=== PATIENT | male | born 1950 | race African-American/Black ===

== ENCOUNTER 2018-05-18 15:12 | Inpatient (IN) | payer MEDICARE, OTHER ==
[~2018-05-18] VITALS: Ht 175.3 cm; Wt 67.3 kg
[2018-05-18] MEDS ORDERED: DEXTROSE 50% 25 GM / 50ML DISP.SYRIN. IV ONE ×2 (15:20→15:30)
[2018-05-18] MEDS ORDERED: GLUCAGON,HUMAN RECOMBINANT 1 MG/ML VIAL. ONE (15:20)
[2018-05-18 15:29] LABS: BASE EXCESS ABG 3 mmol/L (-3-3); HCO3 ABG 29 mmol/L (21-28); PCO2 ABG 49 mmHg (35-46); PO2 ABG 373 mmHg (65-108); SAT O2 ABG 99 % (92-99)
[2018-05-18 15:30] LABS: FIO2 ABG 100
[2018-05-18 15:55] LABS: BILIRUBIN,URINE NEGATIVE (NEG); CLARITY,URINE CLEAR; COLOR,URINE YELLOW; NITRITE,URINE NEGATIVE (NEG); PROTEIN,URINE >=300 mg/dL (NEG-TRACE); UROBILINOGEN,URINE 0.2 mg/dL (0.2 mg/dL)
--- NOTE | 2018-05-18 16:05 | RAD ---
PORTABLE CHEST 1V Clinical indications: Shortness of breath, altered mental status. COMPARISON: June 14, 2004. Findings: No acute lung infiltrate or pleural effusion or pulmonary edema or lung mass or pneumothorax is seen. Old granulomatous disease is evident. The heart size, pulmonary vasculature, mediastinum and both mary jo are stable. Impression: No acute radiographic abnormality is seen. Electronically signed by: Ross Lester MD (05/18/2018 4:03 PM) [facility] [place]
[2018-05-18 16:07] LABS: PROTHROMBIN TIME PATIENT 12.2 SEC (11.7-14.0)
[2018-05-18 16:08] LABS: RBC,URINE RARE /HPF (0-2)
[2018-05-18 16:09] LABS: BACTERIA,URINE 0 /HPF (0-FEW); HYALINE CASTS, URINE MODERATE /HPF; SQUAMOUS EPITHELIAL CELL,UR FEW /LPF; WBC,URINE RARE /HPF (0-4)
[2018-05-18 16:12] LABS: ALBUMIN/GLOBULIN RATIO 0.3 (1.0-1.7); CALCIUM 8.2 mg/dL (8.5-10.1); CREATININE 1.1 mg/dL (0.7-1.3); GFR 81.3; POTASSIUM 4.6 mmol/L (3.5-5.1); TOTAL BILIRUBIN 0.1 mg/dL (0.2-1.0); TOTAL PROTEIN 4.6 g/dL (6.4-8.2)
--- NOTE | 2018-05-18 16:12 | PHYS DOC ---
Adult General Chief Complaint Chief Complaint: ALTERED MENTAL STATUS HPI HPI Patient is a 67 year old male brought in by ambulance with altered mental status apparently was last seen normal around 1:00 and 138 lunch at baseline he is aphasic but he does push himself around in a wheelchair, he does have a history of a prior stroke he is wheelchair bound The found him unresponsive in his bed at 1415, a was found to have a room air sats in the 70s blood sugar was 68. [facility] told medics that this is what happens this is how it looks when he is fluid overloaded in the past. History limited by the patient's mental status. Review of Systems Review of Systems Constitutional: Denies fever or chills [] Eyes: Denies change in visual acuity, redness, or eye pain [] HENT: Denies nasal congestion or sore throat [] Respiratory: Denies cough or shortness of breath [] Cardiovascular: No additional information not addressed in HPI [] GI: Denies abdominal pain, nausea, vomiting, bloody stools or diarrhea [] : Denies dysuria or hematuria [] Musculoskeletal: Denies back pain or joint pain [] Integument: Denies rash or skin lesions [] Neurologic: Denies headache, focal weakness or sensory changes [] Endocrine: Denies polyuria or polydipsia [] All other systems were reviewed and found to be within normal limits, except as documented in this note. Current Medications Current Medications Current Medications Medications (Trade) Dose Ordered Sig/Inocencia Start Time Stop Time Status Last Admin Dose Admin Dextrose (Dextrose 50%-Water Syringe) 25 gm 1X ONCE 05/18/18 15:30 05/18/18 15:31 DC 05/18/18 15:26 25 GM Dextrose/Sodium Chloride 1,000 ml @ 75 mls/hr 1X ONCE 05/18/18 16:30 05/19/18 05:49 05/18/18 16:16 75 MLS/HR Fosphenytoin Sodium (Cerebyx) 100 mg 1X ONCE 05/18/18 17:00 05/18/18 17:01 DC Fosphenytoin Sodium 100 mg/ Sodium Chloride 52 ml @ 208 mls/hr 1X ONCE 05/18/18 16:45 05/18/18 16:59 UNV Glucagon (Glucagen) 1 mg STK-MED ONCE 05/18/18 15:20 05/18/18 15:21 DC Allergies Allergies Allergies Coded Allergies Type Severity Reaction Last Updated Verified No Known Drug Allergies 05/18/18 No Physical Exam Physical Exam Constitutional: Well developed, chronically ill appearing HENT: Normocephalic, atraumatic, bilateral external ears normal, oropharynx moist, no oral exudates, nose normal. [] Eyes: PERRLA, EOMI, conjunctiva normal, no discharge. [] Neck: Normal range of motion, no tenderness, supple, no stridor. [] Cardiovascular:Heart rate regular rhythm,2/6 murmur [] Lungs & Thorax: coarse b/l breath sounds Abdomen: Bowel sounds normal, soft, no tenderness, no masses, no pulsatile masses. [] Skin: Warm, dry, no erythema, no rash. [] Back: No tenderness, no CVA tenderness. [] Extremities: No tenderness, no cyanosis, no clubbing, ROM intact,sig edema b/l Neurologic:eyes open to voice, moans in response to questions, can mumble name at times, perrl 3 mm b/l pt has contractures upper extremities but pulls with very equal strenght b/l when we try to resist him or manipulate his arms. Psychologic: moaningl. [] Current Patient Data Vital Signs Vital Signs Date Time Temp Pulse Resp B/P (MAP) Pulse Ox O2 Delivery O2 Flow Rate FiO2 05/18/18 15:12 99.5 72 20 155/62 (93) 99 NonRebreather Mask 15.0 99.5 Lab Values Laboratory Tests Test 05/18/18 15:24 05/18/18 15:25 05/18/18 15:45 05/18/18 15:48 O2 Saturation 99 % (92-99) Arterial Blood pH 7.39 (7.35-7.45) Arterial Blood pCO2 at Patient Temp 49 mmHg (35-46) H Arterial Blood pO2 at Patient Temp 373 mmHg (65-108) H Arterial Blood HCO3 29 mmol/L (21-28) H Arterial Blood Base Excess 3 mmol/L (-3-3) FiO2 100 Sodium Level 138 mmol/L (136-145) Potassium Level 4.6 mmol/L (3.5-5.1) Chloride Level 102 mmol/L (98-107) Carbon Dioxide Level 31 mmol/L (21-32) Anion Gap 5 (6-14) L Blood Urea Nitrogen 18 mg/dL (8-26) Creatinine 1.1 mg/dL (0.7-1.3) Estimated GFR (Cockcroft-Gault) 81.3 BUN/Creatinine Ratio 16 (6-20) Glucose Level 44 mg/dL (70-99) L Lactic Acid Level 1.7 mmol/L (0.4-2.0) Calcium Level 8.2 mg/dL (8.5-10.1) L Total Bilirubin 0.1 mg/dL (0.2-1.0) L Aspartate Amino Transferase (AST) 76 U/L (15-37) H Alanine Aminotransferase (ALT) 55 U/L (16-63) Alkaline Phosphatase 376 U/L (46-116) H Troponin I Quantitative < 0.017 ng/mL (0.000-0.055) HZ-Ayu-S-Type Natriuretic Peptide 372 pg/mL (0-124) H Total Protein 4.6 g/dL (6.4-8.2) L Albumin 1.0 g/dL (3.4-5.0) L Albumin/Globulin Ratio 0.3 (1.0-1.7) L Procalcitonin < 0.10 ng/mL (0.00-0.10) Phenytoin (Dilantin) Level 8.4 mcg/mL (10.0-20.0) L Phenytoin Last Dose Date Unk Phenytoin Last Dose Time Unk Urine Collection Type U cath Urine Color Yellow Urine Clarity Clear Urine pH 6.0 Urine Specific [place] 1.010 Urine Protein >=300 mg/dL (NEG-TRACE) Urine Glucose (UA) 100 mg/dL (NEG) Urine Ketones (Stick) Negative mg/dL (NEG) Urine Blood Negative (NEG) Urine Nitrite Negative (NEG) Urine Bilirubin Negative (NEG) Urine Urobilinogen Dipstick 0.2 mg/dL (0.2 mg/dL) Urine Leukocyte Esterase Negative (NEG) Urine RBC Rare /HPF (0-2) Urine WBC Rare /HPF (0-4) Urine Squamous Epithelial Cells Few /LPF Urine Transitional Epithelial Cells Occ /LPF Urine Bacteria 0 /HPF (0-FEW) Urine Hyaline Casts Moderate /HPF Urine Mucus Mod /LPF Glucose (Fingerstick) 156 mg/dL (70-99) H Test 05/18/18 15:50 05/18/18 16:13 Prothrombin Time 12.2 SEC (11.7-14.0) Prothrombin Time INR 0.9 (0.8-1.1) Glucose (Fingerstick) 87 mg/dL (70-99) Laboratory Tests 05/18/18 15:25 EKG EKG Sinus rhythm could be afIB BUT looks regular rate of 73 no acute ischemic changes noted interpreted by me time of encounter[] Radiology/Procedures Radiology/Procedures Findings: No acute lung infiltrate or pleural effusion or pulmonary edema or lung mass or pneumothorax is seen. Old granulomatous disease is evident. The heart size, pulmonary vasculature, mediastinum and both mary jo are stable. Impression: No acute radiographic abnormality is seen. Electronically signed by: Amandeep Lester MD (05/18/2018 4:03 PM) [facility] [place] DICTATED and SIGNED BY: AMANDEEP LESTER MD DATE: 05/18/18 1603 [] IMPRESSION: 1. Prominent appearing ventricles, correlate for normal pressure hydrocephalus. Otherwise, No acute intracranial findings. Electronically signed by: Vimal Leach MD (05/18/2018 4:49 PM) [facility] Course & Med Decision Making Course & Med Decision Making Critical care time was 35 minutes exclusive of procedures.Pertinent Labs and Imaging studies reviewed. (See chart for details) This is a 67-year-old male [facility] with altered mental status on arrival to the emergency room we did note that the blood sugar was 68 for the paramedics they did not have a line they did not give glucagon and so we checked the blood sugar again it was 40 we get a stat EJ , we gave an amp of D50 the patient became more alert he was still mildly altered but he was opening his eyes to voice he was resisting the changing that the nurses were doing with all 3 of his extremities he is status post amputation of the left lower extremity. At baseline his aphasia and he had the same here in the ER pupils were 3 mm and reactive bilaterally narcotics are not on his medication list Interpretation of blood gas showed adequate oxygenation on a facemask so we are moving her back down to a nasal cannula pH was 7.39 with a PCO2 of 48 and not suggestive of acidosis. Patient is also on Dilantin WILL GET DILANTIN LEVEL, post ictal is possibiilty as well. stroke seems less likely, difficult to say with cdrtainty but pt is resisting us in all four extremities has aphasia at baseline, given glucose 40 to cause global encephalopathy this seems much more likely. ON RE-EVAL 1640, PT AWAKE TO VOICE, SNORING BUT AROUSABLE DOES HAVE GOOD RESISTING STRENGTH IN ALL EXTREMITIES THAT ARE TESTABLE, MOVING RIGHT LEG SPONTANEOUSLY. NIHSS IS DIFFICULT DUE TO BASELINE DEFICITS BUT GIVEN HIS BASELINE DEFICIT AND GLOBAL ENCEPHALOPATHY FROM HYPOGLYCEMIA UNLIKELY NEW ACUTE PROCESS. D/W UZIEL WILL ADMIT TO [facility] FOR FRUTHER OBSERVATION AND TREATMENT. Dragon Disclaimer Dragon Disclaimer This electronic medical record was generated, in whole or in part, using a voice recognition dictation system. Departure Departure Impression: Primary Impression: Hypoglycemia Additional Impression: Altered mental status Disposition: ADMITTED INPATIENT Admitting Physician: Taylor Wilks Condition: STABLE Referrals: JARRETT SALGUERO MD (PCP) NIHSS Stroke Scale NIH Stroke Scale: NIH Stroke Scale Response (Comments) Value Level of Consciousness: 1 Not alert/arousable 1 LOC Questions: 2 Answers neither correct 2 LOC Commands: 2 Perform neither task 2 Best Gaze: 0 Normal 0 Visual: 0 No visual loss 0 Facial Palsy: 0 Normal, symmetrical 0 Motor - Left Arm 0 No drift 0 Motor - Right Arm 0 No drift 0 Motor - Left Leg 5 Amputation 0 Motor: Right Leg 0 No drift 0 Limb Ataxia: 0 Absent 0 Sensory: 0 No loss 0 Best Language: 2 Severe aphasia 2 Dysathria: 2 Severe 2 Extinction and Inattention: 0 Normal (most of the above findings appear to be his baserline. complicated by hypoglycemia and ams, but improved on re-eval.) 0 Total 9 Problem Qualifiers SILVIA SANCHEZ MD May 18, 2018 16:12
[2018-05-18 16:24] LABS: PHENY 8.4 mcg/mL (10.0-20.0)
[2018-05-18] MEDS ORDERED: IV DEXTROSE 5% - 0.9 % NACL 1,000 ML IV ONE (16:30)
[2018-05-18] MEDS ORDERED: FOSPHENYTOIN IV ONE (16:45)
[2018-05-18] MEDS ORDERED: NORMAL SALINE IV ONE (16:45)
--- NOTE | 2018-05-18 16:52 | RAD ---
CT HEAD INDICATION: altered mental status COMPARISON: None Available. Exposure: One or more of the following individualized dose reduction techniques were utilized for this examination: 1. Automated exposure control 2. Adjustment of the mA and/or kV according to patient size 3. Use of iterative reconstruction technique TECHNIQUE: 5 mm contiguous axial images were obtained from the skull base to the vertex in both bone and soft tissue algorithm. FINDINGS: Mild bilateral periventricular white matter hypodensities likely chronic small vessel ischemic disease. No evidence of acute intracranial hemorrhage. No extra-axial fluid collections. No mass effect or midline shift. Prominent appearing ventricles. Basal cisterns are patent. No fractures identified.Veliz-white differentiation is preserved.Globes and orbits are within normal limits. Paranasal sinuses and mastoid air cells are clear. IMPRESSION: 1. Prominent appearing ventricles, correlate for normal pressure hydrocephalus. Otherwise, No acute intracranial findings. Electronically signed by: Vimal Leach MD (05/18/2018 4:49 PM) [facility]
[2018-05-18] MEDS ORDERED: FOSPHENYTOIN 100 MG/2 ML VIAL. IV ONE (17:00)
[2018-05-18 17:46] LABS: BASO # 0.1 x10^3/uL (0.0-0.2); BASO % 1 % (0-3); EOS % 0 % (0-3); HEMATOCRIT 29.6 % (39.0-53.0); LYMPH # 1.6 x10^3/uL (1.0-4.8); LYMPH % 20 % (24-48); MEAN CORPUSCULAR HEMOGLOBIN 32 pg (25-35); MEAN CORPUSCULAR HGB CONC 34 g/dL (31-37); MEAN CORPUSCULAR VOLUME 95 fL (79-100); MONO # 0.7 x10^3/uL (0.0-1.1); MONO % 8 % (0-9); NEUT # 5.7 x10^3uL (1.8-7.7); NEUT % 71 % (31-73); PLATELET COUNT 223 x10^3/uL (140-400); RED BLOOD COUNT 3.12 x10^6/uL (4.30-5.70); RED CELL DISTRIBUTION WIDTH 14.6 % (11.5-14.5); WHITE BLOOD COUNT 8.1 x10^3/uL (4.0-11.0)
[2018-05-18 18:00] VITALS: BP 149/71
[2018-05-18] MEDS ORDERED: ACETAMINOPHEN 650 MG SUPP.RECT. PR PRN (18:30)
[2018-05-18] MEDS ORDERED: PIP/TAZO PER PHARMACY MC PRN (19:00)
--- NOTE | 2018-05-18 19:05 | NUR ---
PATIENT BROUGHT TO ROOM 205 PER JOSE ANGEL BY ER PERSONNEL. PATIENT UNRESPONSIVE TO COMMANDS. PATIENT GRIMACES TO STERNAL RUB. PATIENT ASSESSED AT THIS TIME AND VITALS ARE STABLE PATIENTS BLOOD GLUCOSE IS 91 AT THIS TIME. WILL CONTINUE TO MONITOR PATIENT.
[2018-05-18] MEDS: VANCOMYCIN PER PHARMACY MC PRN (19:17)
--- NOTE | 2018-05-18 19:18 | NUR ---
Pharmacy Vancomycin Dosing Note S:Consulted to monitor and dose vancomycin started 05/18/18. O:SONIA NIEVES is a 67 year old M with Empiric FEVER . Height: 5 feet, 9 inches Weight: 72.410143 kg [place] Body Weight: 70.70 Adjusted Body Weight: 71.22 Dosing Weight: Actual Other Antibiotics: ZOSYN LABS: Last BUN: 18 Last Creatinine: 1.1 Creatinine Clearance: 67 mL/min Last WBC: 8.1 Last Procalcitonin: <0.10 Tmax (past 24 hours): 101.1 Microbiology: I/O: Drug Levels: Last level: on at Last dose given 05/18/18 at 1913 Vancomycin Dosing: Loading Dose: 1750 mg x1 Dosing Weight: Actual Target Trough: 10-20 A: Based on: Body weight and renal function P: 1. After loading dose, start Vancomycin 1000 mg IV q12h 2. Follow up Trough level on 05/20/18 at 0630 3. Pharmacy will continue to monitor, follow and adjust therapy as needed. EDI CONTRERAS RPH, 05/18/18 [id number]
[2018-05-18] MEDS ORDERED: VANCOMYCIN 1.75 GM in IV NORMAL SALINE 500ML BAG 500 ML IV ONE (19:30)
[2018-05-18 19:41] VITALS: BP 152/64
[2018-05-18] MEDS: DEXTROSE 50% 25 GM / 50ML DISP.SYRIN. IV PRN (20:05)
[2018-05-18] MEDS: PIPERACILLIN/TAZOBACTAM 3.375 GM in IV NORMAL SALINE 50ML 50 ML IV SCH (21:23)
[2018-05-18 23:04] VITALS: BP 163/65
[2018-05-19] MEDS: PIPERACILLIN/TAZOBACTAM 3.375 GM in IV NORMAL SALINE 50ML 50 ML IV SCH ×4 (00:43→17:04)
[2018-05-19] MEDS: DEXTROSE 50% 25 GM / 50ML DISP.SYRIN. IV PRN (03:03)
[2018-05-19 03:25] VITALS: BP 163/77
[2018-05-19 04:06] LABS: ALBUMIN 0.8 g/dL (3.4-5.0); ALBUMIN/GLOBULIN RATIO 0.2 (1.0-1.7); CALCIUM 7.6 mg/dL (8.5-10.1); CREATININE 1.2 mg/dL (0.7-1.3); GFR 73.5; POTASSIUM 4.5 mmol/L (3.5-5.1); TOTAL BILIRUBIN 0.1 mg/dL (0.2-1.0); TOTAL PROTEIN 4.5 g/dL (6.4-8.2)
[2018-05-19] MEDS: VANCOMYCIN 1 GM in IV NORMAL SALINE 250ML 250 ML IV SCH ×2 (07:07→18:28)
[2018-05-19 07:27] VITALS: BP 146/66
--- NOTE | 2018-05-19 08:38 | EKG ---
[facility] [address] [place] [address] Test Date: 2018-05-18 Test Time: 15:30:26 Pat Name: SONIA NIEVES Department: Room: 205 1 Gender: Male [employer] Professional: : 1950 Requested By: SILVIA SANCHEZ Order Number: [id number] Reading MD: Michael Umana MD Measurements Intervals [place] Rate: 73 P: ND: QRS: 42 QRSD: 92 T: 47 QT: 358 QTc: 398 Interpretive Statements PROBABLE SR BASELINE ARTIFACT NON-SPECIFIC ST/T CHANGES Electronically Signed On 05-21-2018 15:16:18 CDT by Michael Umana MD
--- NOTE | 2018-05-19 09:30 | NUR ---
UNABLE TO REACH FAMILY FOR CONSENT FOR PICC LINE PLACEMENT. DEEMED MEDICALLY NECESSARY FOR PICC LINE BY DR TRIPLETT.
[2018-05-19] MEDS ORDERED: IV DEXTROSE 5% - 0.9 % NACL 1,000 ML IV SCH (10:00)
[2018-05-19] MEDS: FOSPHENYTOIN 100 MG/2 ML VIAL. IV SCH ×3 (10:04→20:39)
[2018-05-19 10:32] VITALS: BP 154/78
--- NOTE | 2018-05-19 11:02 | NUR ---
Bedside Swallow Evaluation completed. Please refer to full report for additional details. Impressions: Moderate oropharyngeal dysphagia w/ pt demonstrating s/s aspiration w/ own secretions as well as single ice chip trials which resulted in delayed swallow initiation, wet phonation and delayed cough. No safe PO consistency identified w/ pt at high risk of aspiration for all PO. Although pt alert at evaluation, altered mental status may be a contributing factor. Recommendations: NPO. Oral care. ST f/u to assess swallow safety and readiness to return to PO. D/w RN who called Dr. Wilks re: results and recommendations.
--- NOTE | 2018-05-19 11:32 | HP ---
ADMIT DATE: 05/18/2018 HISTORY OF PRESENT ILLNESS: The patient is a 67-year-old male patient, a resident at [place], who apparently was noted by the nursing staff there to be unresponsive. The patient had a prior stroke, and he is normally aphasic; however, he normally manages to wheel himself around his wheelchair and also feed himself. When they found him unresponsive in his bed, his oxygen saturation was only 70%, and his blood sugar was 68. The patient was brought to the Emergency Room for further evaluation and treatment where he was found to be indeed hypoglycemic with a blood sugar of only 77. Further investigation showed that the patient has fever up to 101.1. The patient was treated with IV dextrose. He was pancultured and was started on IV D5 at 75 mL per hour, together with IV vancomycin as well as Zosyn. PAST MEDICAL HISTORY: Significant for type 2 diabetes mellitus with multiple complications, hypertension, cerebral infarction with aphasia, peripheral vascular disease, epilepsy, marked muscle wasting and weakness. He is also known to have hyperlipidemia, expressive aphasia, reduced mobility, severe protein-calorie malnutrition. PAST SURGICAL HISTORY: Significant for left below knee amputation. ALLERGIES: He has no known drug allergies. MEDICATIONS: He is currently on following medications: He is on aspirin 81 mg once a day, atorvastatin calcium 20 mg once a day, furosemide 40 mg once a day, gabapentin 300 mg 3 times a day, ibuprofen 400 mg every 6 hours as needed, Januvia 100 mg once a day, losartan potassium 100 mg once a day, metformin 1000 mg twice a day, metoprolol tartrate 50 mg twice a day, Mucinex 600 mg twice a day. NovoLog insulin, he takes 2 units subcutaneously twice a day, NovoLog 2 units at bedtime. He is on omeprazole 40 mg once a day, phenytoin sodium 100 mg 3 times a day for seizures. FAMILY HISTORY: Unobtainable. SOCIAL HISTORY: He has been a resident at [facility] in [place]. He does not smoke, drink alcohol or use any recreational drugs. REVIEW OF SYSTEMS: Unobtainable. PHYSICAL EXAMINATION: GENERAL: On arrival to the Emergency Room, the patient was apparently unresponsive. He was pale, but not jaundiced or cyanosis. No jugular venous distention, with generalized anasarca. VITAL SIGNS: His heart rate was 72, blood pressure 155/62, temperature was 99.5, respiratory rate was 20 and oxygen saturation was 99% on 15 liters of oxygen by nonrebreather mask. HEAD, EYES, EARS, NOSE AND THROAT: Showed normocephalic, atraumatic. NECK: Supple. HEART: Showed normal first and second heart sounds. No gallop, rub or murmur. CHEST: Clear to auscultation. No crepitation or rhonchi. ABDOMEN: Distended, soft, nontender. No guarding or rigidity. No organomegaly. All hernial orifices intact. Bowel sounds normal. NEUROLOGIC: He does open his eyes and moans in response to questions. He has muscle wasting, contraction of both upper extremities. He has left below-knee amputation. LABORATORY DATA: On arrival to the Emergency Room showed that his white cell count was 8100, hemoglobin 10, hematocrit 30, MCV 95 and platelet count 223,000 with normal manual differential. His serum sodium was 138, potassium 4.6, chloride 102, bicarbonate 31, anion gap of 5, BUN 18, creatinine 1.1, estimated GFR was 81 mL per minute. His glucose was 44, calcium was 8.2. Total bilirubin, AST, ALT, alkaline phosphatase slightly elevated. His beta natriuretic peptide was 372. Troponin I was less than 0.017. His total protein was 4.6, albumin was 1. His prothrombin time was 12.2, INR of 0.9. His blood gases showed a pH of 7.39, pCO2 of 49, pO2 of 373 and bicarbonate was 29, oxygen saturation was 99% on FiO2 of 100%. His urinalysis showed the urine was yellow, clear with a pH of 6, specific gravity of 1.010. There was large amount of protein, large amount of glucose. The urine was negative for ketones, blood, nitrite, bilirubin and leukocyte esterase, rbc's, rare wbc's, and no bacteria. His toxic screen showed that his phenytoin is 8.4. He has had also a chest x-ray, which basically showed that no acute lung infiltrate or pleural effusion or pulmonary edema or lung mass or pneumothorax is seen. All granulomatous disease is evident. The heart size, pulmonary vasculature, mediastinum and both mary jo are stable, with the impression that the patient has no acute radiographic abnormalities seen. He did have a CT scan of the head, showed that there is mild bilateral periventricular white matter hypodensities, likely chronic small vessel ischemic disease, no evidence of acute intracranial hemorrhage, no extraaxial fluid collection, no mass effect or midline shift, prominent appearing ventricles, basal cisterns are patent. No fracture identified. Veliz-white differentiation is preserved. Globes and orbits are within normal limits. Paranasal sinuses and mastoid air cells are clear, and the impression is the patient has prominent appearing ventricles, correlate for normal pressure hydrocephalus. Otherwise, no acute intracranial finding. IMPRESSION: In summary, this is a 67-year-old male patient, a resident at [facility], was brought to the Emergency Room with altered mental status, hypoxia and was found to have also hypoglycemia. He is known to have also seizures. While at the Emergency Room, he was found to be febrile, and he was pancultured and was started on IV Zosyn and vancomycin. We will continue with D5W. I did order a PICC line or midline; however, the nursing staff were unable to contact his family members for consent for the placement of the PICC or midline. KASIE TRIPLETT MD DR: FERMÍN/marysol JOB#: [id number] / [id number]
--- NOTE | 2018-05-19 12:34 | PN ---
DATE: 05/19/2018 SUBJECTIVE: The patient is resting, slightly propped up in bed, no apparent distress. He is awake, alert, does respond by nodding his head, although he mumbles as he has expressive aphasia. PHYSICAL EXAMINATION: GENERAL: When I saw him this morning, he was pale, but not jaundiced or cyanosis. No jugular venous distention, but generalized anasarca. VITAL SIGNS: His heart rate was 84, blood pressure 146/66, temperature was 98.9, respiratory rate was 20 and oxygen saturation was 98% on 2 liters of oxygen. HEAD, EYES, EARS, NOSE AND THROAT: Showed normocephalic, atraumatic. NECK: Supple. HEART: Showed normal first and second heart sounds. No gallop, rub or murmur. CHEST: Clear to auscultation. No crepitation or rhonchi. ABDOMEN: Distended, soft, nontender. No guarding or rigidity. No organomegaly. All hernial orifice intact. Bowel sounds normal. NEUROLOGIC: He is awake, alert, has expressive aphasia; however, he nods his head. All his cranial nerves seem to be grossly intact. He has left below-knee amputation. He is able to move his upper extremities to much good extent than his lower extremities. He is mostly bed bound, wheelchair bound, although [facility]. His intake and output were incompletely recorded. LABORATORY DATA: As of this morning showed that his serum sodium was 137, potassium 4.5, chloride 103, bicarbonate 31, anion gap of 3, BUN of 14, creatinine 1.2, estimated GFR was 74 mL per minute. His glucose was 133, calcium was 7.6. Total bilirubin and ALT normal. AST and alkaline phosphatase were elevated. His total protein was 4.5, albumin was 0.8. The patient has had urine and blood culture done, the result of which is still pending. ASSESSMENT: 1. Altered mental status due to hypoglycemia as well as hypoxia. 2. Fever, though the chest x-ray was unremarkable with no acute radiographic abnormalities seen. His urinalysis showed the urine was yellow, clear with a pH of 6, specific gravity of 1.010. There was large amount of protein, large amount of glucose. There is almost no bacteria, no rbc's or wbc's in urine. The source of infection is not very clear. He has multiple other medical problems including: A. Hypertension. B. Type 2 diabetes mellitus. C. Hyperlipidemia. D. Left middle cerebral artery territory infarct with right-sided hemiplegia, aphasia. E. He has peripheral vascular disease, epilepsy, difficulty walking with marked muscle wasting and weakness, generalized anasarca due to severe hypoalbuminemia and third spacing. PLAN: My plan is to continue with D5W, do a bedside swallowing evaluation. I started him on IV phenytoin. Continue with IV Zosyn and vancomycin as per pharmacy recommendation.. Await the result of blood and urine culture. I started him on phenytoin 100 mg IV 3 times a day. Once he is seen by the speech therapist and will be safe to eat and drink, we can resume all his home medications. KASIE TRIPLETT MD DR: FERMÍN/marysol JOB#: [id number] / [id number]
[2018-05-19] MEDS ORDERED: PHEN100C PO (14:07)
[2018-05-19] MEDS ORDERED: METF10007 PO (14:07)
[2018-05-19] MEDS ORDERED: METO50TA6 PO (14:07)
[2018-05-19] MEDS ORDERED: INSU100I17 SQ ×2 (14:07)
[2018-05-19] MEDS ORDERED: LOSA100T14 PO (14:07)
[2018-05-19] MEDS ORDERED: ASPI-630 PO (14:07)
[2018-05-19] MEDS ORDERED: SENN-80 PO (14:07)
[2018-05-19] MEDS ORDERED: OMEP40CA5 PO (14:07)
[2018-05-19] MEDS ORDERED: IBUP100O25 PO (14:07)
[2018-05-19] MEDS ORDERED: SITA100T PO (14:07)
[2018-05-19] MEDS ORDERED: FURO40TA4 PO (14:07)
[2018-05-19] MEDS ORDERED: GUAI600T47 PO (14:07)
[2018-05-19] MEDS ORDERED: INSU100V37 SQ (14:07)
[2018-05-19] MEDS ORDERED: GABA300C18 PO (14:07)
[2018-05-19] MEDS ORDERED: ATOR20TA58 PO (14:07)
[2018-05-19 14:13] VITALS: BP 161/74
[2018-05-19] MEDS: AMINO AC 3%/ELECTROLYTE/GLYCER 1,000 ML IV SCH (14:58)
[2018-05-19] MEDS ORDERED: IOHEXOL 350 MG/ML 100 ML VIAL. IV ONE (15:15)
[2018-05-19] MEDS ORDERED: CONTRAST GIVEN. MC PRN (15:15)
[2018-05-19] MEDS ORDERED: ENOXAPARIN 40 MG/0.4 ML SYRINGE. SQ SCH (16:00)
--- NOTE | 2018-05-19 17:57 | RAD ---
Examination: CT ANGIOGRAPHY CHEST History: ELEVATED D-DIMER
IV OMNI 350 90 MLS Comparison/Correlation: None Findings: Axial images of chest were obtained following IV contrast report arteriography protocol. Exam is limited due to streak artifact related to large calcified bilateral hilar lymph nodes. There is a right lower lobe pulmonary artery branch best seen on coronal image 31 of series 5 which does not fully opacify with contrast. Additional branches of the right lower lobe also do not appear to fully opacify. Thromboembolic disease is of concern. Small to moderate-sized bilateral pleural effusions are present greater on the right. Numerous bilateral calcified hilar lymph nodes are present. Calcified paratracheal lymph nodes are present. Centrilobular emphysematous involvement along romero noted. Right middle lobe partial atelectasis is present. Thoracic aorta is unremarkable. Extensive pancreatic calcifications compatible with chronic pancreatitis noted. Pancreatic ductal dilatation is evident presumably related to prior episodes of pancreatitis. Calcific involvement within the pancreatic duct is suggested. Cholecystectomy noted. Duodenal diverticulum proximally is noted. Subtle nodular contour of the liver suggested. Cholecystectomy. 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 Evaluation is limited on this exam due to significant streak artifact related to numerous calcified bilateral hilar lymph nodes. On 05/19/2018 at 5:52 PM, results were discussed with the patient's nurse Lily. Bilateral pleural effusions are present with adjacent atelectasis. Partial right middle lobe atelectasis evident. Chronic pancreatitis. Duodenal diverticulum. PQRS Compliance Statement: One or more of the following individualized dose reduction techniques were utilized for this examination: 1. Automated exposure control 2. Adjustment of the mA and/or kV according to patient size 3. Use of iterative reconstruction technique Electronically signed by: Morris Romano MD (05/19/2018 5:54 PM) [facility]
[2018-05-19] MEDS ORDERED: ENOXAPARIN 30 MG/0.3 ML SYRINGE. SQ ONE (18:30)
[2018-05-19 19:50] VITALS: BP 146/64
[2018-05-19] MEDS: LACTOBACILLUS RHAMNOSUS GG 1 CAPSULE. PO SCH (20:41)
[2018-05-19 22:50] VITALS: BP 150/69
[2018-05-20] MEDS ORDERED: IPRATRPIUM/ALBUTEROL 0.5/2.5MG 3 ML NEBU. ONE (02:35)
[2018-05-20] MEDS ORDERED: ALBUTEROL SULFATE 2.5 MG/3 ML NEBU. NEB ONE (02:45)
[2018-05-20 02:59] LABS: BASE EXCESS ABG 2 mmol/L (-3-3); HCO3 ABG 27 mmol/L (21-28); PCO2 ABG 46 mmHg (35-46); PO2 ABG 51 mmHg (65-108); SAT O2 ABG 85 % (92-99)
[2018-05-20 03:10] VITALS: BP 136/65
[2018-05-20] MEDS ORDERED: FUROSEMIDE 40 MG/4 ML VIAL. IVP ONE ×2 (03:15→14:00)
[2018-05-20] MEDS: AMINO AC 3%/ELECTROLYTE/GLYCER 1,000 ML IV SCH ×2 (03:16→12:09)
[2018-05-20 03:32] LABS: FIO2 ABG 100
[2018-05-20] MEDS: PIPERACILLIN/TAZOBACTAM 3.375 GM in IV NORMAL SALINE 50ML 50 ML IV SCH ×6 (05:00→23:16)
[2018-05-20] MEDS: FOSPHENYTOIN 100 MG/2 ML VIAL. IV SCH ×3 (05:00→20:22)
[2018-05-20 07:07] VITALS: BP 162/76
[2018-05-20 08:39] LABS: HEMATOCRIT 27.5 % (39.0-53.0); HEMOGLOBIN 9.2 g/dL (13.0-17.5); RED BLOOD COUNT 2.91 x10^6/uL (4.30-5.70); WHITE BLOOD COUNT 6.9 x10^3/uL (4.0-11.0)
[2018-05-20 08:45] LABS: CALCIUM 8.2 mg/dL (8.5-10.1); CREATININE 1.3 mg/dL (0.7-1.3); POTASSIUM 4.5 mmol/L (3.5-5.1)
[2018-05-20 08:50] LABS: VANC TR 19.2 mcg/mL (10.0-20.0)
[2018-05-20] MEDS: LACTOBACILLUS RHAMNOSUS GG 1 CAPSULE. PO SCH ×2 (08:50→20:22)
[2018-05-20] MEDS: VANCOMYCIN PER PHARMACY MC PRN ×2 (09:27→09:30)
[2018-05-20] MEDS: VANCOMYCIN 1.25 GM in IV NORMAL SALINE 250ML 250 ML IV SCH (11:14)
[2018-05-20 11:39] VITALS: BP 135/74
--- NOTE | 2018-05-20 12:37 | NUR ---
SS following for discharge planning. SS received notification that pt was from [facility], ; fax [phone]. contacted [facility] to verify pt's previous placement. [facility] confirmed that pt was a skilled resident from there facility and was able to return when medically stable pending insurance authorization from [facility]. Pt's RN notified.
--- NOTE | 2018-05-20 14:26 | CONS ---
DATE OF CONSULTATION: ATTENDING PHYSICIAN: Dr. Wilks. REASON FOR CONSULTATION: Hypoxic respiratory failure. HISTORY OF PRESENT ILLNESS: The patient is a 67-year-old male who is a resident at [facility]. He has a history of prior stroke and is normally aphasic. He manages himself around in his wheelchair. He was found to be unresponsive in bed and his oxygen saturations were only 70%. His blood sugar was 68. He had a fever of 101. He was started on IV vancomycin and Zosyn. He was brought into the hospital. Upon evaluation, the patient underwent CT angiogram which was reviewed by me. The patient had no obvious central or segmental pulmonary emboli. Radiologist reported a questionable right lower lobe pulmonary artery thromboembolic disease; however, upon my evaluation, I was not convinced that there is any acute thrombus in that area. The patient has bilateral pleural effusions with associated atelectasis and also right middle lobe atelectasis. He is currently on BiPAP at 60% FiO2. His ABG initially showed a pH of 7.39, pCO2 of 49, pO2 of 373 on 100% FiO2 and then follow up ABG showed a pH of 7.39, pCO2 of 46 and a pO2 of 51. The patient was also started on vancomycin and Zosyn. I have been asked to see him for further evaluation. PAST MEDICAL HISTORY: Significant for history of diabetes, history of multiple complications of diabetes, history of hypertension, CVA, history of AFib, history of peripheral vascular disease, epilepsy, muscle wasting, hyperlipidemia, expressive aphasia, and protein-calorie malnutrition. PAST SURGICAL HISTORY: Left below knee amputation. ALLERGIES: None. MEDICATIONS: All reviewed as listed in the MRAD. FAMILY HISTORY: Unobtainable. SOCIAL HISTORY: Lives at the [facility] in [place]. REVIEW OF SYSTEMS: Unable to obtain from the patient. PHYSICAL EXAMINATION: GENERAL: He is currently on BiPAP. VITAL SIGNS: Blood pressure is stable. His T-max is 100.6. Pulse ox is 94% on 60% BiPAP. HEENT: Sclerae nonicteric. NECK: Supple. LUNGS: Diminished breath sounds at the bases. CARDIOVASCULAR: Regular rate. ABDOMEN: Soft, obese. EXTREMITIES: Left BKA and right venous stasis and edema. LABORATORY DATA: Reviewed. White cell count is 6.9, hemoglobin 9.2 and platelets are 182. BUN and creatinine 18 and 1.3. Albumin is only 0.8. IMPRESSION: 1. Acute on chronic hypoxic respiratory failure secondary to multifactorial etiologies and includes combination of suspected sepsis, bilateral pleural effusion, which is likely transudative from a low oncotic pressure. Clinically, less likely thromboembolic disease. I am not convinced that there is any significant pulmonary embolism in the right lower lobe as reported. ( d/w another radiologist) 2. The patient with prior stroke and expressive aphasia and limited mobility. 3. Abnormal CT chest with bilateral pleural effusion and right middle lobe atelectasis. Radiographically, I am not convinced that he has any significant thrombus in the right lower lobe. We will obtain Doppler of the right lower extremity and if it is negative, then discontinue full dose Lovenox. 4. Suspected sepsis with fever of 100.6, on broad-spectrum antibiotic. Follow ID recommendations. RECOMMENDATIONS: 1. Continue with present BiPAP and follow ABGs. 2. IV diuresis. 3. Obtain echocardiogram to assess for any LV dysfunction. 4. Improve nutritional status. 5. Follow all cultures. 6. ID recommendation. 7. Obtain venous Doppler of the right lower extremity and if it is negative Lovenox dose can be changed to DVT prophylaxis dose. As discussed above, I am not convinced that he has any PE in the right lower lobe. 8. Discussed with RN and RT. We will follow along with you. Critical care time 35 minutes. TESFAYE DÍAZ MD DR: GABRIELLE/marysol JOB#: [id number] / [id number] DAVIS
[2018-05-20 15:20] VITALS: BP 155/92
--- NOTE | 2018-05-20 16:11 | RAD ---
Bilateral lower extremity venous duplex study 05/20/2018 2:31 PM Clinical History: b bilateral lower extremity edema Comparison: None Technique: Using a combination of real time ultrasound imaging and color-flow and pulse Doppler imaging techniques along with graded compression and augmentation, duplex evaluation of the deep venous system of the both lower extremities was performed. Multiple images were obtained. Findings: Left [id number]-ycqy amputation noted. There is no sonographic evidence of deep venous thrombosis involving the visualized deep venous structures of either lower extremity. Impression: No evidence of deep venous thrombosis involving either lower extremity. Electronically signed by: Chet Livingston MD (05/20/2018 4:08 PM) [id number]
--- NOTE | 2018-05-20 16:26 | NUR ---
Pharmacy Vancomycin Dosing Note S:Consulted to monitor and dose vancomycin started 05/18/18. O:SONIA NIEVES is a 67 year old M with Empiric FEVER . Height: 5 feet, 9 inches Weight: 72.107381 kg [place] Body Weight: 70.70 Adjusted Body Weight: 71.22 Dosing Weight: Actual Other Antibiotics: ZOSYN LABS: Last BUN: 18 Last Creatinine: 1.3 Creatinine Clearance: 67 mL/min Last WBC: 6 Last Procalcitonin: <0.10 Tmax (past 24 hours): 101.1 Microbiology: I/O: Drug Levels:19.2 (2 HRS LATE) Last level: on 05/21 at 0800 Last dose given 05/21/18 at 2300 Vancomycin Dosing: Loading Dose: 1750 mg x1 Dosing Weight: Actual Target Trough: 10-20 A: Based on: LEVEL P: 1. Change Vancomycin 1250 mg IV q18h 2. Follow up Trough level on 05/22/18 at 1630 3. Pharmacy will continue to monitor, follow and adjust therapy as needed. KELI SIMMONS Kay, 05/20/18 [id number]
[2018-05-20 19:40] VITALS: BP 154/73
[2018-05-20 21:12] LABS: TOTAL SERUM CREATININE 1.09 mg/dL (0.76-1.27); TOTAL URINE CREATININE 42.7 mg/dL (Not Estab.)
[2018-05-20 22:08] LABS: UR PROTEIN 208.2 mg/dL (Not Estab.)
--- NOTE | 2018-05-20 22:39 | PN ---
DATE: 05/20/2018 SUBJECTIVE: The patient is resting, slightly propped up on BiPAP machine, maintaining his oxygen saturation at 98% on FiO2 of 60%. He apparently was extremely hypoxic this morning. His blood gases showed a pH of 7.37, pCO2 of 46, pO2 of 51 and oxygen saturation was 85% on 100% nonrebreather mask and therefore he was put on BiPAP machine. He was also given 40 mg of Lasix. He continues to be afebrile with temperature of 100.6 this morning. His D-dimer was high yesterday at 2.[address] angio of the chest, which showed that the patient has right lower lobe branch pulmonary arterial thromboembolic disease suspected but this may be chronic. Evaluation is limited on this exam due to significant streak artifact related to numerous calcified bilateral hilar lymph nodes. He has also bilateral pleural effusion with adjacent atelectasis, partial right middle lobe atelectasis evident. He has chronic pancreatitis, duodenal diverticulum. PHYSICAL EXAMINATION: GENERAL: When I examined him this morning, he looked well and was clearly in no apparent respiratory distress. He was pale, but no jaundice or cyanosis. No lymphadenopathy, no thyromegaly. No jugular venous distention, but generalized anasarca. VITAL SIGNS: His heart rate was 88, blood pressure 162/76, temperature was 99.3, respiratory rate 24 and oxygen saturation was 98% on FiO2 of 60%. HEAD, EYES, EARS, NOSE AND THROAT: Normocephalic, atraumatic. NECK: Supple. HEART: Showed normal first and second sounds. No gallop, rub or murmur. CHEST: Clear to auscultation. No crepitation or rhonchi. ABDOMEN: Distended, soft, nontender. No guarding or rigidity. No organomegaly. All hernial orifices intact. Bowel sounds normal. NEUROLOGIC: He does open his eyes, tracks, but he has aphasia. He moves his upper extremities to much greater extent than lower extremities. He has left below knee amputation. His intake over the last 24 hours was incompletely recorded. LABORATORY DATA: His chemistry as of yesterday showed a serum sodium 137, potassium 4.5, chloride 103, bicarbonate 31, anion gap of 3, BUN 14, creatinine 1.2, estimated GFR was 73 mL per minute, glucose 133, calcium was 7.6. Total bilirubin, AST and ALT are normal. AST and alkaline phosphatase slightly elevated. His total protein was 4.5, albumin was 0.8. His prothrombin time was 12.2, INR of 0.9. D-dimer was 2.57. Urinalysis showed the urine was yellow, clear with a pH of 6, specific gravity of 1.010. There was large amount of protein, small amount of glucose. However, the urine was negative for ketones, blood, nitrite and leukocyte esterase. His toxic screen showed his phenytoin was 8.4 mcg/mL. ASSESSMENT: In summary, this is a 67-year-old male patient who was admitted with: 1. Altered mental status, felt to be due to hypoglycemia as well as hypoxia. Now he developed fever without any obvious source of infection. 2. The patient has generalized anasarca with severe hypoalbuminemia, for which we did a 24-hour urine collection as he probably has nephrotic syndrome. 3. Hypertension. 4. Type 2 diabetes mellitus. 5. Hyperlipidemia. 6. Left middle cerebral artery territory infarct with right-sided hemiplegia. 7. The patient has peripheral vascular disease, status post left below-knee amputation. 8. Epilepsy for which he is on phenytoin. 9. Difficulty walking with marked muscle wasting and weakness for which he is normally bedbound, wheelchair bound. 10. He has also possible acute or chronic pulmonary embolism for which I started him on Lovenox. He was pancultured and he is now on IV antibiotic in the form of Zosyn and vancomycin as per pharmacy recommendation. 11. The patient failed his swallowing evaluation and we have consulted Speech Therapy. He is now on procalamine. PLAN: To continue with BiPAP machine. Continue with the procalamine for nutritional support. Continue with Lovenox for treatment of his pulmonary embolism. Continue with IV Zosyn and vancomycin and await the result of the culture and sensitivity. So far, his blood cultures are all negative. KASIE TRIPLETT MD DR: FERMÍN/marysol JOB#: [id number] / [id number]
[2018-05-20 23:00] VITALS: BP 194/89
[2018-05-21] MEDS: AMINO AC 3%/ELECTROLYTE/GLYCER 1,000 ML IV SCH ×3 (00:05→23:41)
[2018-05-21 03:25] VITALS: BP 194/83
[2018-05-21] MEDS: FOSPHENYTOIN 100 MG/2 ML VIAL. IV SCH ×3 (05:15→20:16)
[2018-05-21] MEDS: VANCOMYCIN 1.25 GM in IV NORMAL SALINE 250ML 250 ML IV SCH (05:16)
[2018-05-21] MEDS: PIPERACILLIN/TAZOBACTAM 3.375 GM in IV NORMAL SALINE 50ML 50 ML IV SCH ×4 (05:16→23:40)
[2018-05-21 05:24] LABS: HEMATOCRIT 23.7 % (39.0-53.0); HEMOGLOBIN 8.1 g/dL (13.0-17.5); RED BLOOD COUNT 2.53 x10^6/uL (4.30-5.70); RED CELL DISTRIBUTION WIDTH 13.9 % (11.5-14.5); WHITE BLOOD COUNT 6.8 x10^3/uL (4.0-11.0)
[2018-05-21 06:10] LABS: ALBUMIN 0.6 g/dL (3.4-5.0); ALBUMIN/GLOBULIN RATIO 0.2 (1.0-1.7); CALCIUM 8.1 mg/dL (8.5-10.1); GFR 90.7; POTASSIUM 4.3 mmol/L (3.5-5.1); TOTAL BILIRUBIN 0.1 mg/dL (0.2-1.0); TOTAL PROTEIN 4.5 g/dL (6.4-8.2)
[2018-05-21 07:00] VITALS: BP 163/62
--- NOTE | 2018-05-21 08:31 | PDOC ---
PULMONARY PROGRESS NOTES Vitals Vital Signs Date Time Temp Pulse Resp B/P (MAP) Pulse Ox O2 Delivery O2 Flow Rate FiO2 05/21/18 07:00 98.6 78 23 163/62 (95) 87 Venturi Mask 98.6 05/21/18 01:15 15.0 Labs Laboratory Tests Test 05/19/18 10:05 05/19/18 10:30 05/19/18 11:22 05/19/18 14:28 Glucose (Fingerstick) 103 mg/dL (70-99) 113 mg/dL (70-99) 130 mg/dL (70-99) D-Dimer (Suha) 2.57 ug/mlFEU (0.00-0.50) Test 05/19/18 16:21 05/19/18 19:07 05/19/18 20:43 05/19/18 22:50 Glucose (Fingerstick) 137 mg/dL (70-99) 149 mg/dL (70-99) 139 mg/dL (70-99) 145 mg/dL (70-99) Test 05/20/18 02:57 05/20/18 03:12 05/20/18 07:14 05/20/18 08:22 O2 Saturation 85 % (92-99) Arterial Blood pH 7.39 (7.35-7.45) Arterial Blood pCO2 at Patient Temp 46 mmHg (35-46) Arterial Blood pO2 at Patient Temp 51 mmHg (65-108) Arterial Blood HCO3 27 mmol/L (21-28) Arterial Blood Base Excess 2 mmol/L (-3-3) FiO2 100 Glucose (Fingerstick) 170 mg/dL (70-99) 196 mg/dL (70-99) White Blood Count 6.9 x10^3/uL (4.0-11.0) Red Blood Count 2.91 x10^6/uL (4.30-5.70) Hemoglobin 9.2 g/dL (13.0-17.5) Hematocrit 27.5 % (39.0-53.0) Mean Corpuscular Volume 95 fL (79-100) Mean Corpuscular Hemoglobin 32 pg (25-35) Mean Corpuscular Hemoglobin Concent 34 g/dL (31-37) Red Cell Distribution Width 14.0 % (11.5-14.5) Platelet Count 182 x10^3/uL (140-400) Sodium Level 136 mmol/L (136-145) Potassium Level 4.5 mmol/L (3.5-5.1) Chloride Level 102 mmol/L (98-107) Carbon Dioxide Level 31 mmol/L (21-32) Anion Gap 3 (6-14) Blood Urea Nitrogen 18 mg/dL (8-26) Creatinine 1.3 mg/dL (0.7-1.3) Estimated GFR (Cockcroft-Gault) 67.0 Glucose Level 215 mg/dL (70-99) Calcium Level 8.2 mg/dL (8.5-10.1) Vancomycin Level Trough 19.2 mcg/mL (10.0-20.0) Vancomycin Last Dose Date 05/19/18 Vancomycin Last Dose Time 1900 Test 05/20/18 11:41 05/20/18 12:00 05/20/18 17:07 05/20/18 20:52 Glucose (Fingerstick) 195 mg/dL (70-99) 206 mg/dL (70-99) 204 mg/dL (70-99) Urine Protein 208.2 mg/dL (Not Estab.) Urine Creatinine 24 Hour 726 mg/24 hr (7046-7625) Creatinine Clearance 24 Hour 46 mL/min (97-137) Urine Protein 24 Hr Calculated 3539 mg/24 hr (30-150) Creatinine 1.09 mg/dL (0.76-1.27) Estimated GFR (Non- 71 (>59) EGFR 82 (>59) Test 05/21/18 03:55 05/21/18 07:29 White Blood Count 6.8 x10^3/uL (4.0-11.0) Red Blood Count 2.53 x10^6/uL (4.30-5.70) Hemoglobin 8.1 g/dL (13.0-17.5) Hematocrit 23.7 % (39.0-53.0) Mean Corpuscular Volume 94 fL (79-100) Mean Corpuscular Hemoglobin 32 pg (25-35) Mean Corpuscular Hemoglobin Concent 34 g/dL (31-37) Red Cell Distribution Width 13.9 % (11.5-14.5) Platelet Count 164 x10^3/uL (140-400) Sodium Level 138 mmol/L (136-145) Potassium Level 4.3 mmol/L (3.5-5.1) Chloride Level 102 mmol/L (98-107) Carbon Dioxide Level 29 mmol/L (21-32) Anion Gap 7 (6-14) Blood Urea Nitrogen 19 mg/dL (8-26) Creatinine 1.0 mg/dL (0.7-1.3) Estimated GFR (Cockcroft-Gault) 90.7 BUN/Creatinine Ratio 19 (6-20) Glucose Level 191 mg/dL (70-99) Calcium Level 8.1 mg/dL (8.5-10.1) Total Bilirubin 0.1 mg/dL (0.2-1.0) Aspartate Amino Transf (AST/SGOT) 36 U/L (15-37) Alanine Aminotransferase (ALT/SGPT) 25 U/L (16-63) Alkaline Phosphatase 189 U/L (46-116) Total Protein 4.5 g/dL (6.4-8.2) Albumin 0.6 g/dL (3.4-5.0) Albumin/Globulin Ratio 0.2 (1.0-1.7) Glucose (Fingerstick) 166 mg/dL (70-99) Laboratory Tests Test 05/20/18 11:41 05/20/18 12:00 05/20/18 17:07 05/20/18 20:52 Glucose (Fingerstick) 195 mg/dL (70-99) 206 mg/dL (70-99) 204 mg/dL (70-99) Urine Protein 208.2 mg/dL (Not Estab.) Urine Creatinine 24 Hour 726 mg/24 hr (1210-0867) Creatinine Clearance 24 Hour 46 mL/min (97-137) Urine Protein 24 Hr Calculated 3539 mg/24 hr (30-150) Creatinine 1.09 mg/dL (0.76-1.27) Estimated GFR (Non- 71 (>59) EGFR 82 (>59) Test 05/21/18 03:55 05/21/18 07:29 White Blood Count 6.8 x10^3/uL (4.0-11.0) Red Blood Count 2.53 x10^6/uL (4.30-5.70) Hemoglobin 8.1 g/dL (13.0-17.5) Hematocrit 23.7 % (39.0-53.0) Mean Corpuscular Volume 94 fL (79-100) Mean Corpuscular Hemoglobin 32 pg (25-35) Mean Corpuscular Hemoglobin Concent 34 g/dL (31-37) Red Cell Distribution Width 13.9 % (11.5-14.5) Platelet Count 164 x10^3/uL (140-400) Sodium Level 138 mmol/L (136-145) Potassium Level 4.3 mmol/L (3.5-5.1) Chloride Level 102 mmol/L (98-107) Carbon Dioxide Level 29 mmol/L (21-32) Anion Gap 7 (6-14) Blood Urea Nitrogen 19 mg/dL (8-26) Creatinine 1.0 mg/dL (0.7-1.3) Estimated GFR (Cockcroft-Gault) 90.7 BUN/Creatinine Ratio 19 (6-20) Glucose Level 191 mg/dL (70-99) Calcium Level 8.1 mg/dL (8.5-10.1) Total Bilirubin 0.1 mg/dL (0.2-1.0) Aspartate Amino Transf (AST/SGOT) 36 U/L (15-37) Alanine Aminotransferase (ALT/SGPT) 25 U/L (16-63) Alkaline Phosphatase 189 U/L (46-116) Total Protein 4.5 g/dL (6.4-8.2) Albumin 0.6 g/dL (3.4-5.0) Albumin/Globulin Ratio 0.2 (1.0-1.7) Glucose (Fingerstick) 166 mg/dL (70-99) Medications Active Scripts Medications Dose Route/Sig Max Daily Dose Days Date Category Tresiba (Insulin Degludec) 100 Unit/1 Ml Vial 5 Unit SQ DAILY08 05/19/18 Reported Senna (Sennosides) 8.6 Mg Tablet 8.6 Mg PO BID 05/19/18 Reported Dilantin (Phenytoin Sodium Extended) 100 Mg Capsule 1 Cap PO TID 05/19/18 Reported Omeprazole 40 Mg Capsule.dr 1 Cap PO BID 05/19/18 Reported Novolog Flexpen (Insulin Aspart) 100 Unit/1 Ml Insuln.pen 3 Unit SQ HS 05/19/18 Reported Novolog Flexpen (Insulin Aspart) 100 Unit/1 Ml Insuln.pen 2 Unit SQ BID 05/19/18 Reported Mucinex (Guaifenesin) 600 Mg Tablet.er 1 Tab PO BID PRN 05/19/18 Reported Metoprolol Tartrate 50 Mg Tablet 1 Tab PO BID 05/19/18 Reported Metformin Hcl 1,000 Mg Tablet 1,000 Mg PO BIDWMEALS 05/19/18 Reported Losartan Potassium 100 Mg Tablet 100 Mg PO DAILY 05/19/18 Reported Januvia (Sitagliptin Phosphate) 100 Mg Tablet 1 Tab PO DAILY 05/19/18 Reported Ibuprofen 100 Mg/5 Ml Oral.susp 200 Mg PO PRN Q6HRS PRN 05/19/18 Reported Gabapentin (Gabapentin) 300 Mg Capsule 300 Mg PO TID 05/19/18 Reported Furosemide 40 Mg Tablet 1 Tab PO DAILY 05/19/18 Reported Atorvastatin Calcium 20 Mg Tablet 1 Tab PO DAILY 05/19/18 Reported Aspirin 81 Mg Tab.chew 1 Tab PO DAILY 05/19/18 Reported PHUONG MCCARTY MD May 21, 2018 08:31
[2018-05-21] MEDS: LACTOBACILLUS RHAMNOSUS GG 1 CAPSULE. PO SCH ×2 (08:57→19:19)
[2018-05-21] MEDS ORDERED: DEXTROSE 50% 25 GM / 50ML DISP.SYRIN. IV PRN (09:00)
[2018-05-21] MEDS: ENOXAPARIN 40 MG/0.4 ML SYRINGE. SQ SCH (09:54)
[2018-05-21] MEDS: hydrALAZINE 20 MG/ML VIAL. IVP PRN ×2 (09:59→20:12)
--- NOTE | 2018-05-21 10:40 | PDOC ---
Infectious Disease Note Vital Sign Vital Signs Vital Signs Date Time Temp Pulse Resp B/P (MAP) Pulse Ox O2 Delivery O2 Flow Rate FiO2 05/21/18 09:59 78 163/62 05/21/18 07:00 98.6 23 87 Venturi Mask 98.6 05/21/18 01:15 15.0 Labs Lab Laboratory Tests Test 05/20/18 11:41 05/20/18 12:00 05/20/18 17:07 05/20/18 20:52 Glucose (Fingerstick) 195 mg/dL (70-99) 206 mg/dL (70-99) 204 mg/dL (70-99) Urine Protein 208.2 mg/dL (Not Estab.) Urine Creatinine 24 Hour 726 mg/24 hr (0522-7171) Creatinine Clearance 24 Hour 46 mL/min (97-137) Urine Protein 24 Hr Calculated 3539 mg/24 hr (30-150) Creatinine 1.09 mg/dL (0.76-1.27) Estimated GFR (Non- 71 (>59) EGFR 82 (>59) Test 05/21/18 03:55 05/21/18 07:29 White Blood Count 6.8 x10^3/uL (4.0-11.0) Red Blood Count 2.53 x10^6/uL (4.30-5.70) Hemoglobin 8.1 g/dL (13.0-17.5) Hematocrit 23.7 % (39.0-53.0) Mean Corpuscular Volume 94 fL (79-100) Mean Corpuscular Hemoglobin 32 pg (25-35) Mean Corpuscular Hemoglobin Concent 34 g/dL (31-37) Red Cell Distribution Width 13.9 % (11.5-14.5) Platelet Count 164 x10^3/uL (140-400) Sodium Level 138 mmol/L (136-145) Potassium Level 4.3 mmol/L (3.5-5.1) Chloride Level 102 mmol/L (98-107) Carbon Dioxide Level 29 mmol/L (21-32) Anion Gap 7 (6-14) Blood Urea Nitrogen 19 mg/dL (8-26) Creatinine 1.0 mg/dL (0.7-1.3) Estimated GFR (Cockcroft-Gault) 90.7 BUN/Creatinine Ratio 19 (6-20) Glucose Level 191 mg/dL (70-99) Calcium Level 8.1 mg/dL (8.5-10.1) Total Bilirubin 0.1 mg/dL (0.2-1.0) Aspartate Amino Transf (AST/SGOT) 36 U/L (15-37) Alanine Aminotransferase (ALT/SGPT) 25 U/L (16-63) Alkaline Phosphatase 189 U/L (46-116) Total Protein 4.5 g/dL (6.4-8.2) Albumin 0.6 g/dL (3.4-5.0) Albumin/Globulin Ratio 0.2 (1.0-1.7) Glucose (Fingerstick) 166 mg/dL (70-99) Micro Microbiology 05/19/18 Blood Culture - Preliminary, Resulted NO GROWTH AFTER 2 DAYS 05/18/18 Urine Culture - Final, Complete 05/18/18 Urine Culture Result 1 (RANDY) - Final, Complete Objective Assessment Encephlopathy Fever Aspiration, suspected DM HTN Malnutrition Respiratory failure Plan Plan of Care d/c vanc cont zosyn, til po , then augmentin supportive care palliative care consult for DNR/DNI LYLY CHERRY MD May 21, 2018 10:40
[2018-05-21 10:47] VITALS: BP 154/60
--- NOTE | 2018-05-21 11:37 | PDOC2 ---
PALLIATIVE CARE Palliative Care Note Palliative Care Consult requested by Dr. Cloud to address code status Medical Assessment per medical record; Encephlopathy Fever Aspiration, suspected DM HTN Malnutrition Respiratory failure Patient sitting up in chair. Unable to understand any of his attempts at verbalization. Attempted to reach Rogelio Lozano. nephew. wrong number listed. Will arrange meeting with family as soon as available. CATHY SINGH May 21, 2018 11:37
[2018-05-21] MEDS: INSULIN LISPRO 300 UNITS/3 ML INSULN.PEN. SQ SCH ×2 (12:00→17:29)
--- NOTE | 2018-05-21 13:43 | PDOC2 ---
CONSULT Date of Consult Date of Consult DATE: 05/21/18 TIME: 13:22 Reason for Consult Reason for Consult: Nephrotic range Proteinuria Source Source: Chart review History of Present Illness Reason for Visit: The patient is a 67-year-old male with Hx of DM ,multiple complications of diabetes, htn, CVA, history of AFib, who is a resident at [facility]. He has a history of prior stroke and is aphasic. He manages himself around in his wheelchair. He was found to be unresponsive in bed and his oxygen saturations were only 70%. His blood sugar was 68. He had a fever of 101. He was started on IV vancomycin and Zosyn. He was brought into the hospital. Upon evaluation, the patient underwent CT angiogram He has bilateral pleural effusions Current Problem List Problem List Problems Medical Problems: (1) Altered mental status Status: Acute (2) Hypoglycemia Status: Acute Current Medications Current Medications Current Medications Glucagon (Glucagen) 1 mg STK-MED ONCE .ROUTE ; Start 05/18/18 at 15:20; Stop 05/18 at 15:21; Status DC Dextrose (Dextrose 50%-Water Syringe) 25 gm STK-MED ONCE IV ; Start 05/18/18 at 15:20; Stop 05/18/18 at 15:21; Status DC Dextrose (Dextrose 50%-Water Syringe) 25 gm 1X ONCE IV Last administered on 05/18/18at 15:26; Start 05/18/18 at 15:30; Stop 05/18/18 at 15:31; Status DC Dextrose/Sodium Chloride 1,000 ml @ 75 mls/hr 1X ONCE IV Last administered on 05/18/18at 16:16; Start 05/18/18 at 16:30; Stop 05/19/18 at 05:49; Status DC Fosphenytoin Sodium 100 mg/ Sodium Chloride 52 ml @ 208 mls/hr 1X ONCE IV ; Start 05/18/18 at 16:45; Stop 05/18/18 at 16:59; Status UNV Fosphenytoin Sodium (Cerebyx) 100 mg 1X ONCE IV Last administered on 05/18/18at 17:50; Start 05/18/18 at 17:00; Stop 05/18/18 at 17:01; Status DC Acetaminophen (Tylenol Supp) 650 mg PRN Q6HRS PRN IA MILD PAIN / TEMP; Start at 18:30 Piperacillin Sod/ Tazobactam Sod (Zosyn Per Pharmacy) 1 each PRN DAILY PRN MC SEE COMMENTS; Start 05/18/18 at 19:00 Vancomycin HCl (Vanco Per Pharmacy) 1 each PRN DAILY PRN MC SEE COMMENTS Last administered on 05/20/18at 09:30; Start 05/18/18 at 19:00; Stop 05/21/18 at 10:33; Status DC Piperacillin Sod/ Tazobactam Sod 3.375 gm/Sodium Chloride 50 ml @ 100 mls/hr Q6HRS IV Last administered on 05/21/18at 12:50; Start 05/18/18 at 19:30 Vancomycin HCl 1.75 gm/Sodium Chloride 500 ml @ 250 mls/hr 1X ONCE IV Last administered on 05/18/18at 19:13; Start 05/18/18 at 19:30; Stop 05/18/18 at 21:29; Status DC Vancomycin HCl 1 gm/Sodium Chloride 250 ml @ 250 mls/hr Q12H IV Last administered on 05/19/18at 18:28; Start 05/19/18 at 07:00; Stop 05/20/18 at 09:21; Status DC Vancomycin HCl (Vancomycin Trough Level) 1 each 1X ONCE MC Last administered on 05/20/18at 06:30; Start 05/20/18 at 06:30; Stop 05/20/18 at 06:31; Status DC Dextrose (Dextrose 50%-Water Syringe) 25 gm PRN Q2HRS PRN IV LOW BLOOD SUGAR Last administered on 05/19/18at 03:03; Start 05/18/18 at 20:00 Fosphenytoin Sodium (Cerebyx) 100 mg Q8HRS IV Last administered on 05/21/18at 05: 15; Start 05/19/18 at 09:30 Dextrose/Sodium Chloride 1,000 ml @ 75 mls/hr [id number] IV ; Start 05/19/18 at 10: 00; Stop 05/19/18 at 14:56; Status DC Enoxaparin Sodium (Lovenox 40mg Syringe) 40 mg Q24H SQ Last administered on 05/19at 17:04; Start 05/19/18 at 16:00; Stop 05/19/18 at 18:02; Status DC Amino Acids/ Glycerin/ Electrolytes 1,000 ml @ 80 mls/hr [id number] IV Last administered on 05/21/18at 00:05; Start 05/19/18 at 15:00 Iohexol (Omnipaque 350 Mg/ml) 90 ml 1X ONCE IV Last administered on 05/19/18at 15:15; Start 05/19/18 at 15:15; Stop 05/19/18 at 15:16; Status DC Info (CONTRAST GIVEN -- Rx MONITORING) 1 each PRN DAILY PRN MC SEE COMMENTS; Start 05/19/18 at 15:15; Stop 05/21/18 at 15:14 Lactobacillus Rhamnosus (Culturelle) 1 cap BID PO ; Start 05/19/18 at 21:00 Enoxaparin Sodium (Lovenox 80mg Syringe) 70 mg Q12HR SQ Last administered on 05/20/18at 09:10; Start 05/20/18 at 09:00; Stop 05/20/18 at 16:19; Status DC Enoxaparin Sodium (Lovenox 30mg Syringe) 30 mg 1X ONCE SQ Last administered on 05/19/18at 18:25; Start 05/19/18 at 18:30; Stop 05/19/18 at 18:31; Status DC Albuterol/ Ipratropium (Duoneb) 3 ml STK-MED ONCE .ROUTE ; Start 05/20/18 at 02: 35; Stop 05/20/18 at 02:36; Status DC Albuterol Sulfate (Ventolin Neb Soln) 2.5 mg 1X ONCE NEB Last administered on 05/20/18at 02:50; Start 05/20/18 at 02:45; Stop 05/20/18 at 02:46; Status DC Furosemide (Lasix) 40 mg 1X ONCE IVP Last administered on 05/20/18at 03:16; Start 05/20/18 at 03:15; Stop 05/20/18 at 03:16; Status DC Vancomycin HCl 1.25 gm/Sodium Chloride 250 ml @ 250 mls/hr Q18H IV Last administered on 05/21/18at 05:16; Start 05/20/18 at 11:00; Stop 05/21/18 at 10:32; Status DC Vancomycin HCl (Vancomycin Trough Level) 1 each 1X ONCE MC ; Start 05/22/18 at 16:30; Stop 05/22/18 at 16:30; Status DC Furosemide (Lasix) 40 mg 1X ONCE IVP Last administered on 05/20/18at 15:00; Start 05/20/18 at 14:00; Stop 05/20/18 at 14:01; Status DC Enoxaparin Sodium (Lovenox 40mg Syringe) 40 mg DAILY08 SQ Last administered on 05/21/18at 09:54; Start 05/21/18 at 08:00 Insulin Human Lispro (HumaLOG) 0-7 UNITS TIDWMEALS SQ ; Start 05/21/18 at 12:00 Dextrose (Dextrose 50%-Water Syringe) 12.5 gm PRN Q15MIN PRN IV SEE COMMENTS; Start 05/21/18 at 09:00 Hydralazine HCl (Apresoline Inj) 10 mg PRN Q4HRS PRN IVP ELEVATED BP, SEE COMMENTS Last administered on 05/21/18at 09:59; Start 05/21/18 at 09:00 Active Scripts Active Reported Tresiba (Insulin Degludec) 100 Unit/1 Ml Vial 5 Unit SQ DAILY08 Senna (Sennosides) 8.6 Mg Tablet 8.6 Mg PO BID Dilantin (Phenytoin Sodium Extended) 100 Mg Capsule 1 Cap PO TID Omeprazole 40 Mg Capsule.dr 1 Cap PO BID Novolog Flexpen (Insulin Aspart) 100 Unit/1 Ml Insuln.pen 3 Unit SQ HS Novolog Flexpen (Insulin Aspart) 100 Unit/1 Ml Insuln.pen 2 Unit SQ BID Mucinex (Guaifenesin) 600 Mg Tablet.er 1 Tab PO BID PRN Metoprolol Tartrate 50 Mg Tablet 1 Tab PO BID Metformin Hcl 1,000 Mg Tablet 1,000 Mg PO BIDWMEALS Losartan Potassium 100 Mg Tablet 100 Mg PO DAILY Januvia (Sitagliptin Phosphate) 100 Mg Tablet 1 Tab PO DAILY Ibuprofen 100 Mg/5 Ml Oral.susp 200 Mg PO PRN Q6HRS PRN Gabapentin (Gabapentin) 300 Mg Capsule 300 Mg PO TID Furosemide 40 Mg Tablet 1 Tab PO DAILY Atorvastatin Calcium 20 Mg Tablet 1 Tab PO DAILY Aspirin 81 Mg Tab.chew 1 Tab PO DAILY Allergies Allergies: Coded Allergies: No Known Drug Allergies (Unverified , 05/18/18) ROS Review of System pet HPI Physical Exam Physical Exam GENERAL: NAD , sitting up in chair, aphasic HEENT-OM Moist, face mask NECK: Supple. HEART: RRR LUNGS: Clear to auscultation. Non labored ABDOMEN: Distended, soft, nontender. NEUROLOGIC: aphasia. EXT Lt BKA, No edema, muscle wasting Upper ext- Edema+ SKIN: No Rash NO Garrett, No CVA or SP tenderness Vital Signs Vital Signs Date Time Temp Pulse Resp B/P (MAP) Pulse Ox O2 Delivery O2 Flow Rate FiO2 05/21/18 10:47 97.6 91 22 154/60 (91) 97 Venturi Mask 15.0 97.6 Assessment & Plan Proteinuria-borderline Nephrotic , Severe Hypoalbuminemia No significant Microscopic hematuria Suspect due to DM with multiple Diabetic Complications On ARB at home Hypoalbuminemia- severe-? malnourished, ? Liver Proteinuria does not correlate with severity of low albumin STAN- Improved , Cr back to baseline of 1.0 Fever- ID following , On Abx Altered mental status- suspect due to hypoglycemia as well as hypoxia. Hypertension On BB, Losartan and Lasix at Home Type 2 diabetes mellitus. Left middle cerebral artery territory infarct with right-sided hemiplegia. Peripheral vascular disease, status post left below-knee amputation. Epilepsy for which he is on phenytoin. Labs Labs Laboratory Tests Test 05/19/18 14:28 05/19/18 16:21 05/19/18 19:07 05/19/18 20:43 Glucose (Fingerstick) 130 mg/dL (70-99) 137 mg/dL (70-99) 149 mg/dL (70-99) 139 mg/dL (70-99) Test 05/19/18 22:50 05/20/18 02:57 05/20/18 03:12 05/20/18 07:14 Glucose (Fingerstick) 145 mg/dL (70-99) 170 mg/dL (70-99) 196 mg/dL (70-99) O2 Saturation 85 % (92-99) Arterial Blood pH 7.39 (7.35-7.45) Arterial Blood pCO2 at Patient Temp 46 mmHg (35-46) Arterial Blood pO2 at Patient Temp 51 mmHg (65-108) Arterial Blood HCO3 27 mmol/L (21-28) Arterial Blood Base Excess 2 mmol/L (-3-3) FiO2 100 Test 05/20/18 08:22 05/20/18 11:41 05/20/18 12:00 05/20/18 17:07 White Blood Count 6.9 x10^3/uL (4.0-11.0) Red Blood Count 2.91 x10^6/uL (4.30-5.70) Hemoglobin 9.2 g/dL (13.0-17.5) Hematocrit 27.5 % (39.0-53.0) Mean Corpuscular Volume 95 fL (79-100) Mean Corpuscular Hemoglobin 32 pg (25-35) Mean Corpuscular Hemoglobin Concent 34 g/dL (31-37) Red Cell Distribution Width 14.0 % (11.5-14.5) Platelet Count 182 x10^3/uL (140-400) Sodium Level 136 mmol/L (136-145) Potassium Level 4.5 mmol/L (3.5-5.1) Chloride Level 102 mmol/L (98-107) Carbon Dioxide Level 31 mmol/L (21-32) Anion Gap 3 (6-14) Blood Urea Nitrogen 18 mg/dL (8-26) Creatinine 1.3 mg/dL (0.7-1.3) 1.09 mg/dL (0.76-1.27) Estimated GFR (Cockcroft-Gault) 67.0 Glucose Level 215 mg/dL (70-99) Calcium Level 8.2 mg/dL (8.5-10.1) Vancomycin Level Trough 19.2 mcg/mL (10.0-20.0) Vancomycin Last Dose Date 05/19/18 Vancomycin Last Dose Time 1900 Glucose (Fingerstick) 195 mg/dL (70-99) 206 mg/dL (70-99) Urine Protein 208.2 mg/dL (Not Estab.) Urine Creatinine 24 Hour 726 mg/24 hr (5489-2678) Creatinine Clearance 24 Hour 46 mL/min (97-137) Urine Protein 24 Hr Calculated 3539 mg/24 hr (30-150) Estimated GFR (Non- 71 (>59) EGFR 82 (>59) Test 05/20/18 20:52 05/21/18 03:55 05/21/18 07:29 05/21/18 11:26 Glucose (Fingerstick) 204 mg/dL (70-99) 166 mg/dL (70-99) 177 mg/dL (70-99) White Blood Count 6.8 x10^3/uL (4.0-11.0) Red Blood Count 2.53 x10^6/uL (4.30-5.70) Hemoglobin 8.1 g/dL (13.0-17.5) Hematocrit 23.7 % (39.0-53.0) Mean Corpuscular Volume 94 fL (79-100) Mean Corpuscular Hemoglobin 32 pg (25-35) Mean Corpuscular Hemoglobin Concent 34 g/dL (31-37) Red Cell Distribution Width 13.9 % (11.5-14.5) Platelet Count 164 x10^3/uL (140-400) Sodium Level 138 mmol/L (136-145) Potassium Level 4.3 mmol/L (3.5-5.1) Chloride Level 102 mmol/L (98-107) Carbon Dioxide Level 29 mmol/L (21-32) Anion Gap 7 (6-14) Blood Urea Nitrogen 19 mg/dL (8-26) Creatinine 1.0 mg/dL (0.7-1.3) Estimated GFR (Cockcroft-Gault) 90.7 BUN/Creatinine Ratio 19 (6-20) Glucose Level 191 mg/dL (70-99) Calcium Level 8.1 mg/dL (8.5-10.1) Total Bilirubin 0.1 mg/dL (0.2-1.0) Aspartate Amino Transf (AST/SGOT) 36 U/L (15-37) Alanine Aminotransferase (ALT/SGPT) 25 U/L (16-63) Alkaline Phosphatase 189 U/L (46-116) Total Protein 4.5 g/dL (6.4-8.2) Albumin 0.6 g/dL (3.4-5.0) Albumin/Globulin Ratio 0.2 (1.0-1.7) Laboratory Tests Test 05/20/18 17:07 05/20/18 20:52 05/21/18 03:55 05/21/18 07:29 Glucose (Fingerstick) 206 mg/dL (70-99) 204 mg/dL (70-99) 166 mg/dL (70-99) White Blood Count 6.8 x10^3/uL (4.0-11.0) Red Blood Count 2.53 x10^6/uL (4.30-5.70) Hemoglobin 8.1 g/dL (13.0-17.5) Hematocrit 23.7 % (39.0-53.0) Mean Corpuscular Volume 94 fL (79-100) Mean Corpuscular Hemoglobin 32 pg (25-35) Mean Corpuscular Hemoglobin Concent 34 g/dL (31-37) Red Cell Distribution Width 13.9 % (11.5-14.5) Platelet Count 164 x10^3/uL (140-400) Sodium Level 138 mmol/L (136-145) Potassium Level 4.3 mmol/L (3.5-5.1) Chloride Level 102 mmol/L (98-107) Carbon Dioxide Level 29 mmol/L (21-32) Anion Gap 7 (6-14) Blood Urea Nitrogen 19 mg/dL (8-26) Creatinine 1.0 mg/dL (0.7-1.3) Estimated GFR (Cockcroft-Gault) 90.7 BUN/Creatinine Ratio 19 (6-20) Glucose Level 191 mg/dL (70-99) Calcium Level 8.1 mg/dL (8.5-10.1) Total Bilirubin 0.1 mg/dL (0.2-1.0) Aspartate Amino Transf (AST/SGOT) 36 U/L (15-37) Alanine Aminotransferase (ALT/SGPT) 25 U/L (16-63) Alkaline Phosphatase 189 U/L (46-116) Total Protein 4.5 g/dL (6.4-8.2) Albumin 0.6 g/dL (3.4-5.0) Albumin/Globulin Ratio 0.2 (1.0-1.7) Test 05/21/18 11:26 Glucose (Fingerstick) 177 mg/dL (70-99) Review All relevant outside records, renal labs, imaging studies, telemetry/EKG's were reviewed. Images Images CTA -- There is a right lower lobe pulmonary artery branch best seen on coronal image 31 of series 5 which does not fully opacify with contrast. Additional branches of the right lower lobe also do not appear to fully opacify. Thromboembolic disease is of concern. Small to moderate-sized bilateral pleural effusions are present greater on the right. Numerous bilateral calcified hilar lymph nodes are present. Calcified paratracheal lymph nodes are present. Centrilobular emphysematous involvement along romero noted. Right middle lobe partial atelectasis is present. Thoracic aorta is unremarkable. Extensive pancreatic calcifications compatible with chronic pancreatitis noted. Pancreatic ductal dilatation is evident presumably related to prior episodes of pancreatitis. Calcific involvement within the pancreatic duct is suggested. Cholecystectomy noted. Duodenal diverticulum proximally is noted. Subtle nodular contour of the liver suggested. Cholecystectomy. 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 Evaluation is limited on this exam due to significant streak artifact related to numerous calcified bilateral hilar lymph nodes. On 05/19/2018 at 5:52 PM, results were discussed with the patient's nurse Lily. Bilateral pleural effusions are present with adjacent atelectasis. Partial right middle lobe atelectasis evident. Chronic pancreatitis. Duodenal diverticulum. WIL GUAJARDO MD May 21, 2018 13:43
[2018-05-21 14:51] VITALS: BP 155/63
--- NOTE | 2018-05-21 17:53 | PDOC ---
PULMONARY PROGRESS NOTES Subjective LESS SOA OFF BIPAP Vitals Vital Signs Date Time Temp Pulse Resp B/P (MAP) Pulse Ox O2 Delivery O2 Flow Rate FiO2 05/21/18 14:51 97.0 81 21 155/63 (93) 100 Venturi Mask 13.0 97.0 General: Alert, No acute distress Lungs: Other (few rhonchi) Cardiovascular: S1 Abdomen: Soft Neuro Exam: Alert Extremities: Other (left BKA) Labs Laboratory Tests Test 05/19/18 19:07 05/19/18 20:43 05/19/18 22:50 05/20/18 02:57 Glucose (Fingerstick) 149 mg/dL (70-99) 139 mg/dL (70-99) 145 mg/dL (70-99) O2 Saturation 85 % (92-99) Arterial Blood pH 7.39 (7.35-7.45) Arterial Blood pCO2 at Patient Temp 46 mmHg (35-46) Arterial Blood pO2 at Patient Temp 51 mmHg (65-108) Arterial Blood HCO3 27 mmol/L (21-28) Arterial Blood Base Excess 2 mmol/L (-3-3) FiO2 100 Test 05/20/18 03:12 05/20/18 07:14 05/20/18 08:22 05/20/18 11:41 Glucose (Fingerstick) 170 mg/dL (70-99) 196 mg/dL (70-99) 195 mg/dL (70-99) White Blood Count 6.9 x10^3/uL (4.0-11.0) Red Blood Count 2.91 x10^6/uL (4.30-5.70) Hemoglobin 9.2 g/dL (13.0-17.5) Hematocrit 27.5 % (39.0-53.0) Mean Corpuscular Volume 95 fL (79-100) Mean Corpuscular Hemoglobin 32 pg (25-35) Mean Corpuscular Hemoglobin Concent 34 g/dL (31-37) Red Cell Distribution Width 14.0 % (11.5-14.5) Platelet Count 182 x10^3/uL (140-400) Sodium Level 136 mmol/L (136-145) Potassium Level 4.5 mmol/L (3.5-5.1) Chloride Level 102 mmol/L (98-107) Carbon Dioxide Level 31 mmol/L (21-32) Anion Gap 3 (6-14) Blood Urea Nitrogen 18 mg/dL (8-26) Creatinine 1.3 mg/dL (0.7-1.3) Estimated GFR (Cockcroft-Gault) 67.0 Glucose Level 215 mg/dL (70-99) Calcium Level 8.2 mg/dL (8.5-10.1) Vancomycin Level Trough 19.2 mcg/mL (10.0-20.0) Vancomycin Last Dose Date 05/19/18 Vancomycin Last Dose Time 1900 Test 05/20/18 12:00 05/20/18 17:07 05/20/18 20:52 05/21/18 03:55 Urine Protein 208.2 mg/dL (Not Estab.) Urine Creatinine 24 Hour 726 mg/24 hr (0447-7192) Creatinine Clearance 24 Hour 46 mL/min (97-137) Urine Protein 24 Hr Calculated 3539 mg/24 hr (30-150) Creatinine 1.09 mg/dL (0.76-1.27) 1.0 mg/dL (0.7-1.3) Estimated GFR (Non- 71 (>59) EGFR 82 (>59) Glucose (Fingerstick) 206 mg/dL (70-99) 204 mg/dL (70-99) White Blood Count 6.8 x10^3/uL (4.0-11.0) Red Blood Count 2.53 x10^6/uL (4.30-5.70) Hemoglobin 8.1 g/dL (13.0-17.5) Hematocrit 23.7 % (39.0-53.0) Mean Corpuscular Volume 94 fL (79-100) Mean Corpuscular Hemoglobin 32 pg (25-35) Mean Corpuscular Hemoglobin Concent 34 g/dL (31-37) Red Cell Distribution Width 13.9 % (11.5-14.5) Platelet Count 164 x10^3/uL (140-400) Sodium Level 138 mmol/L (136-145) Potassium Level 4.3 mmol/L (3.5-5.1) Chloride Level 102 mmol/L (98-107) Carbon Dioxide Level 29 mmol/L (21-32) Anion Gap 7 (6-14) Blood Urea Nitrogen 19 mg/dL (8-26) Estimated GFR (Cockcroft-Gault) 90.7 BUN/Creatinine Ratio 19 (6-20) Glucose Level 191 mg/dL (70-99) Calcium Level 8.1 mg/dL (8.5-10.1) Total Bilirubin 0.1 mg/dL (0.2-1.0) Aspartate Amino Transf (AST/SGOT) 36 U/L (15-37) Alanine Aminotransferase (ALT/SGPT) 25 U/L (16-63) Alkaline Phosphatase 189 U/L (46-116) Total Protein 4.5 g/dL (6.4-8.2) Albumin 0.6 g/dL (3.4-5.0) Albumin/Globulin Ratio 0.2 (1.0-1.7) Test 05/21/18 07:29 05/21/18 11:26 05/21/18 16:47 Glucose (Fingerstick) 166 mg/dL (70-99) 177 mg/dL (70-99) 204 mg/dL (70-99) Laboratory Tests Test 05/20/18 20:52 05/21/18 03:55 05/21/18 07:29 05/21/18 11:26 Glucose (Fingerstick) 204 mg/dL (70-99) 166 mg/dL (70-99) 177 mg/dL (70-99) White Blood Count 6.8 x10^3/uL (4.0-11.0) Red Blood Count 2.53 x10^6/uL (4.30-5.70) Hemoglobin 8.1 g/dL (13.0-17.5) Hematocrit 23.7 % (39.0-53.0) Mean Corpuscular Volume 94 fL (79-100) Mean Corpuscular Hemoglobin 32 pg (25-35) Mean Corpuscular Hemoglobin Concent 34 g/dL (31-37) Red Cell Distribution Width 13.9 % (11.5-14.5) Platelet Count 164 x10^3/uL (140-400) Sodium Level 138 mmol/L (136-145) Potassium Level 4.3 mmol/L (3.5-5.1) Chloride Level 102 mmol/L (98-107) Carbon Dioxide Level 29 mmol/L (21-32) Anion Gap 7 (6-14) Blood Urea Nitrogen 19 mg/dL (8-26) Creatinine 1.0 mg/dL (0.7-1.3) Estimated GFR (Cockcroft-Gault) 90.7 BUN/Creatinine Ratio 19 (6-20) Glucose Level 191 mg/dL (70-99) Calcium Level 8.1 mg/dL (8.5-10.1) Total Bilirubin 0.1 mg/dL (0.2-1.0) Aspartate Amino Transf (AST/SGOT) 36 U/L (15-37) Alanine Aminotransferase (ALT/SGPT) 25 U/L (16-63) Alkaline Phosphatase 189 U/L (46-116) Total Protein 4.5 g/dL (6.4-8.2) Albumin 0.6 g/dL (3.4-5.0) Albumin/Globulin Ratio 0.2 (1.0-1.7) Test 05/21/18 16:47 Glucose (Fingerstick) 204 mg/dL (70-99) Medications Active Scripts Medications Dose Route/Sig Max Daily Dose Days Date Category Tresiba (Insulin Degludec) 100 Unit/1 Ml Vial 5 Unit SQ DAILY08 05/19/18 Reported Senna (Sennosides) 8.6 Mg Tablet 8.6 Mg PO BID 05/19/18 Reported Dilantin (Phenytoin Sodium Extended) 100 Mg Capsule 1 Cap PO TID 05/19/18 Reported Omeprazole 40 Mg Capsule.dr 1 Cap PO BID 05/19/18 Reported Novolog Flexpen (Insulin Aspart) 100 Unit/1 Ml Insuln.pen 3 Unit SQ HS 05/19/18 Reported Novolog Flexpen (Insulin Aspart) 100 Unit/1 Ml Insuln.pen 2 Unit SQ BID 05/19/18 Reported Mucinex (Guaifenesin) 600 Mg Tablet.er 1 Tab PO BID PRN 05/19/18 Reported Metoprolol Tartrate 50 Mg Tablet 1 Tab PO BID 05/19/18 Reported Metformin Hcl 1,000 Mg Tablet 1,000 Mg PO BIDWMEALS 05/19/18 Reported Losartan Potassium 100 Mg Tablet 100 Mg PO DAILY 05/19/18 Reported Januvia (Sitagliptin Phosphate) 100 Mg Tablet 1 Tab PO DAILY 05/19/18 Reported Ibuprofen 100 Mg/5 Ml Oral.susp 200 Mg PO PRN Q6HRS PRN 05/19/18 Reported Gabapentin (Gabapentin) 300 Mg Capsule 300 Mg PO TID 05/19/18 Reported Furosemide 40 Mg Tablet 1 Tab PO DAILY 05/19/18 Reported Atorvastatin Calcium 20 Mg Tablet 1 Tab PO DAILY 05/19/18 Reported Aspirin 81 Mg Tab.chew 1 Tab PO DAILY 05/19/18 Reported Impression . 1. Acute on chronic hypoxic respiratory failure secondary to multifactorial etiologies and includes combination of suspected sepsis, bilateral pleural effusion, which is likely transudative from a low oncotic pressure. Clinically, less likely thromboembolic disease. I am not convinced that there is any significant pulmonary embolism in the right lower lobe as reported. ( d/w another radiologist) 2. The patient with prior stroke and expressive aphasia and limited mobility. 3. Abnormal CT chest with bilateral pleural effusion and right middle lobe atelectasis. Radiographically, I am not convinced that he has any significant thrombus in the right lower lobe. We will obtain Doppler of the right lower extremity and if it is negative, then discontinue full dose Lovenox. 4. Suspected sepsis with fever of 100.6, on broad-spectrum antibiotic. Follow ID recommendations. Plan . 1. Continue with prn BiPAP 2. IV diuresis. 3. echocardiogram to assess for any LV dysfunction. 4. Improve nutritional status. 5. Follow all cultures. 6. ID recommendation. 7. venous Doppler negative /Lovenox dose changed to DVT prophylaxis dose. As discussed above, I am not convinced that he has any PE in the right lower lobe. 8. Discussed with RN We will follow along with you. TESFAYE DÍAZ MD May 21, 2018 17:53
[2018-05-21] MEDS ORDERED: FUROSEMIDE 40 MG/4 ML VIAL. IVP ONE (18:00)
[2018-05-21 19:25] VITALS: BP 188/85
[2018-05-21 23:00] VITALS: BP 182/76
--- NOTE | 2018-05-21 23:28 | PN ---
DATE: 05/21/2018 SUBJECTIVE: The patient is resting, slightly propped up in bed, awake, alert, attempts to mouth some words. He continued to be on a Ventimask maintaining his oxygen saturation at 94%. PHYSICAL EXAMINATION: GENERAL: When I examined him, he looked pale, but no jaundice, cyanosis, or thyromegaly. No jugular venous distention, but generalized anasarca. VITAL SIGNS: His heart rate was 78, blood pressure was 163/62, temperature was 98.6, respiratory rate was 23, and oxygen saturation was 94%. HEAD, EYES, EARS, NOSE AND THROAT: Showed normocephalic, atraumatic. NECK: Supple. HEART: Showed normal first and second sounds. No gallop, rub or murmur. CHEST: Clear to auscultation. No crepitation or rhonchi. ABDOMEN: Distended, soft, nontender. No guarding or rigidity. No organomegaly. All hernial orifices intact. Bowel sounds normal. NEUROLOGIC: He was definitely more awake, alert, opens eyes and attempts to mouth some words. All his cranial nerves are intact. He has right-sided hemiplegia, aphasia. He has an indwelling Garrett catheter. His intake was incompletely recorded, output was 1750. LABORATORY DATA: His lab work this morning showed a white cell count of 6800, hemoglobin 8.1, hematocrit 23.7, MCV 94 and platelet count of 164,000. His blood gases showed a pH of 7.39, pCO2 of 46, pO2 51, bicarbonate 27, and oxygen saturation was 85%. His chemistry showed a serum sodium 138, potassium 4.3, chloride 102, bicarbonate 29, anion gap of 7, BUN 19, creatinine 1, estimated GFR was 90 mL per minute, his glucose was 191, calcium was 8.1. Total bilirubin, AST, ALT were normal. Alkaline phosphatase slightly elevated. Total protein was 4.5, albumin was 0.6 g/dL. His prothrombin time and INR are normal. D-dimer is elevated. 24-hour urine collection showed that his 24-hour proteinuria was 3539, putting it in the nephrotic range proteinuria. ASSESSMENT: 1. Altered mental status, felt to be due to hypoglycemia as well as hypoxia, resolving. The patient is more awake, alert, opens eyes and attempts to mouth some words, although he continued to be hypoxic. He also developed fever for which we pancultured him and he was empirically on vancomycin and Zosyn, although so far, all his blood and urine cultures are negative. 2. The patient has generalized anasarca with severe hypoalbuminemia. We did a 24-hour urine collection that was consistent with nephrotic range proteinuria. He has 24-hour urine proteinuria is 3539. 3. Hypertension, suboptimally controlled. 4. Type 2 diabetes mellitus. 5. Hyperlipidemia. 6. Left middle cerebral artery territory infarct with right-sided hemiplegia. 7. Peripheral vascular disease, status post left below-knee amputation. 8. Epilepsy, for which he is on phenytoin. 9. Difficulty walking with marked muscle wasting and weakness for which he is normally bedbound, wheelchair bound. Apparently, the CT angio of the chest was reviewed by Dr. Schneider, who is not convinced that he has pulmonary embolus and he has no clots in his right leg, so his Lovenox is now cut down to prophylactic dose. The patient has failed his swallowing evaluation and we did consult the speech therapist. He is now on procalamine. PLAN: To continue with the current plan of management. I have consulted Dr. Cloud, the [facility] specialist as well as Dr. Weinstein, general office associate to assist with his management. Meanwhile, we will start him on IV hydralazine to control his blood pressure and start him on insulin sliding scale to control his blood sugar. KASIE TRIPLETT MD DR: FERMÍN/marysol JOB#: [id number] / [id number]
[2018-05-21] MEDS ORDERED: cloNIDine TTS-3 1 PATCH PATCH.TDWK TD ONE (23:30)
[2018-05-22 03:25] VITALS: BP 156/74
[2018-05-22 04:16] LABS: HEMATOCRIT 27.3 % (39.0-53.0); HEMOGLOBIN 9.2 g/dL (13.0-17.5)
[2018-05-22 04:35] LABS: CALCIUM 8.3 mg/dL (8.5-10.1); CREATININE 1.1 mg/dL (0.7-1.3); GFR 81.3
[2018-05-22] MEDS: PIPERACILLIN/TAZOBACTAM 3.375 GM in IV NORMAL SALINE 50ML 50 ML IV SCH ×3 (05:24→17:59)
[2018-05-22] MEDS: FOSPHENYTOIN 100 MG/2 ML VIAL. IV SCH (05:24)
[2018-05-22 07:00] VITALS: BP 160/64
[2018-05-22] MEDS: ENOXAPARIN 40 MG/0.4 ML SYRINGE. SQ SCH (08:35)
--- NOTE | 2018-05-22 08:40 | CONS ---
DATE OF CONSULTATION: 05/21/2018 REQUESTING PHYSICIAN: Taylor Wilks M.D. REASON FOR CONSULTATION: Fever. HISTORY OF PRESENT ILLNESS: This is a 67-year-old gentleman who is from a sn[facility], who was found unresponsive by the staff. The patient is aphasic, mumbles few words normally. The patient was found to have a low oxygen saturation, low blood sugar and was transferred. The patient did have fever here. The patient has chronic changes or yitaq-bj-zjardlf changes on the lungs and the patient was put on vancomycin and Zosyn. The patient's fevers have improved. The patient is back to his baseline, awake, mumbles few words, unable to understand. There is no nausea, vomiting, diarrhea, chest pain, shortness of breath or abdominal pain noted by nursing. PAST MEDICAL HISTORY: Positive for stroke in the past, diabetes mellitus and hypertension, aphasia, peripheral vascular disease, epilepsy, left BKA, hyperlipidemia and malnutrition. SOCIAL HISTORY: The patient is a snf resident. No smoking or alcohol use. The patient is at almost total care. ALLERGIES: No known drug allergies. CURRENT MEDICATIONS: Reviewed. The patient is on vancomycin and Zosyn. REVIEW OF SYSTEMS: As per HPI, all other systems reviewed and are negative, mainly through the nursing. PHYSICAL EXAMINATION: GENERAL: Awake gentleman who nods and mumbles few words, but unable to understand, not in distress. VITAL SIGNS: Stable and afebrile. The patient did have a T-max of 100.6. HEENT: NAD. NECK: Supple. No JVP and no lymphadenopathy. LUNGS: Decreased breath sounds. HEART: S1 and S2 regular. No gallop or murmur. ABDOMEN: Soft and nontender. No organomegaly. EXTREMITIES: No edema or cyanosis. Minor skin breakdown with scabbing present. Left lower extremity has BKA. NEUROLOGICAL: The patient is awake, mumbles few words, unable to understand and it is not clear whether he truly follows command or not. Does move all the extremities in a very limited fashion. LABORATORY DATA: White count is normal. BUN and creatinine is normal. His albumin is 0.6. Urinalysis unremarkable. Blood culture is negative. Urine culture is negative. RADIOLOGICAL DATA: Chest x-ray and chest CT done, which is reported as pulmonary embolism, although Dr. [facility] does not believe he has had pulmonary embolism, does have bilateral effusion and atelectasis. IMPRESSION: 1. Fever may have been probably secondary to aspiration. 2. Aspiration. 3. Bilateral pulmonary chronic changes. 4. Diabetes. 5. Hypoglycemia. 6. Encephalopathy. 7. Cerebrovascular accident. 8. Hypertension. 9. Malnutrition. RECOMMENDATIONS: We will discontinue vancomycin when he is allowed to oral, then we will switch over Zosyn to p.o. Augmentin. Supportive care. Overall, prognosis is poor. The patient should have a palliative care consult to talk about DNR/DNI. Thank you very much, Dr. Wilks, for giving me the opportunity to participate in this patient's care. LYLY CHERRY MD DR: JUDAH/nts JOB#: [id number] / [id number]
[2018-05-22] MEDS: LACTOBACILLUS RHAMNOSUS GG 1 CAPSULE. PO SCH ×3 (08:45→19:51)
[2018-05-22] MEDS: INSULIN LISPRO 300 UNITS/3 ML INSULN.PEN. SQ SCH ×3 (08:45→18:10)
--- NOTE | 2018-05-22 08:54 | PDOC ---
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, mumbles few words skin nad Labs Lab Laboratory Tests Test 05/21/18 11:26 05/21/18 16:47 05/21/18 20:40 05/22/18 03:25 Glucose (Fingerstick) 177 mg/dL (70-99) 204 mg/dL (70-99) 169 mg/dL (70-99) Hemoglobin 9.2 g/dL (13.0-17.5) Hematocrit 27.3 % (39.0-53.0) Sodium Level 137 mmol/L (136-145) Potassium Level 4.0 mmol/L (3.5-5.1) Chloride Level 101 mmol/L (98-107) Carbon Dioxide Level 31 mmol/L (21-32) Anion Gap 5 (6-14) Blood Urea Nitrogen 17 mg/dL (8-26) Creatinine 1.1 mg/dL (0.7-1.3) Estimated GFR (Cockcroft-Gault) 81.3 Glucose Level 165 mg/dL (70-99) Calcium Level 8.3 mg/dL (8.5-10.1) Test 05/22/18 07:17 Glucose (Fingerstick) 164 mg/dL (70-99) Micro Microbiology 05/19/18 Blood Culture - Preliminary, Resulted NO GROWTH AFTER 2 DAYS 05/18/18 Urine Culture - Final, Complete 05/18/18 Urine Culture Result 1 (RANDY) - Final, Complete Objective Assessment Encephlopathy Fever Aspiration, suspected DM HTN Malnutrition Respiratory failure Plan Plan of Care cont zosyn, til po , then augmentin supportive care palliative care consult for DNR/DNI LYLY CHERRY MD May 22, 2018 08:54
--- NOTE | 2018-05-22 10:38 | PDOC ---
SUBJECTIVE ROS Stable OBJECTIVE Vital Signs Vital Signs Date Time Temp Pulse Resp B/P (MAP) Pulse Ox O2 Delivery O2 Flow Rate FiO2 05/22/18 07:17 100 Venturi Mask 15.0 05/22/18 07:00 98.0 79 18 160/64 (96) 98.0 I & 0 Intake and Output 05/22/18 06:59 Intake Total 700 ml Output Total 2400 ml Balance -1700 ml Intake Oral 0 ml Other 700 ml Output Urine Total 2400 ml # Bowel Movements 2 PHYSICAL EXAM Physical Exam GENERAL: NAD , sitting up in chair, aphasic HEENT-OM Moist, face mask NECK: Supple. HEART: RRR LUNGS: Clear to auscultation. Non labored ABDOMEN: Distended, soft, nontender. NEUROLOGIC: aphasia. EXT Lt BKA, No edema, muscle wasting Upper ext- Edema+ SKIN: No Rash NO Garrett, No CVA or SP tenderness DIAGNOSIS/ASSESSMENT Assessment & Plan Proteinuria-borderline Nephrotic , Severe Hypoalbuminemia No significant Microscopic hematuria Suspect due to DM with multiple Diabetic Complications On ARB at home, can restart Hypoalbuminemia- severe-? malnourished, ? Liver Proteinuria does not correlate with severity of low albumin STAN- Improved , Cr back to baseline of 1.0 Can restart ARB Fever- ID following , Encephalopathy Hypertension On BB, Losartan and Lasix at Home Type 2 diabetes mellitus. Left middle cerebral artery territory infarct with right-sided hemiplegia. Peripheral vascular disease, status post left below-knee amputation. Epilepsy on phenytoin. COMMENT/RELEVANT DATA Meds Current Medications Medications (Trade) Dose Ordered Sig/Inocencia Start Time Stop Time Status Last Admin Dose Admin Acetaminophen (Tylenol Supp) 650 mg PRN Q6HRS PRN 05/18/18 18:30 Albuterol Sulfate (Ventolin Neb Soln) 2.5 mg 1X ONCE 05/20/18 02:45 05/20/18 02:46 DC 05/20/18 02:50 2.5 MG Albuterol/ Ipratropium (Duoneb) 3 ml STK-MED ONCE 05/20/18 02:35 05/20/18 02:36 DC Amino Acids/ Glycerin/ Electrolytes 1,000 ml @ 80 mls/hr [id number] 05/19/18 15:00 05/21/18 23:41 80 MLS/HR Clonidine HCl (Catapres Tts-3) 1 patch ONCE ONCE 05/21/18 23:30 05/21/18 23:31 DC 05/21/18 23:37 1 PATCH Dextrose (Dextrose 50%-Water Syringe) 12.5 gm PRN Q15MIN PRN 05/21/18 09:00 Dextrose/Sodium Chloride 1,000 ml @ 75 mls/hr [id number] 05/19/18 10:00 05/19/18 14:56 DC Enoxaparin Sodium (Lovenox 30mg Syringe) 30 mg 1X ONCE 05/19/18 18:30 05/19/18 18:31 DC 05/19/18 18:25 30 MG Enoxaparin Sodium (Lovenox 40mg Syringe) 40 mg DAILY08 05/21/18 08:00 05/22/18 08:35 40 MG Enoxaparin Sodium (Lovenox 80mg Syringe) 70 mg Q12HR 05/20/18 09:00 05/20/18 16:19 DC 05/20/18 09:10 70 MG Fosphenytoin Sodium (Cerebyx) 100 mg Q8HRS 05/19/18 09:30 05/22/18 05:24 100 MG Fosphenytoin Sodium 100 mg/ Sodium Chloride 52 ml @ 208 mls/hr 1X ONCE 05/18/18 16:45 05/18/18 16:59 UNV Furosemide (Lasix) 40 mg 1X ONCE 05/21/18 18:00 05/21/18 18:01 DC 05/21/18 18:01 40 MG Glucagon (Glucagen) 1 mg STK-MED ONCE 05/18/18 15:20 05/18/18 15:21 DC Hydralazine HCl (Apresoline Inj) 20 mg PRN Q4HRS PRN 05/21/18 23:15 Info (CONTRAST GIVEN -- Rx MONITORING) 1 each PRN DAILY PRN 05/19/18 15:15 05/21/18 15:14 DC Insulin Human Lispro (HumaLOG) 0-7 UNITS TIDWMEALS 05/21/18 12:00 05/22/18 08:45 3 UNITS Iohexol (Omnipaque 350 Mg/ml) 90 ml 1X ONCE 05/19/18 15:15 05/19/18 15:16 DC 05/19/18 15:15 90 ML Lactobacillus Rhamnosus (Culturelle) 1 cap BID 05/19/18 21:00 Piperacillin Sod/ Tazobactam Sod (Zosyn Per Pharmacy) 1 each PRN DAILY PRN 05/18/18 19:00 Piperacillin Sod/ Tazobactam Sod 3.375 gm/Sodium Chloride 50 ml @ 100 mls/hr Q6HRS 05/18/18 19:30 05/22/18 05:24 100 MLS/HR Vancomycin HCl (Vanco Per Pharmacy) 1 each PRN DAILY PRN 05/18/18 19:00 05/21/18 10:33 DC 05/20/18 09:30 1 EACH Vancomycin HCl (Vancomycin Trough Level) 1 each 1X ONCE 05/22/18 16:30 05/22/18 16:30 DC Vancomycin HCl 1.25 gm/Sodium Chloride 250 ml @ 250 mls/hr Q18H 05/20/18 11:00 05/21/18 10:32 DC 05/21/18 05:16 250 MLS/HR Vancomycin HCl 1.75 gm/Sodium Chloride 500 ml @ 250 mls/hr 1X ONCE 05/18/18 19:30 05/18/18 21:29 DC 05/18/18 19:13 250 MLS/HR Vancomycin HCl 1 gm/Sodium Chloride 250 ml @ 250 mls/hr Q12H 05/19/18 07:00 05/20/18 09:21 DC 05/19/18 18:28 250 MLS/HR Lab Laboratory Tests Test 05/21/18 11:26 05/21/18 16:47 05/21/18 20:40 05/22/18 03:25 Glucose (Fingerstick) 177 mg/dL (70-99) 204 mg/dL (70-99) 169 mg/dL (70-99) Hemoglobin 9.2 g/dL (13.0-17.5) Hematocrit 27.3 % (39.0-53.0) Sodium Level 137 mmol/L (136-145) Potassium Level 4.0 mmol/L (3.5-5.1) Chloride Level 101 mmol/L (98-107) Carbon Dioxide Level 31 mmol/L (21-32) Anion Gap 5 (6-14) Blood Urea Nitrogen 17 mg/dL (8-26) Creatinine 1.1 mg/dL (0.7-1.3) Estimated GFR (Cockcroft-Gault) 81.3 Glucose Level 165 mg/dL (70-99) Calcium Level 8.3 mg/dL (8.5-10.1) Test 05/22/18 07:17 Glucose (Fingerstick) 164 mg/dL (70-99) Results All relevant outside records, renal labs, imaging studies, telemetry/EKG's were reviewed. WIL GUAJARDO MD May 22, 2018 10:38
[2018-05-22 11:00] VITALS: BP 157/77
--- NOTE | 2018-05-22 11:05 | PDOC ---
PULMONARY PROGRESS NOTES Subjective LESS SOA OFF BIPAP Vitals Vital Signs Date Time Temp Pulse Resp B/P (MAP) Pulse Ox O2 Delivery O2 Flow Rate FiO2 05/22/18 07:17 100 Venturi Mask 15.0 05/22/18 07:00 98.0 79 18 160/64 (96) 98.0 General: No acute distress Lungs: Other (few rhonchi) Cardiovascular: S1 Abdomen: Soft Extremities: Other (left BKA) Labs Laboratory Tests Test 05/20/18 11:41 05/20/18 12:00 05/20/18 17:07 05/20/18 20:52 Glucose (Fingerstick) 195 mg/dL (70-99) 206 mg/dL (70-99) 204 mg/dL (70-99) Urine Protein 208.2 mg/dL (Not Estab.) Urine Creatinine 24 Hour 726 mg/24 hr (6924-7085) Creatinine Clearance 24 Hour 46 mL/min (97-137) Urine Protein 24 Hr Calculated 3539 mg/24 hr (30-150) Creatinine 1.09 mg/dL (0.76-1.27) Estimated GFR (Non- 71 (>59) EGFR 82 (>59) Test 05/21/18 03:55 05/21/18 07:29 05/21/18 11:26 05/21/18 16:47 White Blood Count 6.8 x10^3/uL (4.0-11.0) Red Blood Count 2.53 x10^6/uL (4.30-5.70) Hemoglobin 8.1 g/dL (13.0-17.5) Hematocrit 23.7 % (39.0-53.0) Mean Corpuscular Volume 94 fL (79-100) Mean Corpuscular Hemoglobin 32 pg (25-35) Mean Corpuscular Hemoglobin Concent 34 g/dL (31-37) Red Cell Distribution Width 13.9 % (11.5-14.5) Platelet Count 164 x10^3/uL (140-400) Sodium Level 138 mmol/L (136-145) Potassium Level 4.3 mmol/L (3.5-5.1) Chloride Level 102 mmol/L (98-107) Carbon Dioxide Level 29 mmol/L (21-32) Anion Gap 7 (6-14) Blood Urea Nitrogen 19 mg/dL (8-26) Creatinine 1.0 mg/dL (0.7-1.3) Estimated GFR (Cockcroft-Gault) 90.7 BUN/Creatinine Ratio 19 (6-20) Glucose Level 191 mg/dL (70-99) Calcium Level 8.1 mg/dL (8.5-10.1) Total Bilirubin 0.1 mg/dL (0.2-1.0) Aspartate Amino Transf (AST/SGOT) 36 U/L (15-37) Alanine Aminotransferase (ALT/SGPT) 25 U/L (16-63) Alkaline Phosphatase 189 U/L (46-116) Total Protein 4.5 g/dL (6.4-8.2) Albumin 0.6 g/dL (3.4-5.0) Albumin/Globulin Ratio 0.2 (1.0-1.7) Glucose (Fingerstick) 166 mg/dL (70-99) 177 mg/dL (70-99) 204 mg/dL (70-99) Test 05/21/18 20:40 05/22/18 03:25 05/22/18 07:17 Glucose (Fingerstick) 169 mg/dL (70-99) 164 mg/dL (70-99) Hemoglobin 9.2 g/dL (13.0-17.5) Hematocrit 27.3 % (39.0-53.0) Sodium Level 137 mmol/L (136-145) Potassium Level 4.0 mmol/L (3.5-5.1) Chloride Level 101 mmol/L (98-107) Carbon Dioxide Level 31 mmol/L (21-32) Anion Gap 5 (6-14) Blood Urea Nitrogen 17 mg/dL (8-26) Creatinine 1.1 mg/dL (0.7-1.3) Estimated GFR (Cockcroft-Gault) 81.3 Glucose Level 165 mg/dL (70-99) Calcium Level 8.3 mg/dL (8.5-10.1) Laboratory Tests Test 05/21/18 11:26 05/21/18 16:47 05/21/18 20:40 05/22/18 03:25 Glucose (Fingerstick) 177 mg/dL (70-99) 204 mg/dL (70-99) 169 mg/dL (70-99) Hemoglobin 9.2 g/dL (13.0-17.5) Hematocrit 27.3 % (39.0-53.0) Sodium Level 137 mmol/L (136-145) Potassium Level 4.0 mmol/L (3.5-5.1) Chloride Level 101 mmol/L (98-107) Carbon Dioxide Level 31 mmol/L (21-32) Anion Gap 5 (6-14) Blood Urea Nitrogen 17 mg/dL (8-26) Creatinine 1.1 mg/dL (0.7-1.3) Estimated GFR (Cockcroft-Gault) 81.3 Glucose Level 165 mg/dL (70-99) Calcium Level 8.3 mg/dL (8.5-10.1) Test 05/22/18 07:17 Glucose (Fingerstick) 164 mg/dL (70-99) Medications Active Scripts Medications Dose Route/Sig Max Daily Dose Days Date Category Tresiba (Insulin Degludec) 100 Unit/1 Ml Vial 5 Unit SQ DAILY08 05/19/18 Reported Senna (Sennosides) 8.6 Mg Tablet 8.6 Mg PO BID 05/19/18 Reported Dilantin (Phenytoin Sodium Extended) 100 Mg Capsule 1 Cap PO TID 05/19/18 Reported Omeprazole 40 Mg Capsule.dr 1 Cap PO BID 05/19/18 Reported Novolog Flexpen (Insulin Aspart) 100 Unit/1 Ml Insuln.pen 3 Unit SQ HS 05/19/18 Reported Novolog Flexpen (Insulin Aspart) 100 Unit/1 Ml Insuln.pen 2 Unit SQ BID 05/19/18 Reported Mucinex (Guaifenesin) 600 Mg Tablet.er 1 Tab PO BID PRN 05/19/18 Reported Metoprolol Tartrate 50 Mg Tablet 1 Tab PO BID 05/19/18 Reported Metformin Hcl 1,000 Mg Tablet 1,000 Mg PO BIDWMEALS 05/19/18 Reported Losartan Potassium 100 Mg Tablet 100 Mg PO DAILY 05/19/18 Reported Januvia (Sitagliptin Phosphate) 100 Mg Tablet 1 Tab PO DAILY 05/19/18 Reported Ibuprofen 100 Mg/5 Ml Oral.susp 200 Mg PO PRN Q6HRS PRN 05/19/18 Reported Gabapentin (Gabapentin) 300 Mg Capsule 300 Mg PO TID 05/19/18 Reported Furosemide 40 Mg Tablet 1 Tab PO DAILY 05/19/18 Reported Atorvastatin Calcium 20 Mg Tablet 1 Tab PO DAILY 05/19/18 Reported Aspirin 81 Mg Tab.chew 1 Tab PO DAILY 05/19/18 Reported Impression . 1. Acute on chronic hypoxic respiratory failure secondary to multifactorial etiologies and includes combination of suspected sepsis, bilateral pleural effusion, which is likely transudative from a low oncotic pressure. Clinically, less likely thromboembolic disease. I am not convinced that there is any significant pulmonary embolism in the right lower lobe as reported. ( d/w another radiologist) 2. The patient with prior stroke and expressive aphasia and limited mobility. 3. Abnormal CT chest with bilateral pleural effusion and right middle lobe atelectasis. Radiographically, I am not convinced that he has any significant thrombus in the right lower lobe. We will obtain Doppler of the right lower extremity and if it is negative, then discontinue full dose Lovenox. 4. Suspected sepsis with fever of 100.6, on broad-spectrum antibiotic. Follow ID recommendations. Plan . 1. Continue with prn BiPAP 2. IV diuresis. 3. echocardiogram to assess for any LV dysfunction. 4. Improve nutritional status. 5. Follow all cultures. 6. ID recommendation./ Abx 7. venous Doppler negative /Lovenox dose changed to DVT prophylaxis dose. As discussed above, I am not convinced that he has any PE in the right lower lobe. 8. Discussed with RN We will follow along with you. TESFAYE DÍAZ MD May 22, 2018 11:05
--- NOTE | 2018-05-22 11:10 | PDOC2 ---
PALLIATIVE CARE Palliative Care Note Palliative Care Spoke with Orlin--friend, . Plan meeting at [address] [facility]. Please disregard this note. Wrong patient. CATHY SINGH May 22, 2018 11:10
--- NOTE | 2018-05-22 12:00 | NUR ---
SS following up with discharge planning. Palliative care following. Family meeting with palliative care at [address] [facility]. SS will continue to follow for discharge planning.
--- NOTE | 2018-05-22 12:48 | PDOC2 ---
PALLIATIVE CARE Palliative Care Note Palliative Care Attempted to reach [facility] multiple times. Awaiting call back from Brianda HIGUERA. Attempting to reach family member or decision maker Unable to understand verbal attempts by patient. Swallow evaluation completed. Diet recommended by Speech Therapy. CATHY SINGH May 22, 2018 12:48
[2018-05-22] MEDS: GABAPENTIN 300 MG CAPSULE. PO SCH ×2 (14:35→19:51)
[2018-05-22] MEDS: LOSARTAN POTASSIUM 50 MG TABLET. PO SCH (14:37)
[2018-05-22 14:38] VITALS: BP 143/78
[2018-05-22] MEDS: METOPROLOL TART IMMED RELEASE 50 MG TABLET. PO SCH ×2 (14:38→19:51)
[2018-05-22] MEDS: ASPIRIN CHEWABLE 81 MG TABLET. PO SCH (14:38)
[2018-05-22] MEDS: FUROSEMIDE 40 MG TABLET. PO SCH (14:39)
[2018-05-22] MEDS: LINAGLIPTIN 5 MG TABLET PO SCH (14:39)
[2018-05-22] MEDS: PHENYTOIN SODIUM EXTENDED 100 MG CAPSULE PO SCH ×2 (14:39→19:51)
[2018-05-22] MEDS: SENNOSIDES 8.6 MG TABLET PO SCH ×2 (14:39→19:52)
[2018-05-22] MEDS: metFORMIN 500 MG TABLET PO SCH (17:59)
[2018-05-22] MEDS: PANTOPRAZOLE 40 MG TABLET.DR. PO SCH (17:59)
[2018-05-22] MEDS: AMINO AC 3%/ELECTROLYTE/GLYCER 1,000 ML IV SCH (18:00)
[2018-05-22 19:34] VITALS: BP 143/61
[2018-05-22] MEDS: ATORVASTATIN CALCIUM 20 MG TABLET PO SCH (19:51)
[2018-05-22 23:29] VITALS: BP 144/57
[2018-05-23] MEDS: PIPERACILLIN/TAZOBACTAM 3.375 GM in IV NORMAL SALINE 50ML 50 ML IV SCH ×2 (00:45→05:59)
--- NOTE | 2018-05-23 03:32 | PN ---
DATE: 05/22/2018 SUBJECTIVE: The patient is resting, slightly propped up in bed, in no apparent respiratory distress. Awake, alert, mumbles few words. He is off the BiPAP. His blood pressure is much better controlled now. He is on a clonidine patch. OBJECTIVE: GENERAL: On examining him, he looked pale, but no jaundice or cyanosis. No lymphadenopathy, no thyromegaly. No jugular venous distention. No lower limb edema. VITAL SIGNS: His heart rate was 79, blood pressure was 160/64, temperature was 98, respiratory rate was 18 and oxygen saturation was 99% on Venturi mask. HEAD, EYES, EARS, NOSE AND THROAT: Showed normocephalic, atraumatic. NECK: Supple. HEART: Showed normal first and second heart sounds with no gallop, rub or murmur. CHEST: Clear to auscultation. No crepitation or rhonchi. ABDOMEN: Distended, soft, nontender. NEUROLOGIC: He is awake, alert, opens eyes, tracks and mumbles a few words. He has right-sided hemiparesis. His intake incompletely recorded, output was 3350. LABORATORY DATA: As of this morning, his hemoglobin was 9.2, hematocrit 27.3 and his chemistry this morning showed a serum sodium 137, potassium 4, chloride 101, bicarbonate 31, anion gap of 5, BUN 17, creatinine 1.1, estimated GFR was 81 mL per minute, his glucose 165, calcium was 8.3. All his blood cultures and urine cultures are negative so far. ASSESSMENT AND PLAN: 1. Altered mental status, likely due to hypoglycemia. Hypoxia resolved. The patient is more awake, alert, opens his eyes and attempts to mouth some words. 2. He developed fever for which we pancultured him and was empirically started on vancomycin and Zosyn. So far, all his blood and urine cultures are negative. 3. The patient has generalized anasarca with severe hypoalbuminemia. We did recommend 24-hour urine collection, as this consistent with nephrotic-range proteinuria. 4. Hypertension, much better controlled. 5. Type 2 diabetes mellitus with multiple complications. 7. Hyperlipidemia. 7. Left middle cerebral artery territory infarct with right-sided hemiplegia. 8. Peripheral vascular disease, status post left below knee amputation. 9. Epilepsy, for which he is on phenytoin. 10. Difficulty walking, marked muscle wasting and weakness for which he is normally bedbound, wheelchair bound. Plan is to continue with the procalamine, continue with IV Zosyn, continue with oxygen supplementation, continue with Lovenox for DVT prophylaxis and we will ask the speech therapist to evaluate his video swallowing evaluation and if he is cleared, can put him back on his oral medication. KASIE TRIPLETT MD DR: FERMÍN/marysol JOB#: [id number] / [id number]
[2018-05-23 03:34] VITALS: BP 152/56
[2018-05-23] MEDS: AMINO AC 3%/ELECTROLYTE/GLYCER 1,000 ML IV SCH ×2 (06:12→14:52)
[2018-05-23 07:00] VITALS: BP 137/56
[2018-05-23] MEDS: INSULIN LISPRO 300 UNITS/3 ML INSULN.PEN. SQ SCH ×3 (08:00→17:00)
[2018-05-23] MEDS: metFORMIN 500 MG TABLET PO SCH ×2 (08:19→15:48)
[2018-05-23] MEDS: PHENYTOIN SODIUM EXTENDED 100 MG CAPSULE PO SCH ×2 (08:20→14:00)
[2018-05-23] MEDS: FUROSEMIDE 40 MG TABLET. PO SCH (08:20)
[2018-05-23] MEDS: ASPIRIN CHEWABLE 81 MG TABLET. PO SCH (08:20)
[2018-05-23] MEDS: GABAPENTIN 300 MG CAPSULE. PO SCH ×3 (08:20→20:56)
[2018-05-23] MEDS: LINAGLIPTIN 5 MG TABLET PO SCH (08:21)
[2018-05-23] MEDS: SENNOSIDES 8.6 MG TABLET PO SCH ×2 (08:21→20:56)
[2018-05-23] MEDS: PANTOPRAZOLE 40 MG TABLET.DR. PO SCH ×2 (08:21→15:48)
[2018-05-23] MEDS: LOSARTAN POTASSIUM 50 MG TABLET. PO SCH (08:21)
[2018-05-23] MEDS: METOPROLOL TART IMMED RELEASE 50 MG TABLET. PO SCH ×2 (08:22→20:56)
[2018-05-23] MEDS: ENOXAPARIN 40 MG/0.4 ML SYRINGE. SQ SCH (08:23)
--- NOTE | 2018-05-23 09:01 | PDOC ---
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
--- NOTE | 2018-05-23 09:50 | PDOC ---
SUBJECTIVE ROS Stable , No change OBJECTIVE Vital Signs Vital Signs Date Time Temp Pulse Resp B/P (MAP) Pulse Ox O2 Delivery O2 Flow Rate FiO2 05/23/18 08:30 Nasal Cannula 4.0 05/23/18 08:22 74 137/56 05/23/18 07:00 98.2 17 97 98.2 I & 0 Intake and Output 05/23/18 07:00 Intake Total 1740 ml Output Total 1300 ml Balance 440 ml Intake Oral 480 ml Other 1260 ml Output Urine Total 1300 ml # Bowel Movements 2 PHYSICAL EXAM Physical Exam GENERAL: NAD , sitting up in chair, aphasic HEENT-OM Moist, face mask NECK: Supple. HEART: RRR LUNGS: Clear to auscultation. Non labored ABDOMEN: Distended, soft, nontender. NEUROLOGIC: aphasia. EXT Lt BKA, No edema, muscle wasting Upper ext- Edema+ SKIN: No Rash NO Garrett, No CVA or SP tenderness DIAGNOSIS/ASSESSMENT Assessment & Plan Proteinuria-borderline Nephrotic , Severe Hypoalbuminemia No significant Microscopic hematuria Suspect due to DM with multiple Diabetic Complications On ARB at home,Restarted Hypoalbuminemia- severe-? malnourished, ? Liver Proteinuria does not correlate with severity of low albumin STAN- Improved , Cr back to baseline of 1.0 Can restart ARB Fever- ID following , Encephalopathy Hypertension On BB, Losartan and Lasix at Home Type 2 diabetes mellitus. Left middle cerebral artery territory infarct with right-sided hemiplegia. Peripheral vascular disease, status post left below-knee amputation. Epilepsy on phenytoin. Hima RN, Will sign off COMMENT/RELEVANT DATA Meds Current Medications Medications (Trade) Dose Ordered Sig/Inocencia Start Time Stop Time Status Last Admin Dose Admin Acetaminophen (Tylenol Supp) 650 mg PRN Q6HRS PRN 05/18/18 18:30 Albuterol Sulfate (Ventolin Neb Soln) 2.5 mg 1X ONCE 05/20/18 02:45 05/20/18 02:46 DC 05/20/18 02:50 2.5 MG Albuterol/ Ipratropium (Duoneb) 3 ml STK-MED ONCE 05/20/18 02:35 05/20/18 02:36 DC Amino Acids/ Glycerin/ Electrolytes 1,000 ml @ 80 mls/hr [id number] 05/19/18 15:00 05/23/18 06:12 80 MLS/HR Amoxicillin/ Clavulanate Potassium (Augmentin 875/ 125mg) 1 tab BID 05/23/18 10:00 Aspirin (Children'S Aspirin) 81 mg DAILY 05/22/18 14:00 05/23/18 08:20 81 MG Atorvastatin Calcium (Lipitor) 20 mg QHS 05/22/18 21:00 05/22/18 19:51 20 MG Clonidine HCl (Catapres Tts-3) 1 patch ONCE ONCE 05/21/18 23:30 05/21/18 23:31 DC 05/21/18 23:37 1 PATCH Dextrose (Dextrose 50%-Water Syringe) 12.5 gm PRN Q15MIN PRN 05/21/18 09:00 Dextrose/Sodium Chloride 1,000 ml @ 75 mls/hr [id number] 05/19/18 10:00 05/19/18 14:56 DC Enoxaparin Sodium (Lovenox 30mg Syringe) 30 mg 1X ONCE 05/19/18 18:30 05/19/18 18:31 DC 05/19/18 18:25 30 MG Enoxaparin Sodium (Lovenox 40mg Syringe) 40 mg DAILY08 05/21/18 08:00 05/23/18 08:23 40 MG Enoxaparin Sodium (Lovenox 80mg Syringe) 70 mg Q12HR 05/20/18 09:00 05/20/18 16:19 DC 05/20/18 09:10 70 MG Fosphenytoin Sodium (Cerebyx) 100 mg Q8HRS 05/19/18 09:30 05/22/18 13:04 DC 05/22/18 05:24 100 MG Fosphenytoin Sodium 100 mg/ Sodium Chloride 52 ml @ 208 mls/hr 1X ONCE 05/18/18 16:45 05/18/18 16:59 UNV Furosemide (Lasix) 40 mg DAILY 05/22/18 14:00 05/23/18 08:20 40 MG Gabapentin (Neurontin) 300 mg TID 05/22/18 14:00 05/23/18 08:20 300 MG Glucagon (Glucagen) 1 mg STK-MED ONCE 05/18/18 15:20 05/18/18 15:21 DC Guaifenesin (Mucinex) 600 mg PRN BID PRN 05/22/18 12:45 05/22/18 19:51 600 MG Hydralazine HCl (Apresoline Inj) 20 mg PRN Q4HRS PRN 05/21/18 23:15 Info (CONTRAST GIVEN -- Rx MONITORING) 1 each PRN DAILY PRN 05/19/18 15:15 05/21/18 15:14 DC Insulin Human Lispro (HumaLOG) 0-7 UNITS TIDWMEALS 05/21/18 12:00 05/22/18 18:10 4 UNITS Iohexol (Omnipaque 350 Mg/ml) 90 ml 1X ONCE 05/19/18 15:15 05/19/18 15:16 DC 05/19/18 15:15 90 ML Lactobacillus Rhamnosus (Culturelle) 1 cap BID 05/19/18 21:00 05/22/18 19:51 1 CAP Linagliptin (Tradjenta) 5 mg DAILY 05/22/18 14:00 05/23/18 08:21 5 MG Losartan Potassium (Cozaar) 100 mg DAILY 05/22/18 14:00 05/23/18 08:21 100 MG Metformin HCl (Glucophage) 1,000 mg BIDWMEALS 05/22/18 17:00 05/23/18 08:19 1,000 MG Metoprolol Tartrate (Lopressor) 50 mg BID 05/22/18 14:00 05/23/18 08:22 50 MG Pantoprazole Sodium (Protonix) 40 mg BIDAC 05/22/18 16:30 05/23/18 08:21 40 MG Phenytoin Sodium (Dilantin) 100 mg TID 05/22/18 14:00 05/23/18 08:20 100 MG Piperacillin Sod/ Tazobactam Sod (Zosyn Per Pharmacy) 1 each PRN DAILY PRN 05/18/18 19:00 05/23/18 09:03 DC Piperacillin Sod/ Tazobactam Sod 3.375 gm/Sodium Chloride 50 ml @ 100 mls/hr Q6HRS 05/18/18 19:30 05/23/18 09:02 DC 05/23/18 05:59 100 MLS/HR Sennosides (Senna) 8.6 mg BID 05/22/18 14:00 05/22/18 14:39 8.6 MG Vancomycin HCl (Vanco Per Pharmacy) 1 each PRN DAILY PRN 05/18/18 19:00 05/21/18 10:33 DC 05/20/18 09:30 1 EACH Vancomycin HCl (Vancomycin Trough Level) 1 each 1X ONCE 05/22/18 16:30 05/22/18 16:30 DC Vancomycin HCl 1.25 gm/Sodium Chloride 250 ml @ 250 mls/hr Q18H 05/20/18 11:00 05/21/18 10:32 DC 05/21/18 05:16 250 MLS/HR Vancomycin HCl 1.75 gm/Sodium Chloride 500 ml @ 250 mls/hr 1X ONCE 05/18/18 19:30 05/18/18 21:29 DC 05/18/18 19:13 250 MLS/HR Vancomycin HCl 1 gm/Sodium Chloride 250 ml @ 250 mls/hr Q12H 05/19/18 07:00 05/20/18 09:21 DC 05/19/18 18:28 250 MLS/HR Lab Laboratory Tests Test 05/22/18 11:18 05/22/18 16:53 05/22/18 21:07 05/23/18 07:55 Glucose (Fingerstick) 153 mg/dL (70-99) 244 mg/dL (70-99) 276 mg/dL (70-99) 189 mg/dL (70-99) Results All relevant outside records, renal labs, imaging studies, telemetry/EKG's were reviewed. WIL GUAJARDO MD May 23, 2018 09:50
[2018-05-23] MEDS: AMOXICILLIN/K CLAV 875/125MG TABLET. PO SCH ×2 (10:16→20:55)
--- NOTE | 2018-05-23 10:24 | PDOC ---
PULMONARY PROGRESS NOTES Subjective sob better, has occ cough OFF BIPAP Vitals Vital Signs Date Time Temp Pulse Resp B/P (MAP) Pulse Ox O2 Delivery O2 Flow Rate FiO2 05/23/18 08:30 Nasal Cannula 4.0 05/23/18 08:22 74 137/56 05/23/18 07:00 98.2 17 97 98.2 General: No acute distress Lungs: Other (few rhonchi) Cardiovascular: S1, S2 Abdomen: Soft, Non-tender Neuro Exam: Alert Extremities: Other (left BKA) Skin: Warm Labs Laboratory Tests Test 05/21/18 11:26 05/21/18 16:47 05/21/18 20:40 05/22/18 03:25 Glucose (Fingerstick) 177 mg/dL (70-99) 204 mg/dL (70-99) 169 mg/dL (70-99) Hemoglobin 9.2 g/dL (13.0-17.5) Hematocrit 27.3 % (39.0-53.0) Sodium Level 137 mmol/L (136-145) Potassium Level 4.0 mmol/L (3.5-5.1) Chloride Level 101 mmol/L (98-107) Carbon Dioxide Level 31 mmol/L (21-32) Anion Gap 5 (6-14) Blood Urea Nitrogen 17 mg/dL (8-26) Creatinine 1.1 mg/dL (0.7-1.3) Estimated GFR (Cockcroft-Gault) 81.3 Glucose Level 165 mg/dL (70-99) Calcium Level 8.3 mg/dL (8.5-10.1) Test 05/22/18 07:17 05/22/18 11:18 05/22/18 16:53 05/22/18 21:07 Glucose (Fingerstick) 164 mg/dL (70-99) 153 mg/dL (70-99) 244 mg/dL (70-99) 276 mg/dL (70-99) Test 05/23/18 07:55 Glucose (Fingerstick) 189 mg/dL (70-99) Laboratory Tests Test 05/22/18 11:18 05/22/18 16:53 05/22/18 21:07 05/23/18 07:55 Glucose (Fingerstick) 153 mg/dL (70-99) 244 mg/dL (70-99) 276 mg/dL (70-99) 189 mg/dL (70-99) Medications Active Scripts Medications Dose Route/Sig Max Daily Dose Days Date Category Tresiba (Insulin Degludec) 100 Unit/1 Ml Vial 5 Unit SQ DAILY08 05/19/18 Reported Senna (Sennosides) 8.6 Mg Tablet 8.6 Mg PO BID 05/19/18 Reported Dilantin (Phenytoin Sodium Extended) 100 Mg Capsule 1 Cap PO TID 05/19/18 Reported Omeprazole 40 Mg Capsule.dr 1 Cap PO BID 05/19/18 Reported Novolog Flexpen (Insulin Aspart) 100 Unit/1 Ml Insuln.pen 3 Unit SQ HS 05/19/18 Reported Novolog Flexpen (Insulin Aspart) 100 Unit/1 Ml Insuln.pen 2 Unit SQ BID 05/19/18 Reported Mucinex (Guaifenesin) 600 Mg Tablet.er 1 Tab PO BID PRN 05/19/18 Reported Metoprolol Tartrate 50 Mg Tablet 1 Tab PO BID 05/19/18 Reported Metformin Hcl 1,000 Mg Tablet 1,000 Mg PO BIDWMEALS 05/19/18 Reported Losartan Potassium 100 Mg Tablet 100 Mg PO DAILY 05/19/18 Reported Januvia (Sitagliptin Phosphate) 100 Mg Tablet 1 Tab PO DAILY 05/19/18 Reported Ibuprofen 100 Mg/5 Ml Oral.susp 200 Mg PO PRN Q6HRS PRN 05/19/18 Reported Gabapentin (Gabapentin) 300 Mg Capsule 300 Mg PO TID 05/19/18 Reported Furosemide 40 Mg Tablet 1 Tab PO DAILY 05/19/18 Reported Atorvastatin Calcium 20 Mg Tablet 1 Tab PO DAILY 05/19/18 Reported Aspirin 81 Mg Tab.chew 1 Tab PO DAILY 05/19/18 Reported Impression . 1. Acute on chronic hypoxic respiratory failure secondary to multifactorial etiologies and includes combination of suspected sepsis, bilateral pleural effusion, which is likely transudative from a low oncotic pressure. Clinically, less likely thromboembolic disease. not convinced that there is any significant pulmonary embolism in the right lower lobe as reported. ( d/w another radiologist), le doppler neg 2. The patient with prior stroke and expressive aphasia and limited mobility. 3. Abnormal CT chest with bilateral pleural effusion and right middle lobe atelectasis. 4. Suspected sepsis with fever of 100.6, on broad-spectrum antibiotic. Follow ID recommendations. Plan . 1. Continue with prn BiPAP, setting reviewed 2. diuresis. keep I<O, monitor k, cr 3. echocardiogram to assess for any LV dysfunction. 4. Improve nutritional status. 5. Follow all cultures. 6. ID recommendation./ Abx 7. venous Doppler negative /Lovenox dose changed to DVT prophylaxis dose. 8. Discussed with RN We will follow along with you. MARIELY PACE MD May 23, 2018 10:24
[2018-05-23 11:00] VITALS: BP 115/71
[2018-05-23] MEDS: IPRATRPIUM/ALBUTEROL 0.5/2.5MG 3 ML NEBU. NEB SCH ×3 (11:34→20:16)
--- NOTE | 2018-05-23 13:02 | NUR ---
SS following up with discharge planning. SS phoned and faxed referral to [facility], ; fax [phone]. SS will await discharge orders from physician and will proceed accordingly. Pt's RN notified.
[2018-05-23] MEDS ORDERED: BARIUM SULFATE 40% (APPLE) 148 GM PWD. PO ONE (13:45)
[2018-05-23] MEDS ORDERED: AMOX1TAB61 PO (13:50)
[2018-05-23] MEDS ORDERED: LACT1CAP48 PO (13:52)
[2018-05-23] MEDS ORDERED: IPRA3AMP29 NEB (13:53)
--- NOTE | 2018-05-23 13:54 | SNU/HH DC ---
DISCHARGE ORDERS DISCHARGE INFORMATION: FINAL DIAGNOSIS Problems Medical Problems: (1) Altered mental status Status: Acute (2) Hypoglycemia Status: Acute CONDITION ON DISCHARGE: Stable CODE STATUS: Code Status: Full PENITENTIARY: SNF STAY <30 DAYS: No POST DISCHARGE ORDERS: ACTIVITY ORDERS: Resume previous activity DIET AFTER DISCHARGE: ADA CHECKS AFTER DISCHARGE: CHECKS AFTER DISCHARGE: Check blood sugar, ac/hs TREATMENT/EQUIPMENT ORDERS: Physical Therapy For: Evalulation/Treatment Occupational Therapy For: Evaluation/Treatment DISCHARGE MEDICATIONS: Home Meds Active Scripts Ipratropium/Albuterol Sulfate (DUONEB 0.5-3(2.5) MG/3 ML) 3 Ml Ampul.neb, 3 ML NEB QID for copd for 30 Days, #120 EACH Prov:KASIE TRIPLETT MD 05/23/18 Lactobacillus Acidophilus (Acidophilus Lactobacilli) 1 Each Capsule, 1 EACH PO BID for pneumonia for 10 Days, #20 CAP Prov:KASIE TRIPLETT MD 05/23/18 Amoxicillin/Potassium Clav (AUGMENTIN 875-125 TABLET) 1 Each Tablet, 1 TAB PO BID for pneumonia for 7 Days, #14 TAB Prov:KASIE TRIPLETT MD 05/23/18 Reported Medications Insulin Degludec (Tresiba) 100 Unit/1 Ml Vial, 5 UNIT SQ DAILY08 for DM II, EACH 05/19/18 Sennosides (SENNA) 8.6 Mg Tablet, 8.6 MG PO BID for CONSTIPATION , TAB 05/19/18 Phenytoin Sodium Extended (DILANTIN) 100 Mg Capsule, 1 CAP PO TID for SEIZURES, #90 CAP 3 Refills 05/19/18 Omeprazole (OMEPRAZOLE) 40 Mg Capsule.dr, 1 CAP PO BID for GERD, #30 CAP 3 Refills 05/19/18 Insulin Aspart (NOVOLOG FLEXPEN) 100 Unit/1 Ml Insuln.pen, 3 UNIT SQ HS for DM II, SYR 05/19/18 Insulin Aspart (NOVOLOG FLEXPEN) 100 Unit/1 Ml Insuln.pen, 2 UNIT SQ BID for DM II, SYR 05/19/18 Guaifenesin (MUCINEX) 600 Mg Tablet.er, 1 TAB PO BID PRN for CONGESTION, #14 TAB 05/19/18 Metoprolol Tartrate (METOPROLOL TARTRATE) 50 Mg Tablet, 1 TAB PO BID for HTN, # 60 TAB 5 Refills 05/19/18 Metformin Hcl (METFORMIN HCL) 1,000 Mg Tablet, 1000 MG PO BIDWMEALS for DM II, TAB 05/19/18 Losartan Potassium (LOSARTAN POTASSIUM) 100 Mg Tablet, 100 MG PO DAILY for HYPERTENSION, TAB 05/19/18 Sitagliptin Phosphate (JANUVIA) 100 Mg Tablet, 1 TAB PO DAILY for DM II, #30 TAB 5 Refills 05/19/18 Gabapentin (GABAPENTIN ) 300 Mg Capsule, 300 MG PO TID for NEUROGENIC PAIN, CAP 05/19/18 Furosemide (FUROSEMIDE) 40 Mg Tablet, 1 TAB PO DAILY for ANASARCA, #30 TAB 5 Refills 05/19/18 Atorvastatin Calcium (ATORVASTATIN CALCIUM) 20 Mg Tablet, 1 TAB PO DAILY for HLD , #30 TAB 5 Refills 05/19/18 Aspirin (ASPIRIN) 81 Mg Tab.chew, 1 TAB PO DAILY for heart, #30 TAB 3 Refills 05/19/18 Discontinued Reported Medications Ibuprofen (IBUPROFEN) 100 Mg/5 Ml Oral.susp, 200 MG PO PRN Q6HRS PRN for PAIN, MISC 05/19/18 KASIE TRIPLETT MD May 23, 2018 13:54
[2018-05-23] MEDS: FOSPHENYTOIN 100 MG/2 ML VIAL. IV SCH ×2 (14:51→21:26)
[2018-05-23 15:00] VITALS: BP 109/52
[2018-05-23 19:55] VITALS: BP 168/71
[2018-05-23] MEDS: LACTOBACILLUS RHAMNOSUS GG 1 CAPSULE. PO SCH (20:56)
[2018-05-23] MEDS: ATORVASTATIN CALCIUM 20 MG TABLET PO SCH (20:56)
[2018-05-23 22:57] VITALS: BP 174/62
[2018-05-24] MEDS: AMINO AC 3%/ELECTROLYTE/GLYCER 1,000 ML IV SCH ×2 (00:14→12:50)
--- NOTE | 2018-05-24 00:51 | PN ---
DATE: 05/23/2018 SUBJECTIVE: The patient is resting, slightly propped up in bed, in no apparent respiratory distress. He is awake and alert; however, he has aphasia and difficult to understand his responses. He is now on 4 liters oxygen by nasal cannula, maintaining his oxygen saturation 100%. He apparently did well on his video swallowing evaluation yesterday and he is now on a pureed diet with honey thick liquid. His blood pressure is much better controlled. PHYSICAL EXAMINATION: GENERAL: When I examined him, he looked pale, but no jaundice, cyanosis or thyromegaly. No jugular venous distention. No limb edema. VITAL SIGNS: Her heart rate was 60, blood pressure 152/56, temperature was 98.5, respiratory rate was 18 and oxygen saturation was 100% on 4 liters of oxygen by nasal cannula. HEAD, EYES, EARS, NOSE AND THROAT: Showed normocephalic and atraumatic. NECK: Supple. HEART: Showed normal first and second heart sounds. No gallop, rub or murmur. CHEST: Clear to auscultation. No crepitation or rhonchi. ABDOMEN: Distended, soft and nontender. NEUROLOGICAL: He is more awake, alert, opens eyes, tracks and has aphasia and difficult to understand and he has also right-sided hemiplegia and has left below knee amputation. His intake over the last 24 hours was 700 and output was 2400. LABORATORY DATA: His lab work showed a hemoglobin of 9.2 and hematocrit 27.3. His chemistry as of yesterday showed his serum sodium 137, potassium 4, chloride 101, bicarbonate 31, anion gap of 5, BUN 17, creatinine 1.1, estimated GFR was 81 mL per minute and her glucose 165 and calcium was 8.3. So far, all his blood and urine cultures are negative. ASSESSMENT: 1. Altered mental status, likely due to hypoglycemia and hypoxia resolved. He is more awake, alert, opens eyes and attempt to mouth some words, although he has aphasia and difficult to understand. 2. He developed fever for which he pancultured, was empirically started on vancomycin and Zosyn. So far, all his blood and urine cultures are negative. 3. The patient has generalized anasarca and severe hypokalemia. We did 24-hour urine collection and he is on being large amount of protein in the urine, more than 3500. 4. Hypertension seems to be much better controlled. 5. Type 2 diabetes mellitus, also reasonably controlled. 6. Hyperlipidemia. 7. Left middle cerebral artery territory infarct with right-sided hemiplegia. 8. Peripheral vascular disease, status post left below-knee amputation. 9. Epilepsy for which he is on phenytoin. 10. Difficulty walking with marked muscle wasting and weakness for which he is normally bedbound, wheelchair bound. PLAN: We will continue with the current plan of management and hoping to discharge him back and to [facility] in [place] tomorrow. KASIE TRIPLETT MD DR: FERMÍN/marysol JOB#: [id number] / [id number]
[2018-05-24 02:35] VITALS: BP 150/69
[2018-05-24] MEDS: PANTOPRAZOLE 40 MG TABLET.DR. PO SCH ×2 (07:30→16:30)
[2018-05-24] MEDS: IPRATRPIUM/ALBUTEROL 0.5/2.5MG 3 ML NEBU. NEB SCH ×4 (07:30→20:46)
[2018-05-24] MEDS: FOSPHENYTOIN 100 MG/2 ML VIAL. IV SCH ×3 (07:39→22:00)
[2018-05-24 07:45] VITALS: BP 198/71
[2018-05-24] MEDS: metFORMIN 500 MG TABLET PO SCH ×2 (08:00→16:31)
--- NOTE | 2018-05-24 08:32 | PDOC ---
PULMONARY PROGRESS NOTES Subjective has dysphagia, no family to consent for peg, on 02 appears comfortable. OFF BIPAP Vitals Vital Signs Date Time Temp Pulse Resp B/P (MAP) Pulse Ox O2 Delivery O2 Flow Rate FiO2 05/24/18 07:45 98.1 73 16 198/71 (113) 97 Nasal Cannula 3.0 98.1 General: No acute distress Lungs: Other (few rhonchi) Cardiovascular: S1, S2 Abdomen: Soft, Non-tender Neuro Exam: Alert Extremities: Other (left BKA) Skin: Warm Labs Laboratory Tests Test 05/22/18 11:18 05/22/18 16:53 05/22/18 21:07 05/23/18 07:55 Glucose (Fingerstick) 153 mg/dL (70-99) 244 mg/dL (70-99) 276 mg/dL (70-99) 189 mg/dL (70-99) Test 05/23/18 11:06 05/23/18 17:36 05/23/18 20:26 05/24/18 07:36 Glucose (Fingerstick) 301 mg/dL (70-99) 283 mg/dL (70-99) 256 mg/dL (70-99) 232 mg/dL (70-99) Laboratory Tests Test 05/23/18 11:06 05/23/18 17:36 05/23/18 20:26 05/24/18 07:36 Glucose (Fingerstick) 301 mg/dL (70-99) 283 mg/dL (70-99) 256 mg/dL (70-99) 232 mg/dL (70-99) Medications Active Scripts Medications Dose Route/Sig Max Daily Dose Days Date Category Tresiba (Insulin Degludec) 100 Unit/1 Ml Vial 5 Unit SQ DAILY08 05/19/18 Reported Senna (Sennosides) 8.6 Mg Tablet 8.6 Mg PO BID 05/19/18 Reported Dilantin (Phenytoin Sodium Extended) 100 Mg Capsule 1 Cap PO TID 05/19/18 Reported Omeprazole 40 Mg Capsule.dr 1 Cap PO BID 05/19/18 Reported Novolog Flexpen (Insulin Aspart) 100 Unit/1 Ml Insuln.pen 3 Unit SQ HS 05/19/18 Reported Novolog Flexpen (Insulin Aspart) 100 Unit/1 Ml Insuln.pen 2 Unit SQ BID 05/19/18 Reported Mucinex (Guaifenesin) 600 Mg Tablet.er 1 Tab PO BID PRN 05/19/18 Reported Metoprolol Tartrate 50 Mg Tablet 1 Tab PO BID 05/19/18 Reported Metformin Hcl 1,000 Mg Tablet 1,000 Mg PO BIDWMEALS 05/19/18 Reported Losartan Potassium 100 Mg Tablet 100 Mg PO DAILY 05/19/18 Reported Januvia (Sitagliptin Phosphate) 100 Mg Tablet 1 Tab PO DAILY 05/19/18 Reported Ibuprofen 100 Mg/5 Ml Oral.susp 200 Mg PO PRN Q6HRS PRN 05/19/18 Reported Gabapentin (Gabapentin) 300 Mg Capsule 300 Mg PO TID 05/19/18 Reported Furosemide 40 Mg Tablet 1 Tab PO DAILY 05/19/18 Reported Atorvastatin Calcium 20 Mg Tablet 1 Tab PO DAILY 05/19/18 Reported Aspirin 81 Mg Tab.chew 1 Tab PO DAILY 05/19/18 Reported Impression . 1. Acute on chronic hypoxic respiratory failure secondary to multifactorial etiologies and includes combination of suspected sepsis, bilateral pleural effusion, which is likely transudative from a low oncotic pressure. Clinically, less likely thromboembolic disease. not convinced that there is any significant pulmonary embolism in the right lower lobe as reported. ( d/w another radiologist), le doppler neg 2. The patient with prior stroke and expressive aphasia and limited mobility. 3. Abnormal CT chest with bilateral pleural effusion and right middle lobe atelectasis. 4. Suspected sepsis. Follow ID recommendations. 5. dysphagia Plan . 1. Continue with prn BiPAP, setting reviewed, need a peg, no family to consent for peg, ethic consult pending 2. diuresis. keep I<O, monitor k, cr 3. echocardiogram to assess for any LV dysfunction. 4. Improve nutritional status. 5. Follow all cultures. 6. ID recommendation./ Abx 7. venous Doppler negative /Lovenox dose changed to DVT prophylaxis dose. 8. Discussed with RN and dr hussein We will follow along with you. MARIELY PACE MD May 24, 2018 08:32
[2018-05-24] MEDS: AMOXICILLIN/K CLAV 875/125MG TABLET. PO SCH ×2 (09:00→21:00)
[2018-05-24] MEDS: cloNIDine TTS-3 1 PATCH PATCH.TDWK TD SCH (09:00)
[2018-05-24] MEDS: FUROSEMIDE 40 MG TABLET. PO SCH (09:00)
[2018-05-24] MEDS: SENNOSIDES 8.6 MG TABLET PO SCH ×2 (09:00→21:00)
[2018-05-24] MEDS: LACTOBACILLUS RHAMNOSUS GG 1 CAPSULE. PO SCH ×2 (09:00→21:00)
[2018-05-24] MEDS: LINAGLIPTIN 5 MG TABLET PO SCH (09:00)
[2018-05-24] MEDS: GABAPENTIN 300 MG CAPSULE. PO SCH ×3 (09:00→21:00)
[2018-05-24] MEDS: METOPROLOL TART IMMED RELEASE 50 MG TABLET. PO SCH ×2 (09:00→21:00)
[2018-05-24] MEDS: LOSARTAN POTASSIUM 50 MG TABLET. PO SCH (09:00)
[2018-05-24] MEDS: ASPIRIN CHEWABLE 81 MG TABLET. PO SCH (09:00)
--- NOTE | 2018-05-24 10:09 | NUR ---
SS following up with discharge planning. SS received notification that pt needed consent for a PEG tube placement. SS contacted Brianda at [facility] and was notified that pt's nephew, Rogelio Lozano, cell# [phone], is his responsible alliance party. SS contacted Rogelio and left a voicemail requesting return call in regards to pt. Pt's RN notified and provided with contact information. Palliative care RN notified.
[2018-05-24] MEDS: ENOXAPARIN 40 MG/0.4 ML SYRINGE. SQ SCH (10:16)
[2018-05-24] MEDS: hydrALAZINE 20 MG/ML VIAL. IVP PRN (10:19)
[2018-05-24] MEDS: INSULIN LISPRO 300 UNITS/3 ML INSULN.PEN. SQ SCH ×3 (10:19→18:13)
--- NOTE | 2018-05-24 10:24 | PDOC ---
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
[2018-05-24 10:57] VITALS: BP 152/60
--- NOTE | 2018-05-24 11:09 | NUR ---
Clonidine patch found on left arm, med [employer].
--- NOTE | 2018-05-24 11:34 | PDOC2 ---
PALLIATIVE CARE Palliative Care Note Palliative Care Spoke with Brianda HIGUERA at [facility]. States she has spoke with Nina BLAKELY and provided contact information for nephew. Nina has attempted to reach Ronaldandrew Muhammadm. Waiting for return call. Will speak with his regarding Code Status when he can be reached. CATHY SINGH May 24, 2018 11:34
[2018-05-24 14:48] VITALS: BP 139/64
[2018-05-24 19:43] VITALS: BP 158/72
[2018-05-24] MEDS: ATORVASTATIN CALCIUM 20 MG TABLET PO SCH (21:00)
--- NOTE | 2018-05-24 22:49 | PN ---
DATE: 05/24/2018 SUBJECTIVE: The patient was in the process of being discharged yesterday; however, has had a video swallowing evaluation, which showed that he is aspirating all consistencies. The speech therapist recommended n.p.o. status as the patient has silent aspiration of honey thick, thin and puree consistencies during current study. He has oropharyngeal delay as well as reduced hyolaryngeal excursion contributing to aspiration. The patient was put back on procalamine and he was kept n.p.o. and we consulted the palliative care to assemble and ethics committee to decide as we are unable to contact any family member to decide whether he needs to go on hospice and/or be aggressive and put a feeding tube. PHYSICAL EXAMINATION: GENERAL: When I examined him this morning, he looked well and was clearly in no apparent respiratory distress. He was pale, but no jaundice, cyanosis, or thyromegaly. No jugular venous distention. No lower limb edema. VITAL SIGNS: His heart rate was 73, blood pressure was 198/71, temperature was 98.1, respiratory rate was 16, and oxygen saturation was 97% on 3 liters of oxygen. HEAD, EYES, EARS, NOSE AND THROAT: Showed normocephalic, atraumatic. NECK: Supple. HEART: Showed normal first and second heart sounds. No gallop, rub or murmur. CHEST: Clear to auscultation. No crepitation or rhonchi. ABDOMEN: Distended, soft, nontender. NEUROLOGIC: He is awake, alert, opens eyes, tracks and responds by nodding his head and mumbling words that are difficult to understand. He moves his upper extremities to much good extent than lower extremities. He has left below knee amputation. His intake was 1740, output was 1300. His blood sugar is slightly better, although not suboptimally controlled. ASSESSMENT AND PLAN: Severe dysphagia with aspirating all consistencies. PLAN: To consult palliative care team to assemble and ethics committee to decide on further management as we are unable to contact any of his family members to decide on how aggressive treatment should be. KASIE TRIPLETT MD DR: FERMÍN/marysol JOB#: [id number] / [id number]
[2018-05-24 23:40] VITALS: BP_SYST 186; BP_SYST 192; BP_DIAS 66; BP_DIAS 71
[2018-05-25] VITALS (7 sets, daily range): BP systolic 150–187; BP diastolic 60–83
[2018-05-25] MEDS: cloNIDine TTS-3 1 PATCH PATCH.TDWK TD SCH (00:29)
[2018-05-25] MEDS: AMINO AC 3%/ELECTROLYTE/GLYCER 1,000 ML IV SCH ×2 (00:33→15:21)
[2018-05-25] MEDS: hydrALAZINE 20 MG/ML VIAL. IVP PRN ×2 (00:34→21:07)
[2018-05-25 05:01] LABS: HEMATOCRIT 25.4 % (39.0-53.0); HEMOGLOBIN 8.5 g/dL (13.0-17.5); RED BLOOD COUNT 2.71 x10^6/uL (4.30-5.70); RED CELL DISTRIBUTION WIDTH 13.9 % (11.5-14.5); WHITE BLOOD COUNT 3.8 x10^3/uL (4.0-11.0)
[2018-05-25] MEDS: FOSPHENYTOIN 100 MG/2 ML VIAL. IV SCH ×3 (05:35→21:07)
[2018-05-25 05:39] LABS: CALCIUM 8.3 mg/dL (8.5-10.1); CREATININE 0.8 mg/dL (0.7-1.3); GFR 117.4; POTASSIUM 4.5 mmol/L (3.5-5.1)
[2018-05-25] MEDS: IPRATRPIUM/ALBUTEROL 0.5/2.5MG 3 ML NEBU. NEB SCH ×4 (06:33→20:00)
[2018-05-25] MEDS: PANTOPRAZOLE 40 MG TABLET.DR. PO SCH ×2 (07:30→16:30)
[2018-05-25] MEDS: metFORMIN 500 MG TABLET PO SCH ×2 (08:00→17:00)
[2018-05-25] MEDS: INSULIN LISPRO 300 UNITS/3 ML INSULN.PEN. SQ SCH ×3 (08:43→17:00)
--- NOTE | 2018-05-25 08:49 | PDOC ---
PULMONARY PROGRESS NOTES Subjective has dysphagia, on 02, appears comfortable. trying to answer Qs, mumbling words Vitals Vital Signs Date Time Temp Pulse Resp B/P (MAP) Pulse Ox O2 Delivery O2 Flow Rate FiO2 05/25/18 07:48 99.0 93 150/66 (94) 93 Nasal Cannula 2.0 99.0 05/25/18 03:20 20 General: No acute distress Lungs: Crackles Cardiovascular: S1, S2 Abdomen: Soft, Non-tender Neuro Exam: Alert Extremities: Other (left BKA) Skin: Warm Labs Laboratory Tests Test 05/23/18 11:06 05/23/18 17:36 05/23/18 20:26 05/24/18 07:36 Glucose (Fingerstick) 301 mg/dL (70-99) 283 mg/dL (70-99) 256 mg/dL (70-99) 232 mg/dL (70-99) Test 05/24/18 11:37 05/24/18 16:36 05/24/18 20:46 05/25/18 04:00 Glucose (Fingerstick) 270 mg/dL (70-99) 285 mg/dL (70-99) 239 mg/dL (70-99) White Blood Count 3.8 x10^3/uL (4.0-11.0) Red Blood Count 2.71 x10^6/uL (4.30-5.70) Hemoglobin 8.5 g/dL (13.0-17.5) Hematocrit 25.4 % (39.0-53.0) Mean Corpuscular Volume 94 fL (79-100) Mean Corpuscular Hemoglobin 32 pg (25-35) Mean Corpuscular Hemoglobin Concent 34 g/dL (31-37) Red Cell Distribution Width 13.9 % (11.5-14.5) Platelet Count 184 x10^3/uL (140-400) Sodium Level 133 mmol/L (136-145) Potassium Level 4.5 mmol/L (3.5-5.1) Chloride Level 99 mmol/L (98-107) Carbon Dioxide Level 28 mmol/L (21-32) Anion Gap 6 (6-14) Blood Urea Nitrogen 20 mg/dL (8-26) Creatinine 0.8 mg/dL (0.7-1.3) Estimated GFR (Cockcroft-Gault) 117.4 Glucose Level 252 mg/dL (70-99) Calcium Level 8.3 mg/dL (8.5-10.1) Test 05/25/18 07:52 Glucose (Fingerstick) 245 mg/dL (70-99) Laboratory Tests Test 05/24/18 11:37 05/24/18 16:36 05/24/18 20:46 05/25/18 04:00 Glucose (Fingerstick) 270 mg/dL (70-99) 285 mg/dL (70-99) 239 mg/dL (70-99) White Blood Count 3.8 x10^3/uL (4.0-11.0) Red Blood Count 2.71 x10^6/uL (4.30-5.70) Hemoglobin 8.5 g/dL (13.0-17.5) Hematocrit 25.4 % (39.0-53.0) Mean Corpuscular Volume 94 fL (79-100) Mean Corpuscular Hemoglobin 32 pg (25-35) Mean Corpuscular Hemoglobin Concent 34 g/dL (31-37) Red Cell Distribution Width 13.9 % (11.5-14.5) Platelet Count 184 x10^3/uL (140-400) Sodium Level 133 mmol/L (136-145) Potassium Level 4.5 mmol/L (3.5-5.1) Chloride Level 99 mmol/L (98-107) Carbon Dioxide Level 28 mmol/L (21-32) Anion Gap 6 (6-14) Blood Urea Nitrogen 20 mg/dL (8-26) Creatinine 0.8 mg/dL (0.7-1.3) Estimated GFR (Cockcroft-Gault) 117.4 Glucose Level 252 mg/dL (70-99) Calcium Level 8.3 mg/dL (8.5-10.1) Test 05/25/18 07:52 Glucose (Fingerstick) 245 mg/dL (70-99) Medications Active Scripts Medications Dose Route/Sig Max Daily Dose Days Date Category Tresiba (Insulin Degludec) 100 Unit/1 Ml Vial 5 Unit SQ DAILY08 05/19/18 Reported Senna (Sennosides) 8.6 Mg Tablet 8.6 Mg PO BID 05/19/18 Reported Dilantin (Phenytoin Sodium Extended) 100 Mg Capsule 1 Cap PO TID 05/19/18 Reported Omeprazole 40 Mg Capsule.dr 1 Cap PO BID 05/19/18 Reported Novolog Flexpen (Insulin Aspart) 100 Unit/1 Ml Insuln.pen 3 Unit SQ HS 05/19/18 Reported Novolog Flexpen (Insulin Aspart) 100 Unit/1 Ml Insuln.pen 2 Unit SQ BID 05/19/18 Reported Mucinex (Guaifenesin) 600 Mg Tablet.er 1 Tab PO BID PRN 05/19/18 Reported Metoprolol Tartrate 50 Mg Tablet 1 Tab PO BID 05/19/18 Reported Metformin Hcl 1,000 Mg Tablet 1,000 Mg PO BIDWMEALS 05/19/18 Reported Losartan Potassium 100 Mg Tablet 100 Mg PO DAILY 05/19/18 Reported Januvia (Sitagliptin Phosphate) 100 Mg Tablet 1 Tab PO DAILY 05/19/18 Reported Ibuprofen 100 Mg/5 Ml Oral.susp 200 Mg PO PRN Q6HRS PRN 05/19/18 Reported Gabapentin (Gabapentin) 300 Mg Capsule 300 Mg PO TID 05/19/18 Reported Furosemide 40 Mg Tablet 1 Tab PO DAILY 05/19/18 Reported Atorvastatin Calcium 20 Mg Tablet 1 Tab PO DAILY 05/19/18 Reported Aspirin 81 Mg Tab.chew 1 Tab PO DAILY 05/19/18 Reported Impression . 1. Acute on chronic hypoxic respiratory failure secondary to multifactorial etiologies and includes combination of suspected sepsis, bilateral pleural effusion, which is likely transudative from a low oncotic pressure. Clinically, less likely thromboembolic disease. not convinced that there is any significant pulmonary embolism in the right lower lobe as reported. ( d/w another radiologist), le doppler neg 2. The patient with prior stroke and expressive aphasia and limited mobility. 3. Abnormal CT chest with bilateral pleural effusion and right middle lobe atelectasis. 4. Suspected sepsis. Follow ID recommendations. 5. dysphagia Plan . 1. need a peg, no family to consent for peg, ethic committee consulted 2. diuresis. keep I<O, monitor k, cr 3. echocardiogram to assess for any LV dysfunction. 4. Improve nutritional status. 5. Follow all cultures. 6. Abx per id, now off, monitor off abx 7. venous Doppler negative /Lovenox DVT prophylaxis dose. 8. elevate hob Discussed with RN and dr hussein We will follow along with you. MARIELY PACE MD May 25, 2018 08:49
[2018-05-25] MEDS: LACTOBACILLUS RHAMNOSUS GG 1 CAPSULE. PO SCH ×2 (09:00→20:42)
[2018-05-25] MEDS: LOSARTAN POTASSIUM 50 MG TABLET. PO SCH (09:00)
[2018-05-25] MEDS: LINAGLIPTIN 5 MG TABLET PO SCH (09:00)
[2018-05-25] MEDS: FUROSEMIDE 40 MG TABLET. PO SCH (09:00)
[2018-05-25] MEDS: GABAPENTIN 300 MG CAPSULE. PO SCH ×3 (09:00→20:43)
[2018-05-25] MEDS: METOPROLOL TART IMMED RELEASE 50 MG TABLET. PO SCH ×2 (09:00→20:43)
[2018-05-25] MEDS: ASPIRIN CHEWABLE 81 MG TABLET. PO SCH (09:00)
[2018-05-25] MEDS: SENNOSIDES 8.6 MG TABLET PO SCH ×2 (09:00→20:43)
--- NOTE | 2018-05-25 11:35 | PDOC ---
Infectious Disease Note Subjective Subjective Remains afebrile No increase O2 demands ROS ROS Nonverbal Vital Sign Vital Signs Vital Signs Date Time Temp Pulse Resp B/P (MAP) Pulse Ox O2 Delivery O2 Flow Rate FiO2 05/25/18 11:13 98.2 79 18 173/70 (104) 93 Nasal Cannula 2.0 98.2 Physical Exam PHYSICAL EXAM GENERAL: Propped up in bed, alert, smiled HENT: Oral cavity pink, moist LUNGS: Clear anteriorly CV: S1 S2 ABD: Obese, soft, NT, BS present : Garrett EXT: No gross edema or cyanosis. Previous left BKA. SKIN: No rash ACTIVITIES ATTENDANT: Alert, follows simple commands, mumbles LUE-PICC clean Labs Lab Laboratory Tests Test 05/24/18 11:37 05/24/18 16:36 05/24/18 20:46 05/25/18 04:00 Glucose (Fingerstick) 270 mg/dL (70-99) 285 mg/dL (70-99) 239 mg/dL (70-99) White Blood Count 3.8 x10^3/uL (4.0-11.0) Red Blood Count 2.71 x10^6/uL (4.30-5.70) Hemoglobin 8.5 g/dL (13.0-17.5) Hematocrit 25.4 % (39.0-53.0) Mean Corpuscular Volume 94 fL (79-100) Mean Corpuscular Hemoglobin 32 pg (25-35) Mean Corpuscular Hemoglobin Concent 34 g/dL (31-37) Red Cell Distribution Width 13.9 % (11.5-14.5) Platelet Count 184 x10^3/uL (140-400) Sodium Level 133 mmol/L (136-145) Potassium Level 4.5 mmol/L (3.5-5.1) Chloride Level 99 mmol/L (98-107) Carbon Dioxide Level 28 mmol/L (21-32) Anion Gap 6 (6-14) Blood Urea Nitrogen 20 mg/dL (8-26) Creatinine 0.8 mg/dL (0.7-1.3) Estimated GFR (Cockcroft-Gault) 117.4 Glucose Level 252 mg/dL (70-99) Calcium Level 8.3 mg/dL (8.5-10.1) Test 05/25/18 07:52 Glucose (Fingerstick) 245 mg/dL (70-99) Micro Objective Assessment Encephalopathy, improved Fever, better Aspiration, suspected Dysphagia DM HTN Malnutrition Respiratory failure Mild leukopenia Plan Plan of Care Continue to observe off antibiotics Maintain aspiration precautions Supportive care Call with questions Patient seen and examined. Chart reviewed in detail. Case d/w WATCH TRAIN INSPECTOR. Agree with above plan. DENAE GOODEN APRN May 25, 2018 11:35 AYE ALCOCER MD May 25, 2018 20:28
[2018-05-25] MEDS: ENOXAPARIN 40 MG/0.4 ML SYRINGE. SQ SCH (13:50)
--- NOTE | 2018-05-25 15:23 | PN ---
DATE: 05/25/2018 SUBJECTIVE: The patient is resting, slightly propped up in bed, in no apparent respiratory distress. He is awake, alert. Does not seem to be in any respiratory distress. He has aphasia and difficult to understand. PHYSICAL EXAMINATION: GENERAL: When I examined him; however, he looked well and was clearly in no apparent respiratory distress. No pallor, jaundice, cyanosis, or thyromegaly. No jugular venous distension. No limb edema. VITAL SIGNS: His heart rate was 93, blood pressure was 150/66, temperature was 99, respiratory rate was 20, and oxygen saturation was 93% on 2 liters of oxygen. EXAMINATION: The rest of clinical examination is stable. His intake over the last 24 hours was 1080, output was 1550. LABORATORY DATA: As of this morning, his serum sodium was 133, potassium 4.5, chloride 99, bicarbonate 28, anion gap of 6, BUN 20, creatinine 0.8, estimated GFR was 117 mL per minute. His glucose was 252, calcium was 8.3. His white cell count was 3800, hemoglobin 8.5, hematocrit 25, MCV 94 and platelet count 284,000. ASSESSMENT: 1. Altered mental status, likely due to hyperglycemia and hypoxia, resolved. He is more awake, alert, opens his eyes and attempt to mouth some words, although he has aphasia and difficult to understand. 2. He developed fever, likely to aspiration pneumonia, which was treated empirically on vancomycin and Zosyn. All his blood cultures and urine cultures are negative. 3. The patient has generalized anasarca and severe hypoalbuminemia with a 24-hour collection and he is losing large amount of protein in the urine, more than 3500. 4. Hypertension for which he is on clonidine patch. 5. Type 2 diabetes mellitus, seems reasonably although not optimally well controlled. 6. Hyperlipidemia. 7. Left middle cerebral artery territory infarct with right-sided hemiplegia. 8. Peripheral vascular disease, status post left below knee amputation. 9. Epilepsy, for which he is on phenytoin. 10. Difficulty walking with marked muscle wasting and weakness for which he is normally bedbound, wheelchair bound. PLAN: To continue nutritional support and follow procalamine, continue to monitor his blood sugar and adjust insulin as needed. Continue with phenytoin for seizure control. Continue with clonidine and hydralazine to control his blood pressure. Apparently, the social workers are attempting to contact his family to decide on further management as his video swallowing evaluation showed that he is at a high risk aspiration for consistencies. KASIE TRIPLETT MD DR: FERMÍN/marysol JOB#: [id number] / [id number]
[2018-05-25] MEDS: ATORVASTATIN CALCIUM 20 MG TABLET PO SCH (20:43)
[2018-05-26] MEDS: hydrALAZINE 20 MG/ML VIAL. IVP PRN ×3 (00:35→15:00)
[2018-05-26] MEDS: AMINO AC 3%/ELECTROLYTE/GLYCER 1,000 ML IV SCH ×2 (03:22→14:45)
[2018-05-26 03:45] VITALS: BP 181/61
[2018-05-26] MEDS: FOSPHENYTOIN 100 MG/2 ML VIAL. IV SCH ×3 (06:13→21:15)
[2018-05-26] MEDS: PANTOPRAZOLE 40 MG TABLET.DR. PO SCH ×2 (07:30→16:30)
[2018-05-26 07:32] VITALS: BP 166/62
[2018-05-26] MEDS: INSULIN LISPRO 300 UNITS/3 ML INSULN.PEN. SQ SCH ×3 (08:00→17:48)
[2018-05-26] MEDS: metFORMIN 500 MG TABLET PO SCH ×2 (08:00→17:00)
[2018-05-26] MEDS: IPRATRPIUM/ALBUTEROL 0.5/2.5MG 3 ML NEBU. NEB SCH ×4 (08:15→19:56)
[2018-05-26] MEDS: ENOXAPARIN 40 MG/0.4 ML SYRINGE. SQ SCH (08:38)
--- NOTE | 2018-05-26 08:58 | PDOC ---
PULMONARY PROGRESS NOTES Subjective has dysphagia, on 02, appears comfortable. Vitals Vital Signs Date Time Temp Pulse Resp B/P (MAP) Pulse Ox O2 Delivery O2 Flow Rate FiO2 05/26/18 08:15 96 Nasal Cannula 2.0 05/26/18 07:32 99.4 107 23 166/62 (96) 99.4 General: Alert, No acute distress Lungs: Crackles Cardiovascular: S1, S2 Abdomen: Soft, Non-tender Neuro Exam: Alert Extremities: Other (left BKA) Skin: Warm Labs Laboratory Tests Test 05/24/18 11:37 05/24/18 16:36 05/24/18 20:46 05/25/18 04:00 Glucose (Fingerstick) 270 mg/dL (70-99) 285 mg/dL (70-99) 239 mg/dL (70-99) White Blood Count 3.8 x10^3/uL (4.0-11.0) Red Blood Count 2.71 x10^6/uL (4.30-5.70) Hemoglobin 8.5 g/dL (13.0-17.5) Hematocrit 25.4 % (39.0-53.0) Mean Corpuscular Volume 94 fL (79-100) Mean Corpuscular Hemoglobin 32 pg (25-35) Mean Corpuscular Hemoglobin Concent 34 g/dL (31-37) Red Cell Distribution Width 13.9 % (11.5-14.5) Platelet Count 184 x10^3/uL (140-400) Sodium Level 133 mmol/L (136-145) Potassium Level 4.5 mmol/L (3.5-5.1) Chloride Level 99 mmol/L (98-107) Carbon Dioxide Level 28 mmol/L (21-32) Anion Gap 6 (6-14) Blood Urea Nitrogen 20 mg/dL (8-26) Creatinine 0.8 mg/dL (0.7-1.3) Estimated GFR (Cockcroft-Gault) 117.4 Glucose Level 252 mg/dL (70-99) Calcium Level 8.3 mg/dL (8.5-10.1) Test 05/25/18 07:52 05/25/18 11:16 05/25/18 17:52 Glucose (Fingerstick) 245 mg/dL (70-99) 182 mg/dL (70-99) 151 mg/dL (70-99) Laboratory Tests Test 05/25/18 11:16 05/25/18 17:52 Glucose (Fingerstick) 182 mg/dL (70-99) 151 mg/dL (70-99) Medications Active Scripts Medications Dose Route/Sig Max Daily Dose Days Date Category Tresiba (Insulin Degludec) 100 Unit/1 Ml Vial 5 Unit SQ DAILY08 05/19/18 Reported Senna (Sennosides) 8.6 Mg Tablet 8.6 Mg PO BID 05/19/18 Reported Dilantin (Phenytoin Sodium Extended) 100 Mg Capsule 1 Cap PO TID 05/19/18 Reported Omeprazole 40 Mg Capsule.dr 1 Cap PO BID 05/19/18 Reported Novolog Flexpen (Insulin Aspart) 100 Unit/1 Ml Insuln.pen 3 Unit SQ HS 05/19/18 Reported Novolog Flexpen (Insulin Aspart) 100 Unit/1 Ml Insuln.pen 2 Unit SQ BID 05/19/18 Reported Mucinex (Guaifenesin) 600 Mg Tablet.er 1 Tab PO BID PRN 05/19/18 Reported Metoprolol Tartrate 50 Mg Tablet 1 Tab PO BID 05/19/18 Reported Metformin Hcl 1,000 Mg Tablet 1,000 Mg PO BIDWMEALS 05/19/18 Reported Losartan Potassium 100 Mg Tablet 100 Mg PO DAILY 05/19/18 Reported Januvia (Sitagliptin Phosphate) 100 Mg Tablet 1 Tab PO DAILY 05/19/18 Reported Ibuprofen 100 Mg/5 Ml Oral.susp 200 Mg PO PRN Q6HRS PRN 05/19/18 Reported Gabapentin (Gabapentin) 300 Mg Capsule 300 Mg PO TID 05/19/18 Reported Furosemide 40 Mg Tablet 1 Tab PO DAILY 05/19/18 Reported Atorvastatin Calcium 20 Mg Tablet 1 Tab PO DAILY 05/19/18 Reported Aspirin 81 Mg Tab.chew 1 Tab PO DAILY 05/19/18 Reported Impression . 1. Acute on chronic hypoxic respiratory failure secondary to multifactorial etiologies and includes combination of suspected sepsis, bilateral pleural effusion, which is likely transudative from a low oncotic pressure. Clinically, less likely thromboembolic disease. not convinced that there is any significant pulmonary embolism in the right lower lobe as reported. ( d/w another radiologist), le doppler neg 2. The patient with prior stroke and expressive aphasia and limited mobility. 3. Abnormal CT chest with bilateral pleural effusion and right middle lobe atelectasis. 4. Suspected sepsis. Follow ID recommendations. 5. dysphagia Plan . 1. need a peg, no family to give consent for peg, ethic committee consulted 2. diuresis. keep I<O, monitor k, cr 3. echocardiogram to assess for any LV dysfunction. 4. Improve nutritional status. 5. Follow all cultures. 6. Abx per id, now off, monitor off abx 7. venous Doppler negative /Lovenox DVT prophylaxis dose. 8. elevate hob Discussed with RN We will follow along with you. MARIELY PACE MD May 26, 2018 08:58
[2018-05-26] MEDS: ASPIRIN CHEWABLE 81 MG TABLET. PO SCH (09:00)
[2018-05-26] MEDS: LACTOBACILLUS RHAMNOSUS GG 1 CAPSULE. PO SCH ×2 (09:00→21:00)
[2018-05-26] MEDS: LOSARTAN POTASSIUM 50 MG TABLET. PO SCH (09:00)
[2018-05-26] MEDS: GABAPENTIN 300 MG CAPSULE. PO SCH ×3 (09:00→21:00)
[2018-05-26] MEDS: SENNOSIDES 8.6 MG TABLET PO SCH ×2 (09:00→21:00)
[2018-05-26] MEDS: FUROSEMIDE 40 MG TABLET. PO SCH (09:00)
[2018-05-26] MEDS: LINAGLIPTIN 5 MG TABLET PO SCH (09:00)
[2018-05-26] MEDS: METOPROLOL TART IMMED RELEASE 50 MG TABLET. PO SCH ×2 (09:00→21:00)
[2018-05-26 10:32] VITALS: BP 184/95
[2018-05-26 14:29] VITALS: BP 193/80
[2018-05-26] MEDS: METOPROLOL TARTRATE 5 MG/5 ML VIAL. IVP SCH ×2 (17:24→23:38)
[2018-05-26 19:30] VITALS: BP 165/84
[2018-05-26] MEDS: ATORVASTATIN CALCIUM 20 MG TABLET PO SCH (21:00)
[2018-05-26 23:15] VITALS: BP 166/74
[2018-05-27] VITALS (7 sets, daily range): BP systolic 141–198; BP diastolic 57–82
--- NOTE | 2018-05-27 01:37 | PN ---
DATE: 05/26/2018 SUBJECTIVE: The patient is resting, slightly propped up in bed, in no apparent distress. He is awake, alert, tends to mumble words that are very difficult to understand, but clinically, he does not seem to be in any respiratory distress. PHYSICAL EXAMINATION: GENERAL: He was pale, but not jaundiced or cyanosed from thyromegaly. No jugular venous distention. No lower limb edema. VITAL SIGNS: His heart rate was 107, blood pressure was 166/62, temperature was 99.4, respiratory rate was 23 and oxygen saturation was 96% on 2 liters of oxygen. HEENT: Examination of the head, eyes, ears, nose and throat showed normocephalic, atraumatic. NECK: Supple. HEART: Showed normal first and second heart sounds. No gallop, rub or murmur. CHEST: Clear to auscultation. No crepitation or rhonchi. ABDOMEN: Slightly distended, soft and nontender. NEUROLOGIC: He is awake, alert, opens his eyes, tracks and attempts to mumble some words. He has right-sided hemiparesis. He has left below-knee amputation. His intake was 836, output was 1300. His blood sugar seems to be reasonably, but not optimally, controlled. LABORATORY DATA: As of yesterday, serum sodium 133, potassium 4.5, chloride 99, bicarbonate 28, anion gap of 6, BUN 20 and creatinine 0.8. His white cell count was 3800, hemoglobin 8.5, hematocrit 25, MCV 94 and platelet count of 184,000. ASSESSMENT AND PLAN: 1. Altered mental status, likely due to hypoglycemia and hypoxia, resolved. He is now more awake, alert, opens eyes, tracks and attempts to mouth some words, although he has aphasia and difficult to understand. 2. He developed fever, likely due to aspiration pneumonia, which was treated empirically with vancomycin and Zosyn. All his blood cultures and urine cultures are negative. 3. The patient has generalized anasarca and severe hypoalbuminemia. With the 24-hour urine collection, he is releasing large amount of protein in the urine, more than 3500. 4. Hypertension, for which he is on clonidine patch. 5. Type 2 diabetes mellitus, seems reasonably, although not optimally, well controlled. 6. Hyperlipidemia. 7. Left middle cerebral artery territory infarct, right-sided hemiplegia and aphasia, now dysphasia. 8. Peripheral vascular disease, status post left below-knee amputation. 9. Epilepsy, for which he is on phenytoin. 10. Difficulty walking, marked muscle wasting and weakness, for which he is normally bedbound and wheelchair bound. PLAN: Plan is to continue with nutritional support in the form of procalamine. Continue to monitor blood sugar and adjust insulin as needed. Continue phenytoin for seizure disorder. Continue with clonidine and hydralazine to control his blood pressure. Apparently, the social workers are attempting to contact the family to decide on further management, as his video swallowing evaluation showed that he is a high-risk aspiration for all consistencies. KASIE TRIPLETT MD DR: FERMÍN/marysol JOB#: [id number] / [id number]
[2018-05-27] MEDS: AMINO AC 3%/ELECTROLYTE/GLYCER 1,000 ML IV SCH ×2 (05:01→16:31)
[2018-05-27] MEDS: METOPROLOL TARTRATE 5 MG/5 ML VIAL. IVP SCH ×3 (05:02→18:59)
[2018-05-27] MEDS: FOSPHENYTOIN 100 MG/2 ML VIAL. IV SCH ×3 (05:02→21:06)
[2018-05-27] MEDS: IPRATRPIUM/ALBUTEROL 0.5/2.5MG 3 ML NEBU. NEB SCH ×4 (06:56→20:34)
[2018-05-27] MEDS: PANTOPRAZOLE 40 MG TABLET.DR. PO SCH ×2 (07:30→16:30)
[2018-05-27] MEDS: metFORMIN 500 MG TABLET PO SCH ×2 (08:00→17:00)
--- NOTE | 2018-05-27 08:01 | NUR ---
SS following up with discharge planning. Pt's nephew and sister have not returned calls from SS and have not contacted the floor to discuss pt's care and assist with consents. SS completed [facility]PS hotline report, intake# [id number], to discuss concerns relating to pt's care. Pt is able to return to [facility] when medically stable for discharge.
[2018-05-27] MEDS: LOSARTAN POTASSIUM 50 MG TABLET. PO SCH (09:00)
[2018-05-27] MEDS: LINAGLIPTIN 5 MG TABLET PO SCH (09:00)
[2018-05-27] MEDS: METOPROLOL TART IMMED RELEASE 50 MG TABLET. PO SCH ×2 (09:00→20:59)
[2018-05-27] MEDS: SENNOSIDES 8.6 MG TABLET PO SCH ×2 (09:00→20:59)
[2018-05-27] MEDS: LACTOBACILLUS RHAMNOSUS GG 1 CAPSULE. PO SCH ×2 (09:00→20:58)
[2018-05-27] MEDS: GABAPENTIN 300 MG CAPSULE. PO SCH ×3 (09:00→20:59)
[2018-05-27] MEDS: ASPIRIN CHEWABLE 81 MG TABLET. PO SCH (09:00)
[2018-05-27] MEDS: ENOXAPARIN 40 MG/0.4 ML SYRINGE. SQ SCH (09:17)
[2018-05-27] MEDS: FUROSEMIDE 40 MG/4 ML VIAL. IVP SCH (09:17)
[2018-05-27] MEDS: INSULIN LISPRO 300 UNITS/3 ML INSULN.PEN. SQ SCH ×3 (09:23→17:00)
--- NOTE | 2018-05-27 09:37 | PDOC ---
Infectious Disease Note Subjective: Subjective Remains afebrile No increase O2 demands appears comfortable Vital Signs: Vital Signs Vital Signs Date Time Temp Pulse Resp B/P (MAP) Pulse Ox O2 Delivery O2 Flow Rate FiO2 05/27/18 07:43 98.3 77 17 185/68 (107) 88 Nasal Cannula 3.0 98.3 Physical Exam: PHYSICAL EXAM GENERAL: Propped up in bed, alert, smiles,comfortable HENT: Oral cavity pink, moist LUNGS: Clear anteriorly CV: S1 S2 ABD: Obese, soft, NT, BS present : Garrett EXT: No gross edema or cyanosis. Previous left BKA. SKIN: No rash CASHIER TUBE ROOM: Alert, follows simple commands, mumbles LUE-PICC clean Medications: Inpatient Meds: Current Medications Medications (Trade) Dose Ordered Sig/Inocencia Start Time Stop Time Status Last Admin Dose Admin Acetaminophen (Tylenol Supp) 650 mg PRN Q6HRS PRN 05/18/18 18:30 Albuterol Sulfate (Ventolin Neb Soln) 2.5 mg 1X ONCE 05/20/18 02:45 05/20/18 02:46 DC 05/20/18 02:50 2.5 MG Albuterol/ Ipratropium (Duoneb) 3 ml RTQID 05/23/18 12:00 05/27/18 06:56 3 ML Amino Acids/ Glycerin/ Electrolytes 1,000 ml @ 80 mls/hr [id number] 05/23/18 14:15 05/27/18 05:01 80 MLS/HR Amoxicillin/ Clavulanate Potassium (Augmentin 875/ 125mg) 1 tab BID 05/23/18 10:00 05/25/18 08:26 DC 05/23/18 10:16 1 TAB Aspirin (Children'S Aspirin) 81 mg DAILY 05/22/18 14:00 05/23/18 08:20 81 MG Atorvastatin Calcium (Lipitor) 20 mg QHS 05/22/18 21:00 05/22/18 19:51 20 MG Barium Sulfate (Varibar Thin Liquid Apple) 148 gm 1X ONCE 05/23/18 13:45 05/23/18 13:46 DC 05/23/18 13:49 148 GM Clonidine HCl (Catapres Tts-3) 1 patch ONCE ONCE 05/21/18 23:30 05/21/18 23:31 DC 05/21/18 23:37 1 PATCH Dextrose (Dextrose 50%-Water Syringe) 12.5 gm PRN Q15MIN PRN 05/21/18 09:00 Dextrose/Sodium Chloride 1,000 ml @ 75 mls/hr [id number] 05/19/18 10:00 05/19/18 14:56 DC Enoxaparin Sodium (Lovenox 30mg Syringe) 30 mg 1X ONCE 05/19/18 18:30 05/19/18 18:31 DC 05/19/18 18:25 30 MG Enoxaparin Sodium (Lovenox 40mg Syringe) 40 mg DAILY08 05/21/18 08:00 05/27/18 09:17 40 MG Enoxaparin Sodium (Lovenox 80mg Syringe) 70 mg Q12HR 05/20/18 09:00 05/20/18 16:19 DC 05/20/18 09:10 70 MG Fosphenytoin Sodium (Cerebyx) 100 mg Q8HRS 05/23/18 14:30 05/27/18 05:02 100 MG Fosphenytoin Sodium 100 mg/ Sodium Chloride 52 ml @ 208 mls/hr 1X ONCE 05/18/18 16:45 05/18/18 16:59 UNV Furosemide (Lasix) 40 mg DAILY 05/27/18 09:00 05/27/18 09:17 40 MG Gabapentin (Neurontin) 300 mg TID 05/22/18 14:00 05/23/18 08:20 300 MG Glucagon (Glucagen) 1 mg STK-MED ONCE 05/18/18 15:20 05/18/18 15:21 DC Guaifenesin (Mucinex) 600 mg PRN BID PRN 05/22/18 12:45 05/22/18 19:51 600 MG Hydralazine HCl (Apresoline Inj) 20 mg PRN Q4HRS PRN 05/21/18 23:15 05/26/18 15:00 20 MG Info (CONTRAST GIVEN -- Rx MONITORING) 1 each PRN DAILY PRN 05/19/18 15:15 05/21/18 15:14 DC Insulin Human Lispro (HumaLOG) 0-7 UNITS TIDWMEALS 05/21/18 12:00 05/27/18 09:23 2 UNITS Iohexol (Omnipaque 350 Mg/ml) 90 ml 1X ONCE 05/19/18 15:15 05/19/18 15:16 DC 05/19/18 15:15 90 ML Lactobacillus Rhamnosus (Culturelle) 1 cap BID 05/19/18 21:00 05/22/18 19:51 1 CAP Linagliptin (Tradjenta) 5 mg DAILY 05/22/18 14:00 05/23/18 08:21 5 MG Losartan Potassium (Cozaar) 100 mg DAILY 05/22/18 14:00 05/23/18 08:21 100 MG Metformin HCl (Glucophage) 1,000 mg BIDWMEALS 05/22/18 17:00 05/23/18 08:19 1,000 MG Metoprolol Tartrate (Lopressor Vial) 5 mg Q6HRS 05/26/18 18:00 05/27/18 05:02 5 MG Metoprolol Tartrate (Lopressor) 50 mg BID 05/22/18 14:00 05/23/18 08:22 50 MG Pantoprazole Sodium (Protonix) 40 mg BIDAC 05/22/18 16:30 05/23/18 08:21 40 MG Phenytoin Sodium (Dilantin) 100 mg TID 05/22/18 14:00 05/23/18 14:34 DC 05/23/18 08:20 100 MG Piperacillin Sod/ Tazobactam Sod (Zosyn Per Pharmacy) 1 each PRN DAILY PRN 05/18/18 19:00 05/23/18 09:03 DC Piperacillin Sod/ Tazobactam Sod 3.375 gm/Sodium Chloride 50 ml @ 100 mls/hr Q6HRS 05/18/18 19:30 05/23/18 09:02 DC 05/23/18 05:59 100 MLS/HR Sennosides (Senna) 8.6 mg BID 05/22/18 14:00 05/22/18 14:39 8.6 MG Vancomycin HCl (Vanco Per Pharmacy) 1 each PRN DAILY PRN 05/18/18 19:00 05/21/18 10:33 DC 05/20/18 09:30 1 EACH Vancomycin HCl (Vancomycin Trough Level) 1 each 1X ONCE 05/22/18 16:30 05/22/18 16:30 DC Vancomycin HCl 1.25 gm/Sodium Chloride 250 ml @ 250 mls/hr Q18H 4/8/19 11:00 05/21/18 10:32 DC 05/21/18 05:16 250 MLS/HR Vancomycin HCl 1.75 gm/Sodium Chloride 500 ml @ 250 mls/hr 1X ONCE 05/18/18 19:30 05/18/18 21:29 DC 05/18/18 19:13 250 MLS/HR Vancomycin HCl 1 gm/Sodium Chloride 250 ml @ 250 mls/hr Q12H 05/19/18 07:00 05/20/18 09:21 DC 05/19/18 18:28 250 MLS/HR Labs: Lab Laboratory Tests Test 05/26/18 11:56 05/26/18 16:45 05/27/18 00:17 05/27/18 06:12 Glucose (Fingerstick) 239 mg/dL (70-99) 191 mg/dL (70-99) 148 mg/dL (70-99) 192 mg/dL (70-99) Test 05/27/18 07:16 Glucose (Fingerstick) 211 mg/dL (70-99) Objective: Assessment: Encephalopathy, improved Fever resolved Aspiration, suspected Dysphagia DM HTN Malnutrition Respiratory failure Mild leukopenia Plan: Plan of Care Continue to observe off antibiotics Maintain aspiration precautions Supportive care CECY CHERRY MD May 27, 2018 09:37
--- NOTE | 2018-05-27 11:00 | PDOC2 ---
PALLIATIVE CARE Palliative Care Note Palliative Care Multiple attempts per SS to contact family. No response. Will need decisions per Best Interest of Patient for Code Status and PEG insertion if no family can be reached. Spoke with Nina BLAKELY who will contact [facility] again. Likely will need Guardianship filed. CATHY SINGH May 27, 2018 11:00
--- NOTE | 2018-05-27 12:36 | PDOC ---
PULMONARY PROGRESS NOTES Subjective has dysphagia, on 02, appears comfortable. Vitals Vital Signs Date Time Temp Pulse Resp B/P (MAP) Pulse Ox O2 Delivery O2 Flow Rate FiO2 05/27/18 12:19 89 141/67 05/27/18 10:55 93 Nasal Cannula 4.0 05/27/18 10:46 98.5 19 98.5 General: Alert, No acute distress Lungs: Crackles Cardiovascular: S1, S2 Abdomen: Soft, Non-tender Neuro Exam: Alert Extremities: Other (left BKA) Skin: Warm Labs Laboratory Tests Test 05/25/18 17:52 05/26/18 11:56 05/26/18 16:45 05/27/18 00:17 Glucose (Fingerstick) 151 mg/dL (70-99) 239 mg/dL (70-99) 191 mg/dL (70-99) 148 mg/dL (70-99) Test 05/27/18 06:12 05/27/18 07:16 05/27/18 11:34 Glucose (Fingerstick) 192 mg/dL (70-99) 211 mg/dL (70-99) 188 mg/dL (70-99) Laboratory Tests Test 05/26/18 16:45 05/27/18 00:17 05/27/18 06:12 05/27/18 07:16 Glucose (Fingerstick) 191 mg/dL (70-99) 148 mg/dL (70-99) 192 mg/dL (70-99) 211 mg/dL (70-99) Test 05/27/18 11:34 Glucose (Fingerstick) 188 mg/dL (70-99) Medications Active Scripts Medications Dose Route/Sig Max Daily Dose Days Date Category Tresiba (Insulin Degludec) 100 Unit/1 Ml Vial 5 Unit SQ DAILY08 05/19/18 Reported Senna (Sennosides) 8.6 Mg Tablet 8.6 Mg PO BID 05/19/18 Reported Dilantin (Phenytoin Sodium Extended) 100 Mg Capsule 1 Cap PO TID 05/19/18 Reported Omeprazole 40 Mg Capsule.dr 1 Cap PO BID 05/19/18 Reported Novolog Flexpen (Insulin Aspart) 100 Unit/1 Ml Insuln.pen 3 Unit SQ HS 05/19/18 Reported Novolog Flexpen (Insulin Aspart) 100 Unit/1 Ml Insuln.pen 2 Unit SQ BID 05/19/18 Reported Mucinex (Guaifenesin) 600 Mg Tablet.er 1 Tab PO BID PRN 05/19/18 Reported Metoprolol Tartrate 50 Mg Tablet 1 Tab PO BID 05/19/18 Reported Metformin Hcl 1,000 Mg Tablet 1,000 Mg PO BIDWMEALS 05/19/18 Reported Losartan Potassium 100 Mg Tablet 100 Mg PO DAILY 05/19/18 Reported Januvia (Sitagliptin Phosphate) 100 Mg Tablet 1 Tab PO DAILY 05/19/18 Reported Ibuprofen 100 Mg/5 Ml Oral.susp 200 Mg PO PRN Q6HRS PRN 05/19/18 Reported Gabapentin (Gabapentin) 300 Mg Capsule 300 Mg PO TID 05/19/18 Reported Furosemide 40 Mg Tablet 1 Tab PO DAILY 05/19/18 Reported Atorvastatin Calcium 20 Mg Tablet 1 Tab PO DAILY 05/19/18 Reported Aspirin 81 Mg Tab.chew 1 Tab PO DAILY 05/19/18 Reported Impression . 1. Acute on chronic hypoxic respiratory failure secondary to multifactorial etiologies and includes combination of suspected sepsis, bilateral pleural effusion, which is likely transudative from a low oncotic pressure. Clinically, less likely thromboembolic disease. not convinced that there is any significant pulmonary embolism in the right lower lobe as reported. ( d/w another radiologist), le doppler neg 2. The patient with prior stroke and expressive aphasia and limited mobility. 3. Abnormal CT chest with bilateral pleural effusion and right middle lobe atelectasis. 4. Suspected sepsis. Follow ID recommendations. 5. dysphagia Plan . 1. need a peg, no family to give consent for peg, ethic committee consulted 2. diuresis. keep I<O, monitor k, cr 3. echocardiogram to assess for any LV dysfunction. 4. Improve nutritional status. 5. Follow all cultures. 6. Abx per id, now off, monitor off abx 7. venous Doppler negative /Lovenox DVT prophylaxis dose. 8. elevate hob Discussed with RN We will follow along with you. TESFAYE DÍAZ MD May 27, 2018 12:36
[2018-05-27] MEDS: ATORVASTATIN CALCIUM 20 MG TABLET PO SCH (20:59)
--- NOTE | 2018-05-28 01:40 | PN ---
DATE: 05/27/2018 SUBJECTIVE: The patient is resting, slightly propped up in bed, clearly in no apparent respiratory distress. He is awake, alert. Unfortunately, he is aphasic. Nursing staff did not voice any concern except that his blood pressure continues to be high and unfortunately the video swallowing evaluation showed that he is aspirating all consistencies and the speech therapist recommended n.p.o. status and perhaps feeding tube placement. Unfortunately, so far, all our effort to contact his family has failed. PHYSICAL EXAMINATION: GENERAL: When I examined him this morning, he looked well and was clearly in no apparent respiratory distress, pale, not jaundiced or cyanosed from thyromegaly. No jugular venous distention. No limb edema. VITAL SIGNS: His heart rate was 77, blood pressure was 185/68, temperature was 98.3, respiratory rate was 17 and his oxygen saturation was 88% on 3 liters oxygen. HEAD, EYES, EARS, NOSE AND THROAT: Showed normocephalic, atraumatic. NECK: Supple. HEART: Showed normal first and second heart sounds. No gallop, rub or murmur. CHEST: Clear to auscultation. No crepitation or rhonchi. ABDOMEN: Distended, soft, nontender. NEUROLOGIC: He was definitely more awake, alert, responding appropriately. All cranial nerves intact. He moves extremities without difficulty. He does have right-sided hemiplegia, left below-knee amputation. He is mostly bedbound. His intake was incompletely recorded, output was 1725. His blood sugar seems to be somewhat better controlled. ASSESSMENT: 1. Altered mental status, likely due to hypoglycemia and hypoxia, resolved. He is now more awake, alert, opens his eyes, tracks and attempts to mouth some words, although he has aphasia and difficult to understand. 2. He developed fever, likely to aspiration pneumonia that was treated empirically with vancomycin and Zosyn. All his blood cultures and urine cultures negative. 3. Generalized anasarca and severe hypoalbuminemia. A 24-hour urine collection showed that he has more than 3500 mg of proteinuria. 4. Hypertension for which he is on clonidine patch. 5. Type 2 diabetes mellitus, seems to be reasonably controlled. 6. Hyperlipidemia. 7. Left middle cerebral artery territory infarct with right-sided hemiplegia, aphasia and dysphagia. 8. Peripheral vascular disease, status post left below-knee amputation. 9. Epilepsy for which he is on phenytoin. 10. Difficulty walking with marked muscle wasting and weakness for which he is normally bedbound, wheelchair bound. PLAN: To continue with nutritional support in the form of procalamine, continue to monitor his blood sugar and adjust insulin as needed. Continue with phenytoin for seizure disorder. Continue with the clonidine and hydralazine to control his blood pressure, still awaiting the decision from the older adult social work specialist whether we need to assemble and ethics committee to decide on feeding tube placement. KASIE TRIPLETT MD DR: FERMÍN/marysol JOB#: [id number] / [id number]
[2018-05-28 03:14] VITALS: BP 162/99
[2018-05-28 04:25] LABS: HEMATOCRIT 26.2 % (39.0-53.0); HEMOGLOBIN 8.8 g/dL (13.0-17.5); RED BLOOD COUNT 2.76 x10^6/uL (4.30-5.70); RED CELL DISTRIBUTION WIDTH 13.8 % (11.5-14.5); WHITE BLOOD COUNT 4.6 x10^3/uL (4.0-11.0)
[2018-05-28 04:37] LABS: CALCIUM 8.5 mg/dL (8.5-10.1); CREATININE 0.9 mg/dL (0.7-1.3); GFR 102.5; POTASSIUM 4.8 mmol/L (3.5-5.1)
[2018-05-28] MEDS: METOPROLOL TARTRATE 5 MG/5 ML VIAL. IVP SCH ×4 (05:42→17:44)
[2018-05-28] MEDS: FOSPHENYTOIN 100 MG/2 ML VIAL. IV SCH ×3 (05:42→21:32)
[2018-05-28] MEDS: PANTOPRAZOLE 40 MG TABLET.DR. PO SCH ×2 (05:43→15:31)
[2018-05-28] MEDS: AMINO AC 3%/ELECTROLYTE/GLYCER 1,000 ML IV SCH (05:43)
[2018-05-28 07:00] VITALS: BP 169/69
[2018-05-28] MEDS: IPRATRPIUM/ALBUTEROL 0.5/2.5MG 3 ML NEBU. NEB SCH ×4 (07:20→19:38)
[2018-05-28] MEDS: metFORMIN 500 MG TABLET PO SCH ×2 (07:41→15:31)
[2018-05-28] MEDS: ASPIRIN CHEWABLE 81 MG TABLET. PO SCH (07:44)
[2018-05-28] MEDS: LACTOBACILLUS RHAMNOSUS GG 1 CAPSULE. PO SCH ×2 (07:44→21:00)
[2018-05-28] MEDS: LOSARTAN POTASSIUM 50 MG TABLET. PO SCH (07:44)
[2018-05-28] MEDS: SENNOSIDES 8.6 MG TABLET PO SCH ×2 (07:45→21:00)
[2018-05-28] MEDS: LINAGLIPTIN 5 MG TABLET PO SCH (07:45)
[2018-05-28] MEDS: GABAPENTIN 300 MG CAPSULE. PO SCH ×3 (07:45→21:00)
[2018-05-28] MEDS: METOPROLOL TART IMMED RELEASE 50 MG TABLET. PO SCH ×2 (07:45→21:00)
[2018-05-28] MEDS: FUROSEMIDE 40 MG/4 ML VIAL. IVP SCH (09:01)
[2018-05-28] MEDS: ENOXAPARIN 40 MG/0.4 ML SYRINGE. SQ SCH (09:01)
[2018-05-28] MEDS: hydrALAZINE 20 MG/ML VIAL. IVP PRN (09:02)
[2018-05-28] MEDS: INSULIN LISPRO 300 UNITS/3 ML INSULN.PEN. SQ SCH ×3 (09:04→17:50)
--- NOTE | 2018-05-28 09:20 | RAD ---
Examination: VIDEO SWALLOW STUDY History: DYSPHAGIA
3.2 MIN FLUORO Comparison/Correlation: None Findings: Video swallow was performed utilizing 3.2 minutes of fluoroscopy. Multiple substances utilized. Please refer to the speech pathologist report for discussion of oral pharyngeal motility and discussion of aspiration/penetration. Visualized bony structures and soft tissues are grossly unremarkable for the patient's age. Impression: Video swallow was performed. Please refer to the speech pathologist report for details. Electronically signed by: Morris Romano MD (05/28/2018 9:17 AM) [id number]
--- NOTE | 2018-05-28 09:41 | PDOC ---
Infectious Disease Note Subjective: Subjective Remains afebrile appears comfortable D/W RN Vital Signs: Vital Signs Vital Signs Date Time Temp Pulse Resp B/P (MAP) Pulse Ox O2 Delivery O2 Flow Rate FiO2 05/28/18 09:02 82 169/69 05/28/18 07:24 91 Nasal Cannula 3.5 05/28/18 07:00 98.5 18 98.5 Physical Exam: PHYSICAL EXAM GENERAL: Propped up in bed, alert, smiles,comfortable HENT: Oral cavity pink, moist LUNGS: Clear anteriorly CV: S1 S2 ABD: Obese, soft, NT, BS present : Garrett EXT: No gross edema or cyanosis. Previous left BKA. SKIN: No rash ACCESS SPECIALIST: Alert, follows simple commands, mumbles LUE-PICC clean Medications: Inpatient Meds: Current Medications Medications (Trade) Dose Ordered Sig/Inocencia Start Time Stop Time Status Last Admin Dose Admin Acetaminophen (Tylenol Supp) 650 mg PRN Q6HRS PRN 05/18/18 18:30 Albuterol Sulfate (Ventolin Neb Soln) 2.5 mg 1X ONCE 05/20/18 02:45 05/20/18 02:46 DC 05/20/18 02:50 2.5 MG Albuterol/ Ipratropium (Duoneb) 3 ml RTQID 05/23/18 12:00 05/28/18 07:20 3 ML Amino Acids/ Glycerin/ Electrolytes 1,000 ml @ 80 mls/hr [id number] 05/23/18 14:15 05/28/18 05:43 80 MLS/HR Amoxicillin/ Clavulanate Potassium (Augmentin 875/ 125mg) 1 tab BID 05/23/18 10:00 05/25/18 08:26 DC 05/23/18 10:16 1 TAB Aspirin (Children'S Aspirin) 81 mg DAILY 05/22/18 14:00 05/23/18 08:20 81 MG Atorvastatin Calcium (Lipitor) 20 mg QHS 05/22/18 21:00 05/22/18 19:51 20 MG Barium Sulfate (Varibar Thin Liquid Apple) 148 gm 1X ONCE 05/23/18 13:45 05/23/18 13:46 DC 05/23/18 13:49 148 GM Clonidine HCl (Catapres Tts-3) 1 patch ONCE ONCE 05/21/18 23:30 05/21/18 23:31 DC 05/21/18 23:37 1 PATCH Dextrose (Dextrose 50%-Water Syringe) 12.5 gm PRN Q15MIN PRN 05/21/18 09:00 Dextrose/Sodium Chloride 1,000 ml @ 75 mls/hr [id number] 05/19/18 10:00 05/19/18 14:56 DC Enoxaparin Sodium (Lovenox 30mg Syringe) 30 mg 1X ONCE 05/19/18 18:30 05/19/18 18:31 DC 05/19/18 18:25 30 MG Enoxaparin Sodium (Lovenox 40mg Syringe) 40 mg DAILY08 05/21/18 08:00 05/28/18 09:01 40 MG Enoxaparin Sodium (Lovenox 80mg Syringe) 70 mg Q12HR 05/20/18 09:00 05/20/18 16:19 DC 05/20/18 09:10 70 MG Fosphenytoin Sodium (Cerebyx) 100 mg Q8HRS 05/23/18 14:30 05/28/18 05:42 100 MG Fosphenytoin Sodium 100 mg/ Sodium Chloride 52 ml @ 208 mls/hr 1X ONCE 05/18/18 16:45 05/18/18 16:59 UNV Furosemide (Lasix) 40 mg DAILY 05/27/18 09:00 05/28/18 09:01 40 MG Gabapentin (Neurontin) 300 mg TID 05/22/18 14:00 05/23/18 08:20 300 MG Glucagon (Glucagen) 1 mg STK-MED ONCE 05/18/18 15:20 05/18/18 15:21 DC Guaifenesin (Mucinex) 600 mg PRN BID PRN 05/22/18 12:45 05/22/18 19:51 600 MG Hydralazine HCl (Apresoline Inj) 20 mg PRN Q4HRS PRN 05/21/18 23:15 05/28/18 09:02 20 MG Info (CONTRAST GIVEN -- Rx MONITORING) 1 each PRN DAILY PRN 05/19/18 15:15 05/21/18 15:14 DC Insulin Human Lispro (HumaLOG) 0-7 UNITS TIDWMEALS 05/21/18 12:00 05/28/18 09:04 2 UNITS Iohexol (Omnipaque 350 Mg/ml) 90 ml 1X ONCE 05/19/18 15:15 05/19/18 15:16 DC 05/19/18 15:15 90 ML Lactobacillus Rhamnosus (Culturelle) 1 cap BID 05/19/18 21:00 05/22/18 19:51 1 CAP Linagliptin (Tradjenta) 5 mg DAILY 05/22/18 14:00 05/23/18 08:21 5 MG Losartan Potassium (Cozaar) 100 mg DAILY 05/22/18 14:00 05/23/18 08:21 100 MG Metformin HCl (Glucophage) 1,000 mg BIDWMEALS 05/22/18 17:00 05/23/18 08:19 1,000 MG Metoprolol Tartrate (Lopressor Vial) 5 mg Q6HRS 05/26/18 18:00 05/28/18 05:42 5 MG Metoprolol Tartrate (Lopressor) 50 mg BID 05/22/18 14:00 05/23/18 08:22 50 MG Pantoprazole Sodium (Protonix) 40 mg BIDAC 05/22/18 16:30 05/23/18 08:21 40 MG Phenytoin Sodium (Dilantin) 100 mg TID 05/22/18 14:00 05/23/18 14:34 DC 05/23/18 08:20 100 MG Piperacillin Sod/ Tazobactam Sod (Zosyn Per Pharmacy) 1 each PRN DAILY PRN 05/18/18 19:00 05/23/18 09:03 DC Piperacillin Sod/ Tazobactam Sod 3.375 gm/Sodium Chloride 50 ml @ 100 mls/hr Q6HRS 05/18/18 19:30 05/23/18 09:02 DC 05/23/18 05:59 100 MLS/HR Sennosides (Senna) 8.6 mg BID 05/22/18 14:00 05/22/18 14:39 8.6 MG Vancomycin HCl (Vanco Per Pharmacy) 1 each PRN DAILY PRN 05/18/18 19:00 05/21/18 10:33 DC 05/20/18 09:30 1 EACH Vancomycin HCl (Vancomycin Trough Level) 1 each 1X ONCE 05/22/18 16:30 05/22/18 16:30 DC Vancomycin HCl 1.25 gm/Sodium Chloride 250 ml @ 250 mls/hr Q18H 05/20/18 11:00 05/21/18 10:32 DC 05/21/18 05:16 250 MLS/HR Vancomycin HCl 1.75 gm/Sodium Chloride 500 ml @ 250 mls/hr 1X ONCE 05/18/18 19:30 05/18/18 21:29 DC 05/18/18 19:13 250 MLS/HR Vancomycin HCl 1 gm/Sodium Chloride 250 ml @ 250 mls/hr Q12H 05/19/18 07:00 05/20/18 09:21 DC 05/19/18 18:28 250 MLS/HR Labs: Lab Laboratory Tests Test 05/27/18 11:34 05/27/18 17:07 05/27/18 20:41 05/28/18 03:45 Glucose (Fingerstick) 188 mg/dL (70-99) 195 mg/dL (70-99) 193 mg/dL (70-99) White Blood Count 4.6 x10^3/uL (4.0-11.0) Red Blood Count 2.76 x10^6/uL (4.30-5.70) Hemoglobin 8.8 g/dL (13.0-17.5) Hematocrit 26.2 % (39.0-53.0) Mean Corpuscular Volume 95 fL (79-100) Mean Corpuscular Hemoglobin 32 pg (25-35) Mean Corpuscular Hemoglobin Concent 34 g/dL (31-37) Red Cell Distribution Width 13.8 % (11.5-14.5) Platelet Count 219 x10^3/uL (140-400) Sodium Level 133 mmol/L (136-145) Potassium Level 4.8 mmol/L (3.5-5.1) Chloride Level 99 mmol/L (98-107) Carbon Dioxide Level 29 mmol/L (21-32) Anion Gap 5 (6-14) Blood Urea Nitrogen 21 mg/dL (8-26) Creatinine 0.9 mg/dL (0.7-1.3) Estimated GFR (Cockcroft-Gault) 102.5 Glucose Level 204 mg/dL (70-99) Calcium Level 8.5 mg/dL (8.5-10.1) Test 05/28/18 07:40 Glucose (Fingerstick) 207 mg/dL (70-99) Objective: Assessment: Encephalopathy, improved Fever resolved Aspiration, suspected Dysphagia DM HTN Malnutrition Respiratory failure Mild leukopenia improving Plan: Plan of Care Continue to observe off antibiotics Maintain aspiration precautions Supportive care D/W RN Call if any questions CECY CHERRY MD May 28, 2018 09:41
[2018-05-28 11:00] VITALS: BP 156/82
--- NOTE | 2018-05-28 11:25 | PDOC ---
PULMONARY PROGRESS NOTES Subjective has dysphagia, on 02, appears comfortable. Vitals Vital Signs Date Time Temp Pulse Resp B/P (MAP) Pulse Ox O2 Delivery O2 Flow Rate FiO2 05/28/18 11:00 98.0 91 18 156/82 (106) 94 Nasal Cannula 3.0 98.0 General: Alert, No acute distress Lungs: Crackles Cardiovascular: S1, S2 Abdomen: Soft, Non-tender Neuro Exam: Alert Extremities: Other (left BKA) Skin: Warm Labs Laboratory Tests Test 05/26/18 11:56 05/26/18 16:45 05/27/18 00:17 05/27/18 06:12 Glucose (Fingerstick) 239 mg/dL (70-99) 191 mg/dL (70-99) 148 mg/dL (70-99) 192 mg/dL (70-99) Test 05/27/18 07:16 05/27/18 11:34 05/27/18 17:07 05/27/18 20:41 Glucose (Fingerstick) 211 mg/dL (70-99) 188 mg/dL (70-99) 195 mg/dL (70-99) 193 mg/dL (70-99) Test 05/28/18 03:45 05/28/18 07:40 White Blood Count 4.6 x10^3/uL (4.0-11.0) Red Blood Count 2.76 x10^6/uL (4.30-5.70) Hemoglobin 8.8 g/dL (13.0-17.5) Hematocrit 26.2 % (39.0-53.0) Mean Corpuscular Volume 95 fL (79-100) Mean Corpuscular Hemoglobin 32 pg (25-35) Mean Corpuscular Hemoglobin Concent 34 g/dL (31-37) Red Cell Distribution Width 13.8 % (11.5-14.5) Platelet Count 219 x10^3/uL (140-400) Sodium Level 133 mmol/L (136-145) Potassium Level 4.8 mmol/L (3.5-5.1) Chloride Level 99 mmol/L (98-107) Carbon Dioxide Level 29 mmol/L (21-32) Anion Gap 5 (6-14) Blood Urea Nitrogen 21 mg/dL (8-26) Creatinine 0.9 mg/dL (0.7-1.3) Estimated GFR (Cockcroft-Gault) 102.5 Glucose Level 204 mg/dL (70-99) Calcium Level 8.5 mg/dL (8.5-10.1) Glucose (Fingerstick) 207 mg/dL (70-99) Laboratory Tests Test 05/27/18 11:34 05/27/18 17:07 05/27/18 20:41 05/28/18 03:45 Glucose (Fingerstick) 188 mg/dL (70-99) 195 mg/dL (70-99) 193 mg/dL (70-99) White Blood Count 4.6 x10^3/uL (4.0-11.0) Red Blood Count 2.76 x10^6/uL (4.30-5.70) Hemoglobin 8.8 g/dL (13.0-17.5) Hematocrit 26.2 % (39.0-53.0) Mean Corpuscular Volume 95 fL (79-100) Mean Corpuscular Hemoglobin 32 pg (25-35) Mean Corpuscular Hemoglobin Concent 34 g/dL (31-37) Red Cell Distribution Width 13.8 % (11.5-14.5) Platelet Count 219 x10^3/uL (140-400) Sodium Level 133 mmol/L (136-145) Potassium Level 4.8 mmol/L (3.5-5.1) Chloride Level 99 mmol/L (98-107) Carbon Dioxide Level 29 mmol/L (21-32) Anion Gap 5 (6-14) Blood Urea Nitrogen 21 mg/dL (8-26) Creatinine 0.9 mg/dL (0.7-1.3) Estimated GFR (Cockcroft-Gault) 102.5 Glucose Level 204 mg/dL (70-99) Calcium Level 8.5 mg/dL (8.5-10.1) Test 05/28/18 07:40 Glucose (Fingerstick) 207 mg/dL (70-99) Medications Active Scripts Medications Dose Route/Sig Max Daily Dose Days Date Category Tresiba (Insulin Degludec) 100 Unit/1 Ml Vial 5 Unit SQ DAILY08 05/19/18 Reported Senna (Sennosides) 8.6 Mg Tablet 8.6 Mg PO BID 05/19/18 Reported Dilantin (Phenytoin Sodium Extended) 100 Mg Capsule 1 Cap PO TID 05/19/18 Reported Omeprazole 40 Mg Capsule.dr 1 Cap PO BID 05/19/18 Reported Novolog Flexpen (Insulin Aspart) 100 Unit/1 Ml Insuln.pen 3 Unit SQ HS 05/19/18 Reported Novolog Flexpen (Insulin Aspart) 100 Unit/1 Ml Insuln.pen 2 Unit SQ BID 05/19/18 Reported Mucinex (Guaifenesin) 600 Mg Tablet.er 1 Tab PO BID PRN 05/19/18 Reported Metoprolol Tartrate 50 Mg Tablet 1 Tab PO BID 05/19/18 Reported Metformin Hcl 1,000 Mg Tablet 1,000 Mg PO BIDWMEALS 05/19/18 Reported Losartan Potassium 100 Mg Tablet 100 Mg PO DAILY 05/19/18 Reported Januvia (Sitagliptin Phosphate) 100 Mg Tablet 1 Tab PO DAILY 05/19/18 Reported Ibuprofen 100 Mg/5 Ml Oral.susp 200 Mg PO PRN Q6HRS PRN 05/19/18 Reported Gabapentin (Gabapentin) 300 Mg Capsule 300 Mg PO TID 05/19/18 Reported Furosemide 40 Mg Tablet 1 Tab PO DAILY 05/19/18 Reported Atorvastatin Calcium 20 Mg Tablet 1 Tab PO DAILY 05/19/18 Reported Aspirin 81 Mg Tab.chew 1 Tab PO DAILY 05/19/18 Reported Impression . 1. Acute on chronic hypoxic respiratory failure secondary to multifactorial etiologies and includes combination of suspected sepsis, bilateral pleural effusion, which is likely transudative from a low oncotic pressure. Clinically, less likely thromboembolic disease. not convinced that there is any significant pulmonary embolism in the right lower lobe as reported. ( d/w another radiologist), le doppler neg 2. The patient with prior stroke and expressive aphasia and limited mobility. 3. Abnormal CT chest with bilateral pleural effusion and right middle lobe atelectasis. 4. Suspected sepsis. Follow ID recommendations. 5. dysphagia Plan . 1. need a peg, no family to give consent for peg,on PPN 2. diuresis. keep I<O, monitor k, cr 3. echocardiogram per cardiology 4. Improve nutritional status.on PPN 5. Follow all cultures. 6. Abx per id, now off, monitor off abx 7. venous Doppler negative /Lovenox DVT prophylaxis dose. 8. elevate hob Discussed with RN We will follow along with you. TESFAYE DÍAZ MD May 28, 2018 11:25
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
[2018-05-28 15:00] VITALS: BP 148/74
[2018-05-28 19:25] VITALS: BP 169/79
[2018-05-28] MEDS: ATORVASTATIN CALCIUM 20 MG TABLET PO SCH (21:00)
--- NOTE | 2018-05-28 21:58 | PN ---
DATE: 05/28/2018 SUBJECTIVE: The patient is resting, slightly propped up in bed, in no apparent respiratory distress. He is awake, alert. On questioning him, he denied any complaint. The nursing staff did not voice any concern. Apparently social sciences professor contacted, this is old DPOA, who stated that his nephew is his DPOA and he makes all the decision; however, so far no contact was made with his newer DPOA. PHYSICAL EXAMINATION: GENERAL: When I examined him, he looked well and was clearly in no apparent respiratory distress, pale, but no jaundice, cyanosis or thyromegaly. No jugular venous distention. No limb edema. VITAL SIGNS: Her heart rate was 82, blood pressure was 169/69, temperature was 98.5, respiratory rate was 18, and oxygen saturation was 92% on 3 liters of oxygen. The rest of clinical examination is stable, has not really changed. His intake over the last 24 hours was 960 and output was 2525. LABORATORY DATA: As of this morning showed a serum sodium of 133, potassium 4.8, chloride 99, bicarbonate 29, anion gap of 5, BUN 21, creatinine 0.9, estimated GFR was 102 mL per minute, his glucose was 204, calcium was 8.5. His white cell count was 4600, hemoglobin 8.8, hematocrit 26, MCV 95, and platelet count 219,000. ASSESSMENT: 1. Altered mental status, likely due to hypoglycemia and hypoxia. He is now more awake, alert, opens eyes, tracks and attempts to mouth some words, although has aphasia and difficult to understand. Though he developed fever likely due to aspiration pneumonia. It was treated empirically with vancomycin and Zosyn, his blood cultures and urine cultures are negative. 2. Generalized anasarca with severe hypoalbuminemia. A 24-hour urine collection showed that he has more than 3500 mg of proteinuria. 3. Hypertension for which he is on clonidine patch. 4. Type 2 diabetes mellitus, seems to be reasonably controlled. 5. Hyperlipidemia. 6. Left middle cerebral artery territory infarct with right-sided hemiplegia, aphasia and dysphagia. 7. Peripheral vascular disease, status post left below knee amputation. 8. Epilepsy, he is on phenytoin. 9. Difficulty walking with marked muscle wasting and weakness for which he is normally bedbound, wheelchair bound. PLAN: To continue nutritional support in the form procalamine, continue with monitor blood sugar and adjust insulin as needed. Continue with phenytoin for seizure disorder. Continue with clonidine and hydralazine to control blood pressure, still awaiting for the decision to contact his DPOA to decide whether he needs a feeding tube or not. KASIE TRIPLETT MD DR: FERMÍN/marysol JOB#: [id number] / [id number]
[2018-05-28 23:05] VITALS: BP 146/74
[2018-05-29 03:10] VITALS: BP 186/79
[2018-05-29] MEDS: METOPROLOL TARTRATE 5 MG/5 ML VIAL. IVP SCH ×5 (05:51→23:57)
[2018-05-29] MEDS: FOSPHENYTOIN 100 MG/2 ML VIAL. IV SCH ×3 (05:52→20:51)
[2018-05-29 07:00] VITALS: BP 136/75
[2018-05-29] MEDS: PANTOPRAZOLE 40 MG TABLET.DR. PO SCH ×2 (07:30→16:30)
[2018-05-29] MEDS: AMINO AC 3%/ELECTROLYTE/GLYCER 1,000 ML IV SCH ×2 (07:45→09:18)
[2018-05-29] MEDS: IPRATRPIUM/ALBUTEROL 0.5/2.5MG 3 ML NEBU. NEB SCH ×4 (07:46→20:11)
[2018-05-29] MEDS: metFORMIN 500 MG TABLET PO SCH ×2 (08:00→16:35)
[2018-05-29] MEDS: INSULIN LISPRO 300 UNITS/3 ML INSULN.PEN. SQ SCH ×3 (08:00→17:00)
[2018-05-29] MEDS: GABAPENTIN 300 MG CAPSULE. PO SCH ×3 (09:00→21:00)
[2018-05-29] MEDS: LOSARTAN POTASSIUM 50 MG TABLET. PO SCH (09:00)
[2018-05-29] MEDS: SENNOSIDES 8.6 MG TABLET PO SCH ×2 (09:00→21:00)
[2018-05-29] MEDS: LINAGLIPTIN 5 MG TABLET PO SCH (09:00)
[2018-05-29] MEDS: ASPIRIN CHEWABLE 81 MG TABLET. PO SCH (09:00)
[2018-05-29] MEDS: METOPROLOL TART IMMED RELEASE 50 MG TABLET. PO SCH ×2 (09:00→21:00)
[2018-05-29] MEDS: LACTOBACILLUS RHAMNOSUS GG 1 CAPSULE. PO SCH ×2 (09:00→21:00)
[2018-05-29] MEDS: FUROSEMIDE 40 MG/4 ML VIAL. IVP SCH (09:12)
[2018-05-29] MEDS: ENOXAPARIN 40 MG/0.4 ML SYRINGE. SQ SCH (09:13)
--- NOTE | 2018-05-29 10:00 | NUR ---
SS following up with discharge planning. SS received notification that Adult Protective Services worker, Lorin Bain, , came to visit pt yesterday. SS attempted to contact APS worker by phone and left a message requesting return call.
[2018-05-29 11:00] VITALS: BP 138/65
--- NOTE | 2018-05-29 11:22 | PDOC ---
PULMONARY PROGRESS NOTES Subjective has dysphagia, on 02, appears comfortable. Vitals Vital Signs Date Time Temp Pulse Resp B/P (MAP) Pulse Ox O2 Delivery O2 Flow Rate FiO2 05/29/18 11:00 98.0 62 20 138/65 (89) 96 Nasal Cannula 3.0 98.0 General: Alert, No acute distress Lungs: Crackles Cardiovascular: S1, S2 Abdomen: Soft, Non-tender Neuro Exam: Alert Extremities: Other (left BKA) Skin: Warm Labs Laboratory Tests Test 05/27/18 11:34 05/27/18 17:07 05/27/18 20:41 05/28/18 03:45 Glucose (Fingerstick) 188 mg/dL (70-99) 195 mg/dL (70-99) 193 mg/dL (70-99) White Blood Count 4.6 x10^3/uL (4.0-11.0) Red Blood Count 2.76 x10^6/uL (4.30-5.70) Hemoglobin 8.8 g/dL (13.0-17.5) Hematocrit 26.2 % (39.0-53.0) Mean Corpuscular Volume 95 fL (79-100) Mean Corpuscular Hemoglobin 32 pg (25-35) Mean Corpuscular Hemoglobin Concent 34 g/dL (31-37) Red Cell Distribution Width 13.8 % (11.5-14.5) Platelet Count 219 x10^3/uL (140-400) Sodium Level 133 mmol/L (136-145) Potassium Level 4.8 mmol/L (3.5-5.1) Chloride Level 99 mmol/L (98-107) Carbon Dioxide Level 29 mmol/L (21-32) Anion Gap 5 (6-14) Blood Urea Nitrogen 21 mg/dL (8-26) Creatinine 0.9 mg/dL (0.7-1.3) Estimated GFR (Cockcroft-Gault) 102.5 Glucose Level 204 mg/dL (70-99) Calcium Level 8.5 mg/dL (8.5-10.1) Test 05/28/18 07:40 05/28/18 11:39 05/28/18 16:46 05/28/18 20:59 Glucose (Fingerstick) 207 mg/dL (70-99) 232 mg/dL (70-99) 266 mg/dL (70-99) 223 mg/dL (70-99) Test 05/29/18 07:11 Glucose (Fingerstick) 194 mg/dL (70-99) Laboratory Tests Test 05/28/18 11:39 05/28/18 16:46 05/28/18 20:59 05/29/18 07:11 Glucose (Fingerstick) 232 mg/dL (70-99) 266 mg/dL (70-99) 223 mg/dL (70-99) 194 mg/dL (70-99) Medications Active Scripts Medications Dose Route/Sig Max Daily Dose Days Date Category Tresiba (Insulin Degludec) 100 Unit/1 Ml Vial 5 Unit SQ DAILY08 05/19/18 Reported Senna (Sennosides) 8.6 Mg Tablet 8.6 Mg PO BID 05/19/18 Reported Dilantin (Phenytoin Sodium Extended) 100 Mg Capsule 1 Cap PO TID 05/19/18 Reported Omeprazole 40 Mg Capsule.dr 1 Cap PO BID 05/19/18 Reported Novolog Flexpen (Insulin Aspart) 100 Unit/1 Ml Insuln.pen 3 Unit SQ HS 05/19/18 Reported Novolog Flexpen (Insulin Aspart) 100 Unit/1 Ml Insuln.pen 2 Unit SQ BID 05/19/18 Reported Mucinex (Guaifenesin) 600 Mg Tablet.er 1 Tab PO BID PRN 05/19/18 Reported Metoprolol Tartrate 50 Mg Tablet 1 Tab PO BID 05/19/18 Reported Metformin Hcl 1,000 Mg Tablet 1,000 Mg PO BIDWMEALS 05/19/18 Reported Losartan Potassium 100 Mg Tablet 100 Mg PO DAILY 05/19/18 Reported Januvia (Sitagliptin Phosphate) 100 Mg Tablet 1 Tab PO DAILY 05/19/18 Reported Ibuprofen 100 Mg/5 Ml Oral.susp 200 Mg PO PRN Q6HRS PRN 05/19/18 Reported Gabapentin (Gabapentin) 300 Mg Capsule 300 Mg PO TID 05/19/18 Reported Furosemide 40 Mg Tablet 1 Tab PO DAILY 05/19/18 Reported Atorvastatin Calcium 20 Mg Tablet 1 Tab PO DAILY 05/19/18 Reported Aspirin 81 Mg Tab.chew 1 Tab PO DAILY 05/19/18 Reported Impression . 1. Acute on chronic hypoxic respiratory failure secondary to multifactorial etiologies and includes combination of suspected sepsis, bilateral pleural effusion, which is likely transudative from a low oncotic pressure. Clinically, less likely thromboembolic disease. not convinced that there is any significant pulmonary embolism in the right lower lobe as reported. ( d/w another radiologist), le doppler neg 2. The patient with prior stroke and expressive aphasia and limited mobility. 3. Abnormal CT chest with bilateral pleural effusion and right middle lobe atelectasis. 4. Suspected sepsis. Follow ID recommendations. 5. dysphagia Plan . 1. need a peg, no family to give consent for peg,on PPN 2. diuresis. keep I<O, monitor k, cr 3. echocardiogram per cardiology 4. Improve nutritional status.on PPN 5. Follow all cultures. 6. Abx per id, now off, monitor off abx 7. venous Doppler negative /Lovenox DVT prophylaxis dose. 8. elevate hob Discussed with RN We will follow along with you. TESFAYE DÍAZ MD May 29, 2018 11:22
--- NOTE | 2018-05-29 12:38 | PDOC2 ---
GI CONSULT Reason For Consult: PEG tube placement HPI: HPI: 67 y/o male sent to ER for retirement on 05/18/18 for unresponsiveness. Found to be hypoxic and hypoglycemic and admitted. Respiratory issues have improved. H/o CVA and aphasia. Apparently was eating a regular diet at the care facility but abnormal swallow evaluation here. GI asked to see re: PEG placement. Palliative care following - unable to contact any family/DPOA to discuss this. No GI concerns per RN though sometimes abdomen feels firm but he might flex during exam. Chest CT noted extensive pancreatic calcifications c/w chronic pancreatitis, pancreatic ductal dilatation w/ calcific involvement, (presumably related to previous pancreatitis), cholecystectomy, subtle nodular contour of the liver, and proximal duodenal diverticulum. PMH: PMH: per chart - DM w/ complications, HTN, CVA w/ aphasia, PVD, epilepsy, HLD LBKA, cholecystectomy FH: Family History: Other (unable to obtain) ROS: Unable to obtain, see HPI. Vitals: Vitals: Vital Signs Date Time Temp Pulse Resp B/P (MAP) Pulse Ox O2 Delivery O2 Flow Rate FiO2 05/29/18 11:48 96 Nasal Cannula 4.5 05/29/18 11:00 98.0 62 20 138/65 (89) 98.0 Labs: Labs: Laboratory Tests Test 05/28/18 16:46 05/28/18 20:59 05/29/18 07:11 05/29/18 11:54 Glucose (Fingerstick) 266 mg/dL (70-99) 223 mg/dL (70-99) 194 mg/dL (70-99) 208 mg/dL (70-99) Allergies: Coded Allergies: No Known Drug Allergies (Unverified , 05/18/18) Imaging: Imaging: Head CT 05/18 IMPRESSION: 1. Prominent appearing ventricles, correlate for normal pressure hydrocephalus. Otherwise, No acute intracranial findings. CXR Impression: No acute radiographic abnormality is seen. Chest CTA 05/19 Impression: Right lower lobe branch pulmonary arterial thromboembolic disease is suspected but this may be chronic. Evaluation is limited on this exam due to significant streak artifact related to numerous calcified bilateral hilar lymph nodes. On 05/19/2018 at 5:52 PM, results were discussed with the patient's nurse Lily. Bilateral pleural effusions are present with adjacent atelectasis. Partial right middle lobe atelectasis evident. Chronic pancreatitis. Duodenal diverticulum. LE US 05/20 Impression: No evidence of deep venous thrombosis involving either lower extremity. Videoswallow 05/23 Initial Videoswallow Study Results Pt demo'd silent aspiration of honey thick, thin and puree consistencies during current study. Oral and pharyngeal delay as well as reduced hyolaryngeal excursion contributed to aspiration. See full rpt in interventions section. IMPRESSIONS: SILENT aspiration of all tested consistencies. No safe consistency identified. Pt has a hx of CVA. Current dysphagia may be chronic, r/t same. Suspect dysphagia and aspiration may have been a contributing factor to pt's current adm for respiratory failure. Prognosis is therefore guarded to poor for safe po intake to meet nutritional needs. May wish to consider goals of care w/ regard to need for long-term non-oral nutrition. Pt is not a candidate for direct dysphagia tx d/t his inability to follow instructions necc for same. RECOMMENDATIONS: NPO meds and nutrition. Oral care. Consider goals of care re: long-term non-oral nutrition. PE: GEN: NAD HEENT: Atraumatic, PERRL LUNGS: wet cough, NC 4.5 L HEART: RRR ABD: quiet BS, does seem to tense when palpated EXTREMITY: LBKA SKIN: RUQ scar NEURO/PSYCH: awake and alert - follows commands - mumbles, unable to understand speech A/P: A/P: Acute on chronic resp failure - improved Dysphagia - on PPN H/o CVA w/ aphasia, h/o seizure disorder Duodenal diverticulum, chronic pancreatitis, ?cirrhosis - on CT as above S/p cholecystectomy Normocytic anemia - stable Elevated Alk Phos - improved on 05/21 -- Will review CT findings and discuss PEG situation w/ Dr. Chang. Last stool charted on 05/23, could consider LARISSA LLANOS May 29, 2018 12:38
--- NOTE | 2018-05-29 13:55 | PDOC2 ---
PALLIATIVE CARE Palliative Care Note Palliative Care Patient alert. Unable to understand attempts at communication. No response from attempts to contact family per SW. APS contacted per SW. Patient unable to make his own decisions regarding PEG tube. No response from attempts to contact family. Note order for PEG tube. Decisions made according to Best Interest of Patient by physicians. Discharge planning per Nina HIGUERA. Palliative Care will sign off. CATHY SINGH May 29, 2018 13:55
[2018-05-29 14:33] VITALS: BP 151/77
[2018-05-29 19:00] VITALS: BP 188/84
[2018-05-29] MEDS: ATORVASTATIN CALCIUM 20 MG TABLET PO SCH (21:00)
[2018-05-29 23:00] VITALS: BP 199/84
--- NOTE | 2018-05-29 23:22 | PN ---
DATE: 05/29/2018 SUBJECTIVE: The patient is resting, slightly propped up in bed comfortably, in no apparent respiratory distress. He is unfortunately nonverbal, but the nursing staff did not voice any concern. Given that we were unable to contact his DPOA, a decision was made to go ahead with the placement of a percutaneous endoscopic gastrostomy tube, given that he is aspirating all consistencies and was already admitted with aspiration episodes. PHYSICAL EXAMINATION: GENERAL: When I examined him this morning, he looked pale, but not jaundiced or cyanosed from thyromegaly. No jugular venous distention. No lower limb edema. VITAL SIGNS: His heart rate was 68, blood pressure was 136/75, temperature was 98.6, respiratory rate was 20 and oxygen saturation was 98% on 3 liters of oxygen. HEENT: Examination of the head, eyes, ears, nose and throat showed normocephalic, atraumatic. NECK: Supple. HEART: Showed normal first and second heart sounds. No gallop, rub or murmur. CHEST: Clear to auscultation. No crepitation or rhonchi. ABDOMEN: Distended, soft and nontender. NEUROLOGIC: He is awake, alert, opens eyes, tracks and attempts to mouth some words, although he is aphasic and very difficult to understand. All his cranial nerves seem to be grossly intact. He has right-sided hemiparesis. He has left below-knee amputation. His intake over the last 24 hours was incompletely recorded, output was 3400. LABORATORY DATA: His most recent lab work as of yesterday showed a serum sodium 133, potassium 4.8, chloride 99, bicarbonate 29, anion gap of 5, BUN 21, creatinine 0.9, estimated GFR was 102 mL per minute, his glucose 204 and calcium was 8.5. His white cell count was 4600, hemoglobin 8.8, hematocrit 26, MCV 95 and platelet count 219,000. ASSESSMENT: 1. Altered mental status, resolved, likely to a combination of hypoglycemia and hypoxia. He is now alert, awake, opens eyes, tracks and attempts to mouth some words, although difficult to understand because of severe aphasia. 2. He developed fever, likely due to aspiration pneumonia, treated empirically with vancomycin and Zosyn. All his blood cultures and urine cultures are negative. 3. Generalized anasarca and severe hypoalbuminemia. A 24-hour urine collection showed that he has more than 3500 mg of protein in his urine. 4. Hypertension, seems to be much better controlled. 5. Type 2 diabetes mellitus, seems to be reasonably controlled. 6. Hyperlipidemia. 7. Left middle cerebral artery territory infarct with right-sided hemiplegia, aphasia and dysphagia. 8. Peripheral vascular disease, status post left below-knee amputation. 9. Epilepsy, for which he is on phenytoin. 10. Difficulty walking with marked muscle wasting and weakness, for which he is normally bedbound and wheelchair bound. PLAN: Given that he is aspirating all consistencies, I feel that he is a candidate for gastrostomy tube placement and I have already put an order for PEG tube placement and consulted Dr. Chang for that. KASIE TRIPLETT MD DR: FERMÍN/marysol JOB#: [id number] / [id number]
[2018-05-29] MEDS: fentaNYL PF VIAL 100 MCG/2 ML VIAL IV PRN (23:58)
[2018-05-30 03:00] VITALS: BP 186/81
[2018-05-30 04:41] LABS: HEMATOCRIT 26.3 % (39.0-53.0); HEMOGLOBIN 8.9 g/dL (13.0-17.5); RED BLOOD COUNT 2.78 x10^6/uL (4.30-5.70); RED CELL DISTRIBUTION WIDTH 14.3 % (11.5-14.5); WHITE BLOOD COUNT 4.1 x10^3/uL (4.0-11.0)
[2018-05-30 05:02] LABS: ALBUMIN 1.1 g/dL (3.4-5.0); ALBUMIN/GLOBULIN RATIO 0.3 (1.0-1.7); CALCIUM 8.8 mg/dL (8.5-10.1); CREATININE 0.8 mg/dL (0.7-1.3); GFR 117.4; POTASSIUM 4.7 mmol/L (3.5-5.1); TOTAL BILIRUBIN 0.1 mg/dL (0.2-1.0); TOTAL PROTEIN 5.5 g/dL (6.4-8.2)
[2018-05-30] MEDS: METOPROLOL TARTRATE 5 MG/5 ML VIAL. IVP SCH ×3 (05:33→18:08)
[2018-05-30] MEDS: FOSPHENYTOIN 100 MG/2 ML VIAL. IV SCH ×2 (06:00→17:33)
[2018-05-30] MEDS: PANTOPRAZOLE 40 MG TABLET.DR. PO SCH ×2 (07:30→16:30)
[2018-05-30] MEDS: IPRATRPIUM/ALBUTEROL 0.5/2.5MG 3 ML NEBU. NEB SCH ×4 (07:35→20:08)
[2018-05-30 07:36] VITALS: BP 157/64
[2018-05-30] MEDS: metFORMIN 500 MG TABLET PO SCH ×2 (08:00→17:00)
[2018-05-30] MEDS: INSULIN LISPRO 300 UNITS/3 ML INSULN.PEN. SQ SCH ×3 (08:00→17:00)
[2018-05-30] MEDS: ENOXAPARIN 40 MG/0.4 ML SYRINGE. SQ SCH (08:42)
[2018-05-30] MEDS: FUROSEMIDE 40 MG/4 ML VIAL. IVP SCH (08:44)
[2018-05-30] MEDS: ASPIRIN CHEWABLE 81 MG TABLET. PO SCH (09:00)
[2018-05-30] MEDS: LACTOBACILLUS RHAMNOSUS GG 1 CAPSULE. PO SCH ×2 (09:00→20:40)
[2018-05-30] MEDS: SENNOSIDES 8.6 MG TABLET PO SCH ×2 (09:00→20:41)
[2018-05-30] MEDS: GABAPENTIN 300 MG CAPSULE. PO SCH ×3 (09:00→20:41)
[2018-05-30] MEDS: LINAGLIPTIN 5 MG TABLET PO SCH (09:00)
[2018-05-30] MEDS: METOPROLOL TART IMMED RELEASE 50 MG TABLET. PO SCH ×2 (09:00→20:41)
[2018-05-30] MEDS: LOSARTAN POTASSIUM 50 MG TABLET. PO SCH (09:00)
--- NOTE | 2018-05-30 09:18 | PDOC ---
Subjective: Subjective: Nods when I ask if he's okay, laughs when I mention he flexes his muscles when I examine his abdomen. Objective: Objective: RN says she was told PEG was to be placed today. PC note: No response from attempts to contact family per SW. APS contacted per SW. Patient unable to make his own decisions regarding PEG tube. No response from attempts to contact family. Decisions made according to Best Interest of Patient by physicians. Primary note: Given that we were unable to contact his DPOA, a decision was made to go ahead with the placement of a percutaneous endoscopic gastrostomy tube... given that he is aspirating all consistencies, I feel that he is a candidate for gastrostomy tube placement. Vital Signs: Vital Signs Date Time Temp Pulse Resp B/P (MAP) Pulse Ox O2 Delivery O2 Flow Rate FiO2 05/30/18 07:36 97.8 75 18 157/64 (95) 94 Nasal Cannula 4.0 97.8 Labs: Laboratory Tests Test 05/29/18 11:54 05/29/18 16:30 05/29/18 20:17 05/30/18 04:20 Glucose (Fingerstick) 208 mg/dL 134 mg/dL 108 mg/dL White Blood Count 4.1 x10^3/uL Red Blood Count 2.78 x10^6/uL Hemoglobin 8.9 g/dL Hematocrit 26.3 % Mean Corpuscular Volume 94 fL Mean Corpuscular Hemoglobin 32 pg Mean Corpuscular Hemoglobin Concent 34 g/dL Red Cell Distribution Width 14.3 % Platelet Count 237 x10^3/uL Prothrombin Time 16.0 SEC Prothromb Time International Ratio 1.3 Activated Partial Thromboplast Time 41 SEC Sodium Level 133 mmol/L Potassium Level 4.7 mmol/L Chloride Level 99 mmol/L Carbon Dioxide Level 29 mmol/L Anion Gap 5 Blood Urea Nitrogen 20 mg/dL Creatinine 0.8 mg/dL Estimated GFR (Cockcroft-Gault) 117.4 BUN/Creatinine Ratio 25 Glucose Level 142 mg/dL Calcium Level 8.8 mg/dL Total Bilirubin 0.1 mg/dL Aspartate Amino Transf (AST/SGOT) 31 U/L Alanine Aminotransferase (ALT/SGPT) 17 U/L Alkaline Phosphatase 278 U/L Total Protein 5.5 g/dL Albumin 1.1 g/dL Albumin/Globulin Ratio 0.3 Test 05/30/18 07:21 Glucose (Fingerstick) 147 mg/dL PE: GEN: NAD LUNGS: NC 4L HEART: RRR ABD: tenses when palpated NEURO/PSYCH: follows commands A/P: Dysphagia - on PPN H/o CVA w/ aphasia Duodenal diverticulum, chronic pancreatitis, ?cirrhosis Normocytic anemia, elevated Alk Phos -- No PEG plans for today, will review w/ Dr. Chang. ?last stooled - ?suppository ?LARISSA SOW May 30, 2018 09:18
[2018-05-30 11:21] VITALS: BP 159/75
[2018-05-30] MEDS: AMINO AC 3%/ELECTROLYTE/GLYCER 1,000 ML IV SCH ×3 (11:50→21:15)
[2018-05-30] MEDS: fentaNYL PF VIAL 100 MCG/2 ML VIAL IV PRN ×2 (11:53→17:35)
--- NOTE | 2018-05-30 12:33 | PDOC ---
PULMONARY PROGRESS NOTES Subjective appears comfortable. Vitals Vital Signs Date Time Temp Pulse Resp B/P (MAP) Pulse Ox O2 Delivery O2 Flow Rate FiO2 05/30/18 12:04 92 159/75 05/30/18 11:53 92 Nasal Cannula 4.0 05/30/18 11:21 97.8 18 97.8 General: Alert, No acute distress Lungs: Clear Cardiovascular: S1, S2 Abdomen: Soft, Non-tender Neuro Exam: Alert Extremities: Other (left BKA) Skin: Warm Labs Laboratory Tests Test 05/28/18 16:46 05/28/18 20:59 05/29/18 07:11 05/29/18 11:54 Glucose (Fingerstick) 266 mg/dL (70-99) 223 mg/dL (70-99) 194 mg/dL (70-99) 208 mg/dL (70-99) Test 05/29/18 16:30 05/29/18 20:17 05/30/18 04:20 05/30/18 07:21 Glucose (Fingerstick) 134 mg/dL (70-99) 108 mg/dL (70-99) 147 mg/dL (70-99) White Blood Count 4.1 x10^3/uL (4.0-11.0) Red Blood Count 2.78 x10^6/uL (4.30-5.70) Hemoglobin 8.9 g/dL (13.0-17.5) Hematocrit 26.3 % (39.0-53.0) Mean Corpuscular Volume 94 fL (79-100) Mean Corpuscular Hemoglobin 32 pg (25-35) Mean Corpuscular Hemoglobin Concent 34 g/dL (31-37) Red Cell Distribution Width 14.3 % (11.5-14.5) Platelet Count 237 x10^3/uL (140-400) Prothrombin Time 16.0 SEC (11.7-14.0) Prothromb Time International Ratio 1.3 (0.8-1.1) Activated Partial Thromboplast Time 41 SEC (24-38) Sodium Level 133 mmol/L (136-145) Potassium Level 4.7 mmol/L (3.5-5.1) Chloride Level 99 mmol/L (98-107) Carbon Dioxide Level 29 mmol/L (21-32) Anion Gap 5 (6-14) Blood Urea Nitrogen 20 mg/dL (8-26) Creatinine 0.8 mg/dL (0.7-1.3) Estimated GFR (Cockcroft-Gault) 117.4 BUN/Creatinine Ratio 25 (6-20) Glucose Level 142 mg/dL (70-99) Calcium Level 8.8 mg/dL (8.5-10.1) Total Bilirubin 0.1 mg/dL (0.2-1.0) Aspartate Amino Transf (AST/SGOT) 31 U/L (15-37) Alanine Aminotransferase (ALT/SGPT) 17 U/L (16-63) Alkaline Phosphatase 278 U/L (46-116) Total Protein 5.5 g/dL (6.4-8.2) Albumin 1.1 g/dL (3.4-5.0) Albumin/Globulin Ratio 0.3 (1.0-1.7) Test 05/30/18 11:14 Glucose (Fingerstick) 163 mg/dL (70-99) Laboratory Tests Test 05/29/18 16:30 05/29/18 20:17 05/30/18 04:20 05/30/18 07:21 Glucose (Fingerstick) 134 mg/dL (70-99) 108 mg/dL (70-99) 147 mg/dL (70-99) White Blood Count 4.1 x10^3/uL (4.0-11.0) Red Blood Count 2.78 x10^6/uL (4.30-5.70) Hemoglobin 8.9 g/dL (13.0-17.5) Hematocrit 26.3 % (39.0-53.0) Mean Corpuscular Volume 94 fL (79-100) Mean Corpuscular Hemoglobin 32 pg (25-35) Mean Corpuscular Hemoglobin Concent 34 g/dL (31-37) Red Cell Distribution Width 14.3 % (11.5-14.5) Platelet Count 237 x10^3/uL (140-400) Prothrombin Time 16.0 SEC (11.7-14.0) Prothromb Time International Ratio 1.3 (0.8-1.1) Activated Partial Thromboplast Time 41 SEC (24-38) Sodium Level 133 mmol/L (136-145) Potassium Level 4.7 mmol/L (3.5-5.1) Chloride Level 99 mmol/L (98-107) Carbon Dioxide Level 29 mmol/L (21-32) Anion Gap 5 (6-14) Blood Urea Nitrogen 20 mg/dL (8-26) Creatinine 0.8 mg/dL (0.7-1.3) Estimated GFR (Cockcroft-Gault) 117.4 BUN/Creatinine Ratio 25 (6-20) Glucose Level 142 mg/dL (70-99) Calcium Level 8.8 mg/dL (8.5-10.1) Total Bilirubin 0.1 mg/dL (0.2-1.0) Aspartate Amino Transf (AST/SGOT) 31 U/L (15-37) Alanine Aminotransferase (ALT/SGPT) 17 U/L (16-63) Alkaline Phosphatase 278 U/L (46-116) Total Protein 5.5 g/dL (6.4-8.2) Albumin 1.1 g/dL (3.4-5.0) Albumin/Globulin Ratio 0.3 (1.0-1.7) Test 05/30/18 11:14 Glucose (Fingerstick) 163 mg/dL (70-99) Medications Active Scripts Medications Dose Route/Sig Max Daily Dose Days Date Category Tresiba (Insulin Degludec) 100 Unit/1 Ml Vial 5 Unit SQ DAILY08 05/19/18 Reported Senna (Sennosides) 8.6 Mg Tablet 8.6 Mg PO BID 05/19/18 Reported Dilantin (Phenytoin Sodium Extended) 100 Mg Capsule 1 Cap PO TID 05/19/18 Reported Omeprazole 40 Mg Capsule.dr 1 Cap PO BID 05/19/18 Reported Novolog Flexpen (Insulin Aspart) 100 Unit/1 Ml Insuln.pen 3 Unit SQ HS 05/19/18 Reported Novolog Flexpen (Insulin Aspart) 100 Unit/1 Ml Insuln.pen 2 Unit SQ BID 05/19/18 Reported Mucinex (Guaifenesin) 600 Mg Tablet.er 1 Tab PO BID PRN 05/19/18 Reported Metoprolol Tartrate 50 Mg Tablet 1 Tab PO BID 05/19/18 Reported Metformin Hcl 1,000 Mg Tablet 1,000 Mg PO BIDWMEALS 05/19/18 Reported Losartan Potassium 100 Mg Tablet 100 Mg PO DAILY 05/19/18 Reported Januvia (Sitagliptin Phosphate) 100 Mg Tablet 1 Tab PO DAILY 05/19/18 Reported Ibuprofen 100 Mg/5 Ml Oral.susp 200 Mg PO PRN Q6HRS PRN 05/19/18 Reported Gabapentin (Gabapentin) 300 Mg Capsule 300 Mg PO TID 05/19/18 Reported Furosemide 40 Mg Tablet 1 Tab PO DAILY 05/19/18 Reported Atorvastatin Calcium 20 Mg Tablet 1 Tab PO DAILY 05/19/18 Reported Aspirin 81 Mg Tab.chew 1 Tab PO DAILY 05/19/18 Reported Impression . 1. Acute on chronic hypoxic respiratory failure secondary to multifactorial etiologies and includes combination of suspected sepsis, bilateral pleural effusion, which is likely transudative from a low oncotic pressure. Clinically, less likely thromboembolic disease. not convinced that there is any significant pulmonary embolism in the right lower lobe as reported. ( d/w another radiologist), le doppler neg 2. The patient with prior stroke and expressive aphasia and limited mobility. 3. Abnormal CT chest with bilateral pleural effusion and right middle lobe atelectasis. 4. Suspected sepsis. Follow ID recommendations. 5. dysphagia, clinically improved. Plan . 1. awaiting peg, no family to give consent for peg,on PPN/ clinically better, d/ w RN, have speech re-eval 2. diuresis. keep I<O, monitor k, cr 3. echocardiogram per cardiology 4. Improve nutritional status.on PPN 5. Follow all cultures. 6. monitor off abx 7. venous Doppler negative /Lovenox DVT prophylaxis dose. 8. elevate hob Discussed with RN We will follow along with you. TESFAYE DÍAZ MD May 30, 2018 12:33
[2018-05-30 14:47] VITALS: BP 163/67
--- NOTE | 2018-05-30 18:14 | NUR ---
spoke to Kendra regarding bedside video swallow being done to reevaluate pts swallow ability and aspiration risks
[2018-05-30 19:00] VITALS: BP 147/76
[2018-05-30] MEDS: ATORVASTATIN CALCIUM 20 MG TABLET PO SCH (20:40)
[2018-05-30] MEDS: PHENYTOIN SODIUM EXTENDED 100 MG CAPSULE PO SCH (21:33)
--- NOTE | 2018-05-30 21:33 | NUR ---
Non-administered procalamine this evening. pt. still has full bottle running
[2018-05-30] MEDS: hydrALAZINE 20 MG/ML VIAL. IVP PRN (22:12)
[2018-05-30 23:00] VITALS: BP 168/79
[2018-05-31] MEDS: METOPROLOL TARTRATE 5 MG/5 ML VIAL. IVP SCH ×3 (00:20→12:00)
[2018-05-31 02:33] VITALS: BP 128/60
--- NOTE | 2018-05-31 04:40 | PN ---
DATE: 05/30/2018 SUBJECTIVE: The patient is resting slightly propped up, in no apparent respiratory distress. He is aphasic, nonverbal. The nursing staff did not voice any concern. I did put an order for a PEG tube placement as we are unable to contact his family and he is unable to make a decision for himself. PHYSICAL EXAMINATION: GENERAL: When I examined him this morning, he looked well and was clearly in no apparent respiratory distress, pale. No jaundice, cyanosis, or thyromegaly. No jugular venous distention. No lower limb edema. VITAL SIGNS: His heart rate was 75, blood pressure 157/64, temperature was 97.8, respiratory rate was 18 and oxygen saturation was 94% on 4 liters of oxygen. HEAD, EYES, EARS, NOSE AND THROAT: Showed normocephalic, atraumatic. NECK: Supple. HEART: Showed normal first and second heart sounds. No gallop, rub or murmur. CHEST: Clear to auscultation. No crepitation or rhonchi. ABDOMEN: Distended, soft, nontender. NEUROLOGIC: He is awake, alert, opens eyes, tracks and nods his head; however, he has aphasia, right-sided hemiplegia and dysphagia, has also left below-knee amputation. His intake incompletely recorded, output was 3475. LABORATORY DATA: As of this morning showed a serum sodium 133, potassium 4.7, chloride 99, bicarbonate 29, anion gap of 5, BUN 20, creatinine 0.8, estimated GFR was 117 mL per minute, his glucose 142, calcium was 8.8. Total bilirubin, AST, ALT normal. Alkaline phosphatase slightly elevated. Total protein was 5.5, albumin was 1.1. His white cell count this morning was 4000, hemoglobin 9, hematocrit 26, MCV 94 and platelet count 237,000. ASSESSMENT: 1. Altered mental status, likely a combination of hypoglycemia and hypoxia resolved. He is now alert, awake, opens eyes, tracks and attempts to mouth some words, although it is difficult to understand because of severe aphasia. 2. Fever, likely due to aspiration pneumonia, treated empirically. All his blood cultures and urine cultures were negative. 3. Generalized anasarca and severe hypoalbuminemia likely due to nephrotic syndrome. 4. Hypertension seems to be much better controlled. 5. Type 2 diabetes mellitus seems to be reasonably controlled. 6. Hyperlipidemia. 7. Left middle cerebral artery territory infarct with right-sided hemiplegia, aphasia and dysphagia. 8. Peripheral vascular disease, status post left below-knee amputation. 9. Epilepsy for which he is on phenytoin. 10. Difficulty walking with marked muscle wasting and weakness. He is always bedbound, wheelchair bound. 11. I have spoken with the nurse practitioner for the gastroenterology team to discuss the decision to proceed with the gastrostomy tube placement as this apparently decision was made by the Social Service Department as well as the administration and ethics committee. KASIE TRIPLETT MD DR: FERMÍN/marysol JOB#: [id number] / [id number]
[2018-05-31] MEDS: PHENYTOIN SODIUM EXTENDED 100 MG CAPSULE PO SCH ×3 (05:38→22:16)
[2018-05-31] MEDS: IPRATRPIUM/ALBUTEROL 0.5/2.5MG 3 ML NEBU. NEB SCH ×4 (06:53→19:51)
[2018-05-31 07:21] VITALS: BP 174/75
[2018-05-31] MEDS: PANTOPRAZOLE 40 MG TABLET.DR. PO SCH ×2 (07:30→16:45)
[2018-05-31] MEDS: INSULIN LISPRO 300 UNITS/3 ML INSULN.PEN. SQ SCH ×3 (07:49→16:50)
[2018-05-31] MEDS: ASPIRIN CHEWABLE 81 MG TABLET. PO SCH (07:50)
[2018-05-31] MEDS: METOPROLOL TART IMMED RELEASE 50 MG TABLET. PO SCH ×3 (07:50→22:17)
[2018-05-31] MEDS: LOSARTAN POTASSIUM 50 MG TABLET. PO SCH (07:50)
[2018-05-31] MEDS: LACTOBACILLUS RHAMNOSUS GG 1 CAPSULE. PO SCH ×2 (07:50→22:16)
[2018-05-31] MEDS: GABAPENTIN 300 MG CAPSULE. PO SCH ×3 (07:51→22:16)
[2018-05-31] MEDS: SENNOSIDES 8.6 MG TABLET PO SCH ×2 (07:51→21:00)
[2018-05-31] MEDS: LINAGLIPTIN 5 MG TABLET PO SCH (07:51)
[2018-05-31] MEDS: metFORMIN 500 MG TABLET PO SCH ×2 (07:52→16:45)
[2018-05-31] MEDS: FUROSEMIDE 40 MG/4 ML VIAL. IVP SCH (08:29)
[2018-05-31] MEDS: ENOXAPARIN 40 MG/0.4 ML SYRINGE. SQ SCH (08:29)
--- NOTE | 2018-05-31 10:13 | PDOC ---
Objective: Objective: Reviewed w/ RN - to have UPPER MARKER eval today. D/w Dr. Wilks. Vital Signs: Vital Signs Date Time Temp Pulse Resp B/P (MAP) Pulse Ox O2 Delivery O2 Flow Rate FiO2 05/31/18 08:00 Nasal Cannula 3.0 05/31/18 07:21 98.0 78 16 174/75 (108) 94 98.0 Labs: Laboratory Tests Test 05/30/18 11:14 05/30/18 16:31 05/30/18 20:14 05/31/18 07:06 Glucose (Fingerstick) 163 mg/dL 120 mg/dL 135 mg/dL 150 mg/dL PE: GEN: NAD NEURO/PSYCH: sleeping, not awakened A/P: Dysphagia - on PPN H/o CVA w/ aphasia Duodenal diverticulum, chronic pancreatitis, ?cirrhosis - on CT this admission -- Await [facility] re-eval. Could potentially place PEG Sunday pending this. LARISSA WOLF May 31, 2018 10:13
[2018-05-31] MEDS: cloNIDine TTS-3 1 PATCH PATCH.TDWK TD SCH (10:23)
[2018-05-31] MEDS: AMINO AC 3%/ELECTROLYTE/GLYCER 1,000 ML IV SCH ×2 (10:27→22:15)
[2018-05-31] MEDS ORDERED: BARIUM SULFATE 40% (APPLE) 148 GM PWD. PO ONE (10:45)
[2018-05-31 10:53] VITALS: BP 158/90
--- NOTE | 2018-05-31 11:23 | PDOC ---
PULMONARY PROGRESS NOTES Subjective appears comfortable. Vitals Vital Signs Date Time Temp Pulse Resp B/P (MAP) Pulse Ox O2 Delivery O2 Flow Rate FiO2 05/31/18 10:53 98.3 89 12 158/90 (112) 93 Nasal Cannula 3.0 98.3 General: Alert, No acute distress Lungs: Clear Cardiovascular: S1, S2 Abdomen: Soft, Non-tender Neuro Exam: Alert Extremities: Other (left BKA) Skin: Warm Labs Laboratory Tests Test 05/29/18 11:54 05/29/18 16:30 05/29/18 20:17 05/30/18 04:20 Glucose (Fingerstick) 208 mg/dL (70-99) 134 mg/dL (70-99) 108 mg/dL (70-99) White Blood Count 4.1 x10^3/uL (4.0-11.0) Red Blood Count 2.78 x10^6/uL (4.30-5.70) Hemoglobin 8.9 g/dL (13.0-17.5) Hematocrit 26.3 % (39.0-53.0) Mean Corpuscular Volume 94 fL (79-100) Mean Corpuscular Hemoglobin 32 pg (25-35) Mean Corpuscular Hemoglobin Concent 34 g/dL (31-37) Red Cell Distribution Width 14.3 % (11.5-14.5) Platelet Count 237 x10^3/uL (140-400) Prothrombin Time 16.0 SEC (11.7-14.0) Prothromb Time International Ratio 1.3 (0.8-1.1) Activated Partial Thromboplast Time 41 SEC (24-38) Sodium Level 133 mmol/L (136-145) Potassium Level 4.7 mmol/L (3.5-5.1) Chloride Level 99 mmol/L (98-107) Carbon Dioxide Level 29 mmol/L (21-32) Anion Gap 5 (6-14) Blood Urea Nitrogen 20 mg/dL (8-26) Creatinine 0.8 mg/dL (0.7-1.3) Estimated GFR (Cockcroft-Gault) 117.4 BUN/Creatinine Ratio 25 (6-20) Glucose Level 142 mg/dL (70-99) Calcium Level 8.8 mg/dL (8.5-10.1) Total Bilirubin 0.1 mg/dL (0.2-1.0) Aspartate Amino Transf (AST/SGOT) 31 U/L (15-37) Alanine Aminotransferase (ALT/SGPT) 17 U/L (16-63) Alkaline Phosphatase 278 U/L (46-116) Total Protein 5.5 g/dL (6.4-8.2) Albumin 1.1 g/dL (3.4-5.0) Albumin/Globulin Ratio 0.3 (1.0-1.7) Test 05/30/18 07:21 05/30/18 11:14 05/30/18 16:31 05/30/18 20:14 Glucose (Fingerstick) 147 mg/dL (70-99) 163 mg/dL (70-99) 120 mg/dL (70-99) 135 mg/dL (70-99) Test 05/31/18 07:06 Glucose (Fingerstick) 150 mg/dL (70-99) Laboratory Tests Test 05/30/18 16:31 05/30/18 20:14 05/31/18 07:06 Glucose (Fingerstick) 120 mg/dL (70-99) 135 mg/dL (70-99) 150 mg/dL (70-99) Medications Active Scripts Medications Dose Route/Sig Max Daily Dose Days Date Category Tresiba (Insulin Degludec) 100 Unit/1 Ml Vial 5 Unit SQ DAILY08 05/19/18 Reported Senna (Sennosides) 8.6 Mg Tablet 8.6 Mg PO BID 05/19/18 Reported Dilantin (Phenytoin Sodium Extended) 100 Mg Capsule 1 Cap PO TID 05/19/18 Reported Omeprazole 40 Mg Capsule.dr 1 Cap PO BID 05/19/18 Reported Novolog Flexpen (Insulin Aspart) 100 Unit/1 Ml Insuln.pen 3 Unit SQ HS 05/19/18 Reported Novolog Flexpen (Insulin Aspart) 100 Unit/1 Ml Insuln.pen 2 Unit SQ BID 05/19/18 Reported Mucinex (Guaifenesin) 600 Mg Tablet.er 1 Tab PO BID PRN 05/19/18 Reported Metoprolol Tartrate 50 Mg Tablet 1 Tab PO BID 05/19/18 Reported Metformin Hcl 1,000 Mg Tablet 1,000 Mg PO BIDWMEALS 05/19/18 Reported Losartan Potassium 100 Mg Tablet 100 Mg PO DAILY 05/19/18 Reported Januvia (Sitagliptin Phosphate) 100 Mg Tablet 1 Tab PO DAILY 05/19/18 Reported Ibuprofen 100 Mg/5 Ml Oral.susp 200 Mg PO PRN Q6HRS PRN 05/19/18 Reported Gabapentin (Gabapentin) 300 Mg Capsule 300 Mg PO TID 05/19/18 Reported Furosemide 40 Mg Tablet 1 Tab PO DAILY 05/19/18 Reported Atorvastatin Calcium 20 Mg Tablet 1 Tab PO DAILY 05/19/18 Reported Aspirin 81 Mg Tab.chew 1 Tab PO DAILY 05/19/18 Reported Impression . 1. Acute on chronic hypoxic respiratory failure secondary to multifactorial etiologies and includes combination of suspected sepsis, bilateral pleural effusion, which is likely transudative from a low oncotic pressure. Clinically, less likely thromboembolic disease. not convinced that there is any significant pulmonary embolism in the right lower lobe as reported. ( d/w another radiologist), le doppler neg 2. The patient with prior stroke and expressive aphasia and limited mobility. 3. Abnormal CT chest with bilateral pleural effusion and right middle lobe atelectasis. 4. Suspected sepsis. Follow ID recommendations. 5. dysphagia, clinically improved. Plan . 1. awaiting peg, no family to give consent for peg,on PPN/ clinically better, d/ w RN, repeat video swallow today. If fails, medical need to proceed with PEG 2. diuresis. keep I<O, monitor k, cr 4. Improve nutritional status.on PPN 5. Follow all cultures. 6. monitor off abx 7. venous Doppler negative /Lovenox DVT prophylaxis dose. 8. elevate hob Discussed with RN We will follow along with you. TESFAYE DÍAZ MD May 31, 2018 11:23
--- NOTE | 2018-05-31 11:51 | RAD ---
Video dysphasia study, 05/31/2018: History: Aspiration The swallowing mechanism was examined fluoroscopically in the lateral projection while the patient ingested a variety of food materials makes with barium. 2.6 minutes of fluoroscopy time was utilized. One video fluoroscopic loop was recorded by a member of the speech Department. There was a moderate delay in oral transit of the barium materials. There was also a moderate delay in initiation of pharyngeal peristalsis. There was only minimal transient laryngeal penetration without ashwin aspiration when ingesting the neck to consistency material. The patient ingested the honey thickened material and pudding consistency material without aspiration. There was a mild to moderate amount of intermittent vallecular and piriform sinus residue. IMPRESSION: No current evidence of aspiration.
--- NOTE | 2018-05-31 13:44 | NUR ---
SS following up with discharge planning. Video swallow completed on pt and pt placed on PO diet. SS phoned and faxed updated referral to [facility], ; fax [phone]. SS spoke with Neva at [facility]. Pt is able to return pending insurance authorization from [facility]. SS will await insurance determination and will proceed accordingly with discharge planning.
[2018-05-31 14:49] VITALS: BP 146/73
[2018-05-31 19:00] VITALS: BP 154/91
[2018-05-31] MEDS: ATORVASTATIN CALCIUM 20 MG TABLET PO SCH (22:16)
[2018-05-31 22:56] VITALS: BP 149/64
[2018-06-01 02:46] VITALS: BP 151/66
--- NOTE | 2018-06-01 03:55 | PN ---
DATE: 05/31/2018 SUBJECTIVE: The patient is resting, slightly propped up, sleeping comfortably in no apparent distress. He is aphasic, nonverbal; however, the nursing staff did not voice any concern. Stated that he had an uneventful night. Apparently, we need another physician to agree to placement of a PEG tube as Dr. Chang. PHYSICAL EXAMINATION: GENERAL: When I examined him, he looked pale, but no jaundice, cyanosis or thyromegaly. No jugular venous distention. No lower limb edema. VITAL SIGNS: His heart rate was 78, blood pressure 174/75, temperature was 98, respiratory rate was 16 and oxygen saturation was 94% on 3 liters of oxygen. The rest of the physical examination was stable. I have not changed his lab work. Also, state blood sugar is reasonably controlled. He apparently is scheduled for another video swallowing evaluation today and if he continued to have aspiration for all consistencies, arrangement will be made for him to have a PEG tube placed on Sunday. KASIE TRIPLETT MD DR: FERMÍN/marysol JOB#: [id number] / [id number]
[2018-06-01] MEDS: PHENYTOIN SODIUM EXTENDED 100 MG CAPSULE PO SCH ×3 (06:27→21:33)
[2018-06-01 07:19] VITALS: BP 145/69
[2018-06-01] MEDS: IPRATRPIUM/ALBUTEROL 0.5/2.5MG 3 ML NEBU. NEB SCH ×4 (07:30→19:51)
--- NOTE | 2018-06-01 07:48 | PDOC ---
PULMONARY PROGRESS NOTES Subjective appears comfortable, passed opv, on dysphagia diet. Vitals Vital Signs Date Time Temp Pulse Resp B/P (MAP) Pulse Ox O2 Delivery O2 Flow Rate FiO2 06/01/18 07:32 97 Nasal Cannula 4.0 06/01/18 07:19 97.8 72 16 145/69 (94) 97.8 General: Alert, No acute distress Lungs: Crackles Cardiovascular: S1, S2 Abdomen: Soft, Non-tender Neuro Exam: Alert Extremities: Other (left BKA) Skin: Warm Labs Laboratory Tests Test 05/30/18 11:14 05/30/18 16:31 05/30/18 20:14 05/31/18 07:06 Glucose (Fingerstick) 163 mg/dL (70-99) 120 mg/dL (70-99) 135 mg/dL (70-99) 150 mg/dL (70-99) Test 05/31/18 12:13 05/31/18 16:39 05/31/18 20:15 Glucose (Fingerstick) 217 mg/dL (70-99) 280 mg/dL (70-99) 264 mg/dL (70-99) Laboratory Tests Test 05/31/18 12:13 05/31/18 16:39 05/31/18 20:15 Glucose (Fingerstick) 217 mg/dL (70-99) 280 mg/dL (70-99) 264 mg/dL (70-99) Medications Active Scripts Medications Dose Route/Sig Max Daily Dose Days Date Category Tresiba (Insulin Degludec) 100 Unit/1 Ml Vial 5 Unit SQ DAILY08 05/19/18 Reported Senna (Sennosides) 8.6 Mg Tablet 8.6 Mg PO BID 05/19/18 Reported Dilantin (Phenytoin Sodium Extended) 100 Mg Capsule 1 Cap PO TID 05/19/18 Reported Omeprazole 40 Mg Capsule.dr 1 Cap PO BID 05/19/18 Reported Novolog Flexpen (Insulin Aspart) 100 Unit/1 Ml Insuln.pen 3 Unit SQ HS 05/19/18 Reported Novolog Flexpen (Insulin Aspart) 100 Unit/1 Ml Insuln.pen 2 Unit SQ BID 05/19/18 Reported Mucinex (Guaifenesin) 600 Mg Tablet.er 1 Tab PO BID PRN 05/19/18 Reported Metoprolol Tartrate 50 Mg Tablet 1 Tab PO BID 05/19/18 Reported Metformin Hcl 1,000 Mg Tablet 1,000 Mg PO BIDWMEALS 05/19/18 Reported Losartan Potassium 100 Mg Tablet 100 Mg PO DAILY 05/19/18 Reported Januvia (Sitagliptin Phosphate) 100 Mg Tablet 1 Tab PO DAILY 05/19/18 Reported Ibuprofen 100 Mg/5 Ml Oral.susp 200 Mg PO PRN Q6HRS PRN 05/19/18 Reported Gabapentin (Gabapentin) 300 Mg Capsule 300 Mg PO TID 05/19/18 Reported Furosemide 40 Mg Tablet 1 Tab PO DAILY 05/19/18 Reported Atorvastatin Calcium 20 Mg Tablet 1 Tab PO DAILY 05/19/18 Reported Aspirin 81 Mg Tab.chew 1 Tab PO DAILY 05/19/18 Reported Impression . 1. Acute on chronic hypoxic respiratory failure secondary to multifactorial etiologies and includes combination of suspected sepsis, bilateral pleural effusion, which is likely transudative from a low oncotic pressure. Clinically, less likely thromboembolic disease. not convinced that there is any significant pulmonary embolism in the right lower lobe as reported. ( d/w another radiologist), le doppler neg 2. The patient with prior stroke and expressive aphasia and limited mobility. 3. Abnormal CT chest with bilateral pleural effusion and right middle lobe atelectasis. 4. Suspected sepsis. Follow ID recommendations. 5. dysphagia, improved. Plan . 1. on dysphagia diet, monitor closely 2. diuresis. keep I<O, monitor k, cr 4. elevate hob 5. Follow all cultures. 6. monitor off abx 7. venous Doppler negative /Lovenox DVT prophylaxis dose. Discussed with RN We will follow along with you. MARIELY PACE MD Jun 01, 2018 07:48
[2018-06-01] MEDS: LACTOBACILLUS RHAMNOSUS GG 1 CAPSULE. PO SCH ×2 (08:09→21:28)
[2018-06-01] MEDS: FUROSEMIDE 40 MG/4 ML VIAL. IVP SCH (08:09)
[2018-06-01] MEDS: ENOXAPARIN 40 MG/0.4 ML SYRINGE. SQ SCH (08:09)
[2018-06-01] MEDS: PANTOPRAZOLE 40 MG TABLET.DR. PO SCH ×2 (08:10→17:28)
[2018-06-01] MEDS: LINAGLIPTIN 5 MG TABLET PO SCH (08:10)
[2018-06-01] MEDS: LOSARTAN POTASSIUM 50 MG TABLET. PO SCH (08:10)
[2018-06-01] MEDS: metFORMIN 500 MG TABLET PO SCH ×2 (08:10→17:28)
[2018-06-01] MEDS: GABAPENTIN 300 MG CAPSULE. PO SCH ×3 (08:10→21:28)
[2018-06-01] MEDS: ASPIRIN CHEWABLE 81 MG TABLET. PO SCH (08:10)
[2018-06-01] MEDS: SENNOSIDES 8.6 MG TABLET PO SCH ×2 (08:11→21:28)
[2018-06-01] MEDS: METOPROLOL TART IMMED RELEASE 50 MG TABLET. PO SCH ×2 (08:11→21:30)
[2018-06-01] MEDS: INSULIN LISPRO 300 UNITS/3 ML INSULN.PEN. SQ SCH ×3 (08:12→17:30)
[2018-06-01] MEDS: AMINO AC 3%/ELECTROLYTE/GLYCER 1,000 ML IV SCH ×2 (09:57→23:07)
[2018-06-01 11:33] VITALS: BP 125/62
[2018-06-01 15:29] VITALS: BP 95/53
[2018-06-01 20:01] VITALS: BP 145/59
[2018-06-01] MEDS: ATORVASTATIN CALCIUM 20 MG TABLET PO SCH (21:28)
[2018-06-01 22:59] VITALS: BP 138/53
--- NOTE | 2018-06-01 23:57 | PN ---
DATE: 06/01/2018 SUBJECTIVE: The patient is resting, slightly propped up in bed. Eating his breakfast comfortably. He apparently was evaluated yesterday by the speech therapist and he is now on a dysphagia 1 diet with honey thick liquids with staff supervision during meals. He should be able to take medication with honey thick or crushed in pureed. PHYSICAL EXAMINATION: GENERAL: When I saw him this morning, he looked well and was clearly in no apparent respiratory distress, pale. No jaundice, cyanosis or thyromegaly. No jugular venous distension. No lower limb edema. VITAL SIGNS: Her heart rate was 81, blood pressure 145/69, temperature was 97.8, respiratory rate was 16 and oxygen saturation was 97% on 4 liters of oxygen. The rest of clinical exam stable, has not really changed. LABORATORY DATA: As of his blood sugar seems to be much better controlled, his serum sodium 133, potassium 4.7, chloride 99, bicarbonate 29, anion gap of 5, BUN 20 and creatinine 0.8. His hemoglobin was 9, hematocrit 26 with normal white cell count and platelets. ASSESSMENT: 1. Altered mental status, likely a combination of hypoglycemia and hypoxia resolved. He is now alert, awake, opens eyes, tracks and attempts to mouth some words, although it is difficult to understand because of severe aphasia. 2. Fever, likely due to aspiration pneumonia, treated empirically. All his blood cultures and urine cultures are negative. 3. Generalized anasarca, severe hypoalbuminemia, likely due to nephrotic syndrome. 4. Hypertension. This seems to be much better controlled. 5. Type 2 diabetes mellitus, seems to be reasonably controlled. 6. Hyperlipidemia. 7. Left middle cerebral artery territory infarct with right-sided hemiplegia, aphasia and dysphagia. 8. Peripheral vascular disease, status post left below-knee amputation. 9. Epilepsy, for which he is on phenytoin, dysphagia with a plan to place a gastrostomy tube. PLAN: Apparently, the patient did well yesterday and his video swallowing evaluation, he is on dysphagia 1 with honey thick liquid. If the patient remained stable, I will discharge him back to [facility] on Sunday. KASIE TRIPLETT MD DR: FERMÍN/marysol JOB#: [id number] / [id number]
[2018-06-02 03:59] VITALS: BP 116/46
[2018-06-02] MEDS: PHENYTOIN SODIUM EXTENDED 100 MG CAPSULE PO SCH ×3 (06:00→21:02)
[2018-06-02] MEDS: IPRATRPIUM/ALBUTEROL 0.5/2.5MG 3 ML NEBU. NEB SCH ×4 (06:03→19:58)
[2018-06-02 07:33] VITALS: BP 129/60
--- NOTE | 2018-06-02 07:55 | PDOC ---
PULMONARY PROGRESS NOTES Subjective appears comfortable, passed opv, on dysphagia diet. Vitals Vital Signs Date Time Temp Pulse Resp B/P (MAP) Pulse Ox O2 Delivery O2 Flow Rate FiO2 06/02/18 07:47 Nasal Cannula 3.0 06/02/18 07:33 97.9 83 16 129/60 (83) 97.9 06/02/18 06:04 97 General: Alert, No acute distress HEENT: Other (nc at perrl) Lungs: Crackles Cardiovascular: S1, S2 Abdomen: Soft, Non-tender Neuro Exam: Alert Extremities: Other (left BKA) Skin: Warm Labs Laboratory Tests Test 05/31/18 12:13 05/31/18 16:39 05/31/18 20:15 06/01/18 07:23 Glucose (Fingerstick) 217 mg/dL (70-99) 280 mg/dL (70-99) 264 mg/dL (70-99) 185 mg/dL (70-99) Test 06/01/18 11:37 06/01/18 17:04 06/01/18 21:39 Glucose (Fingerstick) 265 mg/dL (70-99) 269 mg/dL (70-99) 163 mg/dL (70-99) Laboratory Tests Test 06/01/18 11:37 06/01/18 17:04 06/01/18 21:39 Glucose (Fingerstick) 265 mg/dL (70-99) 269 mg/dL (70-99) 163 mg/dL (70-99) Medications Active Scripts Medications Dose Route/Sig Max Daily Dose Days Date Category Tresiba (Insulin Degludec) 100 Unit/1 Ml Vial 5 Unit SQ DAILY08 05/19/18 Reported Senna (Sennosides) 8.6 Mg Tablet 8.6 Mg PO BID 05/19/18 Reported Dilantin (Phenytoin Sodium Extended) 100 Mg Capsule 1 Cap PO TID 05/19/18 Reported Omeprazole 40 Mg Capsule.dr 1 Cap PO BID 05/19/18 Reported Novolog Flexpen (Insulin Aspart) 100 Unit/1 Ml Insuln.pen 3 Unit SQ HS 05/19/18 Reported Novolog Flexpen (Insulin Aspart) 100 Unit/1 Ml Insuln.pen 2 Unit SQ BID 05/19/18 Reported Mucinex (Guaifenesin) 600 Mg Tablet.er 1 Tab PO BID PRN 05/19/18 Reported Metoprolol Tartrate 50 Mg Tablet 1 Tab PO BID 05/19/18 Reported Metformin Hcl 1,000 Mg Tablet 1,000 Mg PO BIDWMEALS 05/19/18 Reported Losartan Potassium 100 Mg Tablet 100 Mg PO DAILY 05/19/18 Reported Januvia (Sitagliptin Phosphate) 100 Mg Tablet 1 Tab PO DAILY 05/19/18 Reported Ibuprofen 100 Mg/5 Ml Oral.susp 200 Mg PO PRN Q6HRS PRN 05/19/18 Reported Gabapentin (Gabapentin) 300 Mg Capsule 300 Mg PO TID 05/19/18 Reported Furosemide 40 Mg Tablet 1 Tab PO DAILY 05/19/18 Reported Atorvastatin Calcium 20 Mg Tablet 1 Tab PO DAILY 05/19/18 Reported Aspirin 81 Mg Tab.chew 1 Tab PO DAILY 05/19/18 Reported Impression . 1. Acute on chronic hypoxic respiratory failure secondary to multifactorial etiologies and includes combination of suspected sepsis, bilateral pleural effusion, which is likely transudative from a low oncotic pressure. Clinically, less likely thromboembolic disease. not convinced that there is any significant pulmonary embolism in the right lower lobe as reported. ( d/w another radiologist), le doppler neg 2. The patient with prior stroke and expressive aphasia and limited mobility. 3. Abnormal CT chest with bilateral pleural effusion and right middle lobe atelectasis. 4. Suspected sepsis. Follow ID recommendations. 5. dysphagia, improved. Plan . 1. on dysphagia diet, aspiration precaution, monitor closely 2. diuresis. keep I<O, monitor k, cr 4. elevate hob 5. Follow all cultures. 6. monitor off abx 7. venous Doppler negative /Lovenox DVT prophylaxis dose. protonix Discussed with RN We will follow along with you. MARIELY PACE MD Jun 02, 2018 07:55
[2018-06-02] MEDS: SENNOSIDES 8.6 MG TABLET PO SCH ×2 (08:57→20:48)
[2018-06-02] MEDS: LOSARTAN POTASSIUM 50 MG TABLET. PO SCH (08:57)
[2018-06-02] MEDS: ENOXAPARIN 40 MG/0.4 ML SYRINGE. SQ SCH (08:57)
[2018-06-02] MEDS: LACTOBACILLUS RHAMNOSUS GG 1 CAPSULE. PO SCH ×2 (08:57→20:47)
[2018-06-02] MEDS: FUROSEMIDE 40 MG/4 ML VIAL. IVP SCH (08:58)
[2018-06-02] MEDS: LINAGLIPTIN 5 MG TABLET PO SCH (08:58)
[2018-06-02] MEDS: METOPROLOL TART IMMED RELEASE 50 MG TABLET. PO SCH ×2 (08:58→20:48)
[2018-06-02] MEDS: PANTOPRAZOLE 40 MG TABLET.DR. PO SCH ×2 (08:58→17:38)
[2018-06-02] MEDS: GABAPENTIN 300 MG CAPSULE. PO SCH ×3 (08:58→20:48)
[2018-06-02] MEDS: metFORMIN 500 MG TABLET PO SCH ×2 (08:58→17:38)
[2018-06-02] MEDS: ASPIRIN CHEWABLE 81 MG TABLET. PO SCH (08:58)
[2018-06-02] MEDS: INSULIN LISPRO 300 UNITS/3 ML INSULN.PEN. SQ SCH ×3 (09:02→17:41)
[2018-06-02 11:33] VITALS: BP 111/56
[2018-06-02] MEDS ORDERED: DEXTROSE 50% 25 GM / 50ML DISP.SYRIN. IV PRN (12:45)
[2018-06-02] MEDS ORDERED: INSULIN LISPRO 300 UNITS/3 ML INSULN.PEN. SQ ONE (13:00)
[2018-06-02 15:24] VITALS: BP 104/57
[2018-06-02 18:21] VITALS: BP 136/65
--- NOTE | 2018-06-02 20:13 | NUR ---
Pt in bed assessment completed vss . Pt nonverbal pt do not appear to be in pain. Call light in reach will resume care and continue to monitor pt.
[2018-06-02] MEDS: ATORVASTATIN CALCIUM 20 MG TABLET PO SCH (20:48)
--- NOTE | 2018-06-02 21:52 | PN ---
DATE: 06/02/2018 SUBJECTIVE: The patient is resting slightly propped up in bed, in no apparent distress. He is eating his own breakfast without any difficulty, nursing staff stated that his blood sugar is slightly high, but otherwise he remained stable. PHYSICAL EXAMINATION: GENERAL: When I examined him this morning, he looked well and was clearly in no apparent respiratory distress, slightly pale, but no jaundice, cyanosis, or thyromegaly. No jugular venous distention. No lower limb edema. VITAL SIGNS: His heart rate was 83, blood pressure was 129/60, temperature was 97.9, respiratory rate was 16, and oxygen saturation was 97% on 3 liters of oxygen by nasal cannula. HEAD, EYES, EARS, NOSE AND THROAT: Showed normocephalic, atraumatic. NECK: Supple. HEART: Showed normal first and second sounds. No gallop, rub or murmur. CHEST: Clear to auscultation. No crepitation or rhonchi. ABDOMEN: Distended, soft, nontender. No guarding or rigidity. No organomegaly. All hernial orifices intact. Bowel sounds normal. NEUROLOGIC: He was more awake, alert, responding appropriately. Unfortunately, he has aphasia and difficult to understand, has right-sided hemiparesis, left below-knee amputation. His intake was 700, output was 1175. LABORATORY DATA: His most recent lab work showed a BUN of 20, creatinine 0.8. Hemoglobin was 8.9, hematocrit 26 with normal white cell count and platelets. ASSESSMENT: 1. Altered mental status, likely due to combination of hypoglycemia and hypoxia, resolved. He is now alert, awake, opens eyes, tracks and attempts to mouth some words, although difficult to understand given his severe aphasia. 2. Fever, likely due to aspiration pneumonia, treated empirically. All his blood culture and urine cultures are negative. 3. Generalized anasarca secondary to severe hypoalbuminemia, likely due to nephrotic syndrome. 4. Hypertension, seems to be much better controlled. 5. Type 2 diabetes, somewhat reasonably controlled. 6. Hyperlipidemia. 7. Left middle cerebral artery territory infarct with right-sided hemiplegia, aphasia and dysphagia. 8. Peripheral vascular disease, status post [id number] amputation. 9. Epilepsy, for which he is on phenytoin. 10. Dysphagia, apparently has resolved. PLAN: My plan is to repeat his labs tomorrow and hopefully discharge him back to [place]. KASIE TRIPLETT MD DR: FERMÍN/marysol JOB#: [id number] / [id number]
[2018-06-02 23:20] VITALS: BP 127/66
[2018-06-03 03:15] VITALS: BP 150/65
[2018-06-03] MEDS: PANTOPRAZOLE 40 MG TABLET.DR. PO SCH (06:28)
[2018-06-03] MEDS: PHENYTOIN SODIUM EXTENDED 100 MG CAPSULE PO SCH ×2 (06:29→14:30)
[2018-06-03 07:00] VITALS: BP 159/93
[2018-06-03] MEDS: IPRATRPIUM/ALBUTEROL 0.5/2.5MG 3 ML NEBU. NEB SCH ×2 (07:44→11:48)
[2018-06-03 08:11] LABS: HEMOGLOBIN 8.3 g/dL (13.0-17.5); RED BLOOD COUNT 2.6 x10^6/uL (4.30-5.70); RED CELL DISTRIBUTION WIDTH 14.3 % (11.5-14.5); WHITE BLOOD COUNT 5.5 x10^3/uL (4.0-11.0)
[2018-06-03 08:28] LABS: CALCIUM 8.5 mg/dL (8.5-10.1); GFR 90.7; POTASSIUM 4.5 mmol/L (3.5-5.1)
[2018-06-03] MEDS: ASPIRIN CHEWABLE 81 MG TABLET. PO SCH (08:46)
[2018-06-03] MEDS: SENNOSIDES 8.6 MG TABLET PO SCH (08:47)
[2018-06-03] MEDS: GABAPENTIN 300 MG CAPSULE. PO SCH ×2 (08:47→14:30)
[2018-06-03] MEDS: LOSARTAN POTASSIUM 50 MG TABLET. PO SCH (08:47)
[2018-06-03] MEDS: LACTOBACILLUS RHAMNOSUS GG 1 CAPSULE. PO SCH (08:47)
[2018-06-03] MEDS: METOPROLOL TART IMMED RELEASE 50 MG TABLET. PO SCH (08:47)
[2018-06-03] MEDS: FUROSEMIDE 40 MG/4 ML VIAL. IVP SCH (08:48)
[2018-06-03] MEDS: LINAGLIPTIN 5 MG TABLET PO SCH (08:48)
[2018-06-03] MEDS: ENOXAPARIN 40 MG/0.4 ML SYRINGE. SQ SCH (08:48)
[2018-06-03] MEDS: metFORMIN 500 MG TABLET PO SCH (08:48)
[2018-06-03] MEDS: INSULIN LISPRO 300 UNITS/3 ML INSULN.PEN. SQ SCH ×2 (09:02→12:40)
--- NOTE | 2018-06-03 09:24 | SNU/HH DC ---
DISCHARGE ORDERS DISCHARGE INFORMATION: FINAL DIAGNOSIS Problems Medical Problems: (1) Altered mental status Status: Acute (2) Hypoglycemia Status: Acute CONDITION ON DISCHARGE: Stable CODE STATUS: Code Status: Full JAIL: SNF STAY <30 DAYS: Yes POST DISCHARGE ORDERS: ACTIVITY ORDERS: Resume previous activity DIET AFTER DISCHARGE: CHECKS AFTER DISCHARGE: CHECKS AFTER DISCHARGE: Check blood sugar, ac/hs TREATMENT/EQUIPMENT ORDERS: ADAPTIVE EQUIPMENT NEEDED: Wheelchair Physical Therapy For: Evalulation/Treatment Occupational Therapy For: Evaluation/Treatment DISCHARGE MEDICATIONS: Home Meds Active Scripts Ipratropium/Albuterol Sulfate (DUONEB 0.5-3(2.5) MG/3 ML) 3 Ml Ampul.neb, 3 ML NEB QID for copd for 30 Days, #120 EACH Prov:KASIE TRIPLETT MD 05/23/18 Lactobacillus Acidophilus (Acidophilus Lactobacilli) 1 Each Capsule, 1 EACH PO BID for pneumonia for 10 Days, #20 CAP Prov:KASIE TRIPLETT MD 05/23/18 Reported Medications Insulin Degludec (Tresiba) 100 Unit/1 Ml Vial, 5 UNIT SQ DAILY08 for DM II, EACH 05/19/18 Sennosides (SENNA) 8.6 Mg Tablet, 8.6 MG PO BID for CONSTIPATION , TAB 05/19/18 Phenytoin Sodium Extended (DILANTIN) 100 Mg Capsule, 1 CAP PO TID for SEIZURES, #90 CAP 3 Refills 05/19/18 Omeprazole (OMEPRAZOLE) 40 Mg Capsule.dr, 1 CAP PO BID for GERD, #30 CAP 3 Refills 05/19/18 Insulin Aspart (NOVOLOG FLEXPEN) 100 Unit/1 Ml Insuln.pen, 3 UNIT SQ HS for DM II, SYR 05/19/18 Insulin Aspart (NOVOLOG FLEXPEN) 100 Unit/1 Ml Insuln.pen, 2 UNIT SQ BID for DM II, SYR 05/19/18 Guaifenesin (MUCINEX) 600 Mg Tablet.er, 1 TAB PO BID PRN for CONGESTION, #14 TAB 05/19/18 Metoprolol Tartrate (METOPROLOL TARTRATE) 50 Mg Tablet, 1 TAB PO BID for HTN, # 60 TAB 5 Refills 05/19/18 Metformin Hcl (METFORMIN HCL) 1,000 Mg Tablet, 1000 MG PO BIDWMEALS for DM II, TAB 05/19/18 Losartan Potassium (LOSARTAN POTASSIUM) 100 Mg Tablet, 100 MG PO DAILY for HYPERTENSION, TAB 05/19/18 Sitagliptin Phosphate (JANUVIA) 100 Mg Tablet, 1 TAB PO DAILY for DM II, #30 TAB 5 Refills 05/19/18 Gabapentin (GABAPENTIN ) 300 Mg Capsule, 300 MG PO TID for NEUROGENIC PAIN, CAP 05/19/18 Furosemide (FUROSEMIDE) 40 Mg Tablet, 1 TAB PO DAILY for ANASARCA, #30 TAB 5 Refills 05/19/18 Atorvastatin Calcium (ATORVASTATIN CALCIUM) 20 Mg Tablet, 1 TAB PO DAILY for HLD , #30 TAB 5 Refills 05/19/18 Aspirin (ASPIRIN) 81 Mg Tab.chew, 1 TAB PO DAILY for heart, #30 TAB 3 Refills 05/19/18 KASIE TRIPLETT MD Jun 03, 2018 09:24
[2018-06-03 10:20] LABS: BILIRUBIN,URINE NEGATIVE (NEG); CLARITY,URINE CLEAR; COLOR,URINE YELLOW; NITRITE,URINE NEGATIVE (NEG); PH,URINE 6.5; PROTEIN,URINE >=300 mg/dL (NEG-TRACE); UROBILINOGEN,URINE 0.2 mg/dL (0.2 mg/dL)
[2018-06-03 10:41] LABS: BACTERIA,URINE 0 /HPF (0-FEW); RBC,URINE 0 /HPF (0-2); SQUAMOUS EPITHELIAL CELL,UR FEW /LPF; WBC,URINE OCC /HPF (0-4)
[2018-06-03 11:00] VITALS: BP 142/67
--- NOTE | 2018-06-03 12:08 | NUR ---
SS following up with discharge planning. Discharge orders received for return to [facility], ; fax [phone]. SS phoned and faxed discharge orders to [facility]. [facility] reported that they would contact SS shortly with a transportation time.
--- NOTE | 2018-06-03 13:00 | DS ---
DATE OF DISCHARGE: 06/03/2018 HISTORY AND HOSPITAL COURSE: The patient is a 67-year-old male patient, resident at [facility] at [place], who was originally admitted on 05/18/2018 with altered mental status. He has also had fever and was treated initially with IV antibiotic. He was initially also hypoglycemic, so we started him on D5W and as he was on BiPAP he was switched to IV phenytoin for his seizure and continued on IV Zosyn and vancomycin. He did actually well and was supposed to be discharged on 05/23/2018 when it was found that he has dysphagia to all consistencies and therefore, a decision was made to place a gastrostomy tube. Unfortunately, we have never been able to contact his DPOA and initially, the plan was to go ahead and get Dr. Cloud for gastrostomy tube and Dr. Chang was planning to place a gastrostomy tube today. However, his repeat video swallowing evaluation last showed that his dysphagia has improved and he is now on a pureed diet, nectar thickened liquid. We switched all his medication to be given orally and has been doing extremely well. He is more awake, alert, although has aphasia. His blood pressure is much better controlled. We did a 24-hour urine collection for proteinuria, showed that he was dumping more than 3500 mg of protein in his urine, however his albuminemia is probably more caused by other factors other than the nephrotic syndrome alone and as he remained hemodynamically stable and afebrile, a decision was made to discharge him back to [facility] in [place]. PHYSICAL EXAMINATION: GENERAL: When I saw him today, he looked well and was clearly in no apparent respiratory distress, pale without jaundice, cyanosis, or thyromegaly. No jugular venous distension. No limb edema. VITAL SIGNS: His heart rate was 74, blood pressure was 139/93, temperature was 96.1, respiratory rate was 12 and oxygen saturation was 96% on 2 liters of oxygen. HEAD, EYES, EARS, NOSE AND THROAT: Showed normocephalic, atraumatic. NECK: Supple. HEART: Showed normal first and second heart sounds. No gallop or murmur. CHEST: Clear to auscultation. No crepitation or rhonchi. ABDOMEN: Distended, soft, nontender. NEUROLOGIC: He was definitely more awake, alert, opens eyes, tracks and responds appropriately. He has severe aphasia and difficult to understand. He has right-sided hemiparesis. He has left below knee amputation. He is mostly bedbound, wheelchair bound. LABORATORY AND DIAGNOSTIC DATA: His white cell count this morning was 5500, hemoglobin 8.3, hematocrit 25, MCV 96, and platelet count 214,000. Serum sodium was 137, potassium 4.5, chloride 103, bicarbonate 31, anion gap of 3, BUN 24, creatinine 1, estimated GFR was 90 mL per minute, his glucose 130, calcium was 8.5. His 24-hour urine collection showed that 24-hour urine protein was 3539. His blood and urine cultures were all negative. DISCHARGE MEDICATIONS: He was discharged back to [facility] to continue on ipratropium bromide and albuterol sulfate in 3 mL by nebulizer 4 times a day, lactobacillus acidophilus 1 capsule twice a day. He was also discharged on aspirin 81 mg once a day, atorvastatin calcium 20 mg once a day at bedtime, furosemide 40 mg once a day, gabapentin 300 mg 3 times a day, Mucinex 600 mg twice a day. He is on Tresiba 5 units at bedtime and NovoLog insulin 3 units subcutaneously at bedtime. He is on losartan potassium 100 mg once a day, metformin 1000 mg twice a day, metoprolol tartrate 50 mg twice a day, omeprazole 40 mg twice a day, phenytoin sodium extended release 100 mg 3 times a day, senna 1 tablet twice a day and Januvia 100 mg once a day. FINAL DISCHARGE DIAGNOSES: 1. Altered mental status likely due to hypoglycemia and hypoxia resolved. He is now more alert, awake, responding appropriately and attempts to mouth some words, although difficult to understand given his severe aphasia. 2. Fever, likely due to aspiration pneumonia, treated empirically. All his blood culture and urine cultures are negative. 3. Generalized anasarca secondary to severe hypoalbuminemia at least in part due to nephrotic syndrome. 4. Hypertension, seems to be much better controlled. 5. Type 2 diabetes, somewhat reasonably controlled. 6. Hyperlipidemia. 7. Left middle cerebral artery territory infarct with right-sided hemiplegia, aphasia and dysphagia. 8. Peripheral vascular disease, status post [id number] amputation. 9. Epilepsy, for which he is on phenytoin. 10. Dysphagia apparently that has resolved. He is now on dysphagia 1 diet with honey thick liquids. KASIE TRIPLETT MD DR: FERMÍN/marysol JOB#: [id number] / [id number]
--- NOTE | 2018-06-03 13:38 | NUR ---
SS following up with discharge planning. SS received phone contact from [facility] reporting that they would transport pt at 1500 back to facility. Pt will discharge today and return to [facility] at 1500. Pt and pt's RN notified.
--- NOTE | 2018-06-03 15:14 | PDOC ---
PULMONARY PROGRESS NOTES Subjective OFF O2 NOT SOA Vitals Vital Signs Date Time Temp Pulse Resp B/P (MAP) Pulse Ox O2 Delivery O2 Flow Rate FiO2 06/03/18 11:50 98 Room Air 06/03/18 11:00 97.0 66 12 142/67 (92) 3.0 97.0 General: Alert, No acute distress HEENT: Other (nc at perrl) Lungs: Crackles Cardiovascular: S1, S2 Abdomen: Soft, Non-tender Neuro Exam: Alert Extremities: Other (left BKA) Skin: Warm Labs Laboratory Tests Test 06/01/18 17:04 06/01/18 21:39 06/02/18 08:13 06/02/18 12:12 Glucose (Fingerstick) 269 mg/dL (70-99) 163 mg/dL (70-99) 233 mg/dL (70-99) 367 mg/dL (70-99) Test 06/02/18 17:25 06/02/18 20:46 06/03/18 07:40 06/03/18 08:07 Glucose (Fingerstick) 230 mg/dL (70-99) 189 mg/dL (70-99) 206 mg/dL (70-99) White Blood Count 5.5 x10^3/uL (4.0-11.0) Red Blood Count 2.60 x10^6/uL (4.30-5.70) Hemoglobin 8.3 g/dL (13.0-17.5) Hematocrit 25.0 % (39.0-53.0) Mean Corpuscular Volume 96 fL (79-100) Mean Corpuscular Hemoglobin 32 pg (25-35) Mean Corpuscular Hemoglobin Concent 33 g/dL (31-37) Red Cell Distribution Width 14.3 % (11.5-14.5) Platelet Count 214 x10^3/uL (140-400) Sodium Level 137 mmol/L (136-145) Potassium Level 4.5 mmol/L (3.5-5.1) Chloride Level 103 mmol/L (98-107) Carbon Dioxide Level 31 mmol/L (21-32) Anion Gap 3 (6-14) Blood Urea Nitrogen 24 mg/dL (8-26) Creatinine 1.0 mg/dL (0.7-1.3) Estimated GFR (Cockcroft-Gault) 90.7 Glucose Level 230 mg/dL (70-99) Calcium Level 8.5 mg/dL (8.5-10.1) Test 06/03/18 09:43 06/03/18 11:44 Urine Collection Type Unknown Urine Color Yellow Urine Clarity Clear Urine pH 6.5 Urine Specific [place] 1.015 Urine Protein >=300 mg/dL (NEG-TRACE) Urine Glucose (UA) 250 mg/dL (NEG) Urine Ketones (Stick) Negative mg/dL (NEG) Urine Blood Trace (NEG) Urine Nitrite Negative (NEG) Urine Bilirubin Negative (NEG) Urine Urobilinogen Dipstick 0.2 mg/dL (0.2 mg/dL) Urine Leukocyte Esterase Moderate (NEG) Urine RBC 0 /HPF (0-2) Urine WBC Occ /HPF (0-4) Urine Squamous Epithelial Cells Few /LPF Urine Bacteria 0 /HPF (0-FEW) Glucose (Fingerstick) 232 mg/dL (70-99) Laboratory Tests Test 06/02/18 17:25 06/02/18 20:46 06/03/18 07:40 06/03/18 08:07 Glucose (Fingerstick) 230 mg/dL (70-99) 189 mg/dL (70-99) 206 mg/dL (70-99) White Blood Count 5.5 x10^3/uL (4.0-11.0) Red Blood Count 2.60 x10^6/uL (4.30-5.70) Hemoglobin 8.3 g/dL (13.0-17.5) Hematocrit 25.0 % (39.0-53.0) Mean Corpuscular Volume 96 fL (79-100) Mean Corpuscular Hemoglobin 32 pg (25-35) Mean Corpuscular Hemoglobin Concent 33 g/dL (31-37) Red Cell Distribution Width 14.3 % (11.5-14.5) Platelet Count 214 x10^3/uL (140-400) Sodium Level 137 mmol/L (136-145) Potassium Level 4.5 mmol/L (3.5-5.1) Chloride Level 103 mmol/L (98-107) Carbon Dioxide Level 31 mmol/L (21-32) Anion Gap 3 (6-14) Blood Urea Nitrogen 24 mg/dL (8-26) Creatinine 1.0 mg/dL (0.7-1.3) Estimated GFR (Cockcroft-Gault) 90.7 Glucose Level 230 mg/dL (70-99) Calcium Level 8.5 mg/dL (8.5-10.1) Test 06/03/18 09:43 06/03/18 11:44 Urine Collection Type Unknown Urine Color Yellow Urine Clarity Clear Urine pH 6.5 Urine Specific [place] 1.015 Urine Protein >=300 mg/dL (NEG-TRACE) Urine Glucose (UA) 250 mg/dL (NEG) Urine Ketones (Stick) Negative mg/dL (NEG) Urine Blood Trace (NEG) Urine Nitrite Negative (NEG) Urine Bilirubin Negative (NEG) Urine Urobilinogen Dipstick 0.2 mg/dL (0.2 mg/dL) Urine Leukocyte Esterase Moderate (NEG) Urine RBC 0 /HPF (0-2) Urine WBC Occ /HPF (0-4) Urine Squamous Epithelial Cells Few /LPF Urine Bacteria 0 /HPF (0-FEW) Glucose (Fingerstick) 232 mg/dL (70-99) Medications Active Scripts Medications Dose Route/Sig Max Daily Dose Days Date Category Tresiba (Insulin Degludec) 100 Unit/1 Ml Vial 5 Unit SQ DAILY08 05/19/18 Reported Senna (Sennosides) 8.6 Mg Tablet 8.6 Mg PO BID 05/19/18 Reported Dilantin (Phenytoin Sodium Extended) 100 Mg Capsule 1 Cap PO TID 05/19/18 Reported Omeprazole 40 Mg Capsule.dr 1 Cap PO BID 05/19/18 Reported Novolog Flexpen (Insulin Aspart) 100 Unit/1 Ml Insuln.pen 3 Unit SQ HS 05/19/18 Reported Novolog Flexpen (Insulin Aspart) 100 Unit/1 Ml Insuln.pen 2 Unit SQ BID 05/19/18 Reported Mucinex (Guaifenesin) 600 Mg Tablet.er 1 Tab PO BID PRN 05/19/18 Reported Metoprolol Tartrate 50 Mg Tablet 1 Tab PO BID 05/19/18 Reported Metformin Hcl 1,000 Mg Tablet 1,000 Mg PO BIDWMEALS 05/19/18 Reported Losartan Potassium 100 Mg Tablet 100 Mg PO DAILY 05/19/18 Reported Januvia (Sitagliptin Phosphate) 100 Mg Tablet 1 Tab PO DAILY 05/19/18 Reported Ibuprofen 100 Mg/5 Ml Oral.susp 200 Mg PO PRN Q6HRS PRN 05/19/18 Reported Gabapentin (Gabapentin) 300 Mg Capsule 300 Mg PO TID 05/19/18 Reported Furosemide 40 Mg Tablet 1 Tab PO DAILY 05/19/18 Reported Atorvastatin Calcium 20 Mg Tablet 1 Tab PO DAILY 05/19/18 Reported Aspirin 81 Mg Tab.chew 1 Tab PO DAILY 05/19/18 Reported Impression . 1. Acute on chronic hypoxic respiratory failure secondary to multifactorial 2. The patient with prior stroke and expressive aphasia and limited mobility. 3. Abnormal CT chest with bilateral pleural effusion and right middle lobe atelectasis. 4. Suspected sepsis. Follow ID recommendations. 5. dysphagia, improved. Plan . OFF 02 SAT GREATER THAN 92 OK TO D/C PHUONG MCCARTY MD Jun 03, 2018 15:14
[2018-06-03 15:32] VITALS: BP 141/68
--- NOTE | 2018-06-03 16:52 | NUR ---
Discharge Note: SONIA NIEVES Discharge instructions and discharge home medications reviewed with [facility] care facility and a copy given. Report given to facility. All questions have been answered and understanding verbalized. Discontinued lines and drains: Mid-line intact. Patient discharged to [facility] with transportation via Wheelchair.
== END 2018-06-03 16:30 | DRG 871 ==
LOC: ER 15:12 → 2 NORTH 17:00
PROVIDERS: ADMIT Internal Medicine; ATTEND Internal Medicine
PROC: 5A09357 Assistance with Respiratory Ventilation, Less than 24 Consecutive Hours, Continuous Positive Airway Pressure (ICD-10-PCS; principal; 2018-05-20)
PROC: 02HV33Z Insertion of Infusion Device into Superior Vena Cava, Percutaneous Approach (ICD-10-PCS; 2018-05-25)
DX: A41.9 Sepsis, unspecified organism (principal); J69.0 Pneumonitis due to inhalation of food and vomit; J96.21 Acute and chronic respiratory failure with hypoxia; E46 Unspecified protein-calorie malnutrition; G93.40 Encephalopathy, unspecified; J90 Pleural effusion, not elsewhere classified; J98.11 Atelectasis; K86.1 Other chronic pancreatitis; R47.01 Aphasia; I69.351 Hemiplegia and hemiparesis following cerebral infarction affecting right dominant side; D64.9 Anemia, unspecified; E11.51 Type 2 diabetes mellitus with diabetic peripheral angiopathy without gangrene; E11.649 Type 2 diabetes mellitus with hypoglycemia without coma; E11.65 Type 2 diabetes mellitus with hyperglycemia; E78.5 Hyperlipidemia, unspecified; E87.6 Hypokalemia; G40.909 Epilepsy, unspecified, not intractable, without status epilepticus; I10 Essential (primary) hypertension; I48.91 Unspecified atrial fibrillation; I69.320 Aphasia following cerebral infarction; K57.10 Diverticulosis of small intestine without perforation or abscess without bleeding; K74.60 Unspecified cirrhosis of liver; R13.10 Dysphagia, unspecified; R47.02 Dysphasia; Z87.441 Personal history of nephrotic syndrome; Z89.512 Acquired absence of left leg below knee; Z99.3 Dependence on wheelchair; Z74.01 Bed confinement status; Z66 Do not resuscitate; R60.1 Generalized edema
CPT/HCPCS: 36415; 36600; 70450; 71045; 71275; 74230; 80048; 80053; 80185; 80202; 81001; 82575; 82805; 82962; 83605; 83880; 84145; 84156; 84484; 85014; 85018; 85025; 85027; 85379; 85610; 85730; 87040; 87086; 87186; 93005; 93970; 94640; 94660; 94760; 96365; 96366; 96375; J0360; J1650; J1815; J1940; J2543; J3010; J3370; J3490; J7040; J7042; J7050; J7613; J7620; Q2009; Q9967; 92526; 92610; 92611; 97110; 97116; 97530; 99285-25; J7030

== ENCOUNTER 2018-07-14 18:51 | Inpatient (IN) | payer MEDICARE, OTHER ==
[~2018-07-14] VITALS: Ht 177.8 cm; Wt 57.6 kg
[~2018-07-14 18:51] MED LIST: AMOX1TAB61 PO; ASPI-630 PO; ATOR20TA58 PO; FURO40TA4 PO; GABA300C18 PO; GUAI600T47 PO; IBUP100O25 PO; INSU100I17 SQ; INSU100V37 SQ; IPRA3AMP29 NEB; LACT1CAP48 PO; LOSA100T14 PO; METF10007 PO; METO50TA6 PO; OMEP40CA5 PO; PHEN100C PO; SENN-80 PO; SITA100T PO
--- NOTE | 2018-07-14 19:06 | PHYS DOC ---
Past Medical History Past Medical History: CAD, Diabetes-Type II, High Cholesterol, Heart Disease, Hypertension, Seizure, Stroke Additional Past Medical Histor: edema, aphasia, PVD Past Surgical History: Other Additional Past Surgical Histo: unknown; left BKA Alcohol Use: None Drug Use: None Adult General Chief Complaint Chief Complaint: HYPOGLYCEMIA HPI HPI Patient is a 67 year old biba from [facility]. bg182 then 6 units insulin 1740 was 54--> then 33. glucagon shot then 107 for medic had not eaten, is on pureed and honey thick diet. no other acute issues per coby the nurse. bg has been dropping at nighttime however. no fever. no cough no chest pain lantus at bedtime 5 units. 6 units novolog before each meal. Review of Systems Review of Systems Constitutional: Denies fever or chills [] Eyes: Denies change in visual acuity, redness, or eye pain [] Cardiovascular: No additional information not addressed in HPI [] GI: Denies abdominal pain, nausea, vomiting, bloody stools or diarrhea [] Musculoskeletal: Denies back pain or joint pain [] Integument All other systems were reviewed and found to be within normal limits, except as documented in this note. Current Medications Current Medications Current Medications Medications (Trade) Dose Ordered Sig/Inocencia Start Time Stop Time Status Last Admin Dose Admin Ceftriaxone Sodium (Rocephin) 1 gm 1X ONCE 07/14/18 21:30 07/14/18 21:31 DC 07/14/18 21:35 1 GM Dextrose (Dextrose 50%-Water Syringe) 50 gm 1X ONCE 07/14/18 20:30 07/14/18 20:31 DC 07/14/18 20:14 50 GM Dextrose/Sodium Chloride 1,000 ml @ 75 mls/hr 1X ONCE 07/14/18 20:15 07/15/18 09:34 07/14/18 20:25 75 MLS/HR Sodium Chloride 500 ml @ 500 mls/hr 1X ONCE 07/14/18 20:15 07/14/18 21:14 DC 07/14/18 20:13 500 MLS/HR Allergies Allergies Allergies Coded Allergies Type Severity Reaction Last Updated Verified No Known Drug Allergies 05/18/18 No Physical Exam Physical Exam Constitutional: Well developed, well nourished, no acute distress, non-toxic appearance. [] mild chronically ill no acute distress HENT: Normocephalic, atraumatic, bilateral external ears normal, oropharynx moist, no oral exudates, nose normal. [] Eyes: PERRLA, conjunctiva normal, no discharge. [] Neck: Normal range of motion, no tenderness, supple, no stridor. [] Cardiovascular:Heart rate regular rhythm, no murmur [] Lungs & Thorax: Bilateral breath sounds clear to auscultation [] Abdomen: Bowel sounds normal, soft, no tenderness, no masses, no pulsatile masses. [] Skin: Warm, dry, no erythema, no rash. [] Back: No tenderness, no CVA tenderness. [] Extremities: there is a amputation noted at baseline Neurologic: baseline there is aphasia and some contractures at baseline. Current Patient Data Vital Signs Vital Signs Date Time Temp Pulse Resp B/P (MAP) Pulse Ox O2 Delivery O2 Flow Rate FiO2 07/14/18 21:02 62 13 110/71 (84) 100 Room Air 07/14/18 19:50 96.9 96.9 Lab Values Laboratory Tests Test 07/14/18 18:58 07/14/18 19:15 07/14/18 19:36 07/14/18 20:09 Glucose (Fingerstick) 67 mg/dL (70-99) L 71 mg/dL (70-99) 29 mg/dL (70-99) *L White Blood Count 8.4 x10^3/uL (4.0-11.0) Red Blood Count 3.33 x10^6/uL (4.30-5.70) L Hemoglobin 10.6 g/dL (13.0-17.5) L Hematocrit 31.5 % (39.0-53.0) L Mean Corpuscular Volume 95 fL (79-100) Mean Corpuscular Hemoglobin 32 pg (25-35) Mean Corpuscular Hemoglobin Concent 34 g/dL (31-37) Red Cell Distribution Width 14.6 % (11.5-14.5) H Platelet Count 207 x10^3/uL (140-400) Neutrophils (%) (Auto) 76 % (31-73) H Lymphocytes (%) (Auto) 17 % (24-48) L Monocytes (%) (Auto) 6 % (0-9) Eosinophils (%) (Auto) 1 % (0-3) Basophils (%) (Auto) 1 % (0-3) Neutrophils # (Auto) 6.4 x10^3uL (1.8-7.7) Lymphocytes # (Auto) 1.4 x10^3/uL (1.0-4.8) Monocytes # (Auto) 0.5 x10^3/uL (0.0-1.1) Eosinophils # (Auto) 0.1 x10^3/uL (0.0-0.7) Basophils # (Auto) 0.0 x10^3/uL (0.0-0.2) Sodium Level 136 mmol/L (136-145) Potassium Level 4.6 mmol/L (3.5-5.1) Chloride Level 102 mmol/L (98-107) Carbon Dioxide Level 28 mmol/L (21-32) Anion Gap 6 (6-14) Blood Urea Nitrogen 19 mg/dL (8-26) Creatinine 0.8 mg/dL (0.7-1.3) Estimated GFR (Cockcroft-Gault) 117.4 BUN/Creatinine Ratio 24 (6-20) H Glucose Level 47 mg/dL (70-99) L Lactic Acid Level 1.3 mmol/L (0.4-2.0) Calcium Level 8.3 mg/dL (8.5-10.1) L Total Bilirubin < 0.1 mg/dL (0.2-1.0) L Aspartate Amino Transferase (AST) 83 U/L (15-37) H Alanine Aminotransferase (ALT) 63 U/L (16-63) Alkaline Phosphatase 248 U/L (46-116) H Troponin I Quantitative < 0.017 ng/mL (0.000-0.055) Total Protein 5.1 g/dL (6.4-8.2) L Albumin 1.1 g/dL (3.4-5.0) L Albumin/Globulin Ratio 0.3 (1.0-1.7) L Test 07/14/18 20:13 07/14/18 21:04 Urine Collection Type Unknown Urine Color Yellow Urine Clarity Cloudy Urine pH 5.5 Urine Specific [place] 1.015 Urine Protein 100 mg/dL (NEG-TRACE) Urine Glucose (UA) Negative mg/dL (NEG) Urine Ketones (Stick) Negative mg/dL (NEG) Urine Blood Small (NEG) Urine Nitrite Negative (NEG) Urine Bilirubin Negative (NEG) Urine Urobilinogen Dipstick 0.2 mg/dL (0.2 mg/dL) Urine Leukocyte Esterase Large (NEG) Urine RBC 0 /HPF (0-2) Urine WBC Tntc /HPF (0-4) Urine Squamous Epithelial Cells Occ /LPF Urine Bacteria Many /HPF (0-FEW) Urine Mucus Slight /LPF Glucose (Fingerstick) 58 mg/dL (70-99) L Laboratory Tests 07/14/18 19:36 Laboratory Tests 07/14/18 19:36 EKG EKG EKG shows a normal sinus rhythm rate of 66 ischemic changes noted no ST elevat ion MA[] Radiology/Procedures Radiology/Procedures [] Impressions: Chest x-ray by my interpretation was negative acute. Final reading pending Course & Med Decision Making Course & Med Decision Making Pertinent Labs and Imaging studies reviewed. (See chart for details) []hypoglycemia Hx of seizure, history of nephrotic syndrome diabetes on insulin prior by ambulance with hypoglycemia patient did not really eat dinner did have insulin at 5:30 PM patient is persistently hypoglycemic in the emergency room despite getting D50 and also eating a fair amount of yogurt according to nursing staff. We placed the patient on a D5 half-normal saline drip and I was notified the blood sugar was still low sats and increase it to 125 mL per hour. Patient does have evidence of urinary tract infection on urinalysis which was obtained a couple of hours into the emergency room course due to no urine on initial testing. Blood cultures and lactic acid have been added on and I ordered some ceftriaxone as well I spoke with Dr. hussein reviewed the hypoglycemia plan to admit as noted above. Patient's blood pressure stable there is no leukocytosis creatinine is normal as well. Patient once blood sugar is corrected is at [facility] mental status per nursing staff from [facility] Disclaimer [facility] Disclaimer This electronic medical record was generated, in whole or in part, using a voice recognition dictation system. Departure Departure Impression: Primary Impression: Hypoglycemia Additional Impression: Urinary tract infection Disposition: ADMITTED INPATIENT Admitting Physician: Madi. Vazquez Condition: STABLE Referrals: JARRETT SALGUERO MD (PCP) Problem Qualifiers SILVIA SANCHEZ MD Jul 14, 2018 19:06
[2018-07-14] MEDS: DEXTROSE 50% 25 GM / 50ML DISP.SYRIN. IV ONE ×4 (19:15→20:30)
[2018-07-14 19:44] LABS: BASO % 1 % (0-3); EOS # 0.1 x10^3/uL (0.0-0.7); EOS % 1 % (0-3); HEMATOCRIT 31.5 % (39.0-53.0); HEMOGLOBIN 10.6 g/dL (13.0-17.5); LYMPH # 1.4 x10^3/uL (1.0-4.8); LYMPH % 17 % (24-48); MEAN CORPUSCULAR HEMOGLOBIN 32 pg (25-35); MEAN CORPUSCULAR HGB CONC 34 g/dL (31-37); MEAN CORPUSCULAR VOLUME 95 fL (79-100); MONO # 0.5 x10^3/uL (0.0-1.1); MONO % 6 % (0-9); NEUT # 6.4 x10^3uL (1.8-7.7); NEUT % 76 % (31-73); PLATELET COUNT 207 x10^3/uL (140-400); RED BLOOD COUNT 3.33 x10^6/uL (4.30-5.70); RED CELL DISTRIBUTION WIDTH 14.6 % (11.5-14.5); WHITE BLOOD COUNT 8.4 x10^3/uL (4.0-11.0)
[2018-07-14 19:58] LABS: ANION GAP 6 (6-14); BLOOD UREA NITROGEN 19 mg/dL (8-26); BUN/CREATININE RATIO 24 (6-20); CALCIUM 8.3 mg/dL (8.5-10.1); CARBON DIOXIDE 28 mmol/L (21-32); CHLORIDE 102 mmol/L (98-107); CREATININE 0.8 mg/dL (0.7-1.3); GFR 117.4; GLUCOSE 47 mg/dL (70-99); POTASSIUM 4.6 mmol/L (3.5-5.1); SODIUM 136 mmol/L (136-145)
[2018-07-14 20:04] LABS: ALBUMIN 1.1 g/dL (3.4-5.0); ALBUMIN/GLOBULIN RATIO 0.3 (1.0-1.7); ALK PHOS 248 U/L (46-116); ALT (SGPT) 63 U/L (16-63); AST (SGOT) 83 U/L (15-37); TOTAL PROTEIN 5.1 g/dL (6.4-8.2)
[2018-07-14] MEDS ORDERED: IV DEXTROSE 5 %-0.45 % NACL 1,000 ML IV ONE (20:15)
[2018-07-14] MEDS ORDERED: IV NORMAL SALINE 500ML BAG 500 ML IV ONE (20:15)
[2018-07-14 20:17] LABS: TOTAL BILIRUBIN < 0.1 mg/dL (0.2-1.0)
[2018-07-14 20:23] LABS: BILIRUBIN,URINE NEGATIVE (NEG); CLARITY,URINE CLOUDY; COLOR,URINE YELLOW; NITRITE,URINE NEGATIVE (NEG); PH,URINE 5.5; PROTEIN,URINE 100 mg/dL (NEG-TRACE); UROBILINOGEN,URINE 0.2 mg/dL (0.2 mg/dL)
[2018-07-14 20:34] LABS: BACTERIA,URINE MANY /HPF (0-FEW); RBC,URINE 0 /HPF (0-2); SQUAMOUS EPITHELIAL CELL,UR OCC /LPF; WBC,URINE TNTC /HPF (0-4)
[2018-07-14] MEDS ORDERED: cefTRIAXone IV Push 1 GM VIAL. IVP ONE (21:30)
[2018-07-14 22:50] VITALS: BP 134/66
[2018-07-14] MEDS ORDERED: DEXTROSE 50% 25 GM / 50ML DISP.SYRIN. IV PRN (23:15)
[2018-07-15 03:00] VITALS: BP 171/72
[2018-07-15] MEDS ORDERED: INSU100I17 SQ (04:09)
[2018-07-15] MEDS ORDERED: INSU100I13 SQ (04:09)
[2018-07-15] MEDS ORDERED: MULT1TAB90 PO (04:09)
--- NOTE | 2018-07-15 06:38 | EKG ---
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
[2018-07-15 07:00] VITALS: BP 114/63
[2018-07-15 07:32] LABS: ALBUMIN/GLOBULIN RATIO 0.3 (1.0-1.7); CALCIUM 8.4 mg/dL (8.5-10.1); CREATININE 0.9 mg/dL (0.7-1.3); GFR 102.5; POTASSIUM 5.3 mmol/L (3.5-5.1); TOTAL BILIRUBIN 0.1 mg/dL (0.2-1.0); TOTAL PROTEIN 4.9 g/dL (6.4-8.2)
[2018-07-15 10:49] VITALS: BP 111/62
--- NOTE | 2018-07-15 11:19 | HP ---
ADMIT DATE: 07/14/2018 HISTORY OF PRESENT ILLNESS: The patient is a 67-year-old male patient, resident at [facility] in [place], who was brought with severe hypoglycemia. According to the nursing staff, the patient was noted to be unresponsive. His blood sugar was 54, then 33. He was given a glucagon shot. His blood sugar went up to 107; however, the blood sugar continued to drop and apparently he had to get his insulin without eating and therefore, a decision was made to transfer him to [facility]. According to nursing staff, his blood glucose has been dropping at night time; however, no fever, no cough, no chest pain. He normally gets Lantus at bedtime at 5 units and he gets 6 units NovoLog before each meal. By the time he arrived to the Emergency Room, his blood sugar initially was 67 and dropped down again to 29 and even down to 18. He was started on D5W and was admitted for further evaluation and treatment to make sure that his blood sugar was stable. The patient has left middle cerebral artery territory infarct with right-sided hemiplegia and aphasia and he is basically nonverbal. PAST MEDICAL HISTORY: Significant for type 2 diabetes with multiple complications, hypertension, left middle cerebral artery territory infarct, right-sided hemiplegia, aphasia, severe peripheral vascular disease, epilepsy, marked muscle wasting and weakness. He is also known to have hyperlipidemia, expressive aphasia, reduced mobility, and severe protein-calorie malnutrition. PAST SURGICAL HISTORY: Significant for left below knee amputation. ALLERGIES: He has no known drug allergies. FAMILY HISTORY: Unobtainable. SOCIAL HISTORY: Apparently, he has been a resident at [facility] in [place]. He does not smoke, drink alcohol or use any recreational drugs. REVIEW OF SYSTEMS: Unobtainable. MEDICATIONS: He is currently on following medications; he is on ipratropium bromide and albuterol sulfate 3 mL by nebulizer 4 times a day, atorvastatin calcium 20 mg at bedtime, metoprolol tartrate 50 mg twice a day, losartan potassium 100 mg once a day, aspirin 81 mg once a day, phenytoin sodium extended release 100 mg 3 times a day, gabapentin 300 mg 3 times a day, furosemide 40 mg daily, Mucinex 600 mg twice a day, lactobacillus acidophilus 1 twice a day, senna 1 tablet twice a day, omeprazole 40 mg twice a day, metformin 1000 mg twice a day with meals, sitagliptin phosphate 100 mg, Januvia once a day, NovoLog 6 units before meals 3 times a day and Lantus 5 units at bedtime. He is on multivitamin with mineral one tablet once a day. PHYSICAL EXAMINATION: GENERAL: On arrival to the Emergency Room, he was pale, but not jaundiced, cyanosis, or thyromegaly. No jugular venous distension. No lower limb edema. VITAL SIGNS: His heart rate was 63, blood pressure was 134/63, temperature was 98.4, respiratory rate was 16, and oxygen saturation was 97%. HEAD, EYES, EARS, NOSE AND THROAT: Showed normocephalic, atraumatic. NECK: Supple. HEART: Showed normal first and second heart sounds with no gallop or murmur. CHEST: Clear to auscultation. No crepitation or rhonchi. ABDOMEN: Distended, soft, nontender. No guarding or rigidity. No organomegaly. All hernial orifices are intact. Bowel sounds normal. NEUROLOGIC: He apparently was aphasic, but initially was unresponsive; however, his blood sugar normalized. He started making noise, but he is obviously aphasic and nonverbal. LABORATORY DATA AND DIAGNOSTIC STUDIES: His lab work on admission showed his white cell count to be 8400, hemoglobin 10.6, hematocrit 31.5, MCV 95, and platelet count of 207,000. His chemistry showed a serum sodium 134, potassium 5.3, chloride 102, bicarbonate 26, anion gap of 6, BUN 17, creatinine 0.9, estimated GFR was 102 mL per minute. His glucose was 89, calcium was 8.4. Total bilirubin and ALT normal. AST and alkaline phosphatase slightly elevated. His total protein was 4.9, albumin was 1. Urinalysis showed the urine was yellow, cloudy with a pH of 5.5, specific gravity of 1.015, and large amount of protein. The urine was negative for glucose, ketones, small amount of blood, negative for nitrite. There was large amount of leukocyte esterase, no rbc's, too numerous to count wbc's and many bacteria. His chest x-ray was unremarkable as per ER physician. IMPRESSION: In summary, this is a 67-year-old male patient, a resident at [facility] in [place], who came with profound hypoglycemia. He is on Lantus. He is also on sitagliptin and he gets also Humalog insulin before meals. I will hold all his medications for now, continue to monitor his blood sugar hourly and we will probably introduce his insulin and his sitagliptin gradually and make sure that he adjust medications such that he does not go into further episode of hypoglycemia. KASIE TRIPLETT MD DR: FERMÍN/marysol JOB#: [id number] / [id number]
--- NOTE | 2018-07-15 12:21 | NUR ---
SS following for discharge planning. SS received notification that pt was a LTC resident from [facility], ; fax [phone]. SS phoned and faxed updated clinical to [facility].
[2018-07-15 14:49] VITALS: BP 113/60
--- NOTE | 2018-07-15 15:22 | RAD ---
EXAM: CHEST 1 VIEW History: Hypoglycemia COMPARISON: 05/18/2018 TECHNIQUE: Single portable radiograph of the chest FINDINGS: Low lung volumes and technique accentuates heart size and pulmonary vascularity. Calcified hilar lymph nodes are identified. The costophrenic sulci are clear and well demarcated. IMPRESSION: No acute cardiopulmonary findings. Electronically signed by: Vimal Leach MD (07/15/2018 3:14 PM) [facility]
[2018-07-15] MEDS ORDERED: INSULIN ASPART 4 UNIT SQ SCH (16:30)
[2018-07-15] MEDS: LOSARTAN POTASSIUM 50 MG TABLET. PO SCH (17:00)
[2018-07-15] MEDS: GABAPENTIN 300 MG CAPSULE. PO SCH ×2 (17:47→21:36)
[2018-07-15] MEDS: PANTOPRAZOLE 40 MG TABLET.DR. PO SCH (17:47)
[2018-07-15] MEDS: FUROSEMIDE 40 MG TABLET. PO SCH (17:47)
[2018-07-15] MEDS: MULTIVITAMIN with MINERAL TABLET. PO SCH (17:47)
[2018-07-15] MEDS: metFORMIN 500 MG TABLET PO SCH (17:47)
[2018-07-15] MEDS: ASPIRIN CHEWABLE 81 MG TABLET. PO SCH (17:47)
[2018-07-15] MEDS: INSULIN LISPRO 300 UNITS/3 ML INSULN.PEN. SQ SCH (17:57)
[2018-07-15 19:00] VITALS: BP 134/65
[2018-07-15] MEDS: IPRATRPIUM/ALBUTEROL 0.5/2.5MG 3 ML NEBU. NEB SCH (20:09)
[2018-07-15] MEDS: SENNOSIDES 8.6 MG TABLET PO SCH (21:35)
[2018-07-15] MEDS: ATORVASTATIN CALCIUM 20 MG TABLET PO SCH (21:36)
[2018-07-15] MEDS: cefTRIAXone IV Push 1 GM VIAL. IVP SCH (21:36)
[2018-07-15] MEDS: METOPROLOL TART IMMED RELEASE 50 MG TABLET. PO SCH (21:36)
[2018-07-15] MEDS: LACTOBACILLUS RHAMNOSUS GG 1 CAPSULE. PO SCH (21:36)
[2018-07-15] MEDS: INSULIN GLARGINE 300 UNITS/3 ML INSULN.PEN. SQ SCH (21:56)
[2018-07-15 23:00] VITALS: BP 128/59
[2018-07-16 03:01] VITALS: BP 145/65
--- NOTE | 2018-07-16 04:09 | PN ---
DATE: 07/15/2018 SUBJECTIVE: The patient is resting, slightly propped up, definitely more awake, alert. He continued to be obviously nonverbal as he has severe expressive aphasia; however, his blood sugar has been steady around 240 after his breakfast this morning. PHYSICAL EXAMINATION: GENERAL: When I examined him, he looked pale, but no jaundice, cyanosis or thyromegaly. No jugular venous distention. No lower limb edema. VITAL SIGNS: His heart rate was 82, blood pressure was 114/63, temperature was 98, respiratory rate was 18 and oxygen saturation was 96%. HEAD, EYES, EARS, NOSE AND THROAT: Normocephalic, atraumatic. NECK: Supple. HEART: Showed normal first and second heart sounds. No gallop, rub or murmur. CHEST: Clear to auscultation. No crepitation or rhonchi. ABDOMEN: Distended, soft, nontender. NEUROLOGIC: He was awake, alert; however, has expressive aphasia, has right-sided hemiplegia and has left below knee amputation. He is mostly bedbound, chair bound. His intake was 700, no output was recorded. LABORATORY DATA: Showed that his blood glucose has been stable, within normal range. My plan is to continue monitoring his blood sugar hourly till 12:00 clock and then 2 hours later after. Apparently, he was restarted on sitagliptin for Januvia that we have discontinued last time when he was discharged from here. If he remains stable by tomorrow morning, I will discharge him back to [facility] in [place] and probably have this discontinued the sitagliptin. Continue with NovoLog and Lantus insulin. KASIE TRIPLETT MD DR: FERMÍN/marysol JOB#: [id number] / [id number]
[2018-07-16 04:20] LABS: CALCIUM 8.2 mg/dL (8.5-10.1); CREATININE 0.9 mg/dL (0.7-1.3); GFR 102.5
[2018-07-16] MEDS: IPRATRPIUM/ALBUTEROL 0.5/2.5MG 3 ML NEBU. NEB SCH ×4 (07:07→20:09)
[2018-07-16 07:31] VITALS: BP 119/71
[2018-07-16] MEDS: INSULIN LISPRO 300 UNITS/3 ML INSULN.PEN. SQ SCH ×3 (08:00→17:15)
[2018-07-16] MEDS: GABAPENTIN 300 MG CAPSULE. PO SCH ×3 (08:35→21:00)
[2018-07-16] MEDS: ASPIRIN CHEWABLE 81 MG TABLET. PO SCH (08:35)
[2018-07-16] MEDS: FUROSEMIDE 40 MG TABLET. PO SCH (08:35)
[2018-07-16] MEDS: MULTIVITAMIN with MINERAL TABLET. PO SCH (08:35)
[2018-07-16] MEDS: LOSARTAN POTASSIUM 50 MG TABLET. PO SCH (08:35)
[2018-07-16] MEDS: SENNOSIDES 8.6 MG TABLET PO SCH ×2 (08:36→21:00)
[2018-07-16] MEDS: METOPROLOL TART IMMED RELEASE 50 MG TABLET. PO SCH ×2 (08:36→21:00)
[2018-07-16] MEDS: LACTOBACILLUS RHAMNOSUS GG 1 CAPSULE. PO SCH ×2 (08:36→21:00)
[2018-07-16] MEDS: PANTOPRAZOLE 40 MG TABLET.DR. PO SCH ×2 (08:36→17:09)
[2018-07-16] MEDS: metFORMIN 500 MG TABLET PO SCH ×2 (08:36→17:09)
[2018-07-16 10:50] VITALS: BP 122/70
[2018-07-16 14:51] VITALS: BP 124/70
[2018-07-16 19:00] VITALS: BP 137/64
[2018-07-16] MEDS: ATORVASTATIN CALCIUM 20 MG TABLET PO SCH (21:00)
[2018-07-16] MEDS: cefTRIAXone IV Push 1 GM VIAL. IVP SCH (21:41)
[2018-07-16] MEDS: INSULIN GLARGINE 300 UNITS/3 ML INSULN.PEN. SQ SCH (21:42)
[2018-07-16 23:00] VITALS: BP 139/70
--- NOTE | 2018-07-17 00:01 | PN ---
DATE: 07/16/2018 SUBJECTIVE: The patient is resting, slightly propped up in bed, in no apparent respiratory distress. He is awake, alert, but extremely aphasic and difficult to understand. His blood sugar has had no further episode of hypoglycemia; however, has had multiple about 5 episodes of loose bowel movement and stool was sent for C. diff, the result was still pending at the time of this dictation. PHYSICAL EXAMINATION: GENERAL: When I examined him, he looked pale. No jaundice or cyanosis. No lymphadenopathy. No thyromegaly. No jugular venous distension. No limb edema. VITAL SIGNS: Her heart rate was 74, blood pressure was 122/70, temperature was 98.3, respiratory rate was 18 and oxygen saturation was 95%. The rest of clinical examination is stable, has not really changed. LABORATORY DATA: His chemistry showed a serum sodium 139, potassium 5, chloride 106, bicarbonate 29, anion gap of 4, BUN 18, creatinine was 0.9, estimated GFR was 102 mL per minute, glucose was 74 and calcium was 8.2. ASSESSMENT: 1. Hypoglycemia, resolved. I discontinued his Januvia. I will continue with his Humalog insulin 4 units before meals, metformin and Lantus down to 5 units. 2. Urinary tract infection for which he is on IV Rocephin. The results of the culture and sensitivity is still pending. His blood cultures are so far negative. Diarrhea with Clostridium difficile toxin is still pending at the time of this dictation. PLAN: Continue with IV Rocephin for now. Continue to monitor his blood sugar and we will continue with current plan of management. If the C. diff was negative and remains stable, we will discharge him to [facility] in [place]. KASIE TRIPLETT MD DR: FERMÍN/marysol JOB#: [id number] / [id number]
[2018-07-17 00:10] LABS: HEMOGLOBIN A1C 6.2 % (4.8-5.6)
[2018-07-17 03:00] VITALS: BP 157/69
[2018-07-17 07:00] VITALS: BP 162/99
[2018-07-17] MEDS: PANTOPRAZOLE 40 MG TABLET.DR. PO SCH (07:30)
[2018-07-17] MEDS: INSULIN LISPRO 300 UNITS/3 ML INSULN.PEN. SQ SCH ×2 (08:00→12:00)
[2018-07-17] MEDS: IPRATRPIUM/ALBUTEROL 0.5/2.5MG 3 ML NEBU. NEB SCH ×2 (08:19→11:38)
[2018-07-17] MEDS: metFORMIN 500 MG TABLET PO SCH (08:42)
[2018-07-17] MEDS: LACTOBACILLUS RHAMNOSUS GG 1 CAPSULE. PO SCH (08:44)
[2018-07-17] MEDS: ASPIRIN CHEWABLE 81 MG TABLET. PO SCH (08:44)
[2018-07-17] MEDS: METOPROLOL TART IMMED RELEASE 50 MG TABLET. PO SCH (08:44)
[2018-07-17] MEDS: GABAPENTIN 300 MG CAPSULE. PO SCH (08:45)
[2018-07-17] MEDS: MULTIVITAMIN with MINERAL TABLET. PO SCH (08:45)
[2018-07-17] MEDS: FUROSEMIDE 40 MG TABLET. PO SCH (08:45)
[2018-07-17] MEDS: SENNOSIDES 8.6 MG TABLET PO SCH (08:50)
[2018-07-17] MEDS: LOSARTAN POTASSIUM 50 MG TABLET. PO SCH (08:51)
--- NOTE | 2018-07-17 09:35 | NUR ---
RE: DISCHARGE (WAITING ON TRANSPORTATION FROM [facility]) WHICH THEY SAID WILL BE HERE AT APPROXIMATELY 11:30.
[2018-07-17] MEDS ORDERED: INSU100I17 SQ (09:40)
[2018-07-17] MEDS ORDERED: CEFD300C PO (09:41)
--- NOTE | 2018-07-17 09:43 | SNU/HH DC ---
DISCHARGE ORDERS DISCHARGE INFORMATION: DISCHARGE DATE: Jul 17, 2018 FINAL DIAGNOSIS Problems Medical Problems: (1) Urinary tract infection Status: Acute Metbolic Encephalopathy CONDITION ON DISCHARGE: Stable CODE STATUS: Code Status: Full JAIL: SNF STAY <30 DAYS: Yes POST DISCHARGE ORDERS: ACTIVITY ORDERS: Activity as tolerated DIET AFTER DISCHARGE: ADA TREATMENT/EQUIPMENT ORDERS: ADAPTIVE EQUIPMENT NEEDED: Wheelchair Physical Therapy For: Evalulation/Treatment Occupational Therapy For: Evaluation/Treatment DISCHARGE MEDICATIONS: Home Meds Active Scripts Cefdinir (CEFDINIR) 300 Mg Capsule, 1 CAP PO BID for UTI for 5 Days, #10 CAP Prov:KASIE TRIPLETT MD 07/17/18 Insulin Aspart (NOVOLOG FLEXPEN) 100 Unit/1 Ml Insuln.pen, 4 UNIT SQ TIDAC for DM for 30 Days, SYR Prov:KASIE TRIPLETT MD 07/17/18 Ipratropium/Albuterol Sulfate (DUONEB 0.5-3(2.5) MG/3 ML) 3 Ml Ampul.neb, 3 ML NEB QID for copd for 30 Days, #120 EACH Prov:KASIE TRIPLETT MD 05/23/18 Lactobacillus Acidophilus (Acidophilus Lactobacilli) 1 Each Capsule, 1 EACH PO BID for pneumonia for 10 Days, #20 CAP Prov:KASIE TRIPLETT MD 05/23/18 Reported Medications Multivits,Ca,Minerals/Iron/Fa (THERA-M TABLET) 1 Each Tablet, 1 EACH PO DAILY for Supplement , TAB 07/15/18 Insulin Glargine,Hum.rec.anlog (LANTUS SOLOSTAR) 100 Unit/1 Ml Insuln.pen, 5 UNIT SQ QHS for type 2 DM , #15 ML 3 Refills 07/15/18 Sennosides (SENNA) 8.6 Mg Tablet, 8.6 MG PO BID for CONSTIPATION , TAB 05/19/18 Phenytoin Sodium Extended (DILANTIN) 100 Mg Capsule, 1 CAP PO TID for SEIZURES, #90 CAP 3 Refills 05/19/18 Omeprazole (OMEPRAZOLE) 40 Mg Capsule.dr, 1 CAP PO BID for GERD, #30 CAP 3 Refills 05/19/18 Guaifenesin (MUCINEX) 600 Mg Tablet.er, 1 TAB PO BID PRN for CONGESTION, #14 TAB 05/19/18 Metoprolol Tartrate (METOPROLOL TARTRATE) 50 Mg Tablet, 1 TAB PO BID for HTN, #60 TAB 5 Refills 05/19/18 Metformin Hcl (METFORMIN HCL) 1,000 Mg Tablet, 1000 MG PO BIDWMEALS for DM II, TAB 05/19/18 Losartan Potassium (LOSARTAN POTASSIUM) 100 Mg Tablet, 100 MG PO DAILY for HYPERTENSION, TAB 05/19/18 Gabapentin (GABAPENTIN ) 300 Mg Capsule, 300 MG PO TID for NEUROGENIC PAIN, CAP 05/19/18 Furosemide (FUROSEMIDE) 40 Mg Tablet, 1 TAB PO DAILY for ANASARCA, #30 TAB 5 Refills 05/19/18 Atorvastatin Calcium (ATORVASTATIN CALCIUM) 20 Mg Tablet, 1 TAB PO DAILY for HLD, #30 TAB 5 Refills 05/19/18 Aspirin (ASPIRIN) 81 Mg Tab.chew, 1 TAB PO DAILY for heart, #30 TAB 3 Refills 05/19/18 Discontinued Reported Medications Insulin Aspart (NOVOLOG FLEXPEN) 100 Unit/1 Ml Insuln.pen, 6 UNIT SQ TIDBFRMEAL for Type 2 DM , SYR 07/15/18 Sitagliptin Phosphate (JANUVIA) 100 Mg Tablet, 1 TAB PO DAILY for DM II, #30 TAB 5 Refills 05/19/18 Insulin Degludec (Tresiba) 100 Unit/1 Ml Vial, 5 UNIT SQ DAILY08 for DM II, EACH 05/19/18 Insulin Aspart (NOVOLOG FLEXPEN) 100 Unit/1 Ml Insuln.pen, 3 UNIT SQ HS for DM II, SYR 05/19/18 Insulin Aspart (NOVOLOG FLEXPEN) 100 Unit/1 Ml Insuln.pen, 2 UNIT SQ BID for DM II, SYR 05/19/18 KASIE TRIPLETT MD Jul 17, 2018 09:43
--- NOTE | 2018-07-17 10:26 | NUR ---
KALEN following pt. KALEN phoned/faxed orders to [facility] and pt will transport via facility arranged stretcher transport at 1130. Packet on chart and no available family contact information for notification. Discussed with RN.
[2018-07-17 11:00] VITALS: BP 143/79
--- NOTE | 2018-07-17 12:25 | NUR ---
RE: DISCHARGE: TRANSPORTATION ARRIVED. PATIENT DISCHARGED FROM HOSPITAL VIA EMS STRETCHER TO SNF WITH DC PACKET / BELONGINGS, IN STABLE CONDITION. REPORT CALLED TO [facility] TO [facility].
--- NOTE | 2018-07-17 20:45 | DS ---
DATE OF DISCHARGE: 07/17/2018 HOSPITAL COURSE: The patient is a 67-year-old male patient, a resident at [facility], who was admitted with altered mental status and found to be hypoglycemic and was treated accordingly, who was also found to have urinary tract infection and grew more than 100,000 colony forming units per mL. We initially held his insulin and sitagliptin as well as metformin once his hypoglycemia was resolved. We started him back on a lower dose of NovoLog insulin and continued his Lantus. I did discontinue his sitagliptin and patient did very well. He remained stable. Did have episodes of loose bowel movement; however, the stool for C. diff was negative. PHYSICAL EXAMINATION: GENERAL: When I examined him, he is unfortunately aphasic and unable to give any useful information; however clinically, he was sitting slightly propped up in bed, eating his breakfast comfortably, in no apparent distress, slightly pale. No jaundice, cyanosis or thyromegaly. No jugular venous distension. No lower limb edema. VITAL SIGNS: His heart rate was 69, blood pressure was 162/99, temperature was 98.2, respiratory rate was 18 and oxygen saturation was 97% on room air. HEAD, EYES, EARS, NOSE AND THROAT: Showed normocephalic, atraumatic. NECK: Supple. HEART: Showed normal first and second heart sounds. No gallop, rub or murmur. CHEST: Clear to auscultation. No crepitation or rhonchi. ABDOMEN: Distended, soft, nontender. No guarding or rigidity. No organomegaly. All hernial orifice intact. Bowel sounds normal. NEUROLOGIC: He was awake, alert, but he opens eyes, tracks and mouthed some words, although difficult to understand. He moves upper extremities without difficulty. He is mostly bedbound and chair bound. LABORATORY DATA: Showed a white cell count of 8400, hemoglobin 10, hematocrit 31, MCV 95, and platelet count 207,000. His serum sodium was 139, potassium 5, chloride 106, bicarbonate 29, anion gap of 4, BUN 18, creatinine 0.9, estimated GFR was 102 mL per minute. Her glucose was 74 and calcium was 8.2. DISCHARGE MEDICATIONS: He was discharged back to [facility] of [place] to continue on cefdinir 300 mg twice a day. I cut down his NovoLog 4 units before meals. Continued aspirin 81 mg once a day, atorvastatin calcium 20 mg once a day, furosemide 40 mg once a day, gabapentin 300 mg 3 times a day, Mucinex 600 mg twice a day, Lantus 5 units at bedtime, ipratropium bromide/albuterol inhaler 4 times a day, Lactobacillus acidophilus 1 twice a day, losartan potassium 100 mg daily, metformin 1000 mg p.o. b.i.d. with meals, metoprolol tartrate 50 mg twice a day, multivitamin with mineral 1 tablet once a day, omeprazole 40 mg twice a day, phenytoin sodium extended release 100 mg 3 times a day and senna 1 tablet as needed. FINAL DISCHARGE DIAGNOSES: 1. Metabolic encephalopathy due to hypoglycemia, resolved. 2. Urinary tract infection, growing Escherichia coli, on cefdinir. 3. Other medical problems include type 2 diabetes mellitus, reasonably controlled; hypertension; left middle cerebral artery territory infarct with right-sided hemiplegia and severe peripheral vascular disease; epilepsy; expressive aphasia; severe protein-calorie malnutrition. KASIE TRIPLETT MD DR: FERMÍN/marysol JOB#: [id number] / [id number]
== END 2018-07-17 12:25 | DRG 637 ==
LOC: ER 18:51 → 5 NORTH 22:42
PROVIDERS: ADMIT Internal Medicine; ATTEND Internal Medicine
DX: E11.649 Type 2 diabetes mellitus with hypoglycemia without coma (principal); E43 Unspecified severe protein-calorie malnutrition; G93.41 Metabolic encephalopathy; N39.0 Urinary tract infection, site not specified; Z68.1 Body mass index [BMI] 19.9 or less, adult; I69.351 Hemiplegia and hemiparesis following cerebral infarction affecting right dominant side; I25.10 Atherosclerotic heart disease of native coronary artery without angina pectoris; E78.00 Pure hypercholesterolemia, unspecified; I10 Essential (primary) hypertension; E11.51 Type 2 diabetes mellitus with diabetic peripheral angiopathy without gangrene; G40.909 Epilepsy, unspecified, not intractable, without status epilepticus; E78.5 Hyperlipidemia, unspecified; B96.20 Unspecified Escherichia coli [E. coli] as the cause of diseases classified elsewhere; Z89.512 Acquired absence of left leg below knee; Z79.4 Long term (current) use of insulin; I69.320 Aphasia following cerebral infarction
CPT/HCPCS: 36415; 71045; 80048; 80053; 81001; 82962; 83036; 83605; 84484; 85025; 87040; 87086; 87186; 87493; 87641; 93005; 94640; 94760; 96365; 96366; 96375; J0696; J1815; J7040; J7042; J7620; 99285-25

== ENCOUNTER 2018-09-23 08:42 | Observation (INO) | payer MEDICARE, OTHER ==
[~2018-09-23] VITALS: Ht 165.1 cm; Wt 57.6 kg
[~2018-09-23 08:42] MED LIST changes: +CEFD300C PO; +INSU100I13 SQ; +MULT1TAB90 PO
--- NOTE | 2018-09-23 08:56 | PHYS DOC ---
Past Medical History Past Medical History: Diabetes-Type II, Hypertension, Seizure Additional Past Medical Histor: APHASIA,PVD Past Surgical History: Other Additional Past Surgical Histo: unknown; left BKA Alcohol Use: None Drug Use: None Adult General HPI HPI Patient is a 68-year-old male, with a past history of prior stroke, aphasia, diabetes, who takes insulin and Lantus, per long term records, who presents to the emergency department for evaluation. The patient was noticed to be lethargic this morning at his nursing facility, and found to have a blood glucose of 29. The patient was given an injection of glucagon at the nursing facility, and EMS reported improvement in the patient's glucose, but the patient's glucose is down to about 65 upon arrival in the emergency department. The patient is normally aphasic per long term report. He is awake, and appears to be attentive to his surroundings, but does not follow commands. He is unable to provide any meaningful history at this time. Review of Systems Review of Systems Unable to obtain review of systems secondary to patient's mental status, baseline unknown. Current Medications Current Medications Current Medications Medications (Trade) Dose Ordered Sig/Inocencia Start Time Stop Time Status Last Admin Dose Admin Dextrose (Dextrose 50%-Water Syringe) 12.5 gm 1X ONCE 09/23/18 09:00 09/23/18 09:01 DC 09/23/18 09:11 12.5 GM Dextrose/Sodium Chloride 1,000 ml @ 100 mls/hr 1X ONCE 09/23/18 09:00 09/23/18 18:59 09/23/18 09:11 100 MLS/HR Allergies Allergies Allergies Coded Allergies Type Severity Reaction Last Updated Verified No Known Allergies Allergy Unknown 07/15/18 Yes Physical Exam Physical Exam PHYSICAL EXAM: CONSTITUTIONAL: Well developed, well nourished HEAD: normocephalic, atraumatic EENT: PERRL, EOMI. Conjunctivae normal color, sclerae non-icteric; moist mucous membranes. NECK: Supple, non-tender; no meningismus. LUNGS: Lungs CTA, breathing even and unlabored. Normal air movement. HEART: Regular rate and rhythm, no murmur CHEST: No deformity; non-tender ABDOMEN: The abdomen is soft, and non-tender, no masses or bruits. EXTREM: Normal ROM; no deformity, no calf tenderness. Normal pulses palpable in all extremities. There is 2+ bilateral pitting pedal edema. There has been a left BKA. There are skin changes consistent with chronic venous stasis of the lower extremities. SKIN: No rash; no diaphoresis NEURO: Alert; the patient does attempt to speak but does not make competent supple sounds, CN's grossly intact; there is diffuse motor weakness without definite paresis. BACK: No CVA TTP. Current Patient Data Vital Signs Vital Signs Date Time Temp Pulse Resp B/P (MAP) Pulse Ox O2 Delivery O2 Flow Rate FiO2 09/23/18 08:42 94.4 62 12 163/75 (104) 96 Room Air 94.4 Lab Values Laboratory Tests Test 09/23/18 08:41 09/23/18 09:05 09/23/18 09:37 09/23/18 10:39 Glucose (Fingerstick) 65 mg/dL (70-99) L 143 mg/dL (70-99) H 125 mg/dL (70-99) H White Blood Count 6.2 x10^3/uL (4.0-11.0) Red Blood Count 3.06 x10^6/uL (4.30-5.70) L Hemoglobin 9.8 g/dL (13.0-17.5) L Hematocrit 29.0 % (39.0-53.0) L Mean Corpuscular Volume 95 fL (79-100) Mean Corpuscular Hemoglobin 32 pg (25-35) Mean Corpuscular Hemoglobin Concent 34 g/dL (31-37) Red Cell Distribution Width 13.4 % (11.5-14.5) Platelet Count 185 x10^3/uL (140-400) Neutrophils (%) (Auto) 74 % (31-73) H Lymphocytes (%) (Auto) 19 % (24-48) L Monocytes (%) (Auto) 7 % (0-9) Eosinophils (%) (Auto) 1 % (0-3) Basophils (%) (Auto) 0 % (0-3) Neutrophils # (Auto) 4.5 x10^3/uL (1.8-7.7) Lymphocytes # (Auto) 1.2 x10^3/uL (1.0-4.8) Monocytes # (Auto) 0.4 x10^3/uL (0.0-1.1) Eosinophils # (Auto) 0.0 x10^3/uL (0.0-0.7) Basophils # (Auto) 0.0 x10^3/uL (0.0-0.2) Sodium Level 135 mmol/L (136-145) L Potassium Level 5.0 mmol/L (3.5-5.1) Chloride Level 102 mmol/L (98-107) Carbon Dioxide Level 30 mmol/L (21-32) Anion Gap 3 (6-14) L Blood Urea Nitrogen 13 mg/dL (8-26) Creatinine 0.9 mg/dL (0.7-1.3) Estimated GFR (Cockcroft-Gault) 102.2 BUN/Creatinine Ratio 14 (6-20) Glucose Level 67 mg/dL (70-99) L Calcium Level 8.1 mg/dL (8.5-10.1) L Total Bilirubin 0.1 mg/dL (0.2-1.0) L Aspartate Amino Transferase (AST) 71 U/L (15-37) H Alanine Aminotransferase (ALT) 64 U/L (16-63) H Alkaline Phosphatase 329 U/L (46-116) H Troponin I Quantitative < 0.017 ng/mL (0.000-0.055) IG-Xkl-P-Type Natriuretic Peptide 314 pg/mL (0-124) H Total Protein 4.9 g/dL (6.4-8.2) L Albumin 0.8 g/dL (3.4-5.0) L Albumin/Globulin Ratio 0.2 (1.0-1.7) L Laboratory Tests 09/23/18 09:05 Laboratory Tests 09/23/18 09:05 EKG EKG normal sinus rhythm at a rate of 59 beats for minute, normal axis, normal intervals, there are no acute ischemic ST/T changes. Occasional PVC is present.[] Radiology/Procedures Radiology/Procedures [PROCEDURE: PORTABLE CHEST 1V EXAM: CHEST 1 VIEW History: Altered mental status COMPARISON: 07/14/2018 TECHNIQUE: Single portable radiograph of the chest FINDINGS: The cardiac silhouette is unremarkable. The lungs are clear bilaterally. Calcified bilateral hilar lymph nodes again identified. IMPRESSION: No radiographic evidence of an acute cardiopulmonary process. ] Course & Med Decision Making Course & Med Decision Making Pertinent Lab studies reviewed. (See chart for details) []11:25 AM: The patient's condition remained stable. He is hypothermic, despite the use of a bear hugger, his blood glucose is only 120, despite having eaten, and being on a dextrose infusion. He does take Lantus which is a long-acting insulin, and this does lead to the concern that the patient may continue to have low blood sugars discharged from the hospital. The case was discussed with the hospitalist will admit the patient for further monitoring and evaluation. His mental status seems to be close to his baseline based on what I can gather from reports, but this will need further monitoring as well. Dragon Disclaimer Dragon Disclaimer This electronic medical record was generated, in whole or in part, using a voice recognition dictation system. Departure Departure Impression: Primary Impression: Hypoglycemia Additional Impression: Hypothermia Disposition: 09 ADMITTED INPATIENT Admitting Physician: ROSEMARY Condition: STABLE Referrals: JARRETT SALGUERO MD (PCP) Problem Qualifiers FADI MTZ MD Sep 23, 2018 08:56
[2018-09-23] MEDS ORDERED: DEXTROSE 50% 25 GM / 50ML DISP.SYRIN. IV ONE (09:00)
[2018-09-23] MEDS ORDERED: IV DEXTROSE 5% - 0.9 % NACL 1,000 ML IV ONE (09:00)
[2018-09-23 09:17] LABS: BASO % 0 % (0-3); EOS % 1 % (0-3); HEMOGLOBIN 9.8 g/dL (13.0-17.5); LYMPH # 1.2 x10^3/uL (1.0-4.8); LYMPH % 19 % (24-48); MEAN CORPUSCULAR HEMOGLOBIN 32 pg (25-35); MEAN CORPUSCULAR HGB CONC 34 g/dL (31-37); MEAN CORPUSCULAR VOLUME 95 fL (79-100); MONO # 0.4 x10^3/uL (0.0-1.1); MONO % 7 % (0-9); NEUT # 4.5 x10^3/uL (1.8-7.7); NEUT % 74 % (31-73); PLATELET COUNT 185 x10^3/uL (140-400); RED BLOOD COUNT 3.06 x10^6/uL (4.30-5.70); RED CELL DISTRIBUTION WIDTH 13.4 % (11.5-14.5); WHITE BLOOD COUNT 6.2 x10^3/uL (4.0-11.0)
--- NOTE | 2018-09-23 09:19 | EKG ---
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
[2018-09-23 09:31] LABS: CALCIUM 8.1 mg/dL (8.5-10.1); CREATININE 0.9 mg/dL (0.7-1.3); GFR 102.2
[2018-09-23 09:36] LABS: ALBUMIN 0.8 g/dL (3.4-5.0); ALBUMIN/GLOBULIN RATIO 0.2 (1.0-1.7); TOTAL BILIRUBIN 0.1 mg/dL (0.2-1.0); TOTAL PROTEIN 4.9 g/dL (6.4-8.2)
--- NOTE | 2018-09-23 09:47 | RAD ---
EXAM: CHEST 1 VIEW History: Altered mental status COMPARISON: 07/14/2018 TECHNIQUE: Single portable radiograph of the chest FINDINGS: The cardiac silhouette is unremarkable. The lungs are clear bilaterally. Calcified bilateral hilar lymph nodes again identified. IMPRESSION: No radiographic evidence of an acute cardiopulmonary process. Electronically signed by: Vimal Leach MD (09/23/2018 9:44 AM) [id number]
[2018-09-23 11:10] LABS: BILIRUBIN,URINE NEGATIVE (NEG); CLARITY,URINE CLEAR; COLOR,URINE YELLOW; NITRITE,URINE POSITIVE (NEG); PH,URINE 7.5; PROTEIN,URINE 100 mg/dL (NEG-TRACE); UROBILINOGEN,URINE 0.2 mg/dL (0.2 mg/dL)
[2018-09-23 11:26] LABS: SQUAMOUS EPITHELIAL CELL,UR FEW /LPF
[2018-09-23 11:26] LABS: FREE T4 0.75 ng/dL (0.76-1.46); THYROID STIM HORMONE (TSH) 3.668 uIU/mL (0.358-3.74)
[2018-09-23 11:27] LABS: RBC,URINE 0 /HPF (0-2)
[2018-09-23 11:28] LABS: BACTERIA,URINE FEW /HPF (0-FEW); WBC,URINE 20-40 /HPF (0-4)
--- NOTE | 2018-09-23 12:20 | PDOC1 ---
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 Admitted bec of persistent hypoglycemia, despite d5 at ER, BS 125 on dextrose gtt, on lantus 5 units qhs and novolog 4 units mealtimes left BKA on exam, otherwise, smiles and says "k, k k" Past Medical History CENTRAL NERVOUS SYSTEM: CVA Endocrine: Diabetes Past Surgical History Past Surgical History: Other (left BKA) Family History Family History: No Significant Social History Smoke: No ALCOHOL: none Drugs: None Current Problem List Problem List Problems Medical Problems: (1) Hypothermia Status: Acute Current Medications Current Medications Current Medications Dextrose (Dextrose 50%-Water Syringe) 12.5 gm 1X ONCE IV Last administered on 09/23/18at 09:11; Start 09/23/18 at 09:00; Stop 09/23/18 at 09:01; Status DC Dextrose/Sodium Chloride 1,000 ml @ 100 mls/hr 1X ONCE IV Last administered on 09/23/18at 09:11; Start 09/23/18 at 09:00; Stop 09/23/18 at 18:59 Dextrose/Sodium Chloride 1,000 ml @ 100 mls/hr Q10H IV ; Start 09/23/18 at 12:15 Active Scripts Active Cefdinir 300 Mg Capsule 1 Cap PO BID 5 Days Novolog Flexpen (Insulin Aspart) 100 Unit/1 Ml Insuln.pen 4 Unit SQ TIDAC 30 Days Duoneb 0.5-3(2.5) Mg/3 Ml (Albuterol/Ipratropium) 3 Ml Ampul.neb 3 Ml NEB QID 30 Days Acidophilus Lactobacilli (Lactobacillus Acidophilus) 1 Each Capsule 1 Each PO BID 10 Days Reported Thera-M Tablet (Multivits,Ca,Minerals/Iron/Fa) 1 Each Tablet 1 Each PO DAILY Lantus Solostar (Insulin Glargine,Hum.rec.anlog) 100 Unit/1 Ml Insuln.pen 5 Unit SQ QHS Senna (Sennosides) 8.6 Mg Tablet 8.6 Mg PO BID Dilantin (Phenytoin Sodium Extended) 100 Mg Capsule 1 Cap PO TID Omeprazole 40 Mg Capsule.dr 1 Cap PO BID Mucinex (Guaifenesin) 600 Mg Tablet.er 1 Tab PO BID PRN Metoprolol Tartrate 50 Mg Tablet 1 Tab PO BID Metformin Hcl 1,000 Mg Tablet 1,000 Mg PO BIDWMEALS Losartan Potassium 100 Mg Tablet 100 Mg PO DAILY Gabapentin (Gabapentin) 300 Mg Capsule 300 Mg PO TID Furosemide 40 Mg Tablet 1 Tab PO DAILY Atorvastatin Calcium 20 Mg Tablet 1 Tab PO DAILY Aspirin 81 Mg Tab.chew 1 Tab PO DAILY Allergies Allergies: Coded Allergies: No Known Allergies (Verified Allergy, Unknown, 07/15/18) ROS Review of System Aphasic, limited Physical Exam General: No acute distress HEENT: Atraumatic, PERRLA Lungs: Clear to auscultation, Normal air movement Heart: S1S2, RRR, no thrills, no rubs, no gallops, no murmurs Cardiovascular: S1, S2 Abdomen: Normal bowel sounds, Soft, No tenderness, No hepatosplenomegaly, No masses Male Genitals Exam: normal genitalia, normal prostate Rectal Exam: not examined Extremities: Other (left bka) Skin: No rashes, No breakdown, No significant lesion Vitals Vitals Vital Signs Date Time Temp Pulse Resp B/P (MAP) Pulse Ox O2 Delivery O2 Flow Rate FiO2 09/23/18 08:42 94.4 62 12 163/75 (104) 96 Room Air 94.4 Labs Labs Laboratory Tests Test 09/23/18 08:41 09/23/18 09:05 09/23/18 09:37 09/23/18 10:39 Glucose (Fingerstick) 65 mg/dL (70-99) 143 mg/dL (70-99) 125 mg/dL (70-99) White Blood Count 6.2 x10^3/uL (4.0-11.0) Red Blood Count 3.06 x10^6/uL (4.30-5.70) Hemoglobin 9.8 g/dL (13.0-17.5) Hematocrit 29.0 % (39.0-53.0) Mean Corpuscular Volume 95 fL (79-100) Mean Corpuscular Hemoglobin 32 pg (25-35) Mean Corpuscular Hemoglobin Concent 34 g/dL (31-37) Red Cell Distribution Width 13.4 % (11.5-14.5) Platelet Count 185 x10^3/uL (140-400) Neutrophils (%) (Auto) 74 % (31-73) Lymphocytes (%) (Auto) 19 % (24-48) Monocytes (%) (Auto) 7 % (0-9) Eosinophils (%) (Auto) 1 % (0-3) Basophils (%) (Auto) 0 % (0-3) Neutrophils # (Auto) 4.5 x10^3/uL (1.8-7.7) Lymphocytes # (Auto) 1.2 x10^3/uL (1.0-4.8) Monocytes # (Auto) 0.4 x10^3/uL (0.0-1.1) Eosinophils # (Auto) 0.0 x10^3/uL (0.0-0.7) Basophils # (Auto) 0.0 x10^3/uL (0.0-0.2) Sodium Level 135 mmol/L (136-145) Potassium Level 5.0 mmol/L (3.5-5.1) Chloride Level 102 mmol/L (98-107) Carbon Dioxide Level 30 mmol/L (21-32) Anion Gap 3 (6-14) Blood Urea Nitrogen 13 mg/dL (8-26) Creatinine 0.9 mg/dL (0.7-1.3) Estimated GFR (Cockcroft-Gault) 102.2 BUN/Creatinine Ratio 14 (6-20) Glucose Level 67 mg/dL (70-99) Calcium Level 8.1 mg/dL (8.5-10.1) Total Bilirubin 0.1 mg/dL (0.2-1.0) Aspartate Amino Transf (AST/SGOT) 71 U/L (15-37) Alanine Aminotransferase (ALT/SGPT) 64 U/L (16-63) Alkaline Phosphatase 329 U/L (46-116) Troponin I Quantitative < 0.017 ng/mL (0.000-0.055) VY-Wpy-Q-Type Natriuretic Peptide 314 pg/mL (0-124) Total Protein 4.9 g/dL (6.4-8.2) Albumin 0.8 g/dL (3.4-5.0) Albumin/Globulin Ratio 0.2 (1.0-1.7) Thyroid Stimulating Hormone (TSH) 3.668 uIU/mL (0.358-3.74) Free Thyroxine 0.75 ng/dL (0.76-1.46) Test 09/23/18 10:50 09/23/18 12:01 Urine Collection Type Unknown Urine Color Yellow Urine Clarity Clear Urine pH 7.5 Urine Specific [place] 1.010 Urine Protein 100 mg/dL (NEG-TRACE) Urine Glucose (UA) 100 mg/dL (NEG) Urine Ketones (Stick) Negative mg/dL (NEG) Urine Blood Negative (NEG) Urine Nitrite Positive (NEG) Urine Bilirubin Negative (NEG) Urine Urobilinogen Dipstick 0.2 mg/dL (0.2 mg/dL) Urine Leukocyte Esterase Moderate (NEG) Urine RBC 0 /HPF (0-2) Urine WBC 20-40 /HPF (0-4) Urine Squamous Epithelial Cells Few /LPF Urine Bacteria Few /HPF (0-FEW) Urine Mucus Slight /LPF Glucose (Fingerstick) 108 mg/dL (70-99) Laboratory Tests Test 09/23/18 08:41 09/23/18 09:05 09/23/18 09:37 09/23/18 10:39 Glucose (Fingerstick) 65 mg/dL (70-99) 143 mg/dL (70-99) 125 mg/dL (70-99) White Blood Count 6.2 x10^3/uL (4.0-11.0) Red Blood Count 3.06 x10^6/uL (4.30-5.70) Hemoglobin 9.8 g/dL (13.0-17.5) Hematocrit 29.0 % (39.0-53.0) Mean Corpuscular Volume 95 fL (79-100) Mean Corpuscular Hemoglobin 32 pg (25-35) Mean Corpuscular Hemoglobin Concent 34 g/dL (31-37) Red Cell Distribution Width 13.4 % (11.5-14.5) Platelet Count 185 x10^3/uL (140-400) Neutrophils (%) (Auto) 74 % (31-73) Lymphocytes (%) (Auto) 19 % (24-48) Monocytes (%) (Auto) 7 % (0-9) Eosinophils (%) (Auto) 1 % (0-3) Basophils (%) (Auto) 0 % (0-3) Neutrophils # (Auto) 4.5 x10^3/uL (1.8-7.7) Lymphocytes # (Auto) 1.2 x10^3/uL (1.0-4.8) Monocytes # (Auto) 0.4 x10^3/uL (0.0-1.1) Eosinophils # (Auto) 0.0 x10^3/uL (0.0-0.7) Basophils # (Auto) 0.0 x10^3/uL (0.0-0.2) Sodium Level 135 mmol/L (136-145) Potassium Level 5.0 mmol/L (3.5-5.1) Chloride Level 102 mmol/L (98-107) Carbon Dioxide Level 30 mmol/L (21-32) Anion Gap 3 (6-14) Blood Urea Nitrogen 13 mg/dL (8-26) Creatinine 0.9 mg/dL (0.7-1.3) Estimated GFR (Cockcroft-Gault) 102.2 BUN/Creatinine Ratio 14 (6-20) Glucose Level 67 mg/dL (70-99) Calcium Level 8.1 mg/dL (8.5-10.1) Total Bilirubin 0.1 mg/dL (0.2-1.0) Aspartate Amino Transf (AST/SGOT) 71 U/L (15-37) Alanine Aminotransferase (ALT/SGPT) 64 U/L (16-63) Alkaline Phosphatase 329 U/L (46-116) Troponin I Quantitative < 0.017 ng/mL (0.000-0.055) QK-Dfg-C-Type Natriuretic Peptide 314 pg/mL (0-124) Total Protein 4.9 g/dL (6.4-8.2) Albumin 0.8 g/dL (3.4-5.0) Albumin/Globulin Ratio 0.2 (1.0-1.7) Thyroid Stimulating Hormone (TSH) 3.668 uIU/mL (0.358-3.74) Free Thyroxine 0.75 ng/dL (0.76-1.46) Test 09/23/18 10:50 09/23/18 12:01 Urine Collection Type Unknown Urine Color Yellow Urine Clarity Clear Urine pH 7.5 Urine Specific [place] 1.010 Urine Protein 100 mg/dL (NEG-TRACE) Urine Glucose (UA) 100 mg/dL (NEG) Urine Ketones (Stick) Negative mg/dL (NEG) Urine Blood Negative (NEG) Urine Nitrite Positive (NEG) Urine Bilirubin Negative (NEG) Urine Urobilinogen Dipstick 0.2 mg/dL (0.2 mg/dL) Urine Leukocyte Esterase Moderate (NEG) Urine RBC 0 /HPF (0-2) Urine WBC 20-40 /HPF (0-4) Urine Squamous Epithelial Cells Few /LPF Urine Bacteria Few /HPF (0-FEW) Urine Mucus Slight /LPF Glucose (Fingerstick) 108 mg/dL (70-99) VTE Prophylaxis Ordered VTE Prophylaxis Devices: Yes VTE Pharmacological Prophylaxi: Yes Assessment/Plan Assessment/Plan 1. Persistent hypoglycemia 2. CVA with aphasia 3, SNU resident 4. LEft BKA 5. FULL CODE PLAN: OBS non tele bed Dextrose gtt HOld novolog and lantus an dmetformin Can safely resume whatever diet he was on at SNU FULL CODe PT OT I have reconciled home meds Lovenox SQ MARIAH Taylor MD Sep 23, 2018 12:20
[2018-09-23 12:30] VITALS: BP 147/61
[2018-09-23] MEDS ORDERED: ONDANSETRON PF 4 MG/2 ML VIAL. IV PRN (12:30)
[2018-09-23] MEDS: IPRATRPIUM/ALBUTEROL 0.5/2.5MG 3 ML NEBU. NEB SCH ×3 (12:41→20:43)
[2018-09-23 15:00] VITALS: BP 148/59
[2018-09-23] MEDS: GABAPENTIN 300 MG CAPSULE. PO SCH ×2 (15:44→21:14)
[2018-09-23] MEDS: PHENYTOIN SODIUM EXTENDED 100 MG CAPSULE PO SCH ×2 (15:44→21:14)
[2018-09-23] MEDS: PANTOPRAZOLE 40 MG TABLET.DR. PO SCH (15:44)
[2018-09-23] MEDS: MULTIVITAMIN with MINERAL TABLET. PO SCH (15:45)
[2018-09-23] MEDS: ASPIRIN CHEWABLE 81 MG TABLET. PO SCH (15:45)
[2018-09-23] MEDS: FUROSEMIDE 40 MG TABLET. PO SCH (15:45)
[2018-09-23] MEDS: METOPROLOL TART IMMED RELEASE 50 MG TABLET. PO SCH ×2 (15:46→21:14)
[2018-09-23] MEDS: LOSARTAN POTASSIUM 50 MG TABLET. PO SCH (15:46)
[2018-09-23] MEDS: ENOXAPARIN 40 MG/0.4 ML SYRINGE. SQ SCH (15:47)
[2018-09-23] MEDS: IV DEXTROSE 5 %-0.45 % NACL 1,000 ML IV SCH (15:52)
[2018-09-23 19:00] VITALS: BP 116/57
[2018-09-23] MEDS ORDERED: ATORVASTATIN CALCIUM 20 MG TABLET PO SCH (21:00)
[2018-09-23] MEDS ORDERED: CEFDINIR 300 MG CAPSULE PO SCH (21:00)
[2018-09-23] MEDS: SENNOSIDES 8.6 MG TABLET PO SCH (21:13)
[2018-09-23] MEDS: LACTOBACILLUS RHAMNOSUS GG 1 CAPSULE. PO SCH (21:14)
[2018-09-23 23:00] VITALS: BP 99/69
[2018-09-24] MEDS: IV DEXTROSE 5 %-0.45 % NACL 1,000 ML IV SCH ×2 (00:33→09:49)
[2018-09-24 03:00] VITALS: BP 152/56
[2018-09-24 07:00] VITALS: BP 123/61
[2018-09-24] MEDS: IPRATRPIUM/ALBUTEROL 0.5/2.5MG 3 ML NEBU. NEB SCH ×2 (07:37→11:15)
[2018-09-24] MEDS: PANTOPRAZOLE 40 MG TABLET.DR. PO SCH (09:47)
[2018-09-24] MEDS: ASPIRIN CHEWABLE 81 MG TABLET. PO SCH (09:51)
[2018-09-24] MEDS: LOSARTAN POTASSIUM 50 MG TABLET. PO SCH (09:52)
[2018-09-24] MEDS: LACTOBACILLUS RHAMNOSUS GG 1 CAPSULE. PO SCH (09:52)
[2018-09-24] MEDS: PHENYTOIN SODIUM EXTENDED 100 MG CAPSULE PO SCH ×2 (09:53→13:57)
[2018-09-24] MEDS: METOPROLOL TART IMMED RELEASE 50 MG TABLET. PO SCH (09:54)
[2018-09-24] MEDS: FUROSEMIDE 40 MG TABLET. PO SCH (09:54)
[2018-09-24] MEDS: GABAPENTIN 300 MG CAPSULE. PO SCH ×2 (09:54→13:57)
[2018-09-24] MEDS: MULTIVITAMIN with MINERAL TABLET. PO SCH (09:55)
[2018-09-24] MEDS: SENNOSIDES 8.6 MG TABLET PO SCH (09:55)
[2018-09-24 11:01] VITALS: BP 140/62
[2018-09-24] MEDS ORDERED: INSU100I13 SQ (11:49)
--- NOTE | 2018-09-24 11:52 | SNU/HH DC ---
DISCHARGE ORDERS DISCHARGE INFORMATION: DISCHARGE DATE: Sep 24, 2018 FINAL DIAGNOSIS Problems Medical Problems: (1) Hypothermia Status: Acute CONDITION ON DISCHARGE: Stable CODE STATUS: Code Status: Full PENITENTIARY: SNF STAY <30 DAYS: Yes POST DISCHARGE ORDERS: ACTIVITY ORDERS: Activity as tolerated DIET AFTER DISCHARGE: ADA FOLLOW-UP: PHYSICIAN FOLLOW-UP: primary care TREATMENT/EQUIPMENT ORDERS: ADAPTIVE EQUIPMENT NEEDED: None, Wheelchair Physical Therapy For: Evalulation/Treatment Occupational Therapy For: Evaluation/Treatment DISCHARGE MEDICATIONS: Home Meds Active Scripts Cefdinir (CEFDINIR) 300 Mg Capsule, 1 CAP PO BID for UTI for 5 Days, #10 CAP Prov:KASIE TRIPLETT MD 07/17/18 Insulin Aspart (NOVOLOG FLEXPEN) 100 Unit/1 Ml Insuln.pen, 4 UNIT SQ TIDAC for DM for 30 Days, SYR Prov:KASIE TRIPLETT MD 07/17/18 Ipratropium/Albuterol Sulfate (DUONEB 0.5-3(2.5) MG/3 ML) 3 Ml Ampul.neb, 3 ML NEB QID for copd for 30 Days, #120 EACH Prov:KASIE TRIPLETT MD 05/23/18 Lactobacillus Acidophilus (Acidophilus Lactobacilli) 1 Each Capsule, 1 EACH PO BID for pneumonia for 10 Days, #20 CAP Prov:KASIE TRIPLETT MD 05/23/18 Reported Medications Multivits,Ca,Minerals/Iron/Fa (THERA-M TABLET) 1 Each Tablet, 1 EACH PO DAILY for Supplement , TAB 07/15/18 Insulin Glargine,Hum.rec.anlog (LANTUS SOLOSTAR) 100 Unit/1 Ml Insuln.pen, 5 UNIT SQ QHS for type 2 DM , #15 ML 3 Refills 07/15/18 Sennosides (SENNA) 8.6 Mg Tablet, 8.6 MG PO BID for CONSTIPATION , TAB 05/19/18 Phenytoin Sodium Extended (DILANTIN) 100 Mg Capsule, 1 CAP PO TID for SEIZURES, #90 CAP 3 Refills 05/19/18 Omeprazole (OMEPRAZOLE) 40 Mg Capsule.dr, 1 CAP PO BID for GERD, #30 CAP 3 Refills 05/19/18 Guaifenesin (MUCINEX) 600 Mg Tablet.er, 1 TAB PO BID PRN for CONGESTION, #14 TAB 05/19/18 Metoprolol Tartrate (METOPROLOL TARTRATE) 50 Mg Tablet, 1 TAB PO BID for HTN, #60 TAB 5 Refills 05/19/18 Metformin Hcl (METFORMIN HCL) 1,000 Mg Tablet, 1000 MG PO BIDWMEALS for DM II, TAB 05/19/18 Losartan Potassium (LOSARTAN POTASSIUM) 100 Mg Tablet, 100 MG PO DAILY for HYPERTENSION, TAB 05/19/18 Gabapentin (GABAPENTIN ) 300 Mg Capsule, 300 MG PO TID for NEUROGENIC PAIN, CAP 05/19/18 Furosemide (FUROSEMIDE) 40 Mg Tablet, 1 TAB PO DAILY for ANASARCA, #30 TAB 5 Refills 05/19/18 Atorvastatin Calcium (ATORVASTATIN CALCIUM) 20 Mg Tablet, 1 TAB PO DAILY for HLD, #30 TAB 5 Refills 05/19/18 Aspirin (ASPIRIN) 81 Mg Tab.chew, 1 TAB PO DAILY for heart, #30 TAB 3 Refills 05/19/18 ELIAS GONZALEZ MD Sep 24, 2018 11:52
[2018-09-24] MEDS ORDERED: CEFD300C PO (11:54)
[2018-09-24] MEDS ORDERED: INSU100I17 SQ (11:55)
[2018-09-24] MEDS: ENOXAPARIN 40 MG/0.4 ML SYRINGE. SQ SCH (12:55)
[2018-09-24] MEDS ORDERED: cefTRIAXone IV Push 1 GM VIAL. IVP SCH (13:00)
== END 2018-09-24 15:20 ==
LOC: ER 08:42 → INTOOBSV 11:30 → 5 NORTH 11:30
PROVIDERS: ADMIT Internal Medicine; ATTEND Internal Medicine
DX: E11.649 Type 2 diabetes mellitus with hypoglycemia without coma (principal); E11.51 Type 2 diabetes mellitus with diabetic peripheral angiopathy without gangrene; I10 Essential (primary) hypertension; I63.9 Cerebral infarction, unspecified; R47.01 Aphasia; Z79.4 Long term (current) use of insulin; Z86.73 Personal history of transient ischemic attack (TIA), and cerebral infarction without residual deficits; Z89.512 Acquired absence of left leg below knee; G40.909 Epilepsy, unspecified, not intractable, without status epilepticus; T68.XXXA Hypothermia, initial encounter
CPT/HCPCS: 36415; 71045; 80053; 81001; 82962; 83880; 84439; 84443; 84484; 85025; 87086; 87641; 93005; 94640; 94760; 96361; 96372; 96374; 96375; 99284; G0378; G0379; J0696; J1650; J7042; J7620

== ENCOUNTER 2018-10-22 17:36 | Inpatient (IN) | payer MEDICARE, OTHER ==
[~2018-10-22] VITALS: Ht 167.6 cm; Wt 66.7 kg
[~2018-10-22 17:36] MED LIST changes: +METF500T16 PO
--- NOTE | 2018-10-22 18:25 | PHYS DOC ---
Past Medical History Past Medical History: Diabetes-Type II, High Cholesterol, Hypertension, Seizure Additional Past Medical Histor: APHASIA,PVD Past Surgical History: Other Additional Past Surgical Histo: unknown; left BKA Alcohol Use: None Drug Use: None Adult General Chief Complaint Chief Complaint: ALTERED MENTAL STATUS HPI HPI Patient is a 68 year old male with history of diabetes type 2, hypertension, high cholesterol, CVA with right hemiplegia, epilepsy, left below the knee amputation, who presents to the ED today to be evaluated for altered mental status. Patient presented from a longterm via EMS, patient is aphasic, unable to obtain any further information considering patient's aphasic status Review of Systems Review of Systems Constitutional: Unable to obtain Eyes: Unable to obtain HENT: Unable to obtain Respiratory: Unable to obtain Cardiovascular: Unable to obtain GI: Unable to obtain : Noted for Garrett catheter Musculoskeletal: Unable to obtain Integument: Chronic wound noted on the right great toe and right mejia Neurologic: Altered mental status. Denies headache, focal weakness or sensory changes [] All other systems were reviewed and found to be within normal limits, except as documented in note. Current Medications Current Medications Current Medications Medications (Trade) Dose Ordered Sig/Inocencia Start Time Stop Time Status Last Admin Dose Admin Acetaminophen (Tylenol) 500 mg PRN Q6HRS PRN 10/22/18 20:00 Acetaminophen/ Codeine Phosphate (Tylenol #3) 1 tab PRN Q6HRS PRN 10/22/18 20:00 Ceftriaxone Sodium (Rocephin) 1 gm 1X ONCE 10/22/18 20:00 10/22/18 20:05 DC 10/22/18 20:31 1 GM Guaifenesin (Mucinex) 600 mg PRN BID PRN 10/22/18 20:00 Ondansetron HCl (Zofran) 4 mg PRN Q6HRS PRN 10/22/18 20:00 Sodium Chloride 1,000 ml @ 100 mls/hr Q10H 10/22/18 20:00 10/22/18 20:31 100 MLS/HR Allergies Allergies Allergies Coded Allergies Type Severity Reaction Last Updated Verified No Known Allergies Allergy Unknown 07/15/18 Yes Physical Exam Physical Exam Constitutional: Well developed, well nourished, no acute distress, non-toxic appearance. [] HENT: Normocephalic, atraumatic, bilateral external ears normal, oropharynx moist, no oral exudates, nose normal. [] Eyes: PERRLA, EOMI, conjunctiva normal, no discharge. [] Neck: Normal range of motion, no tenderness, supple, no stridor. [] Cardiovascular:Heart rate regular rhythm Lungs & Thorax: Coarse lung sounds Abdomen: Bowel sounds normal, soft, no tenderness, no masses, no pulsatile masses. Garrett catheter in place Skin: Warm, dry, right great toe keep with a scabbed wound with no drainage roughly 0.5 x 0.5 cm. Right mejia with an old healing wound. No drainage. Back: No tenderness, no CVA tenderness. [] Extremities: No tenderness, no cyanosis, no clubbing, +2 bilateral upper extremity edema, contracted bilateral upper extremities. Left below the knee amputation Neurologic: Alert and oriented X 1, normal motor function, normal sensory function, no focal deficits noted. [] Psychologic: Flat affect Current Patient Data Vital Signs Vital Signs Date Time Temp Pulse Resp B/P (MAP) Pulse Ox O2 Delivery O2 Flow Rate FiO2 10/22/18 20:00 66 18 98 10/22/18 17:56 97.8 140/85 (103) Room Air 97.8 Lab Values Laboratory Tests Test 10/22/18 19:00 White Blood Count 6.7 x10^3/uL (4.0-11.0) Red Blood Count 3.23 x10^6/uL (4.30-5.70) L Hemoglobin 10.5 g/dL (13.0-17.5) L Hematocrit 31.6 % (39.0-53.0) L Mean Corpuscular Volume 98 fL (79-100) Mean Corpuscular Hemoglobin 33 pg (25-35) Mean Corpuscular Hemoglobin Concent 33 g/dL (31-37) Red Cell Distribution Width 13.7 % (11.5-14.5) Platelet Count 235 x10^3/uL (140-400) Neutrophils (%) (Auto) 81 % (31-73) H Lymphocytes (%) (Auto) 15 % (24-48) L Monocytes (%) (Auto) 4 % (0-9) Eosinophils (%) (Auto) 0 % (0-3) Basophils (%) (Auto) 0 % (0-3) Neutrophils # (Auto) 5.5 x10^3/uL (1.8-7.7) Lymphocytes # (Auto) 1.0 x10^3/uL (1.0-4.8) Monocytes # (Auto) 0.3 x10^3/uL (0.0-1.1) Eosinophils # (Auto) 0.0 x10^3/uL (0.0-0.7) Basophils # (Auto) 0.0 x10^3/uL (0.0-0.2) Urine Collection Type U cath Urine Color [place]y Urine Clarity Turbid Urine pH 5.0 Urine Specific [place] 1.020 Urine Protein 100 mg/dL (NEG-TRACE) Urine Glucose (UA) Negative mg/dL (NEG) Urine Ketones (Stick) Negative mg/dL (NEG) Urine Blood Moderate (NEG) Urine Nitrite Positive (NEG) Urine Bilirubin Negative (NEG) Urine Urobilinogen Dipstick 1.0 mg/dL (0.2 mg/dL) Urine Leukocyte Esterase Large (NEG) Urine RBC 6-10 /HPF (0-2) Urine WBC Tntc /HPF (0-4) Urine Bacteria Many /HPF (0-FEW) Sodium Level 137 mmol/L (136-145) Potassium Level 6.2 mmol/L (3.5-5.1) *H Chloride Level 103 mmol/L (98-107) Carbon Dioxide Level 27 mmol/L (21-32) Anion Gap 7 (6-14) Blood Urea Nitrogen 21 mg/dL (8-26) Creatinine 1.2 mg/dL (0.7-1.3) Estimated GFR (Cockcroft-Gault) 73.3 BUN/Creatinine Ratio 18 (6-20) Glucose Level 116 mg/dL (70-99) H Lactic Acid Level 3.4 mmol/L (0.4-2.0) H Calcium Level 8.0 mg/dL (8.5-10.1) L Magnesium Level 1.6 mg/dL (1.8-2.4) L Total Bilirubin 0.2 mg/dL (0.2-1.0) Aspartate Amino Transferase (AST) 85 U/L (15-37) H Alanine Aminotransferase (ALT) 56 U/L (16-63) Alkaline Phosphatase 406 U/L (46-116) H Creatine Kinase 128 U/L (39-308) Creatine Kinase MB (Mass) 4.3 ng/mL (0.0-3.6) H Creatine Kinase MB Relative Index 3.4 % (0-4) Troponin I Quantitative < 0.017 ng/mL (0.000-0.055) ZJ-Sxg-Q-Type Natriuretic Peptide 865 pg/mL (0-124) H Total Protein 5.4 g/dL (6.4-8.2) L Albumin 0.8 g/dL (3.4-5.0) L Albumin/Globulin Ratio 0.2 (1.0-1.7) L Procalcitonin < 0.10 ng/mL (0.00-0.10) Thyroid Stimulating Hormone (TSH) 5.956 uIU/mL (0.358-3.74) H Laboratory Tests 10/22/18 19:00 Laboratory Tests 10/22/18 19:00 EKG EKG [address] Bhardwaj sinus rhythm Hr 64 no STEMI[] Radiology/Procedures Radiology/Procedures []PROCEDURE: CT HEAD WO CONTRAST Exam: CT head INDICATION: Altered mental status TECHNIQUE: Sequential axial images through the head were obtained without the administration of IV contrast. Comparisons: 10/14/2018 FINDINGS: No focal parenchymal lesion or hemorrhage is identified. There is no midline shift or sulcal effacement. Patchy hypodensities within the periventricular and subcortical white matter which appears similar compared to the prior exam. No acute vascular territory infarction is identified. Veliz-white distinction is preserved. Stable prominence of the ventricular system. The basal cisterns are well maintained. The visualized portions of the paranasal sinuses and mastoid air cells are well-pneumatized. No acute fractures. IMPRESSION: Chronic ischemic changes without acute intracranial abnormality identified. Exposure: One or more of the following in the visualized dose reduction techniques were utilized for this examination: 1. Automated exposure control 2. Adjustment of the MA and/or KV according to patient size Use of iterative of reconstructive technique Electronically signed by: Gonzalo Early MD (10/22/2018 6:58 PM) [facility] DICTATED and SIGNED BY: GONZALO EARLY MD DATE: 10/22/18 5218 Course & Med Decision Making Course & Med Decision Making Pertinent Labs and Imaging studies reviewed. (See chart for details) This is a 68-year-old male patient presenting to the ED from the longterm to be evaluated for altered mental status. Patient is aphasic and history is very limited due to mental status and aphasia. CT of the head is negative, urine analysis is noted for UTI. CBC with a normal WBC, CMP with potassium of 6.2-reported as slightly hemolyzed, I requested they repeat BMP. EKG with no acute findings. Spoke with Dr. Wilks who accepted patient for admission Dragon Disclaimer Dragon Disclaimer This electronic medical record was generated, in whole or in part, using a voice recognition dictation system. Departure Departure Impression: Primary Impression: Altered mental status Additional Impressions: Hyperkalemia UTI (urinary tract infection) Disposition: ADMITTED INPATIENT Condition: STABLE Referrals: JARRETT SALGUERO MD (PCP) Problem Qualifiers Primary Impression: Altered mental status Altered mental status type: unspecified Qualified Codes: R41.82 - Altered mental status, unspecified Additional Impressions: UTI (urinary tract infection) Urinary tract infection type: site unspecified Hematuria presence: without hematuria Qualified Codes: N39.0 - Urinary tract infection, site not specified HILARIO ROSE GRAVEL WEIGHER Oct 22, 2018 18:25
--- NOTE | 2018-10-22 19:01 | RAD ---
Exam: CT head INDICATION: Altered mental status TECHNIQUE: Sequential axial images through the head were obtained without the administration of IV contrast. Comparisons: 10/14/2018 FINDINGS: No focal parenchymal lesion or hemorrhage is identified. There is no midline shift or sulcal effacement. Patchy hypodensities within the periventricular and subcortical white matter which appears similar compared to the prior exam. No acute vascular territory infarction is identified. Veliz-white distinction is preserved. Stable prominence of the ventricular system. The basal cisterns are well maintained. The visualized portions of the paranasal sinuses and mastoid air cells are well-pneumatized. No acute fractures. IMPRESSION: Chronic ischemic changes without acute intracranial abnormality identified. Exposure: One or more of the following in the visualized dose reduction techniques were utilized for this examination: 1. Automated exposure control 2. Adjustment of the MA and/or KV according to patient size Use of iterative of reconstructive technique Electronically signed by: Gonzalo Kidd MD (10/22/2018 6:58 PM) [facility]
[2018-10-22 19:35] LABS: BILIRUBIN,URINE NEGATIVE (NEG); CLARITY,URINE TURBID; COLOR,URINE AMBER; NITRITE,URINE POSITIVE (NEG); PROTEIN,URINE 100 mg/dL (NEG-TRACE)
[2018-10-22 19:38] LABS: BASO % 0 % (0-3); EOS % 0 % (0-3); HEMATOCRIT 31.6 % (39.0-53.0); HEMOGLOBIN 10.5 g/dL (13.0-17.5); LYMPH % 15 % (24-48); MEAN CORPUSCULAR HEMOGLOBIN 33 pg (25-35); MEAN CORPUSCULAR HGB CONC 33 g/dL (31-37); MEAN CORPUSCULAR VOLUME 98 fL (79-100); MONO # 0.3 x10^3/uL (0.0-1.1); MONO % 4 % (0-9); NEUT # 5.5 x10^3/uL (1.8-7.7); NEUT % 81 % (31-73); PLATELET COUNT 235 x10^3/uL (140-400); RED BLOOD COUNT 3.23 x10^6/uL (4.30-5.70); RED CELL DISTRIBUTION WIDTH 13.7 % (11.5-14.5); WHITE BLOOD COUNT 6.7 x10^3/uL (4.0-11.0)
[2018-10-22 19:43] LABS: BACTERIA,URINE MANY /HPF (0-FEW); WBC,URINE TNTC /HPF (0-4)
[2018-10-22 19:58] LABS: ALBUMIN 0.8 g/dL (3.4-5.0); ALBUMIN/GLOBULIN RATIO 0.2 (1.0-1.7); CREATININE 1.2 mg/dL (0.7-1.3); GFR 73.3; MAGNESIUM 1.6 mg/dL (1.8-2.4); TOTAL BILIRUBIN 0.2 mg/dL (0.2-1.0); TOTAL PROTEIN 5.4 g/dL (6.4-8.2)
[2018-10-22] MEDS ORDERED: ACETAMINOPHEN/CODEINE 300/30MG TABLET. PO PRN (20:00)
[2018-10-22] MEDS ORDERED: ONDANSETRON PF 4 MG/2 ML VIAL. IV PRN (20:00)
[2018-10-22] MEDS: IV NORMAL SALINE 1000ML BAG 1,000 ML IV SCH (20:00)
[2018-10-22] MEDS ORDERED: ACETAMINOPHEN 500 MG TABLET PO PRN (20:00)
[2018-10-22] MEDS ORDERED: cefTRIAXone IV Push 1 GM VIAL. IVP ONE (20:00)
[2018-10-22 20:02] LABS: POTASSIUM 6.2 mmol/L (3.5-5.1)
[2018-10-22] MEDS: IPRATRPIUM/ALBUTEROL 0.5/2.5MG 3 ML NEBU. NEB SCH (20:25)
[2018-10-22] MEDS: INSULIN GLARGINE SYRINGE. SQ SCH (21:00)
[2018-10-22 21:06] LABS: CALCIUM 8.1 mg/dL (8.5-10.1); CREATININE 1.4 mg/dL (0.7-1.3); GFR 61.4
[2018-10-22 22:15] VITALS: BP 136/70
[2018-10-22] MEDS ORDERED: LACTULOSE 20 GM/30 ML SOLUTION. PO PRN (23:15)
[2018-10-22] MEDS ORDERED: MAGNESIUM SULFATE 2GM 50 ML IV ONE (23:15)
[2018-10-22] MEDS ORDERED: SODIUM POLYSTYRENE SULFON/SORB 15 GM/60 ML ORAL.SUSP PO ONE (23:15)
[2018-10-22] MEDS: PHENYTOIN SODIUM EXTENDED 100 MG CAPSULE PO SCH (23:36)
[2018-10-22] MEDS: GABAPENTIN 300 MG CAPSULE. PO SCH (23:37)
[2018-10-22] MEDS: LACTOBACILLUS RHAMNOSUS GG 1 CAPSULE. PO SCH (23:37)
[2018-10-22] MEDS: METOPROLOL TART IMMED RELEASE 50 MG TABLET. PO SCH (23:37)
[2018-10-22] MEDS: FAMOTIDINE 20 MG/2 ML VIAL IVP SCH (23:37)
[2018-10-22] MEDS: SENNOSIDES 8.6 MG TABLET PO SCH (23:38)
--- NOTE | 2018-10-23 00:17 | RAD ---
AP portable chest radiograph 10/22/2018 Clinical History: Unexplained altered mental status. An AP erect portable digital radiograph of the chest was obtained. Comparison study is dated 09/23/2018. The cardiac silhouette is borderline enlarged. The thoracic aorta is tortuous. Atherosclerotic calcification of the thoracic aorta is seen. Calcified hilar and mediastinal lymph nodes are unchanged. Small calcified granulomas are seen involving both lungs. No acute pulmonary infiltrate is seen. No pleural effusion or pneumothorax is noted. The osseous structures are unchanged. Impression: No acute abnormality is seen. Electronically signed by: Chay Langston MD (10/23/2018 12:14 AM) [facility]
[2018-10-23 03:23] VITALS: BP 100/58
--- NOTE | 2018-10-23 05:53 | EKG ---
[facility] [address] [place] [address] Test Date: 2018-10-22 Test Time: 18:38:20 Pat Name: SONIA NIEVES Department: Room: 201 1 Gender: M Dials Supervisor: : [id number] Requested By: HILARIO ROSE Order Number: [id number] Reading MD: Michael Umana MD Measurements Intervals [place] Rate: 64 P: 56 DC: 176 QRS: 43 QRSD: 76 T: 60 QT: 392 QTc: 404 Interpretive Statements SINUS RHYTHM LOW LIMB LEAD VOLTAGE QRS(T) CONTOUR ABNORMALITY CONSISTENT WITH ANTEROSEPTAL INFARCT PROBABLY OLD ABNORMAL ECG Electronically Signed On 11-10-2018 14:00:12 CDT by Michael Umana MD
[2018-10-23 07:37] VITALS: BP 114/74
[2018-10-23] MEDS: IPRATRPIUM/ALBUTEROL 0.5/2.5MG 3 ML NEBU. NEB SCH ×4 (07:45→19:38)
[2018-10-23] MEDS: INSULIN LISPRO 300 UNITS/3 ML VIAL. SQ SCH ×3 (08:00→17:00)
[2018-10-23] MEDS: PHENYTOIN SODIUM EXTENDED 100 MG CAPSULE PO SCH ×2 (09:00→14:00)
[2018-10-23] MEDS: LACTOBACILLUS RHAMNOSUS GG 1 CAPSULE. PO SCH ×2 (09:00→21:00)
[2018-10-23] MEDS: ATORVASTATIN CALCIUM 20 MG TABLET PO SCH (09:00)
[2018-10-23] MEDS: MULTIVITAMIN with MINERAL TABLET. PO SCH (09:00)
[2018-10-23] MEDS: GABAPENTIN 300 MG CAPSULE. PO SCH ×3 (09:00→21:00)
[2018-10-23] MEDS: SENNOSIDES 8.6 MG TABLET PO SCH ×2 (09:00→21:00)
[2018-10-23] MEDS: ASPIRIN CHEWABLE 81 MG TABLET. PO SCH (09:00)
[2018-10-23] MEDS: METOPROLOL TART IMMED RELEASE 50 MG TABLET. PO SCH ×2 (09:00→21:00)
[2018-10-23] MEDS ORDERED: FUROSEMIDE 40 MG TABLET. PO SCH (09:00)
[2018-10-23 11:20] VITALS: BP 119/72
--- NOTE | 2018-10-23 11:42 | HP ---
ADMIT DATE: 10/22/2018 HISTORY OF PRESENT ILLNESS: The patient is a 68-year-old -[place] male patient, a resident at [facility] in [place], who was brought to the Emergency Room with altered mental status. The patient is unfortunately aphasic and does not give any useful information; however, the nursing staff there states he was more lethargic and therefore, he was evaluated in the Emergency Room and was found to have hyperkalemia as well as lactic acidosis. His urinalysis showed too numerous to count WBCs, large amount of leukocyte esterase and positive for nitrite, and was admitted for urinary tract infection, acute kidney injury, and hyperkalemia. He also was found to have hypomagnesemia. He was given 1 gram of ceftriaxone, 15 grams of polystyrene sulfonate, as well as lactulose, and was admitted to continue with IV antibiotic and to monitor his kidney function and his serum electrolytes. 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 He is nonverbal and does not give any useful information. PAST MEDICAL HISTORY: Significant for type 2 diabetes with multiple complications including diabetes; hypertension; left middle cerebral artery territory infarct with right-sided hemiplegia, aphasia; severe peripheral vascular disease; epilepsy; marked muscle wasting and weakness. He is also known to have hyperlipidemia, expressive aphasia, reduced mobility, and severe protein-calorie malnutrition. PAST SURGICAL HISTORY: Significant for left below-knee amputation. ALLERGIES: He has no known drug allergies. FAMILY HISTORY: Noncontributory. SOCIAL HISTORY: He is a resident at [facility] in [place]. He does not smoke, drink alcohol, or use any recreational drugs. REVIEW OF SYSTEMS: Unobtainable. MEDICATIONS: He is currently on following medications: He is on ipratropium bromide, albuterol sulfate by nebulizer 4 times a day, atorvastatin 20 mg at bedtime, metoprolol tartrate 50 mg twice a day, losartan potassium 100 mg daily, aspirin 81 mg once a day, phenytoin sodium extended release 100 mg 3 times a day, gabapentin 300 mg 3 times a day, furosemide 40 mg once a day, guaifenesin 600 mg twice a day, lactobacillus acidophilus 1 twice a day, senna 1 tablet twice a day, omeprazole 40 mg twice a day, metformin 500 mg twice a day. He is on NovoLog insulin 2 units subcutaneously before meals and Lantus insulin 2 units at bedtime, multivitamin with mineral 1 tablet once a day. PHYSICAL EXAMINATION: GENERAL: On arrival to the Emergency Room, the patient was pale, not jaundiced, cyanosis, or thyromegaly. No jugular venous distention, generalized anasarca. VITAL SIGNS: His heart rate was 66, blood pressure 140/85, temperature was 97.8, respiratory rate was 18, and oxygen saturation was 96% on room air. HEAD, EYES, EARS, NOSE, AND THROAT: Showed normocephalic, atraumatic. NECK: Supple. HEART: Showed normal first and second heart sounds. No gallop or murmur. CHEST: Clear to auscultation. No crepitation or rhonchi. ABDOMEN: Distended, soft, nontender. No guarding or rigidity. No organomegaly. All hernial orifices intact. Bowel sounds normal. NEUROLOGIC: He is awake, alert, opens eyes, tracks; however, he has right-sided hemiplegia and aphasia, has left below-knee amputation. LABORATORY DATA: On arrival showed a white cell count 6700, hemoglobin 10.5, hematocrit 32, MCV 98, and platelet count of 235,000 with normal manual differential. His chemistry showed a serum sodium 138, potassium 6, chloride 103, bicarbonate 30. Anion gap of 5. BUN 21, creatinine was 1.4. Estimated GFR was 61 mL per minute. His glucose 120. Calcium was 8.1. His lactic acid was 3.4. Magnesium was 1.6. Total bilirubin, ALT normal, AST and alkaline phosphatase slightly elevated. His total protein was 5.4. Albumin was 0.8. His TSH was 5.956. His chest x-ray showed no acute abnormalities seen. CT scan of the head showed that there is no focal parenchymal lesion or hemorrhage identified. There is no midline shift. There is sulcal effacement, patchy hypodensities within the periventricular and subcortical white matter, which appears similar compared to the prior exam. No acute vascular territory infarction identified. Park white distinction is preserved, stable prominence of the ventricular system. The basal cisterns are well maintained. The visualized portion of the paranasal sinuses and mastoid air cells are well pneumatized and no acute fracture. ASSESSMENT AND PLAN: In summary, this is a 68-year-old who was admitted with altered mental status and was found to have urinary tract infection, [id number] kidney injury, hyperkalemia, and hypomagnesemia. We will continue obviously to monitor his electrolytes. He was treated with Kayexalate and lactulose. I will reconcile his medication; however, I will stop the Lasix. KASIE TRIPLETT MD DR: FERMÍN/marysol JOB#: [id number] / [id number]
[2018-10-23] MEDS: IV NORMAL SALINE 1000ML BAG 1,000 ML IV SCH ×2 (11:57→21:14)
[2018-10-23] MEDS: DEXTROSE 50% 25 GM / 50ML DISP.SYRIN. IV PRN (11:57)
[2018-10-23] MEDS ORDERED: IV DEXTROSE 5% 250 ML BAG. IV PRN (12:00)
[2018-10-23] MEDS ORDERED: LIDOCAINE WITH 8.4% SOD BICARB 3 ML DISP.SYRIN. ONE (12:22)
[2018-10-23] MEDS ORDERED: LIDOCAINE WITH 8.4% SOD BICARB 3 ML DISP.SYRIN. INJ ONE (12:45)
[2018-10-23 14:44] VITALS: BP 129/66
[2018-10-23 15:49] LABS: BASO % 1 % (0-3); EOS % 0 % (0-3); HEMATOCRIT 23.8 % (39.0-53.0); HEMOGLOBIN 8.1 g/dL (13.0-17.5); LYMPH # 1.4 x10^3/uL (1.0-4.8); LYMPH % 22 % (24-48); MEAN CORPUSCULAR HEMOGLOBIN 33 pg (25-35); MEAN CORPUSCULAR HGB CONC 34 g/dL (31-37); MEAN CORPUSCULAR VOLUME 96 fL (79-100); MONO # 0.4 x10^3/uL (0.0-1.1); MONO % 6 % (0-9); NEUT # 4.6 x10^3/uL (1.8-7.7); NEUT % 71 % (31-73); PLATELET COUNT 177 x10^3/uL (140-400); RED BLOOD COUNT 2.48 x10^6/uL (4.30-5.70); RED CELL DISTRIBUTION WIDTH 13.6 % (11.5-14.5); WHITE BLOOD COUNT 6.4 x10^3/uL (4.0-11.0)
[2018-10-23 16:03] LABS: ALBUMIN 0.6 g/dL (3.4-5.0); ALBUMIN/GLOBULIN RATIO 0.2 (1.0-1.7); CALCIUM 7.5 mg/dL (8.5-10.1); CREATININE 1.1 mg/dL (0.7-1.3); MAGNESIUM 1.6 mg/dL (1.8-2.4); POTASSIUM 4.9 mmol/L (3.5-5.1); TOTAL BILIRUBIN 0.1 mg/dL (0.2-1.0); TOTAL PROTEIN 4.4 g/dL (6.4-8.2)
[2018-10-23] MEDS: FOSPHENYTOIN 100 MG/2 ML VIAL. IV SCH ×2 (17:00→21:16)
[2018-10-23 19:00] VITALS: BP 137/63
[2018-10-23] MEDS: INSULIN GLARGINE SYRINGE. SQ SCH (21:00)
[2018-10-23] MEDS: cefTRIAXone IV Push 1 GM VIAL. IVP SCH (21:16)
[2018-10-23] MEDS: FAMOTIDINE 20 MG/2 ML VIAL IVP SCH (21:17)
[2018-10-23 23:00] VITALS: BP 137/60
[2018-10-24] MEDS: ACETAMINOPHEN 650 MG SUPP.RECT. PR PRN ×2 (00:18→10:07)
--- NOTE | 2018-10-24 00:37 | PN ---
DATE: 10/23/2018 SUBJECTIVE: The patient is resting, slightly propped up in bed, in no apparent respiratory distress. He is awake, alert. He is nonverbal, does not give any useful information. The nursing staff apparently has stated that he has a very difficult vascular access. We were unable even to draw the blood this morning to follow his electrolytes. His potassium was high at 6.0. PHYSICAL EXAMINATION: GENERAL: When I examined him, he looked pale, but not jaundiced, cyanosis or thyromegaly. No jugular venous distention. No limb edema. VITAL SIGNS: Heart rate was 69, blood pressure was 114/74, temperature was 99.2, respiratory rate was 16, and oxygen saturation was 97% on 2 liters of oxygen. The rest of clinical exam stable, has not really changed. LABORATORY DATA: His intake and output are incompletely recorded. We have no lab work done so far. PLAN: My plan is to obviously continue with IV ceftriaxone, continue with IV fluid. If he has difficulty swallowing, we will switch his phenytoin to be given IV. I have written an order for PICC line and we will follow his labs closely and decide further management accordingly. KASIE TRIPLETT MD DR: FERMÍN/marysol JOB#: [id number] / [id number]
[2018-10-24] MEDS: DEXTROSE 50% 25 GM / 50ML DISP.SYRIN. IV PRN (01:33)
[2018-10-24 03:00] VITALS: BP 167/98
[2018-10-24] MEDS: FOSPHENYTOIN 100 MG/2 ML VIAL. IV SCH ×3 (06:09→22:07)
[2018-10-24 07:00] VITALS: BP 97/55
[2018-10-24] MEDS: IPRATRPIUM/ALBUTEROL 0.5/2.5MG 3 ML NEBU. NEB SCH ×4 (07:49→20:08)
[2018-10-24] MEDS: INSULIN LISPRO 300 UNITS/3 ML VIAL. SQ SCH ×3 (08:00→17:00)
[2018-10-24] MEDS: MULTIVITAMIN with MINERAL TABLET. PO SCH (09:00)
[2018-10-24] MEDS: GABAPENTIN 300 MG CAPSULE. PO SCH ×3 (09:00→19:58)
[2018-10-24] MEDS: SENNOSIDES 8.6 MG TABLET PO SCH ×2 (09:00→19:58)
[2018-10-24] MEDS: ATORVASTATIN CALCIUM 20 MG TABLET PO SCH (09:00)
[2018-10-24] MEDS: ASPIRIN CHEWABLE 81 MG TABLET. PO SCH (09:00)
[2018-10-24] MEDS: LACTOBACILLUS RHAMNOSUS GG 1 CAPSULE. PO SCH ×2 (09:00→19:57)
[2018-10-24] MEDS: METOPROLOL TART IMMED RELEASE 50 MG TABLET. PO SCH ×2 (09:00→19:57)
[2018-10-24] MEDS ORDERED: BARIUM SULFATE 40% (APPLE) 148 GM PWD. PO ONE (09:45)
[2018-10-24] MEDS: IV NORMAL SALINE 1000ML BAG 1,000 ML IV SCH (09:53)
--- NOTE | 2018-10-24 10:01 | RAD ---
Exam: Fluoroscopic and ultrasound guided right percutaneous inserted central venous catheter placement 10/24/2018 7:57 AM .Indication: assisted antibiotics Technique: Informed oral and written consent were obtained. The right upper extremity was prepped and draped using sterile barrier technique. All elements of maximal sterile barrier technique including the use of a cap, mask, sterile gown, sterile gloves, large sterile sheet, appropriate hand hygiene, and 2% chlorhexidine for cutaneous antisepsis (or acceptable alternative antiseptic per current guidelines) were followed for this procedure.. Real-time ultrasound demonstrated a patent right basilic vein which was prepped and draped in usual sterile fashion. 1% lidocaine used for local anesthesia. Using real-time ultrasound guidance the access needle percutaneously punctured the selected right basilic vein. Reference ultrasound images were saved to the medical record. A guidewire was advanced through the needle to the cavoatrial junction, and a peel-away sheath placed. The catheter was cut to length and inserted through the peel-away sheath such that its tip is at the cavoatrial junction. The wire and sheath were removed, and the catheter secured in place, and a sterile dressing was applied. Catheter was found to flush and aspirate normally. No immediate complications are identified. FLUORO TIME: 0.7 DOSE AREA PRODUCT: 1 Gycm2 Impression: Ultrasound and fluoroscopically guided placement of a right upper extremity PICC line.
[2018-10-24 11:01] VITALS: BP 136/75
[2018-10-24] MEDS ORDERED: MAGNESIUM SULFATE 2GM 50 ML IV ONE (12:00)
--- NOTE | 2018-10-24 12:38 | PN ---
DATE: 10/24/2018 SUBJECTIVE: The patient is resting, slightly propped up in bed, sleeping comfortably, in no apparent distress. He is aphasic and nonverbal. PHYSICAL EXAMINATION: GENERAL: When I examined him, he looked well and was clearly in no apparent respiratory distress, pale, but no jaundice or cyanosis. No jugular venous distention, but generalized anasarca. VITAL SIGNS: His heart rate was 89, blood pressure was 97/55, temperature was 99.4, respiratory rate was 18 and oxygen saturation was 98% on 2 liters of oxygen. HEAD, EYES, EARS, NOSE AND THROAT: Normocephalic, atraumatic. NECK: Supple. HEART: Showed normal first and second heart sounds with no gallop or murmur. CHEST: Clear to auscultation. No crepitation or rhonchi. ABDOMEN: Distended, soft, nontender. NEUROLOGIC: He is nonverbal with right-sided hemiplegia and left below-knee amputation. His intake over the last 24 hours was incompletely recorded, output was also incompletely recorded. LABORATORY DATA: As of this morning is still pending. Apparently his blood culture has grown gram-positive cocci in clusters, 1 out of 2 bottles, 2 sets drawn, probably contaminant. His urine culture is still pending at the time of this dictation. ASSESSMENT: 1. Altered mental status. 2. Urinary tract infection. The urine was positive for nitrite. There was large amount of leukocyte esterase, too numerous to count wbc's and many bacteria. The result of culture and sensitivity is negative. 3. Acute kidney injury, improving. His creatinine is down from 1.4 to 1.1. 4. Hyperkalemia, resolved. His serum potassium is down to 4.9, magnesium is low at 1.69. has obviously type 2 diabetes mellitus, hypertension, left middle cerebral artery territory infarct with right-sided hemiplegia and severe peripheral vascular disease, status post left knee amputation. PLAN: To continue with IV antibiotic in the form of ceftriaxone, continue with fosphenytoin for seizure disorder. Continue with metoprolol as needed for hypertension. Continue with IV fluid. Continue to monitor his blood sugar and adjust insulin as needed. Once we have the urine culture and sensitivity, we will adjust antibiotic accordingly. KASIE TRIPLETT MD DR: FERMÍN/marysol JOB#: [id number] / [id number]
--- NOTE | 2018-10-24 14:07 | RAD ---
Examination: PORTABLE CHEST 1V History: Congestion Comparison/Correlation: None Findings: AP view of the chest was obtained. Right-sided PICC is present. Significant bilateral calcified lymph nodes are present especially in the hilar regions. No pneumothorax. No definite effusion. No focal infiltrate although evaluation is limited in the retrocardiac region. Retrocardiac atelectasis appears be present. Calcified granulomas involve the lung romero. High density within the stomach which corresponds to oral contrast ingested is noted. Impression: Retrocardiac atelectasis. Electronically signed by: Morris Romano MD (10/24/2018 2:04 PM) [facility]
--- NOTE | 2018-10-24 14:13 | RAD ---
Examination: VIDEO SWALLOW STUDY History: Dysphagia. Aphasia Comparison/Correlation: None Findings: Video swallow was performed utilizing honey thick liquid and puree forms of barium. Fluoroscopy was utilized for 3.1 minutes. No images were acquired. Prolonged oral phase is noted with both substances. Posterior spillage into the pharynx is noted. Delayed initiation of the pharyngeal phase is noted with pooling in the vallecula and piriform sinuses. Reduced laryngeal excursion and elevation is identified. Silent penetration and aspiration is identified but appears to originate from the residuals within the vallecula and are minimal in quantity. Impression: Silent aspiration and sound penetration which relate to the small residuals within the vallecula and piriform sinuses. Aspirated and titrated amounts are minimal in quantity. Prolonged oral phase. Electronically signed by: Morris Romano MD (10/24/2018 2:09 PM) [facility]
[2018-10-24 14:33] VITALS: BP 126/61
[2018-10-24] MEDS: AMINO AC 3%/ELECTROLYTE/GLYCER 1,000 ML IV SCH (15:45)
[2018-10-24 19:00] VITALS: BP 120/79
[2018-10-24] MEDS: cefTRIAXone IV Push 1 GM VIAL. IVP SCH (21:57)
[2018-10-24] MEDS: FAMOTIDINE 20 MG/2 ML VIAL IVP SCH (22:10)
[2018-10-24] MEDS: INSULIN GLARGINE SYRINGE. SQ SCH (22:16)
[2018-10-24 23:00] VITALS: BP 135/93
[2018-10-25 03:00] VITALS: BP 131/82
[2018-10-25] MEDS: FOSPHENYTOIN 100 MG/2 ML VIAL. IV SCH ×3 (05:44→21:52)
[2018-10-25 05:47] LABS: HEMOGLOBIN 7.6 g/dL (13.0-17.5); RED BLOOD COUNT 2.28 x10^6/uL (4.30-5.70); RED CELL DISTRIBUTION WIDTH 13.7 % (11.5-14.5)
[2018-10-25] MEDS: AMINO AC 3%/ELECTROLYTE/GLYCER 1,000 ML IV SCH (05:54)
[2018-10-25 06:17] LABS: ALBUMIN 0.6 g/dL (3.4-5.0); ALBUMIN/GLOBULIN RATIO 0.2 (1.0-1.7); CALCIUM 7.6 mg/dL (8.5-10.1); GFR 90.5; POTASSIUM 4.7 mmol/L (3.5-5.1); TOTAL BILIRUBIN 0.2 mg/dL (0.2-1.0); TOTAL PROTEIN 4.2 g/dL (6.4-8.2)
[2018-10-25 07:00] VITALS: BP 181/96
[2018-10-25] MEDS: IPRATRPIUM/ALBUTEROL 0.5/2.5MG 3 ML NEBU. NEB SCH ×4 (07:38→20:06)
[2018-10-25] MEDS: ASPIRIN CHEWABLE 81 MG TABLET. PO SCH (07:51)
[2018-10-25] MEDS: METOPROLOL TART IMMED RELEASE 50 MG TABLET. PO SCH ×2 (07:52→21:00)
[2018-10-25] MEDS: ATORVASTATIN CALCIUM 20 MG TABLET PO SCH (07:52)
[2018-10-25] MEDS: LACTOBACILLUS RHAMNOSUS GG 1 CAPSULE. PO SCH ×2 (07:52→21:00)
[2018-10-25] MEDS: GABAPENTIN 300 MG CAPSULE. PO SCH ×3 (07:52→21:00)
[2018-10-25] MEDS: MULTIVITAMIN with MINERAL TABLET. PO SCH (07:52)
[2018-10-25] MEDS: SENNOSIDES 8.6 MG TABLET PO SCH ×2 (07:52→21:00)
[2018-10-25] MEDS: INSULIN LISPRO 300 UNITS/3 ML VIAL. SQ SCH ×3 (08:00→17:00)
[2018-10-25] MEDS: METOPROLOL TARTRATE 5 MG/5 ML VIAL. IVP PRN (08:11)
[2018-10-25] MEDS: hydrALAZINE 20 MG/ML VIAL. IVP PRN (10:27)
[2018-10-25 11:00] VITALS: BP 159/56
[2018-10-25 15:00] VITALS: BP 122/55
[2018-10-25 19:00] VITALS: BP 103/67
[2018-10-25] MEDS: FAMOTIDINE 20 MG/2 ML VIAL IVP SCH (21:48)
[2018-10-25] MEDS: cefTRIAXone IV Push 1 GM VIAL. IVP SCH (21:52)
[2018-10-25] MEDS: INSULIN GLARGINE SYRINGE. SQ SCH (21:54)
[2018-10-25 23:00] VITALS: BP 175/66
[2018-10-26] VITALS (7 sets, daily range): BP systolic 123–168; BP diastolic 57–82
[2018-10-26] MEDS: AMINO AC 3%/ELECTROLYTE/GLYCER 1,000 ML IV SCH ×2 (00:43→15:42)
--- NOTE | 2018-10-26 02:34 | PN ---
DATE: 10/25/2018 SUBJECTIVE: The patient is resting, slightly propped up in bed, continued to moan and groan as usual, clinically does not seem to be in any respiratory distress. Nursing staff said his blood pressure continued to be suboptimally controlled. PHYSICAL EXAMINATION: GENERAL: When I examined him, he looked pale, but no jaundice or cyanosis. No lymphadenopathy. No thyromegaly. No jugular venous distention, but generalized anasarca. VITAL SIGNS: His heart rate was 73, blood pressure 181/96, temperature 98.7, respiratory rate 18, and oxygen saturation 93% on 2 liters of oxygen. HEAD, EYES, EARS, NOSE, AND THROAT: Normocephalic, atraumatic. NECK: Supple. HEART: Normal first and second heart sounds. No gallop, rub or murmur. CHEST: Clear to auscultation. No crepitation or rhonchi. ABDOMEN: Distended, soft, and nontender. NEUROLOGIC: He has aphasia as well as right-sided hemiplegia and left below the knee amputation. He is mostly bed bound, has an indwelling Garrett catheter. His intake was incompletely recorded and output was also incompletely recorded. LABORATORY DATA: Showed a serum sodium of 140, potassium 4.7, chloride 108, bicarbonate 28, anion gap of 4, BUN 16, creatinine 1, estimated GFR was 90 mL per minute, his glucose 139, and calcium was 7.6. Total bilirubin, AST, ALT, and alkaline phosphatase were normal. Total protein was 4.2. Albumin was 0.6. White cell count was 7000, hemoglobin 7.6, hematocrit 22, MCV 97, and platelet count 239,000. His urine culture has grown more than 100,000 colony-forming units per mL of gram-negative rods. Identification and sensitivity is still pending. His blood cultures have grown gram-positive cocci in clusters in 1 out of 2 bottles, probably contaminant. PLAN: 1. To continue with TPN, continue with IV Rocephin. Await sensitivity. His acute kidney injury has improved. 2. Hyperkalemia, resolved. 3. Other medical problems include: A. Type 2 diabetes mellitus, seems to be well controlled. B. Hypertension, suboptimally controlled. I will add hydralazine 10-20 mg IV every 4 hours as needed for systolic pressure of more than 140. KASIE TRIPLETT MD DR: Kang JOB#: [id number] / [id number]
[2018-10-26] MEDS: FOSPHENYTOIN 100 MG/2 ML VIAL. IV SCH ×3 (06:04→21:29)
[2018-10-26] MEDS: IPRATRPIUM/ALBUTEROL 0.5/2.5MG 3 ML NEBU. NEB SCH ×4 (07:57→18:14)
[2018-10-26] MEDS: INSULIN LISPRO 300 UNITS/3 ML VIAL. SQ SCH ×3 (08:00→17:00)
[2018-10-26] MEDS: METOPROLOL TART IMMED RELEASE 50 MG TABLET. PO SCH ×2 (08:14→21:00)
[2018-10-26] MEDS: ATORVASTATIN CALCIUM 20 MG TABLET PO SCH (08:14)
[2018-10-26] MEDS: LACTOBACILLUS RHAMNOSUS GG 1 CAPSULE. PO SCH ×2 (08:14→21:00)
[2018-10-26] MEDS: ASPIRIN CHEWABLE 81 MG TABLET. PO SCH (08:14)
[2018-10-26] MEDS: GABAPENTIN 300 MG CAPSULE. PO SCH ×3 (08:14→21:00)
[2018-10-26] MEDS: MULTIVITAMIN with MINERAL TABLET. PO SCH (08:15)
[2018-10-26] MEDS: SENNOSIDES 8.6 MG TABLET PO SCH ×2 (08:15→21:00)
--- NOTE | 2018-10-26 09:54 | PN ---
DATE: 10/26/2018 SUBJECTIVE: The patient is resting, slightly propped up in bed, no apparent distress, awake, alert. Unfortunately, he is nonverbal, with expressive aphasia; however, the nursing staff did not voice any concern. His urine culture has grown more than 100,000 colony forming units per mL, gram-negative rods. The identification and sensitivity is still pending at the time of this dictation. PHYSICAL EXAMINATION: GENERAL: When I examined him, he was pale, no jaundice, cyanosis or thyromegaly. No jugular venous distension. No lower limb edema. VITAL SIGNS: Her heart rate was 78, blood pressure was 123/57, temperature was 98.6, respiratory rate 20, and oxygen saturation 100% on 3 liters of oxygen. HEAD, EYES, EARS, NOSE AND THROAT: Showed normocephalic, atraumatic. NECK: Supple. HEART: Showed normal first and second heart sounds. No gallop or murmur. CHEST: Clear to auscultation. No crepitation or rhonchi. ABDOMEN: Distended, soft, nontender. NEUROLOGIC: He was aphasic, nonverbal. His intake over the last 24 hours and output incompletely recorded. LABORATORY DATA: He has no lab work done today. As of yesterday, his hemoglobin is 7.6, hematocrit 22. Normal white cell count and platelets. His BUN is 16, creatinine 1. Blood sugar seems to be reasonably controlled. ASSESSMENT AND PLAN: 1. Dysphagia for which he is now on peripheral parenteral malnutrition. 2. Urinary tract infection for which he continues to be on Rocephin. His urine culture has grown more than 100,000 colony forming units per mL of gram-negative rods. 3. Acute kidney injury, has improved. 4. Hyperkalemia, resolved. 5. Other medical problems include: A. Type 2 diabetes, seems to be reasonably controlled. B. Hypertension for which he is now on hydralazine as well as metoprolol and seems to be well controlled. KASIE TRIPLETT MD DR: FERMÍN/marysol JOB#: [id number] / [id number]
[2018-10-26] MEDS: ALBUMIN HUMAN 25% 50 ML IV SCH ×2 (15:42→21:29)
[2018-10-26] MEDS: FAMOTIDINE 20 MG/2 ML VIAL IVP SCH (21:28)
[2018-10-26] MEDS: cefTRIAXone IV Push 1 GM VIAL. IVP SCH (21:29)
[2018-10-26] MEDS: INSULIN GLARGINE SYRINGE. SQ SCH (22:16)
[2018-10-27] VITALS (9 sets, daily range): BP systolic 116–162; BP diastolic 59–81
[2018-10-27] MEDS: FOSPHENYTOIN 100 MG/2 ML VIAL. IV SCH ×3 (06:14→23:13)
[2018-10-27 06:36] LABS: RED BLOOD COUNT 1.95 x10^6/uL (4.30-5.70); RED CELL DISTRIBUTION WIDTH 13.6 % (11.5-14.5); WHITE BLOOD COUNT 3.6 x10^3/uL (4.0-11.0)
[2018-10-27 06:42] LABS: HEMATOCRIT 19.1 % (39.0-53.0); HEMOGLOBIN 6.4 g/dL (13.0-17.5)
[2018-10-27 06:54] LABS: ALBUMIN/GLOBULIN RATIO 0.3 (1.0-1.7); CALCIUM 7.7 mg/dL (8.5-10.1); CREATININE 0.7 mg/dL (0.7-1.3); GFR 136.5; MAGNESIUM 1.5 mg/dL (1.8-2.4); POTASSIUM 4.6 mmol/L (3.5-5.1); TOTAL BILIRUBIN 0.2 mg/dL (0.2-1.0); TOTAL PROTEIN 4.1 g/dL (6.4-8.2)
[2018-10-27] MEDS: INSULIN LISPRO 300 UNITS/3 ML VIAL. SQ SCH ×3 (08:00→15:37)
[2018-10-27] MEDS: ASPIRIN CHEWABLE 81 MG TABLET. PO SCH (08:23)
[2018-10-27] MEDS: MULTIVITAMIN with MINERAL TABLET. PO SCH (08:24)
[2018-10-27] MEDS: ATORVASTATIN CALCIUM 20 MG TABLET PO SCH (08:24)
[2018-10-27] MEDS: GABAPENTIN 300 MG CAPSULE. PO SCH ×3 (08:24→20:32)
[2018-10-27] MEDS: SENNOSIDES 8.6 MG TABLET PO SCH ×2 (08:24→20:32)
[2018-10-27] MEDS: METOPROLOL TART IMMED RELEASE 50 MG TABLET. PO SCH ×2 (08:24→20:32)
[2018-10-27] MEDS: LACTOBACILLUS RHAMNOSUS GG 1 CAPSULE. PO SCH ×2 (08:24→20:32)
[2018-10-27] MEDS: IPRATRPIUM/ALBUTEROL 0.5/2.5MG 3 ML NEBU. NEB SCH ×4 (08:29→19:53)
[2018-10-27] MEDS ORDERED: MAGNESIUM SULFATE 2GM 50 ML IV ONE (12:00)
[2018-10-27] MEDS: ALBUMIN HUMAN 25% 50 ML IV SCH ×2 (13:23→21:07)
[2018-10-27] MEDS: fentaNYL PF VIAL 100 MCG/2 ML VIAL IV PRN ×2 (13:24→18:09)
[2018-10-27] MEDS: AMINO AC 3%/ELECTROLYTE/GLYCER 1,000 ML IV SCH (13:25)
--- NOTE | 2018-10-27 15:08 | RAD ---
CHEST AP ONLY Clinical Indication: Worsening shortness of breath Comparison: 10/24/2018 portable chest x-ray exam. Findings: Portable upright frontal view chest was obtained. Right-sided PICC noted. The cardiomediastinal silhouette is normal. Moderate-sized bilateral pleural effusions with adjacent atelectasis noted. There is no pneumothorax. No acute bone abnormality. IMPRESSION: Interval increase in size of bilateral pleural effusions and adjacent atelectasis.. Electronically signed by: Morris Romano MD (10/27/2018 3:05 PM) [facility]
[2018-10-27] MEDS: FAMOTIDINE 20 MG/2 ML VIAL IVP SCH (21:07)
[2018-10-27] MEDS: cefTRIAXone IV Push 1 GM VIAL. IVP SCH (21:07)
[2018-10-27] MEDS: INSULIN GLARGINE SYRINGE. SQ SCH (21:18)
[2018-10-27 22:08] LABS: FECAL OB PT NEGATIVE (NEG)
--- NOTE | 2018-10-27 22:49 | PN ---
DATE: 10/27/2018 SUBJECTIVE: The patient is resting slightly propped up in bed, in no apparent distress. He continued to have moans and groans constantly. The nursing staff stated that he dropped his H and H down to 6.4 and 19.1 and therefore we typed and crossed and transfused him 1 unit of blood. PHYSICAL EXAMINATION: GENERAL: When I examined him this morning, he looked pale, not jaundiced, cyanosis or thyromegaly. No jugular venous distention. No limb edema. VITAL SIGNS: Her heart rate was 63, blood pressure was 143/61, temperature was 97.1, respiratory rate was 16 and his oxygen saturation was 100% on 2 liters of oxygen. HEAD, EYES, EARS, NOSE AND THROAT: Showed normocephalic, atraumatic. NECK: Supple. HEART: Showed normal first and second heart sounds. No gallop or murmur. CHEST: Clear to auscultation. No crepitation, rhonchi. ABDOMEN: Distended, soft, nontender. NEUROLOGIC: He was awake, alert, but has expressive aphasia and right-sided hemiplegia. He is mostly bed bound, he has left below-knee amputation. His intake was 1400, output was 500. LABORATORY DATA: Her lab work this morning showed a white cell count of 3600, hemoglobin 6.4, hematocrit 19, MCV 98 and platelet count of 106,000. Serum sodium was 138, potassium 4.6, chloride 107, bicarbonate 29, anion gap of 2, BUN of 15, creatinine 0.7, estimated GFR was 136 mL per minute, his glucose 124, calcium was 7.7, magnesium was 1.5. Total bilirubin, AST, ALT, alkaline phosphatase were normal. Total protein was 4.1, albumin was 1. ASSESSMENT: 1. Dysphagia for which he is now on peripheral parenteral malnutrition. 2. Urinary tract infection for which he continues to be on Rocephin. His urine culture has grown more than 100,000 colony forming units per mL of gram-negative rods. 3. Acute kidney injury is improving. 4. Hyperkalemia, resolved. 5. Other medical problems include: A. Type 2 diabetes mellitus, seems to be reasonably controlled. B. Hypertension, much better controlled on hydralazine and metoprolol. C. Anemia. As the H and H have drifted down from 10 and 31 down to 6.4 and 19, I am not sure whether all of this is hemodilutional or he is bleeding. We will send stool for occult blood and consult Gastroenterology to evaluate and assist in management. KASIE TRIPLETT MD DR: FERMÍN/marysol JOB#: [id number] / [id number]
[2018-10-28 03:00] VITALS: BP 163/76
[2018-10-28] MEDS: AMINO AC 3%/ELECTROLYTE/GLYCER 1,000 ML IV SCH ×2 (04:37→23:29)
[2018-10-28 05:18] LABS: HEMATOCRIT 23.3 % (39.0-53.0); HEMOGLOBIN 7.9 g/dL (13.0-17.5); RED BLOOD COUNT 2.47 x10^6/uL (4.30-5.70); RED CELL DISTRIBUTION WIDTH 15.3 % (11.5-14.5); WHITE BLOOD COUNT 4.8 x10^3/uL (4.0-11.0)
[2018-10-28 05:35] LABS: ALBUMIN 1.4 g/dL (3.4-5.0); ALBUMIN/GLOBULIN RATIO 0.4 (1.0-1.7); CREATININE 0.6 mg/dL (0.7-1.3); GFR 163.1; POTASSIUM 4.4 mmol/L (3.5-5.1); TOTAL BILIRUBIN 0.4 mg/dL (0.2-1.0); TOTAL PROTEIN 4.6 g/dL (6.4-8.2)
[2018-10-28] MEDS: FOSPHENYTOIN 100 MG/2 ML VIAL. IV SCH ×3 (06:15→20:57)
[2018-10-28] MEDS: IPRATRPIUM/ALBUTEROL 0.5/2.5MG 3 ML NEBU. NEB SCH ×4 (07:06→20:01)
[2018-10-28 07:15] VITALS: BP 151/83
[2018-10-28] MEDS: INSULIN LISPRO 300 UNITS/3 ML VIAL. SQ SCH ×3 (08:00→17:00)
[2018-10-28] MEDS: ASPIRIN CHEWABLE 81 MG TABLET. PO SCH (09:00)
[2018-10-28] MEDS: MULTIVITAMIN with MINERAL TABLET. PO SCH (09:00)
[2018-10-28] MEDS: GABAPENTIN 300 MG CAPSULE. PO SCH ×3 (09:00→21:00)
[2018-10-28] MEDS: ATORVASTATIN CALCIUM 20 MG TABLET PO SCH (09:00)
[2018-10-28] MEDS: METOPROLOL TART IMMED RELEASE 50 MG TABLET. PO SCH ×2 (09:00→21:00)
[2018-10-28] MEDS: SENNOSIDES 8.6 MG TABLET PO SCH ×2 (09:00→21:00)
[2018-10-28] MEDS: LACTOBACILLUS RHAMNOSUS GG 1 CAPSULE. PO SCH ×2 (09:00→21:00)
[2018-10-28] MEDS: ALBUMIN HUMAN 25% 50 ML IV SCH ×2 (09:01→20:54)
[2018-10-28] MEDS ORDERED: MAGNESIUM SULFATE 2GM 50 ML IV ONE (10:00)
[2018-10-28 11:00] VITALS: BP 161/77
--- NOTE | 2018-10-28 11:45 | PDOC2 ---
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 Current issues with low hgb and failed swallow Past Medical History Cardiovascular: HTN CENTRAL NERVOUS SYSTEM: CVA Endocrine: Diabetes Past Surgical History Past Surgical History: No pertinent history Family History Family History: No Significant Social History ALCOHOL: none Drugs: None Current Problem List Problem List Problems Medical Problems: (1) Klkpz-no-glxudek kidney injury Status: Acute Current Medications Current Medications Current Medications Ceftriaxone Sodium (Rocephin) 1 gm 1X ONCE IVP Last administered on 10/22/18at 20:31; Start 10/22/18 at 20:00; Stop 10/22/18 at 20:05; Status DC Acetaminophen (Tylenol) 500 mg PRN Q6HRS PRN PO MILD PAIN / TEMP; Start 10/22/18 at 20:00 Acetaminophen/ Codeine Phosphate (Tylenol #3) 1 tab PRN Q6HRS PRN PO PAIN MODERATE; Start 10/22/18 at 20:00 Ceftriaxone Sodium (Rocephin) 1 gm Q24H IVP Last administered on 10/27/18at 21:18; Start 10/23/18 at 21:00 Ondansetron HCl (Zofran) 4 mg PRN Q6HRS PRN IV NAUSEA/VOMITING; Start 10/22/18 at 20:00 Sodium Chloride 1,000 ml @ 100 mls/hr Q10H IV Last administered on 10/24/18at 09:53; Start 10/22/18 at 20:00; Stop 10/24/18 at 15:03; Status DC Famotidine (Pepcid Vial) 20 mg QHS IVP Last administered on 10/27/18at 21:18; Start 10/22/18 at 21:00 Aspirin (Children'S Aspirin) 81 mg DAILY PO ; Start 10/23/18 at 09:00 Atorvastatin Calcium (Lipitor) 20 mg DAILY PO ; Start 10/23/18 at 09:00 Furosemide (Lasix) 40 mg DAILY PO ; Start 10/23/18 at 09:00; Stop 10/23/18 at 10:39; Status DC Gabapentin (Neurontin) 300 mg TID PO Last administered on 10/23/18at 00:02; Start 10/22/18 at 21:00 Guaifenesin (Mucinex) 600 mg PRN BID PRN PO CONGESTION; Start 10/22/18 at 20:00 Albuterol/ Ipratropium (Duoneb) 3 ml RTQID NEB Last administered on 10/28/18at 11:24; Start 10/22/18 at 21:00 Metoprolol Tartrate (Lopressor) 50 mg BID PO Last administered on 10/23/18at 00:02; Start 10/22/18 at 21:00 Multivitamins (Thera M Plus) 1 tab DAILY PO ; Start 10/23/18 at 09:00 Phenytoin Sodium (Dilantin) 100 mg TID PO Last administered on 10/23/18at 00:02; Start 10/22/18 at 21:00; Stop 10/23/18 at 16:30; Status DC Sennosides (Senna) 8.6 mg BID PO Last administered on 10/23/18at 00:02; Start 10/22/18 at 21:00 Insulin Human Lispro (HumaLOG) 2 units TIDWMEALS SQ ; Start 10/23/18 at 08:00 Insulin Glargine (Lantus Syringe) 2 unit QHS SQ Last administered on 10/23/18at 00:02; Start 10/22/18 at 21:00; Stop 10/24/18 at 04:13; Status DC Lactobacillus Rhamnosus (Culturelle) 1 cap BID PO Last administered on 10/23/18at 00:02; Start 10/22/18 at 21:00 Sodium Polystyrene Sulfonate (Kayexalate) 15 gm 1X ONCE PO Last administered on 10/23/18at 00:02; Start 10/22/18 at 23:15; Stop 10/22/18 at 23:16; Status DC Lactulose (Lactulose) 30 gm PRN 1X PRN PO CONSTIPATION Last administered on 10/23/18at 00:02; Start 10/22/18 at 23:15; Stop 10/23/18 at 00:02; Status DC Magnesium Sulfate 50 ml @ 25 mls/hr 1X ONCE IV Last administered on 10/23/18at 00:02; Start 10/22/18 at 23:15; Stop 10/23/18 at 01:14; Status DC Dextrose (Dextrose 50%-Water Syringe) 12.5 gm PRN Q15MIN PRN IV SEE COMMENTS Last administered on 10/24/18at 01:38; Start 10/23/18 at 12:00 Dextrose 250 ml PRN Q15MIN PRN IV SEE COMMENTS; Start 10/23/18 at 12:00 Lidocaine/Sodium Bicarbonate (Buffered Lidocaine 1%) 3 ml STK-MED ONCE .ROUTE ; Start 10/23/18 at 12:22; Stop 10/23/18 at 12:22; Status DC Lidocaine/Sodium Bicarbonate (Buffered Lidocaine 1%) 3 ml 1X ONCE INJ ; Start 10/23/18 at 12:45; Stop 10/23/18 at 12:46; Status DC Metoprolol Tartrate (Lopressor Vial) 5 mg PRN Q6HRS PRN IVP HYPERTENSION Last administered on 10/25/18at 08:11; Start 10/23/18 at 15:00 Fosphenytoin Sodium (Cerebyx) 100 mg Q8HRS IV Last administered on 10/28/18at 06:15; Start 10/23/18 at 17:00 Acetaminophen (Tylenol Supp) 650 mg PRN Q6HRS PRN GA MILD PAIN / TEMP Last administered on 10/24/18at 10:07; Start 10/24/18 at 00:15 Insulin Glargine (Lantus Syringe) 2 unit QHS SQ Last administered on 10/27/18at 21:18; Start 10/24/18 at 21:00 Barium Sulfate (Varibar Thin Liquid Apple) 148 gm 1X ONCE PO ; Start 10/24/18 at 09:45; Stop 10/24/18 at 09:46; Status DC Magnesium Sulfate 50 ml @ 25 mls/hr 1X ONCE IV Last administered on 10/24/18at 12:52; Start 10/24/18 at 12:00; Stop 10/24/18 at 13:59; Status DC Amino Acids/ Glycerin/ Electrolytes 1,000 ml @ 60 mls/hr [id number] IV Last administered on 10/28/18at 04:37; Start 10/24/18 at 15:00 Hydralazine HCl (Apresoline Inj) 10 mg PRN Q4HRS PRN IVP ELEVATED BP, SEE COMMENTS Last administered on 10/25/18at 10:27; Start 10/25/18 at 10:30 Albumin Human 50 ml @ 50 mls/hr BID IV Last administered on 10/28/18at 09:02; Start 10/26/18 at 15:00 Magnesium Sulfate 50 ml @ 25 mls/hr 1X ONCE IV Last administered on 10/27/18at 14:29; Start 10/27/18 at 12:00; Stop 10/27/18 at 13:59; Status DC Fentanyl Citrate (Fentanyl 2ml Vial) 25 mcg PRN Q3HRS PRN IV PAIN Last admini stered on 10/27/18at 18:09; Start 10/27/18 at 10:45 Magnesium Sulfate 50 ml @ 25 mls/hr 1X ONCE IV Last administered on 10/28/18at 10:33; Start 10/28/18 at 10:00; Stop 10/28/18 at 11:59 Active Scripts Active Lantus Solostar (Insulin Glargine,Hum.rec.anlog) 100 Unit/1 Ml Insuln.pen 2 Unit SQ QHS 30 Days Metformin Hcl 500 Mg Tablet 500 Mg PO BIDWMEALS 30 Days Novolog Flexpen (Insulin Aspart) 100 Unit/1 Ml Insuln.pen 2 Unit SQ TIDAC 30 Days hold if blood sugar < 120 Duoneb 0.5-3(2.5) Mg/3 Ml (Albuterol/Ipratropium) 3 Ml Ampul.neb 3 Ml NEB QID 30 Days Acidophilus Lactobacilli (Lactobacillus Acidophilus) 1 Each Capsule 1 Each PO BID 10 Days Reported Thera-M Tablet (Multivits,Ca,Minerals/Iron/Fa) 1 Each Tablet 1 Each PO DAILY Senna (Sennosides) 8.6 Mg Tablet 8.6 Mg PO BID Dilantin (Phenytoin Sodium Extended) 100 Mg Capsule 1 Cap PO TID Omeprazole 40 Mg Capsule.dr 1 Cap PO BID Mucinex (Guaifenesin) 600 Mg Tablet.er 1 Tab PO BID PRN Metoprolol Tartrate 50 Mg Tablet 1 Tab PO BID Losartan Potassium 100 Mg Tablet 100 Mg PO DAILY Gabapentin (Gabapentin) 300 Mg Capsule 300 Mg PO TID Furosemide 40 Mg Tablet 1 Tab PO DAILY Atorvastatin Calcium 20 Mg Tablet 1 Tab PO DAILY Aspirin 81 Mg Tab.chew 1 Tab PO DAILY Allergies Allergies: Coded Allergies: No Known Allergies (Verified Allergy, Unknown, 07/15/18) ROS Review of System unable to obtain from pt Physical Exam General: Cooperative, No acute distress HEENT: Other (moans on exam) Lungs: Other (diminished ) Heart: Regular rate, Normal S1, Normal S2 Abdomen: Soft, Other (distended, appears nontender ) Extremities: No clubbing, No cyanosis Skin: Other (ulcers to lower extremities ) Neuro: Other (moans) Vitals VITALS Vital Signs Date Time Temp Pulse Resp B/P (MAP) Pulse Ox O2 Delivery O2 Flow Rate FiO2 10/28/18 11:24 99 Nasal Cannula 2.0 10/28/18 07:15 98.4 62 22 151/83 (105) 98.4 Labs Labs Laboratory Tests Test 10/26/18 17:33 10/26/18 21:19 10/27/18 06:15 10/27/18 12:00 Glucose (Fingerstick) 157 mg/dL (70-99) 148 mg/dL (70-99) 113 mg/dL (70-99) White Blood Count 3.6 x10^3/uL (4.0-11.0) Red Blood Count 1.95 x10^6/uL (4.30-5.70) Hemoglobin 6.4 g/dL (13.0-17.5) Hematocrit 19.1 % (39.0-53.0) Mean Corpuscular Volume 98 fL (79-100) Mean Corpuscular Hemoglobin 33 pg (25-35) Mean Corpuscular Hemoglobin Concent 34 g/dL (31-37) Red Cell Distribution Width 13.6 % (11.5-14.5) Platelet Count 106 x10^3/uL (140-400) Sodium Level 138 mmol/L (136-145) Potassium Level 4.6 mmol/L (3.5-5.1) Chloride Level 107 mmol/L (98-107) Carbon Dioxide Level 29 mmol/L (21-32) Anion Gap 2 (6-14) Blood Urea Nitrogen 15 mg/dL (8-26) Creatinine 0.7 mg/dL (0.7-1.3) Estimated GFR (Cockcroft-Gault) 136.5 BUN/Creatinine Ratio 21 (6-20) Glucose Level 124 mg/dL (70-99) Calcium Level 7.7 mg/dL (8.5-10.1) Magnesium Level 1.5 mg/dL (1.8-2.4) Total Bilirubin 0.2 mg/dL (0.2-1.0) Aspartate Amino Transf (AST/SGOT) 66 U/L (15-37) Alanine Aminotransferase (ALT/SGPT) 32 U/L (16-63) Alkaline Phosphatase 269 U/L (46-116) Total Protein 4.1 g/dL (6.4-8.2) Albumin 1.0 g/dL (3.4-5.0) Albumin/Globulin Ratio 0.3 (1.0-1.7) Test 10/27/18 18:19 10/27/18 21:06 10/27/18 21:10 10/28/18 05:00 Hemoglobin 7.9 g/dL (13.0-17.5) 7.9 g/dL (13.0-17.5) Glucose (Fingerstick) 108 mg/dL (70-99) Stool Occult Blood Negative (NEG) White Blood Count 4.8 x10^3/uL (4.0-11.0) Red Blood Count 2.47 x10^6/uL (4.30-5.70) Hematocrit 23.3 % (39.0-53.0) Mean Corpuscular Volume 94 fL (79-100) Mean Corpuscular Hemoglobin 32 pg (25-35) Mean Corpuscular Hemoglobin Concent 34 g/dL (31-37) Red Cell Distribution Width 15.3 % (11.5-14.5) Platelet Count 105 x10^3/uL (140-400) Sodium Level 138 mmol/L (136-145) Potassium Level 4.4 mmol/L (3.5-5.1) Chloride Level 105 mmol/L (98-107) Carbon Dioxide Level 29 mmol/L (21-32) Anion Gap 4 (6-14) Blood Urea Nitrogen 12 mg/dL (8-26) Creatinine 0.6 mg/dL (0.7-1.3) Estimated GFR (Cockcroft-Gault) 163.1 BUN/Creatinine Ratio 20 (6-20) Glucose Level 122 mg/dL (70-99) Calcium Level 8.0 mg/dL (8.5-10.1) Magnesium Level 1.4 mg/dL (1.8-2.4) Total Bilirubin 0.4 mg/dL (0.2-1.0) Aspartate Amino Transf (AST/SGOT) 60 U/L (15-37) Alanine Aminotransferase (ALT/SGPT) 29 U/L (16-63) Alkaline Phosphatase 271 U/L (46-116) Total Protein 4.6 g/dL (6.4-8.2) Albumin 1.4 g/dL (3.4-5.0) Albumin/Globulin Ratio 0.4 (1.0-1.7) Test 10/28/18 09:24 Glucose (Fingerstick) 108 mg/dL (70-99) Laboratory Tests Test 10/27/18 12:00 10/27/18 18:19 10/27/18 21:06 10/27/18 21:10 Glucose (Fingerstick) 113 mg/dL (70-99) 108 mg/dL (70-99) Hemoglobin 7.9 g/dL (13.0-17.5) Stool Occult Blood Negative (NEG) Test 10/28/18 05:00 10/28/18 09:24 White Blood Count 4.8 x10^3/uL (4.0-11.0) Red Blood Count 2.47 x10^6/uL (4.30-5.70) Hemoglobin 7.9 g/dL (13.0-17.5) Hematocrit 23.3 % (39.0-53.0) Mean Corpuscular Volume 94 fL (79-100) Mean Corpuscular Hemoglobin 32 pg (25-35) Mean Corpuscular Hemoglobin Concent 34 g/dL (31-37) Red Cell Distribution Width 15.3 % (11.5-14.5) Platelet Count 105 x10^3/uL (140-400) Sodium Level 138 mmol/L (136-145) Potassium Level 4.4 mmol/L (3.5-5.1) Chloride Level 105 mmol/L (98-107) Carbon Dioxide Level 29 mmol/L (21-32) Anion Gap 4 (6-14) Blood Urea Nitrogen 12 mg/dL (8-26) Creatinine 0.6 mg/dL (0.7-1.3) Estimated GFR (Cockcroft-Gault) 163.1 BUN/Creatinine Ratio 20 (6-20) Glucose Level 122 mg/dL (70-99) Calcium Level 8.0 mg/dL (8.5-10.1) Magnesium Level 1.4 mg/dL (1.8-2.4) Total Bilirubin 0.4 mg/dL (0.2-1.0) Aspartate Amino Transf (AST/SGOT) 60 U/L (15-37) Alanine Aminotransferase (ALT/SGPT) 29 U/L (16-63) Alkaline Phosphatase 271 U/L (46-116) Total Protein 4.6 g/dL (6.4-8.2) Albumin 1.4 g/dL (3.4-5.0) Albumin/Globulin Ratio 0.4 (1.0-1.7) Glucose (Fingerstick) 108 mg/dL (70-99) Assessment/Plan Assessment/Plan Request for port a cath for guest services assistant IV access NPO currently, no blood thinners being used will arrange for tomorrow LYLE MCGOVERN MD 10/28/18 1205: CONSULT Assessment/Plan Assessment/Plan Agree with above JEANETTE BRUNNER APRN Oct 28, 2018 11:44 LYLE MCGOVERN MD Oct 28, 2018 12:05
--- NOTE | 2018-10-28 13:46 | PDOC ---
Infectious Disease Note Vital Sign Vital Signs Vital Signs Date Time Temp Pulse Resp B/P (MAP) Pulse Ox O2 Delivery O2 Flow Rate FiO2 10/28/18 11:24 99 Nasal Cannula 2.0 10/28/18 11:00 98.0 70 18 161/77 (105) 98.0 Labs Lab Laboratory Tests Test 10/27/18 18:19 10/27/18 21:06 10/27/18 21:10 10/28/18 05:00 Hemoglobin 7.9 g/dL (13.0-17.5) 7.9 g/dL (13.0-17.5) Glucose (Fingerstick) 108 mg/dL (70-99) Stool Occult Blood Negative (NEG) White Blood Count 4.8 x10^3/uL (4.0-11.0) Red Blood Count 2.47 x10^6/uL (4.30-5.70) Hematocrit 23.3 % (39.0-53.0) Mean Corpuscular Volume 94 fL (79-100) Mean Corpuscular Hemoglobin 32 pg (25-35) Mean Corpuscular Hemoglobin Concent 34 g/dL (31-37) Red Cell Distribution Width 15.3 % (11.5-14.5) Platelet Count 105 x10^3/uL (140-400) Sodium Level 138 mmol/L (136-145) Potassium Level 4.4 mmol/L (3.5-5.1) Chloride Level 105 mmol/L (98-107) Carbon Dioxide Level 29 mmol/L (21-32) Anion Gap 4 (6-14) Blood Urea Nitrogen 12 mg/dL (8-26) Creatinine 0.6 mg/dL (0.7-1.3) Estimated GFR (Cockcroft-Gault) 163.1 BUN/Creatinine Ratio 20 (6-20) Glucose Level 122 mg/dL (70-99) Calcium Level 8.0 mg/dL (8.5-10.1) Magnesium Level 1.4 mg/dL (1.8-2.4) Total Bilirubin 0.4 mg/dL (0.2-1.0) Aspartate Amino Transf (AST/SGOT) 60 U/L (15-37) Alanine Aminotransferase (ALT/SGPT) 29 U/L (16-63) Alkaline Phosphatase 271 U/L (46-116) Total Protein 4.6 g/dL (6.4-8.2) Albumin 1.4 g/dL (3.4-5.0) Albumin/Globulin Ratio 0.4 (1.0-1.7) Test 10/28/18 09:24 Glucose (Fingerstick) 108 mg/dL (70-99) Micro 10/22 urine Klebsiella pneumoniae Greater than 100,000 colony forming units per mL Performed at: [facility] - [facility] [address], [place], [place] [id number] [employer]: JOSE Reyna MD, Phone: [phone] Greater than 100,000 colony forming units per mL Cefazolin <=4 ug/mL Cefazolin with an RANDY <=16 predicts susceptibility to the oral agents cefaclor, cefdinir, cefpodoxime, cefprozil, cefuroxime, cephalexin, and loracarbef when used for therapy of uncomplicated urinary tract infections due to E. coli, Klebsiella pneumoniae, and Proteus mirabilis. ANTIMICROBIAL SUSCEPTIBILITY Final Comment S = Susceptible; I = Intermediate; R = Resistant P = Positive; N = Negative MICS are expressed in micrograms per mL Antibiotic RSLT#1 RSLT#2 RSLT#3 RSLT#4 Amoxicillin/Clavulanic Acid S<=2 Ampicillin R =R Cefepime S<=0.12 Ceftriaxone S<=0.25 Cefuroxime S =2 Ciprofloxacin S<=0.25 Ertapenem S<=0.12 Gentamicin S<=1 Imipenem S<=0.25 Levofloxacin S<=0.12 Meropenem S<=0.25 Nitrofurantoin S<=16 CONTINUED ON NEXT PAGE RUN DATE: 10/26/18 PAGE 2 RUN TIME: 1115 [facility] [address] [place] [address] Branden Alston M.D., Slot Technician - SPEC: [id number] PATIENT: SONIA NIEVES [id number] (Continued) Procedure Result ANTIMICROBIAL SUSCEPTIBILITY Final (continued) Piperacillin/Tazobactam S<=4 Tetracycline S<=1 Tobramycin S<=1 Trimethoprim/Sulfa S<=20 Performed at: [facility] 10/22/18 Urine Culture - Final, Complete 10/22/18 Urine Culture Result 1 (RANDY) - Final, Complete 10/22/18 Antimicrobic Susceptibility - Final, Complete 10/22/18 Blood Culture - Final, Complete NO GROWTH AFTER 5 DAYS Objective Assessment STCN 1 of 4 bottles 10/22 - contamination UTI- POA klebsiella - enciso has been changed per nursing since admit Aspiration - per speech and on Video swallow H/o CVA Pleural effusions Plan Plan of Care no need to treat bacteremia Treat UTI for 10 days total (on rocephin since 10/22 last dose 10/31.) could complete therapy with Bactrim if can safely take ID to sign off Thank you # [id number] CONCHITA MARTINEZ MD Oct 28, 2018 13:46
[2018-10-28 14:43] VITALS: BP 172/87
--- NOTE | 2018-10-28 15:29 | PN ---
DATE: 10/28/2018 SUBJECTIVE: The patient is resting, slightly propped up in bed, sleeping comfortably, in no apparent distress. The patient is aphasic and nonverbal, does not give any useful information. The nursing staff did not voice any concern and stated that he had an uneventful night. PHYSICAL EXAMINATION: GENERAL: On examining him, he looked pale, but no jaundice, cyanosis or thyromegaly. No jugular venous distention, but generalized anasarca. VITAL SIGNS: Heart rate was 62, blood pressure was 151/83, temperature was 98.4, respiratory rate was 22 and oxygen saturation was 98% on 2 liters of oxygen. HEAD, EYES, EARS, NOSE AND THROAT: Showed normocephalic, atraumatic. NECK: Supple. HEART: Showed normal first and second heart sounds. No gallop, rub or murmur. CHEST: Clear to auscultation. No crepitation or rhonchi. ABDOMEN: Distended, soft, nontender. No guarding or rigidity. No organomegaly. All hernial orifices intact. Bowel sounds normal. NEUROLOGIC: He is aphasic, has right-sided hemiplegia and left below knee amputation. His intake over the last 24 hours was 1800, output was 1100. LABORATORY DATA: As of this morning, his serum sodium was 138, potassium 4.4, chloride 105, bicarbonate 29, anion gap of 4, BUN 12, creatinine 0.6, estimated GFR was 163 mL per minute. His glucose was 122, calcium was 8, magnesium was 1.4. Total bilirubin, AST, ALT, alkaline phosphatase slightly elevated. Total protein was 4.6, albumin was 1.4. His white cell count was 4800, hemoglobin 7.9, hematocrit 23, MCV 94 and platelet count of 105,000. ASSESSMENT: 1. Dysphagia for which he is now on peripheral nutrition. 2. Urinary tract infection with growth of more than 100,000 colony forming units per mL of Klebsiella pneumoniae, sensitive to Rocephin. He also has grown Staph epidermidis from 1 bottle out of 2, resistant to oxacillin. It could be a contaminant. 3. Acute kidney injury, improving. 4. Hyperkalemia, resolved. 5. The patient has multiple other medical problems including type 2 diabetes mellitus, seems reasonably controlled, hypertension much better controlled. 6. Anemia. His hemoglobin and hematocrit drifted down from 10-31 down to 6.4 and 19. He did receive 1 unit of packed RBCs and so far his H and H have been stable. One set of stool for occult blood was negative. PLAN: To continue with IV Rocephin. Continue TPN as well as BUN and albumin. I did consult the Infectious Disease to see whether the patient needs treatment with vancomycin or just be on . We will also consult the speech therapy to repeat his video swallowing evaluation. KASIE TRIPLETT MD DR: FERMÍN/marysol JOB#: [id number] / [id number]
[2018-10-28 19:05] VITALS: BP 166/58
[2018-10-28] MEDS: fentaNYL PF VIAL 100 MCG/2 ML VIAL IV PRN (20:54)
[2018-10-28] MEDS: cefTRIAXone IV Push 1 GM VIAL. IVP SCH (20:54)
[2018-10-28] MEDS: FAMOTIDINE 20 MG/2 ML VIAL IVP SCH (20:55)
[2018-10-28] MEDS: INSULIN GLARGINE SYRINGE. SQ SCH (20:56)
[2018-10-28 23:26] VITALS: BP 178/64
[2018-10-28] MEDS: hydrALAZINE 20 MG/ML VIAL. IVP PRN (23:27)
[2018-10-29] VITALS (14 sets, daily range): BP systolic 143–191; BP diastolic 56–80
[2018-10-29] MEDS: fentaNYL PF VIAL 100 MCG/2 ML VIAL IV PRN (00:36)
[2018-10-29 05:29] LABS: HEMATOCRIT 22.9 % (39.0-53.0); HEMOGLOBIN 7.8 g/dL (13.0-17.5)
[2018-10-29] MEDS: FOSPHENYTOIN 100 MG/2 ML VIAL. IV SCH ×3 (05:33→19:56)
--- NOTE | 2018-10-29 06:08 | CONS ---
DATE OF CONSULTATION: 10/28/2018 LOCATION: The patient is in room 201. REQUESTING PHYSICIAN: Dr. Wilks. REASON FOR CONSULTATION: "Questionable contamination of blood culture." HISTORY OF PRESENT ILLNESS: The patient is a 68-year-old gentleman, who lives at [facility] in [place]. He has a history of dysarthria and stroke. He is unable to provide any past medical history, history of present illness, or review of systems, is obtained from the chart. He is admitted on 10/22, secondary to altered mental status. Given his aphasia, it is difficult to understand what was going on. He had urinalysis that was consistent with urinary tract infection. Cultures were obtained. Blood cultures turned positive for coag-negative Staph 02/15 bottles. Urine culture was positive for Klebsiella species. White count was normal on arrival 6.7, decreased down to 3.6, but is improved to 4.8 today. Additionally, he had dropped his hemoglobin. He received a unit of blood. He did not receive any therapy for the bacteremia and again has been on Rocephin since 10/22. Currently, the patient is alert and is moaning. He did smile, but did not seem to be in any distress. PAST MEDICAL HISTORY: Positive for type 2 diabetes, hypertension, left middle cerebral artery infarct, right-sided hemiplegia, aphasia, dysarthria, peripheral vascular disease, epilepsy, hyperlipidemia, severe protein-calorie malnutrition, and dysphagia. PAST SURGICAL HISTORY: Positive for left BKA. REVIEW OF SYSTEMS: Unobtainable. ALLERGIES: No known drug allergies. SOCIAL HISTORY: Again, he is a [facility] resident. No tobacco or alcohol. FAMILY HISTORY: Noncontributory. CURRENT MEDICATIONS: Include p.r.n. Tylenol, aspirin, Lipitor, Rocephin, Pepcid, fosphenytoin, Neurontin, insulin, DuoNebs, Lactobacillus, metoprolol, and senna. PHYSICAL EXAMINATION: VITAL SIGNS: He is afebrile, temperature 98, pulse 70, respirations 18, blood pressure 121/77, and 99% on 2 liters. CONSTITUTIONAL: He is alert. HEENT: His eyes are open and he is groaning somewhat. He has normal conjunctivae. His mouth was open. Oral cavity, pharynx, no thrush. NECK: Without JVD, no fullness. LUNGS: Decreased in bases. HEART: S1, S2. ABDOMEN: Distended a little bit, soft, no guarding. Apparent discomfort. EXTREMITIES: Without clubbing or cyanosis. Trace edema. SKIN: Warm to touch without signs of rash. He has a PICC line in right upper extremity that is clean. GENITOURINARY: Has a Garrett in place. LABORATORY DATA: White count 4.8, hemoglobin 7.9, and platelets of 105. Creatinine 0.6. Glucose of 108, fingerstick. AST 60, ALT 29, and alkaline phosphatase 271. Urinalysis concerning for UTI on admission. Cultures reviewed in history of present illness. Video swallow on the shows aspiration. DIAGNOSTIC DATA: Chest x-ray, bilateral pleural effusions on . IMPRESSION: 1. Coagulase-negative staphylococci, 1/4 bottles from the , represents contamination. 2. ____ present on admission with Klebsiella. Garrett has been changed per nursing. Aspiration per speech and on video swallow. 3. History of cerebrovascular accident. 4. Pleural effusions. RECOMMENDATIONS: Again, we are consulted for a questionable contamination. No need to treat this bacteremia. We will treat UTI for 10 total days on Rocephin since the , last dose would be the , could complete therapy with Bactrim if can safely take. Thank you for allowing me to participate in the patient's care. If you have any questions, please do not hesitate to contact me. I will sign off. CONCHITA MARTINEZ MD DR: SOPHIE/marysol JOB#: [id number] / [id number]
[2018-10-29 06:09] LABS: CALCIUM 8.1 mg/dL (8.5-10.1); CREATININE 0.6 mg/dL (0.7-1.3); GFR 163.1; POTASSIUM 4.5 mmol/L (3.5-5.1)
[2018-10-29] MEDS ORDERED: fentaNYL PF VIAL 100 MCG/2 ML VIAL IV PRN ×2 (07:00)
[2018-10-29] MEDS ORDERED: HYDROmorphone 2 MG/ML VIAL IV PRN (07:00)
[2018-10-29] MEDS ORDERED: ONDANSETRON PF 4 MG/2 ML VIAL. IV PRN (07:00)
[2018-10-29] MEDS ORDERED: MORPHINE SULFATE 2 MG/ML VIAL. IV PRN (07:00)
[2018-10-29] MEDS ORDERED: IV RINGERS,LACTATED 1000ML 1,000 ML IV SCH (07:00)
[2018-10-29] MEDS ORDERED: PROCHLORPERAZINE 10 MG/2 ML VIAL. IV PRN (07:00)
[2018-10-29] MEDS: IPRATRPIUM/ALBUTEROL 0.5/2.5MG 3 ML NEBU. NEB SCH ×4 (07:19→19:18)
[2018-10-29] MEDS ORDERED: HEPARIN for IV BOLUS 10,000 UNIT/10 ML VIAL. ONE (07:41)
[2018-10-29] MEDS ORDERED: BUPIVACAINE-EPI 0.5%-1:200000 MPF 30 ML VIAL. INJ ONE (07:45)
[2018-10-29] MEDS: INSULIN LISPRO 300 UNITS/3 ML VIAL. SQ SCH ×3 (08:00→17:00)
[2018-10-29] MEDS: LACTOBACILLUS RHAMNOSUS GG 1 CAPSULE. PO SCH ×2 (09:00→20:17)
[2018-10-29] MEDS: METOPROLOL TART IMMED RELEASE 50 MG TABLET. PO SCH ×2 (09:00→20:17)
[2018-10-29] MEDS: GABAPENTIN 300 MG CAPSULE. PO SCH ×3 (09:00→20:17)
[2018-10-29] MEDS: MULTIVITAMIN with MINERAL TABLET. PO SCH (09:00)
[2018-10-29] MEDS: SENNOSIDES 8.6 MG TABLET PO SCH ×2 (09:00→20:17)
[2018-10-29] MEDS: ASPIRIN CHEWABLE 81 MG TABLET. PO SCH (09:00)
[2018-10-29] MEDS: ATORVASTATIN CALCIUM 20 MG TABLET PO SCH (09:00)
[2018-10-29] MEDS: ALBUMIN HUMAN 25% 50 ML IV SCH ×2 (09:07→19:57)
[2018-10-29] MEDS ORDERED: MIDAZOLAM HCL/PF 2 MG/2 ML VIAL. ONE (09:22)
[2018-10-29] MEDS ORDERED: SEVOFLURANE 31 TO 60 MINUTES. IH ONE (09:22)
[2018-10-29] MEDS ORDERED: fentaNYL PF VIAL 100 MCG/2 ML VIAL ONE (09:22)
[2018-10-29] MEDS ORDERED: ONDANSETRON PF 4 MG/2 ML VIAL. ONE (09:23)
[2018-10-29] MEDS ORDERED: DEXAMETHASONE SOD PHOS 4 MG/ML VIAL ONE (09:23)
[2018-10-29] MEDS ORDERED: PROPOFOL 20 ML IV ONE (09:23)
[2018-10-29] MEDS ORDERED: LIDOCAINE 2% PF 5 ML VIAL. ONE (09:23)
[2018-10-29] MEDS ORDERED: DEXAMETHASONE SOD PHOS 20 MG/5 ML VIAL. ONE (09:24)
[2018-10-29] MEDS ORDERED: HEPARIN SODIUM 5,000 UNIT in IV NORMAL SALINE 500ML BAG 500 ML IRR ONE (10:00)
[2018-10-29] MEDS ORDERED: ceFAZolin SODIUM 1 GM VIAL ONE ×2 (10:11)
[2018-10-29] MEDS ORDERED: FUROSEMIDE 40 MG/4 ML VIAL. IVP ONE (10:30)
--- NOTE | 2018-10-29 11:39 | PDOC4 ---
Operative Note Operative Note Operative Note: Preoperative Diagnosis: Dysphagia, need for mcfp central venous access Postoperative Diagnosis: Same Procedure: Placement of Power Port-A-Cath using SonoSite guidance Surgeon: Yoel Anesthesia: Gen. EBL: 5 mL Specimen: None Drains: None Complications: None Indication: The patient is a 68-year-old male who currently has a PICC line for venous access. A request was made for placement of a Port-A-Cath to allow for long-term venous access for medical treatment and TPN. The details and risks of the procedure were reviewed with the patients DPOA. The risks include bleeding, infection, vessel injury, pneumothorax, pain, anesthetic risk, port, catheter or tubing malfunction or dysfunction, potential need for additional surgery or procedure. The patient understands and would like to proceed. Description: The patient was placed supine on the operating table and general anesthesia was performed. The bilateral neck and chest were prepped with ChloraPrep and draped in a standard surgical manner. With SonoSite ultrasound guidance the right internal jugular vein was readily identified and appeared patent. Entry was made into the vein with the skinny introducer needle under ultrasound guidance. The skinny guidewire passed readily into the central venous system. A small incision was made at the skin exit site. The skinny sheath was then placed over the guidewire. The larger guidewire was then placed within the sheath into the central venous system. Intraoperative fluoroscopy confirmed good position of the guidewire in the central venous system. The dilator and sheath were then placed over the guidewire. The catheter portion was then inserted into the central venous system and visualized using fluoroscopy. A separate right upper chest skin incision was made with a scalpel. A subcutaneous pocket was developed with cautery of sufficient size to accommodate the port. The catheter was then tunneled subcutaneously to the level of the newly formed pocket. Using fluoroscopy the catheter was positioned with the tip in the distal superior vena cava. The catheter was then cut and assembled to the port. The port was then secured to the chest wall with two 2-0 Prolene sutures. Using the Valdez needle the port readily aspirated and flushed without difficulty. Fluoroscopy confirmed good positioning of the catheter with no twists or kinks. The subcutaneous tissue was approximated with 3-0 Vicryl. The skin was then closed with 4-0 Mon ocryl. A sterile OpSite dressing was then applied. The patient tolerated the procedure well and was sent to the recovery room in stable condition. At the end of the case all counts were correct. LYLE MGCOVERN MD Oct 29, 2018 11:39
[2018-10-29] MEDS: hydrALAZINE 20 MG/ML VIAL. IVP PRN (12:27)
--- NOTE | 2018-10-29 12:41 | PN ---
DATE: 10/29/2018 SUBJECTIVE: The patient was seen yesterday by the surgical team and he is actually scheduled for Port-A-Cath placement. He has spiked his temperature that went up to 100.1. PHYSICAL EXAMINATION: GENERAL: On examining him, he looked pale, not jaundiced, cyanosis or thyromegaly. No jugular venous distention. No limb edema. VITAL SIGNS: His heart rate was 64, blood pressure was 197/74, temperature was 97.4, respiratory rate was 19 and oxygen saturation was 96%. HEAD, EYES, EARS, NOSE AND THROAT: Showed normocephalic, atraumatic. NECK: Supple. HEART: Showed normal first and second heart sounds. No gallop or murmur. CHEST: Clear to auscultation. No crepitation or rhonchi. ABDOMEN: Distended, soft, nontender. NEUROLOGIC: He is nonverbal and has expressive aphasia, right-sided hemiplegia and left below-knee amputation. He is mostly bedbound. His intake over the last 24 hours was 1000, output was 1850. LABORATORY DATA: His lab work this morning showed a serum sodium 137, potassium 4.5, chloride 105, bicarbonate 28, anion gap of 4, BUN 12, creatinine 0.6, estimated GFR was 163 mL per minute, his glucose 148, calcium was 8.1. His hemoglobin was 7.8, hematocrit 22.9. ASSESSMENT: 1. Dysphagia for which he is known on peripheral nutrition. 2. Urinary tract infection with growth of more than 100,000 colony forming units per mL of Klebsiella pneumoniae, sensitive to Rocephin. 3. He has also grown Staph epidermidis in 1 bottle out of 2, resistant to oxacillin. It could be a contaminant and was seen by Dr. Max who did not recommend any treatment. 4. Acute kidney injury, improving. 5. Hyperkalemia, resolved. 6. Hypomagnesemia, for which he received 2 grams of magnesium sulfate yesterday. 7. The patient has multiple other medical problems including: A. Type 2 diabetes mellitus, reasonably controlled. B. Hypertension, much better controlled. C. Anemia. His hemoglobin and hematocrit drifted down to 6.4 and 19 for which he received 1 unit of packed RBCs and as of this morning, his hemoglobin was 7.8, hematocrit 22.9. Sent stool for occult blood. KASIE TRIPLETT MD DR: Kang JOB#: [id number] / [id number]
--- NOTE | 2018-10-29 16:12 | RAD ---
Single view of the chest. 10/29/2018 11:35 AM Indication: Port-A-Cath placement. Comparison: Chest radiograph, October 27, 2018 Findings: There is a right internal jugular port with tip to cavoatrial junction. Right upper extremity PICC line remains. Moderate layering pleural effusions noted bilaterally. Prominent calcified mediastinal/hilar lymph nodes again noted. Bony thorax otherwise intact. IMPRESSION: 1.New right internal jugular port with tip at the cavoatrial junction 2. Moderate bilateral layering pleural effusions Electronically signed by: Chet Livingston MD (10/29/2018 4:09 PM) [id number]
[2018-10-29] MEDS: AMINO AC 3%/ELECTROLYTE/GLYCER 1,000 ML IV SCH (17:35)
[2018-10-29] MEDS: FAMOTIDINE 20 MG/2 ML VIAL IVP SCH (19:57)
[2018-10-29] MEDS: cefTRIAXone IV Push 1 GM VIAL. IVP SCH (20:03)
[2018-10-29] MEDS: INSULIN GLARGINE SYRINGE. SQ SCH (20:22)
[2018-10-30] VITALS (7 sets, daily range): BP systolic 149–181; BP diastolic 59–87
[2018-10-30] MEDS: METOPROLOL TARTRATE 5 MG/5 ML VIAL. IVP PRN ×2 (00:25→11:55)
[2018-10-30] MEDS: FOSPHENYTOIN 100 MG/2 ML VIAL. IV SCH ×3 (05:06→21:24)
[2018-10-30] MEDS: IPRATRPIUM/ALBUTEROL 0.5/2.5MG 3 ML NEBU. NEB SCH ×5 (07:16→19:40)
[2018-10-30] MEDS: INSULIN LISPRO 300 UNITS/3 ML VIAL. SQ SCH ×3 (08:00→17:00)
[2018-10-30] MEDS: MULTIVITAMIN with MINERAL TABLET. PO SCH (09:00)
[2018-10-30] MEDS: ATORVASTATIN CALCIUM 20 MG TABLET PO SCH (09:00)
[2018-10-30] MEDS: GABAPENTIN 300 MG CAPSULE. PO SCH ×3 (09:00→21:00)
[2018-10-30] MEDS: SENNOSIDES 8.6 MG TABLET PO SCH ×2 (09:00→21:00)
[2018-10-30] MEDS: LACTOBACILLUS RHAMNOSUS GG 1 CAPSULE. PO SCH ×2 (09:00→21:00)
[2018-10-30] MEDS: ASPIRIN CHEWABLE 81 MG TABLET. PO SCH (09:00)
[2018-10-30] MEDS: METOPROLOL TART IMMED RELEASE 50 MG TABLET. PO SCH ×2 (09:00→21:00)
[2018-10-30] MEDS: ALBUMIN HUMAN 25% 50 ML IV SCH ×2 (10:00→21:24)
[2018-10-30] MEDS: hydrALAZINE 20 MG/ML VIAL. IVP PRN (10:07)
--- NOTE | 2018-10-30 10:32 | PDOC ---
PROGRESS NOTES Subjective Subjective pt alert, comfortable Objective Objective Vital Signs Date Time Temp Pulse Resp B/P (MAP) Pulse Ox O2 Delivery O2 Flow Rate FiO2 10/30/18 10:07 76 181/87 10/30/18 07:37 Nasal Cannula 2.0 10/30/18 07:17 98 10/30/18 07:00 99.0 20 99.0 Intake and Output 10/30/18 07:00 Intake Total 500 ml Output Total 2505 ml Balance -2005 ml Intake Oral 0 ml IV Total 500 ml Output Urine Total 2500 ml Estimated Blood Loss 5 ml Physical Exam Physical Exam port intact, incision site looks good Assessment Assessment Problems Medical Problems: (1) [id number] kidney injury Status: Acute Plan Plan of Care S/P port placement; ok to use as needed; I will sign off, please call if needed in the future Comment Review of Relevant I have reviewed the following items myron (where applicable) has been applied. Labs Laboratory Tests Test 10/28/18 17:16 10/28/18 23:31 10/29/18 05:20 10/29/18 05:21 Glucose (Fingerstick) 127 mg/dL (70-99) 137 mg/dL (70-99) 154 mg/dL (70-99) Hemoglobin 7.8 g/dL (13.0-17.5) Hematocrit 22.9 % (39.0-53.0) Sodium Level 137 mmol/L (136-145) Potassium Level 4.5 mmol/L (3.5-5.1) Chloride Level 105 mmol/L (98-107) Carbon Dioxide Level 28 mmol/L (21-32) Anion Gap 4 (6-14) Blood Urea Nitrogen 12 mg/dL (8-26) Creatinine 0.6 mg/dL (0.7-1.3) Estimated GFR (Cockcroft-Gault) 163.1 Glucose Level 148 mg/dL (70-99) Calcium Level 8.1 mg/dL (8.5-10.1) Test 10/29/18 09:38 10/29/18 11:34 10/29/18 12:01 10/29/18 20:13 Glucose (Fingerstick) 141 mg/dL (70-99) 130 mg/dL (70-99) 147 mg/dL (70-99) 158 mg/dL (70-99) Test 10/30/18 04:20 Iron Level 48 ug/dL (65-175) Total Iron Binding Capacity 65 ug/dL (250-450) Iron Saturation 74 % (15-34) Ferritin 351 ng/mL (26-388) Laboratory Tests Test 10/29/18 11:34 10/29/18 12:01 10/29/18 20:13 10/30/18 04:20 Glucose (Fingerstick) 130 mg/dL (70-99) 147 mg/dL (70-99) 158 mg/dL (70-99) Iron Level 48 ug/dL (65-175) Total Iron Binding Capacity 65 ug/dL (250-450) Iron Saturation 74 % (15-34) Ferritin 351 ng/mL (26-388) Microbiology 10/22/18 Urine Culture - Final, Complete 10/22/18 Urine Culture Result 1 (RADNY) - Final, Complete 10/22/18 Antimicrobic Susceptibility - Final, Complete 10/22/18 Blood Culture - Final, Complete NO GROWTH AFTER 5 DAYS Medications Current Medications Ceftriaxone Sodium (Rocephin) 1 gm 1X ONCE IVP Last administered on 10/22/18at 20:31; Start 10/22/18 at 20:00; Stop 10/22/18 at 20:05; Status DC Acetaminophen (Tylenol) 500 mg PRN Q6HRS PRN PO MILD PAIN / TEMP; Start 10/22/18 at 20:00 Acetaminophen/ Codeine Phosphate (Tylenol #3) 1 tab PRN Q6HRS PRN PO PAIN MODERATE; Start 10/22/18 at 20:00 Ceftriaxone Sodium (Rocephin) 1 gm Q24H IVP Last administered on 10/29/18at 20:14; Start 10/23/18 at 21:00 Ondansetron HCl (Zofran) 4 mg PRN Q6HRS PRN IV NAUSEA/VOMITING; Start 10/22/18 at 20:00 Sodium Chloride 1,000 ml @ 100 mls/hr Q10H IV Last administered on 10/24/18at 09:53; Start 10/22/18 at 20:00; Stop 10/24/18 at 15:03; Status DC Famotidine (Pepcid Vial) 20 mg QHS IVP Last administered on 10/29/18at 20:14; Start 10/22/18 at 21:00 Aspirin (Children'S Aspirin) 81 mg DAILY PO ; Start 10/23/18 at 09:00 Atorvastatin Calcium (Lipitor) 20 mg DAILY PO ; Start 10/23/18 at 09:00 Furosemide (Lasix) 40 mg DAILY PO ; Start 10/23/18 at 09:00; Stop 10/23/18 at 10:39; Status DC Gabapentin (Neurontin) 300 mg TID PO Last administered on 10/23/18at 00:02; Start 10/22/18 at 21:00 Guaifenesin (Mucinex) 600 mg PRN BID PRN PO CONGESTION; Start 10/22/18 at 20:00 Albuterol/ Ipratropium (Duoneb) 3 ml RTQID NEB Last administered on 10/30/18at 07:16; Start 10/22/18 at 21:00 Metoprolol Tartrate (Lopressor) 50 mg BID PO Last administered on 10/23/18at 00:02; Start 10/22/18 at 21:00 Multivitamins (Thera M Plus) 1 tab DAILY PO ; Start 10/23/18 at 09:00 Phenytoin Sodium (Dilantin) 100 mg TID PO Last administered on 10/23/18at 00:02; Start 10/22/18 at 21:00; Stop 10/23/18 at 16:30; Status DC Sennosides (Senna) 8.6 mg BID PO Last administered on 10/23/18at 00:02; Start 10/22/18 at 21:00 Insulin Human Lispro (HumaLOG) 2 units TIDWMEALS SQ ; Start 10/23/18 at 08:00 Insulin Glargine (Lantus Syringe) 2 unit QHS SQ Last administered on 10/23/18at 00:02; Start 10/22/18 at 21:00; Stop 10/24/18 at 04:13; Status DC Lactobacillus Rhamnosus (Culturelle) 1 cap BID PO Last administered on 10/23/18at 00:02; Start 10/22/18 at 21:00 Sodium Polystyrene Sulfonate (Kayexalate) 15 gm 1X ONCE PO Last administered on 10/23/18at 00:02; Start 10/22/18 at 23:15; Stop 10/22/18 at 23:16; Status DC Lactulose (Lactulose) 30 gm PRN 1X PRN PO CONSTIPATION Last administered on 10/23/18at 00:02; Start 10/22/18 at 23:15; Stop 10/23/18 at 00:02; Status DC Magnesium Sulfate 50 ml @ 25 mls/hr 1X ONCE IV Last administered on 10/23/18at 00:02; Start 10/22/18 at 23:15; Stop 10/23/18 at 01:14; Status DC Dextrose (Dextrose 50%-Water Syringe) 12.5 gm PRN Q15MIN PRN IV SEE COMMENTS Last administered on 10/24/18at 01:38; Start 10/23/18 at 12:00 Dextrose 250 ml PRN Q15MIN PRN IV SEE COMMENTS; Start 10/23/18 at 12:00 Lidocaine/Sodium Bicarbonate (Buffered Lidocaine 1%) 3 ml STK-MED ONCE .ROUTE ; Start 10/23/18 at 12:22; Stop 10/23/18 at 12:22; Status DC Lidocaine/Sodium Bicarbonate (Buffered Lidocaine 1%) 3 ml 1X ONCE INJ ; Start 10/23/18 at 12:45; Stop 10/23/18 at 12:46; Status DC Metoprolol Tartrate (Lopressor Vial) 5 mg PRN Q6HRS PRN IVP HYPERTENSION Last administered on 10/30/18at 00:25; Start 10/23/18 at 15:00 Fosphenytoin Sodium (Cerebyx) 100 mg Q8HRS IV Last administered on 10/30/18at 05:06; Start 10/23/18 at 17:00 Acetaminophen (Tylenol Supp) 650 mg PRN Q6HRS PRN WA MILD PAIN / TEMP Last administered on 10/24/18at 10:07; Start 10/24/18 at 00:15 Insulin Glargine (Lantus Syringe) 2 unit QHS SQ Last administered on 10/29/18at 20:22; Start 10/24/18 at 21:00 Barium Sulfate (Varibar Thin Liquid Apple) 148 gm 1X ONCE PO ; Start 10/24/18 at 09:45; Stop 10/24/18 at 09:46; Status DC Magnesium Sulfate 50 ml @ 25 mls/hr 1X ONCE IV Last administered on 10/24/18at 12:52; Start 10/24/18 at 12:00; Stop 10/24/18 at 13:59; Status DC Amino Acids/ Glycerin/ Electrolytes 1,000 ml @ 60 mls/hr [id number] IV Last administered on 10/29/18at 17:35; Start 10/24/18 at 15:00 Hydralazine HCl (Apresoline Inj) 10 mg PRN Q4HRS PRN IVP ELEVATED BP, SEE COMMENTS Last administered on 10/30/18at 10:07; Start 10/25/18 at 10:30 Albumin Human 50 ml @ 50 mls/hr BID IV Last administered on 10/30/18at 10:07; Start 10/26/18 at 15:00 Magnesium Sulfate 50 ml @ 25 mls/hr 1X ONCE IV Last administered on 10/27/18at 14:29; Start 10/27/18 at 12:00; Stop 10/27/18 at 13:59; Status DC Fentanyl Citrate (Fentanyl 2ml Vial) 25 mcg PRN Q3HRS PRN IV PAIN Last administered on 10/29/18at 00:36; Start 10/27/18 at 10:45 Magnesium Sulfate 50 ml @ 25 mls/hr 1X ONCE IV Last administered on 10/28/18at 10:33; Start 10/28/18 at 10:00; Stop 10/28/18 at 11:59; Status DC Ondansetron HCl (Zofran) 4 mg PRN Q6HRS PRN IV NAUSEA/VOMITING; Start 10/29/18 at 07:00; Stop 10/29/18 at 20:00; Status DC Fentanyl Citrate (Fentanyl 2ml Vial) 25 mcg PRN Q5MIN PRN IV MILD PAIN 1-3; Start 10/29/18 at 07:00; Stop 10/29/18 at 20:00; Status DC Fentanyl Citrate (Fentanyl 2ml Vial) 50 mcg PRN Q5MIN PRN IV MODERATE TO SEVERE PAIN; Start 10/29/18 at 07:00; Stop 10/30/18 at 06:59; Status DC Morphine Sulfate (Morphine Sulfate) 1 mg PRN Q10MIN PRN IV SEVERE PAIN 7-10; Start 10/29/18 at 07:00; Stop 10/29/18 at 20:00; Status DC Ringer's Solution 1,000 ml @ 30 mls/hr Q24H IV ; Start 10/29/18 at 07:00; Stop 10/29/18 at 18:59; Status DC Hydromorphone HCl (Dilaudid) 0.5 mg PRN Q10MIN PRN IV SEV PAIN, Second choice; Start 10/29/18 at 07:00; Stop 10/29/18 at 20:00; Status DC Prochlorperazine Edisylate (Compazine) 5 mg PACU PRN PRN IV NAUSEA, MRX1; Start 10/29/18 at 07:00; Stop 10/29/18 at 20:00; Status DC Bupivacaine HCl/ Epinephrine Bitart (Sensorcain-Epi 0.5%-1:[id number] Mpf) 30 ml 1X ONCE INJ Last administered on 10/29/18at 10:51; Start 10/29/18 at 07:45; Stop 10/29/18 at 07:46; Status DC Heparin Sodium (Porcine) (Heparin Sodium) 10,000 unit STK-MED ONCE .ROUTE ; Start 10/29/18 at 07:41; Stop 10/29/18 at 07:41; Status DC Heparin Sodium (Porcine) 5000 unit/Sodium Chloride 505 ml @ 505 mls/hr 1X ONCE IRR Last administered on 10/29/18at 10:51; Start 10/29/18 at 10:00; Stop 10/29/18 at 10:59; Status DC Sevoflurane (Ultane) 30 ml STK-MED ONCE IH ; Start 10/29/18 at 09:22; Stop 10/29/18 at 09:22; Status DC Fentanyl Citrate (Fentanyl 2ml Vial) 100 mcg STK-MED ONCE .ROUTE ; Start 10/29/18 at 09:22; Stop 10/29/18 at 09:22; Status DC Midazolam HCl (Versed) 2 mg STK-MED ONCE .ROUTE ; Start 10/29/18 at 09:22; Stop 10/29/18 at 09:22; Status DC Propofol 20 ml @ As Directed STK-MED ONCE IV ; Start 10/29/18 at 09:23; Stop 10/29/18 at 09:23; Status DC Lidocaine HCl (Lidocaine Pf 2% Vial) 5 ml STK-MED ONCE .ROUTE ; Start 10/29/18 at 09:23; Stop 10/29/18 at 09:23; Status DC Ondansetron HCl (Zofran) 4 mg STK-MED ONCE .ROUTE ; Start 10/29/18 at 09:23; Stop 10/29/18 at 09:23; Status DC Dexamethasone Sodium Phosphate (Decadron) 4 mg STK-MED ONCE .ROUTE ; Start 10/29/18 at 09:23; Stop 10/29/18 at 09:23; Status DC Dexamethasone Sodium Phosphate (Decadron) 20 mg STK-MED ONCE .ROUTE ; Start 10/29/18 at 09:24; Stop 10/29/18 at 09:24; Status DC Cefazolin Sodium (Ancef) 1 gm STK-MED ONCE .ROUTE ; Start 10/29/18 at 10:11; Stop 10/29/18 at 10:11; Status DC Cefazolin Sodium (Ancef) 1 gm STK-MED ONCE .ROUTE ; Start 10/29/18 at 10:11; Stop 10/29/18 at 10:11; Status DC Furosemide (Lasix) 40 mg 1X ONCE IVP Last administered on 10/29/18at 12:33; Start 10/29/18 at 10:30; Stop 10/29/18 at 10:31; Status DC Active Scripts Active Lantus Solostar (Insulin Glargine,Hum.rec.anlog) 100 Unit/1 Ml Insuln.pen 2 Unit SQ QHS 30 Days Metformin Hcl 500 Mg Tablet 500 Mg PO BIDWMEALS 30 Days Novolog Flexpen (Insulin Aspart) 100 Unit/1 Ml Insuln.pen 2 Unit SQ TIDAC 30 Days hold if blood sugar < 120 Duoneb 0.5-3(2.5) Mg/3 Ml (Albuterol/Ipratropium) 3 Ml Ampul.neb 3 Ml NEB QID 30 Days Acidophilus Lactobacilli (Lactobacillus Acidophilus) 1 Each Capsule 1 Each PO BID 10 Days Reported Thera-M Tablet (Multivits,Ca,Minerals/Iron/Fa) 1 Each Tablet 1 Each PO DAILY Senna (Sennosides) 8.6 Mg Tablet 8.6 Mg PO BID Dilantin (Phenytoin Sodium Extended) 100 Mg Capsule 1 Cap PO TID Omeprazole 40 Mg Capsule.dr 1 Cap PO BID Mucinex (Guaifenesin) 600 Mg Tablet.er 1 Tab PO BID PRN Metoprolol Tartrate 50 Mg Tablet 1 Tab PO BID Losartan Potassium 100 Mg Tablet 100 Mg PO DAILY Gabapentin (Gabapentin) 300 Mg Capsule 300 Mg PO TID Furosemide 40 Mg Tablet 1 Tab PO DAILY Atorvastatin Calcium 20 Mg Tablet 1 Tab PO DAILY Aspirin 81 Mg Tab.chew 1 Tab PO DAILY Vitals/I & O Vital Sign - Last 24 Hours 10/29/18 10/29/18 10/29/18 10/29/18 11:00 11:06 11:06 11:27 Temp 97.2 97.4 97.2 97.4 Pulse 65 68 Resp 17 16 B/P (MAP) 176/61 164/70 Pulse Ox 99 96 O2 Delivery Room Air Mask Simple Mask Room Air O2 Flow Rate 2.0 10 2 10/29/18 10/29/18 10/29/18 10/29/18 11:38 11:38 12:03 12:05 Pulse 67 74 Resp 15 B/P (MAP) 138/65 191/72 (111) Pulse Ox 100 97 O2 Delivery Nasal Cannula Nasal Cannula Nasal Cannula O2 Flow Rate 2 2 2.0 10/29/18 10/29/18 10/29/18 10/29/18 12:20 12:32 12:35 12:50 Pulse 64 72 70 88 B/P (MAP) 191/75 (113) 191/78 179/75 (109) 168/70 (102) 10/29/18 10/29/18 10/29/18 10/29/18 13:20 14:05 14:35 15:00 Temp 98.4 98.4 Pulse 92 84 80 75 Resp 18 B/P (MAP) 174/73 (106) 169/70 (103) 166/70 (102) 143/60 (87) Pulse Ox 96 O2 Delivery Nasal Cannula O2 Flow Rate 2.0 10/29/18 10/29/18 10/29/18 10/29/18 15:51 16:35 17:37 18:50 Temp 98.4 98.4 Pulse 83 82 85 Resp 20 B/P (MAP) 145/60 (88) 161/64 (96) 161/64 (96) Pulse Ox 95 O2 Delivery Nasal Cannula Room Air O2 Flow Rate 2.0 10/29/18 10/29/18 10/29/18 10/30/18 19:18 20:00 23:21 00:25 Temp 98.3 98.3 Pulse 76 95 Resp 26 B/P (MAP) 187/80 (115) Pulse Ox 96 O2 Delivery Nasal Cannula Nasal Cannula Nasal Cannula O2 Flow Rate 2.0 2.0 2.0 10/30/18 10/30/18 10/30/18 10/30/18 02:40 07:00 07:17 07:37 Temp 98.9 99.0 98.9 99.0 Pulse 72 76 Resp 22 20 B/P (MAP) 169/68 (101) 181/87 (118) Pulse Ox 97 96 98 O2 Delivery Nasal Cannula Nasal Cannula Nasal Cannula Nasal Cannula O2 Flow Rate 2.0 2.0 2.0 2.0 10/30/18 10:07 Pulse 76 B/P (MAP) 181/87 Intake and Output 10/29/18 10/29/18 10/30/18 15:00 23:00 07:00 Intake Total 500 ml 0 ml 0 ml Output Total 555 ml 1150 ml 800 ml Balance -55 ml -1150 ml -800 ml LYLE MCGOVERN MD Oct 30, 2018 10:32
[2018-10-30] MEDS: AMINO AC 3%/ELECTROLYTE/GLYCER 1,000 ML IV SCH (11:49)
[2018-10-30] MEDS ORDERED: VITS A & D/LANOLIN TOPICAL OINTMENT 42GM TUBE. TP PRN (16:45)
[2018-10-30] MEDS: INSULIN GLARGINE SYRINGE. SQ SCH (21:00)
[2018-10-30] MEDS: FAMOTIDINE 20 MG/2 ML VIAL IVP SCH (21:24)
[2018-10-30] MEDS: cefTRIAXone IV Push 1 GM VIAL. IVP SCH (21:25)
--- NOTE | 2018-10-30 23:47 | PN ---
DATE: 10/30/2018 SUBJECTIVE: The patient is resting slightly propped up, in no apparent respiratory distress. He is awake, alert. Unfortunately, he is nonverbal and the speech therapy evaluated him again at bedside swallowing and apparently continued to be extremely high risk for aspiration and therefore we will talk to his DPOA to decide on further where to go from here as he probably needs a gastrostomy tube placed. He has had his Port-A-Cath placed successfully yesterday. PHYSICAL EXAMINATION: GENERAL: When I saw him today, he looked well, pale, but no jaundice, cyanosis or thyromegaly. No jugular venous distension. No lower limb edema. VITAL SIGNS: His heart rate was 88, blood pressure was 178/64, temperature was 98.9, respiratory rate was 20, and oxygen saturation was 98% on 2 liters of oxygen. The rest of clinical exam is stable. His intake over the last 24 hours was 2080, output was 1775. His blood sugar seems to be stable. Serum iron was 48, TIBC was 65, iron saturation was 74 and ferritin was 351. ASSESSMENT: 1. Dysphagia for which he is currently on peripheral parenteral nutrition. 2. Urinary tract infection with growth of more than 100,000 colony forming units of Klebsiella pneumoniae sensitive to Rocephin. He has also grown Staph epidermidis in 1 bottle out of 2, resistant to oxacillin that could be contaminant, was seen by Dr. Quinteros who did not recommend any treatment. 3. Acute kidney injury, improving. 4. Hyperkalemia, resolved. 5. Hypomagnesemia. He received 2 g of magnesium sulfate. 6. He has multiple other medical problems including type 2 diabetes mellitus, reasonably controlled. 7. Hypertension, much better controlled. 8. Anemia with stable H and H after receiving 2 units of packed RBCs. PLAN: My plan is to talk to his DPOA regarding gastrostomy tube placement and if he is agreeable, we will consult Gastroenterology for placement of a gastrostomy tube. KASIE TRIPLETT MD DR: FERMÍN/marysol JOB#: [id number] / [id number]
[2018-10-31] MEDS: AMINO AC 3%/ELECTROLYTE/GLYCER 1,000 ML IV SCH ×3 (02:50→22:05)
[2018-10-31 02:52] LABS: HEMATOCRIT 21.4 % (39.0-53.0); HEMOGLOBIN 7.4 g/dL (13.0-17.5); RED BLOOD COUNT 2.26 x10^6/uL (4.30-5.70); RED CELL DISTRIBUTION WIDTH 15.3 % (11.5-14.5)
[2018-10-31 03:00] VITALS: BP 167/74
[2018-10-31 03:13] LABS: PROTHROMBIN TIME PATIENT 16.4 SEC (11.7-14.0)
[2018-10-31 04:51] LABS: ALBUMIN 1.6 g/dL (3.4-5.0); ALBUMIN/GLOBULIN RATIO 0.5 (1.0-1.7); CALCIUM 7.7 mg/dL (8.5-10.1); CREATININE 0.6 mg/dL (0.7-1.3); GFR 163.1; POTASSIUM 4.6 mmol/L (3.5-5.1); TOTAL BILIRUBIN 0.3 mg/dL (0.2-1.0); TOTAL PROTEIN 4.6 g/dL (6.4-8.2)
[2018-10-31] MEDS: FOSPHENYTOIN 100 MG/2 ML VIAL. IV SCH ×3 (05:23→22:05)
[2018-10-31 07:00] VITALS: BP 203/83
[2018-10-31] MEDS: IPRATRPIUM/ALBUTEROL 0.5/2.5MG 3 ML NEBU. NEB SCH ×4 (07:13→19:35)
[2018-10-31] MEDS: hydrALAZINE 20 MG/ML VIAL. IVP PRN ×3 (07:45→13:23)
[2018-10-31] MEDS: INSULIN LISPRO 300 UNITS/3 ML VIAL. SQ SCH ×3 (08:00→17:00)
[2018-10-31] MEDS: ASPIRIN CHEWABLE 81 MG TABLET. PO SCH (08:15)
[2018-10-31] MEDS: LACTOBACILLUS RHAMNOSUS GG 1 CAPSULE. PO SCH ×2 (08:16→21:00)
[2018-10-31] MEDS: METOPROLOL TART IMMED RELEASE 50 MG TABLET. PO SCH ×2 (08:16→21:00)
[2018-10-31] MEDS: ATORVASTATIN CALCIUM 20 MG TABLET PO SCH (08:16)
[2018-10-31] MEDS: MULTIVITAMIN with MINERAL TABLET. PO SCH (08:16)
[2018-10-31] MEDS: GABAPENTIN 300 MG CAPSULE. PO SCH ×3 (08:16→21:00)
[2018-10-31] MEDS: SENNOSIDES 8.6 MG TABLET PO SCH ×2 (08:16→21:00)
[2018-10-31] MEDS: METOPROLOL TARTRATE 5 MG/5 ML VIAL. IVP PRN ×2 (08:29→15:00)
[2018-10-31] MEDS: ALBUMIN HUMAN 25% 50 ML IV SCH ×2 (09:05→22:05)
[2018-10-31 11:00] VITALS: BP 211/98
[2018-10-31] MEDS ORDERED: FUROSEMIDE 40 MG/4 ML VIAL. IVP ONE (13:00)
[2018-10-31 15:22] VITALS: BP 203/74
[2018-10-31 19:00] VITALS: BP 157/78
[2018-10-31] MEDS: cefTRIAXone IV Push 1 GM VIAL. IVP SCH (22:05)
[2018-10-31] MEDS: INSULIN GLARGINE SYRINGE. SQ SCH (22:07)
[2018-10-31] MEDS: FAMOTIDINE 20 MG/2 ML VIAL IVP SCH (22:16)
[2018-10-31 23:00] VITALS: BP 186/76
[2018-11-01 03:00] VITALS: BP 185/84
--- NOTE | 2018-11-01 04:38 | PN ---
DATE: 10/31/2018 SUBJECTIVE: The patient is resting, slightly propped up, sitting comfortably, in no apparent distress. He has failed his video swallowing evaluation and I have consulted the case assistant to speak with his DPOA to consider PEG tube placement. The nursing staff concerned that his blood pressure is extremely high. PHYSICAL EXAMINATION: GENERAL: When I examined him this afternoon, he was pale. No jaundice, cyanosis, or thyromegaly. No jugular venous distension. No lower limb edema. VITAL SIGNS: His heart rate was 73, blood pressure was 211/98, temperature was 98.3, respiratory rate was 20, and oxygen saturation was 97% on room air. HEAD, EYES, EARS, NOSE AND THROAT: Showed normocephalic, atraumatic. NECK: Supple. HEART: Showed normal first and second heart sounds. No gallop, rub or murmur. CHEST: Clear to auscultation. No crepitation or rhonchi. ABDOMEN: Distended, soft, and nontender. NEUROLOGIC: He has expressive aphasia and right-sided hemiplegia together with left below-knee amputation. He has an indwelling Garrett catheter. His intake was 500 and output was 2500. LABORATORY DATA: As of this morning, his serum sodium 135, potassium 4.6, chloride 103, bicarbonate 29, anion gap of 3, BUN 12, creatinine 0.6, estimated GFR was 163 mL per minute, glucose 132, and calcium was 7.7. Total bilirubin, AST, ALT slightly elevated. His total protein was 4.6, albumin was 1.6. His H and H this morning was 7.4 and 21.4 with normal white cell count and platelets. ASSESSMENT: 1. Dysphagia for which he is currently on peripheral parenteral malnutrition. 2. Urinary tract infection with growth of more than 100,000 colony forming units of Klebsiella pneumoniae sensitive to Rocephin. He also grew Staph epidermitis in 1 bottle out of 2, resistant to oxacillin that could be contaminant. 3. Acute kidney injury, improving. 4. Hyperkalemia, resolved. 5. Hypomagnesemia, improving. 6. He has multiple other medical problems including: A. Type 2 diabetes mellitus, seems to be reasonably controlled. B. Hypertension, extremely high this morning. C. Anemia with stable hemoglobin and hematocrit for the time being. PLAN: To consult social service worker to arrange a meeting or to talk with the DPOA regarding gastrostomy tube placement given that he has failed swallowing evaluation, high risk for aspiration on multiple occasions. KASIE TRIPLETT MD DR: FERMÍN/marysol JOB#: [id number] / [id number]
[2018-11-01] MEDS: FOSPHENYTOIN 100 MG/2 ML VIAL. IV SCH ×3 (06:22→21:43)
[2018-11-01 06:26] LABS: HEMATOCRIT 25.3 % (39.0-53.0); HEMOGLOBIN 8.5 g/dL (13.0-17.5); RED BLOOD COUNT 2.65 x10^6/uL (4.30-5.70); RED CELL DISTRIBUTION WIDTH 15.3 % (11.5-14.5); WHITE BLOOD COUNT 3.7 x10^3/uL (4.0-11.0)
[2018-11-01 07:03] LABS: ALBUMIN 1.5 g/dL (3.4-5.0); CALCIUM 7.9 mg/dL (8.5-10.1); CREATININE 0.5 mg/dL (0.7-1.3); GFR 201.3; MAGNESIUM 1.3 mg/dL (1.8-2.4); POTASSIUM 4.5 mmol/L (3.5-5.1)
[2018-11-01 07:41] VITALS: BP 191/82
[2018-11-01] MEDS: IPRATRPIUM/ALBUTEROL 0.5/2.5MG 3 ML NEBU. NEB SCH ×4 (07:41→20:18)
[2018-11-01] MEDS: INSULIN LISPRO 300 UNITS/3 ML VIAL. SQ SCH ×3 (08:00→18:29)
[2018-11-01] MEDS: LACTOBACILLUS RHAMNOSUS GG 1 CAPSULE. PO SCH ×2 (08:09→21:00)
[2018-11-01] MEDS: ASPIRIN CHEWABLE 81 MG TABLET. PO SCH (08:09)
[2018-11-01] MEDS: METOPROLOL TART IMMED RELEASE 50 MG TABLET. PO SCH ×2 (08:09→21:00)
[2018-11-01] MEDS: ATORVASTATIN CALCIUM 20 MG TABLET PO SCH (08:09)
[2018-11-01] MEDS: MULTIVITAMIN with MINERAL TABLET. PO SCH (08:10)
[2018-11-01] MEDS: GABAPENTIN 300 MG CAPSULE. PO SCH ×3 (08:10→21:00)
[2018-11-01] MEDS: SENNOSIDES 8.6 MG TABLET PO SCH ×2 (08:10→21:00)
[2018-11-01] MEDS ORDERED: MAGNESIUM SULFATE 2GM 50 ML IV ONE (09:30)
--- NOTE | 2018-11-01 09:43 | PDOC2 ---
GI CONSULT Reason For Consult: PEG HPI: HPI: 68 y/o male who we have seen in the past. Admitted this time w/ AMS and UTI. H/o CVA w/ aphasia. S/p port placement this admission. Has failed swallow evaluations. D/w nurse Blanca and Dr. Efe BUCKNER has given consent for PEG placement and we were asked to see. Currently NPO on PPN. Stooling. Has been quite hypertensive. INR was 1.4 yesterday. WBC 3.7, plt 136. Some elevation in AST and Alk Phos noted - both improved. Chronic anemia - required transfusion this admission, no obvious bleeding, and fecal occult negative. Low iron and TIBC w/ elevated iron sat - drawn after transfusion. From past encounter - previous CT noted extensive pancreatic calcifications c/w chronic pancreatitis, pancreatic ductal dilatation w/ calcific involvement (presumable related to previous pancreatitis), cholecystectomy, subtle nodular contour of liver, and proximal duodenal diverticulum. PMH: PMH: per chart - DM w/ complications, HTN, chronic resp failure, CVA w/ aphasia, PVD, epilepsy, HLD LBKA, cholecystectomy FH: Family History: Other (unable to obtain) Social History: ALCOHOL: none Drugs: None ROS: GEN: Denies fevers, chills, sweats HEENT: Denies blurred vision, sore throat CV: Denies chest pain RESP: Denies shortness of air, cough GI: Per HPI : Denies hematuria, dysuria ENDO: Denies weight changes NEURO: Denies confusion, dizziness MSK: Denies weakness, joint pain/swelling SKIN: Denies jaundice, pruritus Vitals: Vitals: Vital Signs Date Time Temp Pulse Resp B/P (MAP) Pulse Ox O2 Delivery O2 Flow Rate FiO2 11/01/18 07:42 95 Nasal Cannula 2.0 11/01/18 07:41 97.8 75 20 191/82 (118) 97.8 Labs: Labs: Laboratory Tests Test 10/31/18 11:48 11/01/18 06:15 Glucose (Fingerstick) 140 mg/dL (70-99) White Blood Count 3.7 x10^3/uL (4.0-11.0) Red Blood Count 2.65 x10^6/uL (4.30-5.70) Hemoglobin 8.5 g/dL (13.0-17.5) Hematocrit 25.3 % (39.0-53.0) Mean Corpuscular Volume 95 fL (79-100) Mean Corpuscular Hemoglobin 32 pg (25-35) Mean Corpuscular Hemoglobin Concent 34 g/dL (31-37) Red Cell Distribution Width 15.3 % (11.5-14.5) Platelet Count 136 x10^3/uL (140-400) Sodium Level 135 mmol/L (136-145) Potassium Level 4.5 mmol/L (3.5-5.1) Chloride Level 103 mmol/L (98-107) Carbon Dioxide Level 29 mmol/L (21-32) Anion Gap 3 (6-14) Blood Urea Nitrogen 12 mg/dL (8-26) Creatinine 0.5 mg/dL (0.7-1.3) Estimated GFR (Cockcroft-Gault) 201.3 Glucose Level 138 mg/dL (70-99) Calcium Level 7.9 mg/dL (8.5-10.1) Magnesium Level 1.3 mg/dL (1.8-2.4) Albumin 1.5 g/dL (3.4-5.0) Allergies: Coded Allergies: No Known Allergies (Verified Allergy, Unknown, 07/15/18) Medications: Current Medications Medications (Trade) Dose Ordered Sig/Inocencia Route PRN Reason Start Time Stop Time Status Last Admin Dose Admin Hydralazine HCl (Apresoline Inj) 20 mg PRN Q4HRS PRN IVP HYPERTENSION, 2ND CHOICE 10/31/18 13:00 10/31/18 13:23 Furosemide (Lasix) 40 mg 1X ONCE IVP 10/31/18 13:00 10/31/18 13:01 DC 10/31/18 12:58 Imaging: Imaging: Head CT 10/22 IMPRESSION: Chronic ischemic changes without acute intracranial abnormality identified. Videoswallow 10/24 Impression: Silent aspiration and sound penetration which relate to the small residuals within the vallecula and piriform sinuses. Aspirated and titrated amounts are minimal in quantity. Prolonged oral phase. CXR 10/29 IMPRESSION: 1.New right internal jugular port with tip at the cavoatrial junction 2. Moderate bilateral layering pleural effusions Speech Path Note videoswallow re-ordered. Last video 10/24. Pt not available this am x2. When seen this pm, pt w/intermittent wet phonation as he laid in bed saying "ahh" repeatedly. Limited po trials of single ice chip, puree and honey thick provided. IMPRESSIONS: No change from video-con't oropharyngeal delay and variable hyolaryngeal excursion at swallow observed this date. Delayed, wet cough p.all trials completed. Doubt improvement in swallow function given current obse rvations. RECOMMENDATIONS: Con't NPO and oral care. Will f/u 10/30. Hold video at this time given current observations are c/w recent 10/24/18 video. PE: GEN: NAD HEENT: Atraumatic, PERRL LUNGS: NC 2L, clear anteriorly HEART: RRR ABD: NABS, S/ND/NT - tenses abdomen when touched - similar to last admission EXTREMITY: No edema SKIN: No rashes, no jaundice NEURO/PSYCH: awake, non-verbal, smiles A/P: A/P: AMS, UTI, HTN H/o CVA w/ aphasia Dysphagia Duodenal diverticulum, chronic pancreatitis, ?cirrhosis Chronic anemia (heme negative), leukopenia, thrombocytopenia, elevated AST and Alk Phos (improved) S/p cholecystectomy -- Spoke w/ niece Nahum who is DPOA via phone - discussed PEG procedure and possible risks - she would like to proceed w/ PEG placement. On IV H2 nohemy. ?previously on ASA (held now) Can tentatively plan for PEG on Sunday. LARISSA WOLF Nov 01, 2018 09:43
[2018-11-01] MEDS: ALBUMIN HUMAN 25% 50 ML IV SCH (09:57)
[2018-11-01 10:08] VITALS: BP 213/89
[2018-11-01 14:15] VITALS: BP 218/103
[2018-11-01] MEDS: hydrALAZINE 20 MG/ML VIAL. IVP PRN (14:27)
[2018-11-01] MEDS: AMINO AC 3%/ELECTROLYTE/GLYCER 1,000 ML IV SCH (14:31)
[2018-11-01 19:00] VITALS: BP 163/93
[2018-11-01] MEDS: INSULIN GLARGINE SYRINGE. SQ SCH (21:00)
[2018-11-01] MEDS: FAMOTIDINE 20 MG/2 ML VIAL IVP SCH (21:42)
[2018-11-01 23:00] VITALS: BP 146/108
[2018-11-02] MEDS: fentaNYL PF VIAL 100 MCG/2 ML VIAL IV PRN (00:32)
[2018-11-02 03:00] VITALS: BP 165/82
[2018-11-02] MEDS: FOSPHENYTOIN 100 MG/2 ML VIAL. IV SCH ×3 (06:16→21:08)
[2018-11-02 07:01] VITALS: BP 136/83
[2018-11-02] MEDS: IPRATRPIUM/ALBUTEROL 0.5/2.5MG 3 ML NEBU. NEB SCH ×4 (07:39→19:44)
[2018-11-02] MEDS: INSULIN LISPRO 300 UNITS/3 ML VIAL. SQ SCH ×3 (08:00→17:00)
[2018-11-02] MEDS: AMINO AC 3%/ELECTROLYTE/GLYCER 1,000 ML IV SCH ×2 (08:25→21:13)
[2018-11-02] MEDS: LACTOBACILLUS RHAMNOSUS GG 1 CAPSULE. PO SCH ×2 (09:00→21:00)
[2018-11-02] MEDS: GABAPENTIN 300 MG CAPSULE. PO SCH ×3 (09:00→21:00)
[2018-11-02] MEDS: ATORVASTATIN CALCIUM 20 MG TABLET PO SCH (09:00)
[2018-11-02] MEDS: METOPROLOL TART IMMED RELEASE 50 MG TABLET. PO SCH ×2 (09:00→21:00)
[2018-11-02] MEDS: SENNOSIDES 8.6 MG TABLET PO SCH ×2 (09:00→21:00)
[2018-11-02] MEDS: MULTIVITAMIN with MINERAL TABLET. PO SCH (09:00)
[2018-11-02] MEDS: ASPIRIN CHEWABLE 81 MG TABLET. PO SCH (09:00)
[2018-11-02 10:18] VITALS: BP 172/93
[2018-11-02] MEDS ORDERED: MAGNESIUM SULFATE 2GM 50 ML IV ONE (10:45)
--- NOTE | 2018-11-02 11:03 | PN ---
DATE: 11/02/2018 SUBJECTIVE: The patient is resting, slightly propped up, sleeping comfortably, in no apparent distress. He is unfortunately nonverbal, but does not seem to be in any respiratory distress. PHYSICAL EXAMINATION: GENERAL: When I examined him, he was pale. No jaundice, cyanosis or thyromegaly. No jugular venous distention. No limb edema. VITAL SIGNS: His heart rate was 80, blood pressure was 172/93, temperature was 98.2, respiratory rate was 16 and oxygen saturation was 99% on 2L of oxygen. HEAD, EYES, EARS, NOSE AND THROAT: Normocephalic, atraumatic. NECK: Supple. HEART: Showed normal first and second heart sounds. No gallop or murmur. CHEST: Shows central trachea, equal bilateral chest expansion and air entry, vesicular breath sounds. I could not appreciate any crepitation or rhonchi. ABDOMEN: Distended, soft, nontender. No guarding or rigidity. No organomegaly. All hernial orifices intact. Bowel sounds normal. NEUROLOGICAL: He is aphasic with right-sided hemiplegia and left below-knee amputation. He is mostly bedbound. His intake over the last 24 hours was 735, output was 2650. LABORATORY DATA: His lab work as of yesterday showed serum sodium 135, potassium 4.5, chloride 103, bicarbonate 29, anion gap of 3, BUN 12, creatinine 0.5. His calcium was 7.9, magnesium was 1.3. Serum albumin continued to be low at 1.5. His white cell count was 3700, hemoglobin 8.5, hematocrit 25, MCV 95 and platelet count of 136,000. ASSESSMENT: 1. Oropharyngeal dysphagia for which he is scheduled for percutaneous endoscopic gastrostomy tube placement on Sunday. 2. Urinary tract infection with growth of more than 100,000 colony-forming units of Klebsiella pneumoniae, treated with Rocephin. 3. Acute kidney injury, improving. 4. Hyperkalemia, resolved. 5. Hypomagnesemia, improving. 6. He has multiple other medical problems including: A. Type 2 diabetes mellitus, seems to be reasonably controlled. B. Hypertension, suboptimally controlled. C. Anemia, stable hemoglobin and hematocrit. D. Severe hypoalbuminemia with albumin of only 1.5 g/dL. PLAN: To continue with the current plan of management. Once we have his gastrostomy tube placed, we will switch all the medications to be given through the gastrostomy tube, and he can be discharged back to [facility]. KASIE TRIPLETT MD DR: Kang JOB#: [id number] / [id number]
[2018-11-02 14:15] VITALS: BP 148/78
[2018-11-02 19:08] VITALS: BP 144/72
[2018-11-02] MEDS: FAMOTIDINE 20 MG/2 ML VIAL IVP SCH (21:07)
[2018-11-02] MEDS: INSULIN GLARGINE SYRINGE. SQ SCH (21:13)
[2018-11-02 22:35] VITALS: BP 151/91
[2018-11-03] VITALS (7 sets, daily range): BP systolic 137–205; BP diastolic 74–87
[2018-11-03] MEDS: FOSPHENYTOIN 100 MG/2 ML VIAL. IV SCH ×3 (06:13→22:19)
[2018-11-03 06:33] LABS: CALCIUM 8.2 mg/dL (8.5-10.1); CREATININE 0.6 mg/dL (0.7-1.3); GFR 163.1; POTASSIUM 4.8 mmol/L (3.5-5.1)
[2018-11-03 06:39] LABS: HEMATOCRIT 24.1 % (39.0-53.0); HEMOGLOBIN 8.3 g/dL (13.0-17.5); RED BLOOD COUNT 2.54 x10^6/uL (4.30-5.70); RED CELL DISTRIBUTION WIDTH 15.4 % (11.5-14.5); WHITE BLOOD COUNT 3.9 x10^3/uL (4.0-11.0)
[2018-11-03 07:03] LABS: PROTHROMBIN TIME PATIENT 18.8 SEC (11.7-14.0)
[2018-11-03] MEDS: IPRATRPIUM/ALBUTEROL 0.5/2.5MG 3 ML NEBU. NEB SCH ×3 (07:17→19:02)
[2018-11-03] MEDS: INSULIN LISPRO 300 UNITS/3 ML VIAL. SQ SCH ×3 (08:00→17:00)
[2018-11-03] MEDS: MULTIVITAMIN with MINERAL TABLET. PO SCH (09:00)
[2018-11-03] MEDS: ASPIRIN CHEWABLE 81 MG TABLET. PO SCH (09:00)
[2018-11-03] MEDS: METOPROLOL TART IMMED RELEASE 50 MG TABLET. PO SCH ×2 (09:00→21:00)
[2018-11-03] MEDS: LACTOBACILLUS RHAMNOSUS GG 1 CAPSULE. PO SCH ×2 (09:00→21:00)
[2018-11-03] MEDS: ATORVASTATIN CALCIUM 20 MG TABLET PO SCH (09:00)
[2018-11-03] MEDS: GABAPENTIN 300 MG CAPSULE. PO SCH ×3 (09:00→21:00)
[2018-11-03] MEDS: SENNOSIDES 8.6 MG TABLET PO SCH ×2 (09:00→21:00)
[2018-11-03] MEDS: hydrALAZINE 20 MG/ML VIAL. IVP PRN ×2 (10:27→15:55)
[2018-11-03] MEDS ORDERED: PHYTONADIONE 10 MG/ML AMPUL. SQ ONE (11:00)
--- NOTE | 2018-11-03 13:45 | PN ---
DATE: 11/03/2018 SUBJECTIVE: The patient is resting, slightly propped up in bed, in no apparent respiratory distress. He is awake and alert. Unfortunately, he is nonverbal. Nursing staff did not voice any concern except that her blood pressure continues to be high. PHYSICAL EXAMINATION: GENERAL: When I examined him, he looked pale, not jaundiced or cyanosed. No thyromegaly. No jugular venous distention. No edema. VITAL SIGNS: His heart rate was 72, blood pressure 183/86, temperature was 98, respiratory rate was 16, and oxygen saturation was 99% on 2 liters of oxygen. HEAD, EYES, EARS, NOSE, AND THROAT: Normocephalic and atraumatic. NECK: Supple. HEART: Showed normal first and second heart sounds. No gallop or murmur. CHEST: Clear to auscultation. No crepitation or rhonchi. ABDOMEN: Distended, soft, and nontender. No guarding or rigidity. No organomegaly. All hernial orifice intact. Bowel sounds normal. NEUROLOGIC: He was nonverbal. He has right-sided hemiplegia and left below-knee amputation. He is mostly bedbound and chair bound. His intake and output are incompletely recorded. LABORATORY DATA: His lab work this morning showed a prothrombin time of 18.8 and INR 1.6. White cell count was 3900, hemoglobin 8.3, hematocrit 24, MCV 95, and platelet count of 157,000. His chemistry showed that his serum sodium was 135, potassium 4.8, chloride 103, bicarbonate 29, anion gap of 3, BUN 17, creatinine 0.6, estimated GFR was 163 mL per minute, glucose 119, and calcium was 8.2. ASSESSMENT: 1. Oropharyngeal dysphagia for which he is scheduled for percutaneous endoscopic gastrostomy tube placement tomorrow. 2. Urinary tract infection with growth of more than 100,000 colony forming units per mL of Klebsiella pneumoniae, treated with Rocephin. 3. Acute kidney injury, improving. 4. Hyperkalemia, resolved. 5. Hypomagnesemia, improving. 6. He has multiple other medical problems including: a. Type 2 diabetes, seems to be reasonably controlled. b. Hypertension, suboptimally controlled. c. Anemia with stable hemoglobin and hematocrit. d. Severe hypoalbuminemia with serum albumin only 1.5 gm/dL. PLAN: My plan is to add vitamin K 5 mg subcutaneously once a day and change metoprolol to perhaps labetalol to see if he can achieve better control. KASIE TRIPLETT MD DR: FERMÍN/marysol JOB#: [id number] / [id number]
[2018-11-03] MEDS: FAMOTIDINE 20 MG/2 ML VIAL IVP SCH (22:19)
[2018-11-03] MEDS: INSULIN GLARGINE SYRINGE. SQ SCH (22:20)
[2018-11-04] VITALS (11 sets, daily range): BP systolic 138–194; BP diastolic 58–97
[2018-11-04 05:09] LABS: PROTHROMBIN TIME PATIENT 13.9 SEC (11.7-14.0)
[2018-11-04] MEDS: FOSPHENYTOIN 100 MG/2 ML VIAL. IV SCH ×3 (06:01→23:06)
[2018-11-04] MEDS: IPRATRPIUM/ALBUTEROL 0.5/2.5MG 3 ML NEBU. NEB SCH ×4 (07:09→19:55)
[2018-11-04] MEDS: INSULIN LISPRO 300 UNITS/3 ML VIAL. SQ SCH ×3 (08:00→17:00)
[2018-11-04] MEDS: ATORVASTATIN CALCIUM 20 MG TABLET PO SCH (09:00)
[2018-11-04] MEDS: LACTOBACILLUS RHAMNOSUS GG 1 CAPSULE. PO SCH ×2 (09:00→23:04)
[2018-11-04] MEDS: ASPIRIN CHEWABLE 81 MG TABLET. PO SCH (09:00)
[2018-11-04] MEDS: SENNOSIDES 8.6 MG TABLET PO SCH ×2 (09:00→23:05)
[2018-11-04] MEDS: GABAPENTIN 300 MG CAPSULE. PO SCH ×3 (09:00→23:04)
[2018-11-04] MEDS: METOPROLOL TART IMMED RELEASE 50 MG TABLET. PO SCH ×2 (09:00→23:04)
[2018-11-04] MEDS: MULTIVITAMIN with MINERAL TABLET. PO SCH (09:00)
[2018-11-04] MEDS: AMINO AC 3%/ELECTROLYTE/GLYCER 1,000 ML IV SCH ×2 (10:29→17:40)
--- NOTE | 2018-11-04 10:54 | PN ---
DATE: 11/04/2018 SUBJECTIVE: The patient is resting slightly propped up in bed, in no apparent distress. Unfortunately, he is nonverbal, does not give any useful information. The nursing staff did not voice any concerns that he has an eventful night. He is scheduled for percutaneous gastrostomy tube placement at 3:00 in the afternoon. PHYSICAL EXAMINATION: GENERAL: When I examined him, he looked pale, no jaundice, cyanosis or thyromegaly. No jugular venous distension. No lower limb edema. VITAL SIGNS: His heart rate was 73, blood pressure was 166/65, temperature was 98.4, respiratory rate was 18 and oxygen saturation was 97% on 2 liters of oxygen. The rest of his clinical exam is stable. His intake incompletely recorded, output was 1200. LABORATORY DATA: His prothrombin time this morning was 13.9, INR 1.1. As of yesterday, his white cell count was 3900, hemoglobin 8.3, hematocrit 24, MCV 95, and platelet count of 157,000. His chemistry showed serum sodium 135, potassium 4.8, chloride 103, bicarbonate 29, anion gap of 3, BUN 17, creatinine was 0.6, estimated GFR was 163 mL per minute, his glucose 119 and calcium was 8.2. ASSESSMENT: 1. Oropharyngeal dysphagia, for which he is scheduled for percutaneous endoscopic gastrostomy tube placement this afternoon. 2. Urinary tract infection with growth of Klebsiella pneumoniae, treated with Rocephin. 3. Acute kidney injury, improving. 4. Hyperkalemia, resolved. 5. Hypomagnesemia, improving. 6. He has multiple other medical problems including: A. Type 2 diabetes mellitus, reasonably controlled. B. Hypertension. C. Anemia with stable hemoglobin and hematocrit. D. Severe hypoalbuminemia with serum albumin is only 1.5. E. Peripheral vascular disease, status post left below-knee amputation. F. 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 PLAN: To continue TPN for now. Continue with IV antihypertensive medication for now. Once he would be able to use his gastrostomy tube, we will start him on tube feeding as well as switch all his medication to be given through the gastrostomy tube. KASIE TIRPLETT MD DR: FERMÍN/marysol JOB#: [id number] / [id number]
[2018-11-04] MEDS: hydrALAZINE 20 MG/ML VIAL. IVP PRN (11:44)
[2018-11-04] MEDS ORDERED: ceFAZolin SODIUM 3 GM in IV DEXTROSE 5% 100ML 100 ML IV ONE (12:00)
[2018-11-04] MEDS: IV RINGERS,LACTATED 1000ML 1,000 ML IV SCH (14:23)
[2018-11-04] MEDS ORDERED: LIDOCAINE 2% PF 5 ML VIAL. ONE (15:40)
[2018-11-04] MEDS ORDERED: PROPOFOL 20 ML IV ONE (15:40)
--- NOTE | 2018-11-04 16:03 | PDOC4 ---
PROCEDURE Procedure EGD/PEG Indication: OP dysphagia Meds: per anesthesia Findings: E--normal G--normal D--suzanne bulb. --20F PEG placed uneventfully. 'Scope briefly re-introduced, confirming good placement. [place].well. IMP: successful PEG REC: Water and meds per tube OK today. Start feeding in AM if no issues. HOMER MOON MD Nov 04, 2018 16:03
[2018-11-04] MEDS: LABETALOL 20 MG/4 ML DISP.SYRIN. IVP PRN (17:24)
[2018-11-04] MEDS: FAMOTIDINE 20 MG/2 ML VIAL IVP SCH (23:05)
[2018-11-04] MEDS: INSULIN GLARGINE SYRINGE. SQ SCH (23:08)
[2018-11-05] MEDS: IV RINGERS,LACTATED 1000ML 1,000 ML IV SCH ×3 (00:30→20:30)
[2018-11-05 03:30] VITALS: BP 183/70
[2018-11-05] MEDS: LABETALOL 20 MG/4 ML DISP.SYRIN. IVP PRN ×2 (04:55→16:29)
[2018-11-05] MEDS: FOSPHENYTOIN 100 MG/2 ML VIAL. IV SCH ×3 (04:56→22:49)
[2018-11-05] MEDS: AMINO AC 3%/ELECTROLYTE/GLYCER 1,000 ML IV SCH (05:16)
[2018-11-05 05:27] LABS: HEMATOCRIT 22.7 % (39.0-53.0); HEMOGLOBIN 7.6 g/dL (13.0-17.5); RED BLOOD COUNT 2.38 x10^6/uL (4.30-5.70); RED CELL DISTRIBUTION WIDTH 15.3 % (11.5-14.5); WHITE BLOOD COUNT 3.6 x10^3/uL (4.0-11.0)
[2018-11-05 07:00] VITALS: BP_SYST 165; BP_SYST 174; BP_DIAS 75; BP_DIAS 79
[2018-11-05] MEDS: IPRATRPIUM/ALBUTEROL 0.5/2.5MG 3 ML NEBU. NEB SCH ×4 (07:08→19:31)
[2018-11-05] MEDS: INSULIN LISPRO 300 UNITS/3 ML VIAL. SQ SCH ×3 (08:00→17:00)
[2018-11-05] MEDS: SENNOSIDES 8.6 MG TABLET PO SCH ×2 (10:32→22:48)
[2018-11-05] MEDS: ATORVASTATIN CALCIUM 20 MG TABLET PO SCH (10:32)
[2018-11-05] MEDS: MULTIVITAMIN with MINERAL TABLET. PO SCH (10:32)
[2018-11-05] MEDS: LACTOBACILLUS RHAMNOSUS GG 1 CAPSULE. PO SCH ×2 (10:32→22:48)
[2018-11-05] MEDS: GABAPENTIN 300 MG CAPSULE. PO SCH ×3 (10:33→22:49)
[2018-11-05] MEDS: ASPIRIN CHEWABLE 81 MG TABLET. PO SCH (10:33)
[2018-11-05 11:00] VITALS: BP 181/76
--- NOTE | 2018-11-05 11:22 | PDOC ---
Objective: Objective: Per nurse - about to give meds, also plans to start tube feeds. Vital Signs: Vital Signs Date Time Temp Pulse Resp B/P (MAP) Pulse Ox O2 Delivery O2 Flow Rate FiO2 11/05/18 07:09 96 Nasal Cannula 1.0 11/05/18 07:00 98.0 68 16 165/75 (105) 98.0 Labs: Laboratory Tests Test 11/04/18 11:52 11/04/18 17:29 11/05/18 00:42 11/05/18 05:10 Glucose (Fingerstick) 131 mg/dL 129 mg/dL 135 mg/dL White Blood Count 3.6 x10^3/uL Red Blood Count 2.38 x10^6/uL Hemoglobin 7.6 g/dL Hematocrit 22.7 % Mean Corpuscular Volume 95 fL Mean Corpuscular Hemoglobin 32 pg Mean Corpuscular Hemoglobin Concent 34 g/dL Red Cell Distribution Width 15.3 % Platelet Count 180 x10^3/uL Magnesium Level 1.6 mg/dL Imaging: EGD/PEG 11/04 E--normal G--normal D--suzanne bulb. --20F PEG placed uneventfully. 'Scope briefly re-introduced, confirming good placement. IMP: successful PEG REC: Water and meds per tube OK today. Start feeding in AM if no issues. PE: GEN: NAD - smiling LUNGS: room air HEART: RRR ABD: PEG in place - removed gauze and loosened bumper, BS+, soft NEURO/PSYCH: non-verbal A/P: S/p PEG placement -- Okay to start tube feeds, DC per primary if tolerates. LARISSA WOLF Nov 05, 2018 11:22
--- NOTE | 2018-11-05 11:35 | PN ---
DATE: 11/05/2018 SUBJECTIVE: The patient is resting, slightly propped up in bed, no apparent distress. He is unfortunately nonverbal, but clinically does not seem to be in any respiratory distress. OBJECTIVE: GENERAL: On examining him, he looked pale, but no jaundice, cyanosis, or thyromegaly. Has generalized anasarca with swelling of both upper extremities more than his lower extremities, and more so on the right than left. He has a PICC line there. He has had his gastrostomy tube placed successfully yesterday. VITAL SIGNS: When I examined him this morning, his heart rate was 68, blood pressure was 165/75, temperature was 98, respiratory rate was 16, and oxygen saturation was 96%. HEAD, EYES, EARS, NOSE, AND THROAT: Showed normocephalic, atraumatic. NECK: Supple. HEART: Showed normal first and second heart sounds. No gallop or murmur. CHEST: Clear to auscultation. No crepitation or rhonchi. ABDOMEN: Distended, soft with a gastrostomy tube in place. There is no guarding. NEUROLOGIC: Cranial nerves intact. He has left middle cerebral artery territory infarct, right-sided hemiplegia and aphasia, has left below knee amputation. His intake over the last 24 hours was incompletely recorded, output was 1500. LABORATORY DATA: His lab work this morning showed that his white cell count was 3600, hemoglobin 7.6, hematocrit 22.7, MCV 95, and platelet count of 180,000. His most recent chemistry showed a serum sodium 135, potassium 4.8, chloride 103, bicarbonate 29, anion gap of 3, BUN 17, creatinine 0.6, estimated GFR was 163 mL per minute, glucose 119, calcium was 8.2. ASSESSMENT: 1. Oropharyngeal dysphagia, for which he has had a percutaneous endoscopic gastrostomy tube placed successfully yesterday. He is now getting his medication and water flushes. We will discontinue the TPN and start him on tube feeding. I would consult dietitian for that. 2. Urinary tract infection with growth of Klebsiella pneumoniae, treated with Rocephin. 3. Acute kidney injury, improved. 4. Hyperkalemia, resolved. 5. Hypomagnesemia, improving. 6. The patient has multiple other medical problems including: A. Type 2 diabetes mellitus, reasonably controlled. B. Hypertension. C. Anemia with stable hemoglobin and hematocrit. D. Severe hyperalbuminemia with generalized anasarca. E. Peripheral vascular disease, status post left below-knee amputation. F. 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 PLAN: My plan is to resume all his medication to be given through a feeding tube. I will arrange for him to have a chest x-ray, bilateral upper extremity venous Doppler ultrasound, and consult the dietitian to start the tube feeding. KASIE TRIPLETT MD DR: FERMÍN/marysol JOB#: [id number] / [id number]
--- NOTE | 2018-11-05 12:34 | RAD ---
EXAM: Bilateral upper extremity venous Doppler sonogram. HISTORY: Pain and swelling. TECHNIQUE: Veliz scale and color Doppler sonographic evaluation of the bilateral upper extremity veins with spectral waveform analysis was performed. FINDINGS: Exam is limited due to patient immobility soft tissue edema. There is normal color flow, normal compressibility and there are normal spectral waveforms in the upper extremity veins. IMPRESSION: No Doppler evidence of upper extremity venous thrombosis. Electronically signed by: Christin Villavicencio MD (11/05/2018 12:31 PM) [place] [id number]
[2018-11-05] MEDS: METOPROLOL TART IMMED RELEASE 50 MG TABLET. PO SCH ×2 (12:50→22:48)
--- NOTE | 2018-11-05 14:51 | RAD ---
EXAM: Chest, single view. HISTORY: Shortness of breath. COMPARISON: 10/29/2018 FINDINGS: A frontal view of the chest is obtained. There is stable pulmonary congestion with moderate bilateral pleural effusions and a prominent cardiac silhouette. There are multiple calcified granulomas. There is a right chest wall port catheter with the tip in the superior vena cava. There is a right PICC with the tip in the right atrium. There is no pneumothorax. There is suggestion of left shoulder dislocation or subluxation. IMPRESSION: 1. Stable pulmonary congestion with moderate pleural effusions and enlargement of the cardiac silhouette. 2. Suspected left shoulder dislocation or subluxation. Electronically signed by: Christin Villavicencio MD (11/05/2018 2:48 PM) [place] [id number]
[2018-11-05 15:00] VITALS: BP 190/75
[2018-11-05] MEDS: MAGNESIUM OXIDE 400 MG TABLET PEG SCH ×2 (15:00→22:48)
[2018-11-05] MEDS: metFORMIN 500 MG TABLET PO SCH (16:28)
[2018-11-05 19:00] VITALS: BP 183/75
[2018-11-05 23:00] VITALS: BP 193/78
[2018-11-05] MEDS: INSULIN GLARGINE SYRINGE. SQ SCH (23:02)
[2018-11-06] VITALS (7 sets, daily range): BP systolic 124–192; BP diastolic 46–77
[2018-11-06] MEDS: AMINO AC 3%/ELECTROLYTE/GLYCER 1,000 ML IV SCH ×2 (01:14→17:38)
[2018-11-06] MEDS: LABETALOL 20 MG/4 ML DISP.SYRIN. IVP PRN (03:29)
[2018-11-06] MEDS: FOSPHENYTOIN 100 MG/2 ML VIAL. IV SCH ×3 (05:22→22:49)
[2018-11-06] MEDS: IV RINGERS,LACTATED 1000ML 1,000 ML IV SCH ×2 (05:35→16:30)
[2018-11-06 05:40] LABS: HEMOGLOBIN 7.5 g/dL (13.0-17.5); RED BLOOD COUNT 2.32 x10^6/uL (4.30-5.70); RED CELL DISTRIBUTION WIDTH 15.4 % (11.5-14.5); WHITE BLOOD COUNT 3.8 x10^3/uL (4.0-11.0)
[2018-11-06 05:58] LABS: CALCIUM 8.1 mg/dL (8.5-10.1); CREATININE 0.5 mg/dL (0.7-1.3); GFR 201.3; MAGNESIUM 1.5 mg/dL (1.8-2.4); POTASSIUM 4.7 mmol/L (3.5-5.1)
[2018-11-06] MEDS ORDERED: PANTOPRAZOLE 40 MG TABLET.DR. PO SCH (07:30)
[2018-11-06] MEDS: IPRATRPIUM/ALBUTEROL 0.5/2.5MG 3 ML NEBU. NEB SCH ×4 (07:32→20:53)
[2018-11-06] MEDS: INSULIN LISPRO 300 UNITS/3 ML VIAL. SQ SCH ×3 (08:00→19:01)
[2018-11-06] MEDS: metFORMIN 500 MG TABLET PO SCH ×2 (08:34→17:29)
[2018-11-06] MEDS: GABAPENTIN 300 MG CAPSULE. PO SCH ×3 (08:34→22:26)
[2018-11-06] MEDS: MAGNESIUM OXIDE 400 MG TABLET PEG SCH ×3 (08:34→22:25)
[2018-11-06] MEDS: MULTIVITAMIN with MINERAL TABLET. PO SCH (08:34)
[2018-11-06] MEDS: METOPROLOL TART IMMED RELEASE 50 MG TABLET. PO SCH ×2 (08:34→22:26)
[2018-11-06] MEDS: LACTOBACILLUS RHAMNOSUS GG 1 CAPSULE. PO SCH ×2 (08:34→22:25)
[2018-11-06] MEDS: ATORVASTATIN CALCIUM 20 MG TABLET PO SCH (08:34)
[2018-11-06] MEDS: LANSOPRAZOLE 30 MG TAB.RAP.DR PEG SCH ×2 (08:34→17:29)
[2018-11-06] MEDS: SENNOSIDES 8.6 MG TABLET PO SCH ×2 (08:34→22:25)
[2018-11-06] MEDS: ASPIRIN CHEWABLE 81 MG TABLET. PO SCH (08:34)
[2018-11-06] MEDS: LOSARTAN POTASSIUM 50 MG TABLET. PO SCH (08:35)
--- NOTE | 2018-11-06 09:35 | PDOC ---
Objective: Objective: Nurse in room - tolerates tube feeds. Vital Signs: Vital Signs Date Time Temp Pulse Resp B/P (MAP) Pulse Ox O2 Delivery O2 Flow Rate FiO2 11/06/18 08:35 76 166/55 11/06/18 07:00 98.8 18 94 Nasal Cannula 1.0 98.8 Labs: Laboratory Tests Test 11/05/18 13:03 11/05/18 19:03 11/06/18 01:54 11/06/18 06:08 Glucose (Fingerstick) 129 mg/dL (70-99) 124 mg/dL (70-99) 112 mg/dL (70-99) 117 mg/dL (70-99) Imaging: UE US 11/05 IMPRESSION: No Doppler evidence of upper extremity venous thrombosis. CXR 11/05 IMPRESSION: 1. Stable pulmonary congestion with moderate pleural effusions and enlargement of the cardiac silhouette. 2. Suspected left shoulder dislocation or subluxation. PE: GEN: NAD LUNGS: room air HEART: RRR ABD: PEG in place, BS+ NEURO/PSYCH: sleepy, non-verbal, occasional gron A/P: S/p PEG placement -- Tolerating tube feeds - less interactive than normal - hard to tell if in pain, etc. Add Miralax, continue PPI. PPN per primary. LARISSA WOLF Nov 06, 2018 09:35
[2018-11-06] MEDS ORDERED: POLYETHYLENE GLYCOL 3350 17 GM PACKET. PEG SCH (10:00)
--- NOTE | 2018-11-06 10:22 | PN ---
DATE: 11/06/2018 SUBJECTIVE: The patient is resting, slightly propped up in bed, no apparent distress, has had his EGD and PEG tube on 11/04/2018. He was started on medication and tube feeding yesterday. The goal is 60 mL per hour. He is on now 13 mL per hour. PHYSICAL EXAMINATION: GENERAL: When I examined him this morning, he looked pale, no jaundice, cyanosis or thyromegaly. No jugular venous distention. No lower limb edema. VITAL SIGNS: His heart rate was 76, blood pressure was 166/55, temperature was 98.8, respiratory rate was 18 and oxygen saturation was 94%. HEAD, EYES, EARS, NOSE AND THROAT: Normocephalic, atraumatic. NECK: Supple. HEART: Showed normal first and second heart sounds. No gallop, rub or murmur. CHEST: Clear to auscultation. No crepitation or rhonchi. ABDOMEN: Distended, soft with gastrostomy tube in place. There is no guarding or rigidity. No organomegaly. All hernial orifices intact. Bowel sounds normal. NEUROLOGIC: He is nonverbal with right-sided hemiplegia and left below knee amputation. He is mostly bedbound. His intake and output were incompletely recorded. LABORATORY DATA: As of this morning showed white cell count of 3800, hemoglobin 7.5, hematocrit 22, MCV 95, and platelet count of 190,000. Serum sodium 133, potassium 4.7, chloride 102, bicarbonate 29, anion gap of 2, BUN 16, creatinine 0.5, estimated GFR was 201 mL per minute, glucose 117, calcium was 8.1, magnesium was 1.5. ASSESSMENT: 1. Oropharyngeal dysphagia, for which he has a percutaneous endoscopic gastrostomy tube placed successfully. He is now getting his medication and water flushes as well as tube feeding started an hour 13 mL with a goal of 60 mL per hour. 2. Urinary tract infection with growth of Klebsiella pneumoniae, treated with Rocephin. 3. Acute kidney injury, improved. 4. Hyperkalemia, resolved. 5. Hypomagnesemia, improving. 6. The patient has multiple other medical problems including: A. Type 2 diabetes mellitus, reasonably controlled. B. Hypertension. C. Anemia with stable hemoglobin and hematocrit. D. Severe hypoalbuminemia with generalized anasarca. E. Peripheral vascular disease, status post left below knee amputation. F. 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 PLAN: To increase the tube feeding to the goal as per protocol. He will be discharged to [facility] tomorrow if no complication. KASIE TRIPLETT MD DR: FERMÍN/marysol JOB#: [id number] / [id number]
[2018-11-06] MEDS ORDERED: MAGNESIUM CITRATE 296 ML SOLUTION. PEG ONE (15:00)
[2018-11-07] MEDS: INSULIN GLARGINE SYRINGE. SQ SCH (00:04)
[2018-11-07] MEDS: LABETALOL 20 MG/4 ML DISP.SYRIN. IVP PRN ×2 (01:19→05:50)
[2018-11-07] MEDS: IV RINGERS,LACTATED 1000ML 1,000 ML IV SCH (02:30)
[2018-11-07 03:00] VITALS: BP 195/88
[2018-11-07] MEDS: FOSPHENYTOIN 100 MG/2 ML VIAL. IV SCH (05:47)
[2018-11-07 07:00] VITALS: BP 169/63
[2018-11-07] MEDS: IPRATRPIUM/ALBUTEROL 0.5/2.5MG 3 ML NEBU. NEB SCH (07:05)
[2018-11-07] MEDS ORDERED: MAGN400T22 PO (08:40)
--- NOTE | 2018-11-07 08:41 | SNU/HH DC ---
DISCHARGE ORDERS DISCHARGE INFORMATION: DISCHARGE DATE: Nov 07, 2018 FINAL DIAGNOSIS Problems Medical Problems: (1) Sefmc-[id number]-[id number] kidney injury Status: Acute CONDITION ON DISCHARGE: Stable SNF: SNF STAY <30 DAYS: Yes POST DISCHARGE ORDERS: ACTIVITY ORDERS: Activity as tolerated DIET AFTER DISCHARGE: ADA TREATMENT/EQUIPMENT ORDERS: ADAPTIVE EQUIPMENT NEEDED: None, Wheelchair Physical Therapy For: Evalulation/Treatment Occupational Therapy For: Evaluation/Treatment DISCHARGE MEDICATIONS: Home Meds Active Scripts Magnesium Oxide (MAG-OXIDE) 400 Mg Tablet, 1 TAB PO BID for HYPOMAG for 30 Days, #60 TAB 5 Refills Prov:KASIE TRIPLETT MD 11/07/18 Insulin Glargine,Hum.rec.anlog (LANTUS SOLOSTAR) 100 Unit/1 Ml Insuln.pen, 2 UNIT SQ QHS for dm for 30 Days, #15 SYR Prov:KASIE TRIPLETT MD 10/17/18 Metformin Hcl (METFORMIN HCL) 500 Mg Tablet, 500 MG PO BIDWMEALS for ANTI-DIABETIC for 30 Days, #60 TAB 0 Refills Prov:KASIE TRIPLETT MD 10/17/18 Insulin Aspart (NOVOLOG FLEXPEN) 100 Unit/1 Ml Insuln.pen, 2 UNIT SQ TIDAC for DM for 30 Days, SYR hold if blood sugar < 120 Prov:ELIAS GONZALEZ MD 09/24/18 Ipratropium/Albuterol Sulfate (DUONEB 0.5-3(2.5) MG/3 ML) 3 Ml Ampul.neb, 3 ML NEB QID for copd for 30 Days, #120 EACH Prov:KASIE TRIPLETT MD 05/23/18 Lactobacillus Acidophilus (Acidophilus Lactobacilli) 1 Each Capsule, 1 EACH PO BID for pneumonia for 10 Days, #20 CAP Prov:KASIE TRIPLETT MD 05/23/18 Reported Medications Multivits,Ca,Minerals/Iron/Fa (THERA-M TABLET) 1 Each Tablet, 1 EACH PO DAILY for Supplement , TAB 07/15/18 Sennosides (SENNA) 8.6 Mg Tablet, 8.6 MG PO BID for CONSTIPATION , TAB 05/19/18 Phenytoin Sodium Extended (DILANTIN) 100 Mg Capsule, 1 CAP PO TID for SEIZURES, #90 CAP 3 Refills 05/19/18 Omeprazole (OMEPRAZOLE) 40 Mg Capsule.dr, 1 CAP PO BID for GERD, #30 CAP 3 Refills 05/19/18 Guaifenesin (MUCINEX) 600 Mg Tablet.er, 1 TAB PO BID PRN for CONGESTION, #14 TAB 05/19/18 Metoprolol Tartrate (METOPROLOL TARTRATE) 50 Mg Tablet, 1 TAB PO BID for HTN, #60 TAB 5 Refills 05/19/18 Losartan Potassium (LOSARTAN POTASSIUM) 100 Mg Tablet, 100 MG PO DAILY for HYPE RTENSION, TAB 05/19/18 Gabapentin (GABAPENTIN ) 300 Mg Capsule, 300 MG PO TID for NEUROGENIC PAIN, CAP 05/19/18 Furosemide (FUROSEMIDE) 40 Mg Tablet, 1 TAB PO DAILY for ANASARCA, #30 TAB 5 Refills 05/19/18 Atorvastatin Calcium (ATORVASTATIN CALCIUM) 20 Mg Tablet, 1 TAB PO DAILY for HLD, #30 TAB 5 Refills 05/19/18 Aspirin (ASPIRIN) 81 Mg Tab.chew, 1 TAB PO DAILY for heart, #30 TAB 3 Refills 05/19/18 KASIE TRIPLETT MD Nov 07, 2018 08:41
--- NOTE | 2018-11-07 09:09 | DS ---
DATE OF DISCHARGE: 11/07/2018 HOSPITAL COURSE: The patient is a 68-year-old -[place] male patient, a resident at [facility] [place], who was admitted originally with altered mental status. At that time, he was found to have urinary tract infection, acute on chronic kidney injury, hyperkalemia, hypomagnesemia. All these were treated; however, he was found to have dysphagia and therefore, he underwent a PEG tube placement successfully and he was started on tube feeding yesterday together with water flushes and medications: He is now up to the goal of 60 mL of Glucerna. He has 100 mL of fluid water flushes every 4 hours and a decision was made to discharge him back to [facility] in [place]. PHYSICAL EXAMINATION: GENERAL: When I saw him this morning, he was resting slightly propped up in bed, in no apparent respiratory distress. No pallor. He was pale, but no jaundice, cyanosis or thyromegaly. No jugular venous distention. No lower limb edema. VITAL SIGNS: His heart rate was 71, blood pressure was 195/88, temperature was 97.8, respiratory rate was 18 and oxygen saturation was 97%. HEAD, EYES, EARS, NOSE AND THROAT: Showed normocephalic, atraumatic. NECK: Supple. HEART: Showed normal first and second heart sounds. No gallop, rub or murmur. CHEST: Clear to auscultation. No crepitation or rhonchi. ABDOMEN: Distended, soft with gastrostomy tube in place. There is no tenderness. No guarding or rigidity. No organomegaly. All hernial orifice intact. Bowel sounds normal. NEUROLOGIC: He is sleepy, but arousable. He has expressive aphasia, right-sided hemiplegia, and left below knee amputation. His intake was incompletely recorded, output was 1850. LABORATORY DATA: His most recent lab work showed a white cell count 3800, hemoglobin 7.5, hematocrit 22, MCV 95, and platelet count of 190,000. Serum sodium was 133, potassium 4.7, chloride 102, bicarbonate 29, anion gap of 2, BUN 16, creatinine 0.5, estimated GFR was 101 mL per minute, his glucose 117, calcium was 8.1, and magnesium was 1.5. DISCHARGE MEDICATIONS: The patient was discharged back to [facility] on magnesium oxide 400 mg twice a day, aspirin 81 mg once a day, atorvastatin calcium 20 mg at bedtime, furosemide 40 mg daily, gabapentin 300 mg 3 times a day, Mucinex 600 mg twice a day. He is on NovoLog insulin 2 units 3 times a day and Lantus insulin 2 units at bedtime, ipratropium bromide, albuterol sulfate 3 mL by nebulizer 4 times a day, lactobacillus acidophilus 1 capsule twice a day, losartan potassium 100 mg daily, metformin 500 mg twice a day, metoprolol tartrate 50 mg twice a day, multivitamin with mineral 1 tablet once a day, omeprazole 40 mg twice a day, phenytoin 100 mg 3 times a day and senna 1 tablet twice a day. FINAL DISCHARGE DIAGNOSES: 1. Oropharyngeal dysphagia, which has a percutaneous endoscopic gastrostomy tube placed successfully. He is now on tube feeding in the form of Jevity at 60 mL per hour, 100 mL of water every 4 hours and he is also on all his medication was given through his feeding tube. 2. Urinary tract infection with growth of Klebsiella pneumoniae, treated with Rocephin. 3. Acute kidney injury, resolved. 4. Hyperkalemia, resolved. 5. Hypomagnesemia, improved. 6. A. The patient has multiple other medical problems including type 2 diabetes mellitus, reasonably controlled. B. Hypertension. C. Anemia with stable hemoglobin and hematocrit. mmHg. Severe hypoalbuminemia generalized anasarca. E. Peripheral vascular disease, status post left below knee amputation. F. 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 G. Seizure disorder for which he is on phenytoin. KASIE TRIPLETT MD DR: FERMÍN/marysol JOB#: [id number] / [id number]
[2018-11-07] MEDS: GABAPENTIN 300 MG CAPSULE. PO SCH (10:26)
[2018-11-07] MEDS: LANSOPRAZOLE 30 MG TAB.RAP.DR PEG SCH (10:26)
[2018-11-07] MEDS: ASPIRIN CHEWABLE 81 MG TABLET. PO SCH (10:26)
[2018-11-07] MEDS: LACTOBACILLUS RHAMNOSUS GG 1 CAPSULE. PO SCH (10:27)
[2018-11-07] MEDS: metFORMIN 500 MG TABLET PO SCH (10:27)
[2018-11-07] MEDS: MULTIVITAMIN with MINERAL TABLET. PO SCH (10:27)
[2018-11-07] MEDS: MAGNESIUM OXIDE 400 MG TABLET PEG SCH (10:27)
[2018-11-07] MEDS: LOSARTAN POTASSIUM 50 MG TABLET. PO SCH (10:27)
[2018-11-07 10:28] VITALS: BP 150/71
[2018-11-07] MEDS: ATORVASTATIN CALCIUM 20 MG TABLET PO SCH (10:28)
[2018-11-07] MEDS: METOPROLOL TART IMMED RELEASE 50 MG TABLET. PO SCH (10:28)
--- NOTE | 2018-11-07 10:31 | PDOC ---
Objective: Objective: Stooled today. PEG feeds running @ 60. Vital Signs: Vital Signs Date Time Temp Pulse Resp B/P (MAP) Pulse Ox O2 Delivery O2 Flow Rate FiO2 11/07/18 10:28 72 150/71 11/07/18 07:05 98 Nasal Cannula 1.0 11/07/18 07:00 98.3 16 98.3 Labs: Laboratory Tests Test 11/06/18 12:11 11/06/18 18:08 11/06/18 23:58 Glucose (Fingerstick) 140 mg/dL 165 mg/dL 134 mg/dL PE: GEN: NAD - was asleep LUNGS: room air ABD: S/ND/NT, PEG in place NEURO/PSYCH: awake and alert, smiling, non-verbal A/P: S/p PEG placement -- DC per primary. LARISSA WOLF Nov 07, 2018 10:31
== END 2018-11-07 10:37 | DRG 673 ==
LOC: ER 17:36 → 2 NORTH 20:11 → UNDOADMIN 20:11 → 5 SOUTH 11-05 07:47
PROVIDERS: ADMIT Internal Medicine; ATTEND Internal Medicine
PROC: 02HV33Z Insertion of Infusion Device into Superior Vena Cava, Percutaneous Approach (ICD-10-PCS; 2018-10-24)
PROC: B5181ZA Fluoroscopy of Superior Vena Cava using Low Osmolar Contrast, Guidance (ICD-10-PCS; 2018-10-24)
PROC: B548ZZA Ultrasonography of Superior Vena Cava, Guidance (ICD-10-PCS; 2018-10-24)
PROC: 30233N1 Transfusion of Nonautologous Red Blood Cells into Peripheral Vein, Percutaneous Approach (ICD-10-PCS; 2018-10-27)
PROC: 02HV33Z Insertion of Infusion Device into Superior Vena Cava, Percutaneous Approach (ICD-10-PCS; 2018-10-29)
PROC: B5181ZA Fluoroscopy of Superior Vena Cava using Low Osmolar Contrast, Guidance (ICD-10-PCS; 2018-10-29)
PROC: B548ZZA Ultrasonography of Superior Vena Cava, Guidance (ICD-10-PCS; 2018-10-29)
PROC: 0JH60WZ Insertion of Totally Implantable Vascular Access Device into Chest Subcutaneous Tissue and Fascia, Open Approach (ICD-10-PCS; principal; 2018-10-29 10:00)
PROC: 0DH63UZ Insertion of Feeding Device into Stomach, Percutaneous Approach (ICD-10-PCS; 2018-11-04)
PROC: 3E0G76Z Introduction of Nutritional Substance into Upper GI, Via Natural or Artificial Opening (ICD-10-PCS; 2018-11-04)
DX: N39.0 Urinary tract infection, site not specified (principal); G93.41 Metabolic encephalopathy; E43 Unspecified severe protein-calorie malnutrition; N17.9 Acute kidney failure, unspecified; E87.2 Acidosis; I69.351 Hemiplegia and hemiparesis following cerebral infarction affecting right dominant side; J90 Pleural effusion, not elsewhere classified; K86.1 Other chronic pancreatitis; J96.10 Chronic respiratory failure, unspecified whether with hypoxia or hypercapnia; B96.1 Klebsiella pneumoniae [K. pneumoniae] as the cause of diseases classified elsewhere; R13.12 Dysphagia, oropharyngeal phase; E87.5 Hyperkalemia; N18.9 Chronic kidney disease, unspecified; K57.10 Diverticulosis of small intestine without perforation or abscess without bleeding; E83.42 Hypomagnesemia; D64.9 Anemia, unspecified; E11.22 Type 2 diabetes mellitus with diabetic chronic kidney disease; G40.909 Epilepsy, unspecified, not intractable, without status epilepticus; E78.5 Hyperlipidemia, unspecified; R47.1 Dysarthria and anarthria; I12.9 Hypertensive chronic kidney disease with stage 1 through stage 4 chronic kidney disease, or unspecified chronic kidney disease; E78.00 Pure hypercholesterolemia, unspecified; E11.51 Type 2 diabetes mellitus with diabetic peripheral angiopathy without gangrene; Z89.512 Acquired absence of left leg below knee; Z68.23 Body mass index [BMI] 23.0-23.9, adult; I69.320 Aphasia following cerebral infarction; Z90.49 Acquired absence of other specified parts of digestive tract
CPT/HCPCS: 36415; 36556; 36573; 43246; 70450; 71045; 74230; 77001; 80048; 80053; 81001; 82040; 82274; 82553; 82728; 82962; 83540; 83550; 83605; 83735; 83880; 84145; 84443; 84484; 85014; 85018; 85025; 85027; 85610; 86850; 86900; 86901; 86920; 87040; 87077; 87086; 87186; 87205; 93005; 93970; 94640; 94760; 96374; A7015; C1751; C1788; C1892; J0360; J0690; J0696; J1100; J1644; J1815; J1940; J2001; J2250; J2405; J2704; J3010; J3430; J3475; J3490; J7030; J7042; J7120; J7620; P9016; P9046; Q2009; 92526; 92610; 92611; 99285-25; G0378

== ENCOUNTER 2018-11-10 17:33 | Inpatient (IN) | payer MEDICARE, OTHER ==
[~2018-11-10] VITALS: Ht 172.7 cm; Wt 64.9 kg
[~2018-11-10 17:33] MED LIST changes: +MAGN400T22 PO; +OMEP40CA45 PO; -OMEP40CA5 PO
[2018-11-10 17:55] LABS: BASE EXCESS COOX 3 mmol/L (-3-3); HCO3 COOX 30 mmol/L (21-28); METHEMOGLOBIN 0.3 % (0.0-1.9); OXYHEMOGLOBIN 95.9 %; PCO2 COOX 57 mmHg (35-46); PO2 COOX 100 mmHg (65-108); SAT O2 COOX 97 % (92-99)
[2018-11-10] MEDS ORDERED: LIDOCAINE 2% 100 MG/5 ML SYRINGE. ONE (17:58)
[2018-11-10 18:09] LABS: BILIRUBIN,URINE NEGATIVE (NEG); CLARITY,URINE CLEAR; COLOR,URINE YELLOW; NITRITE,URINE NEGATIVE (NEG); PH,URINE 5.5; PROTEIN,URINE >=300 mg/dL (NEG-TRACE); UROBILINOGEN,URINE 0.2 mg/dL (0.2 mg/dL)
[2018-11-10 18:16] LABS: BACTERIA,URINE 0 /HPF (0-FEW); HYALINE CASTS, URINE MODERATE /HPF
--- NOTE | 2018-11-10 18:18 | PHYS DOC ---
Past Medical History Past Medical History: CAD, CVA, Diabetes-Type II, High Cholesterol, Hyper tension, Seizure Additional Past Medical Histor: APHASIA,PVD, DYSPHAGIA Past Surgical History: Other Additional Past Surgical Histo: unknown; left BKA Alcohol Use: None Drug Use: None Adult General Chief Complaint Chief Complaint: DYSPNEA/RESPIRATOY DISTRESS HPI HPI Patient is a 68-year-old male who presents with report of respiratory distress. Patient is resident of nursing facility and nursing staff indicated that patient had been having acute worsening shortness of breath for approximately the last hour. EMS indicates that upon their arrival patient was on nasal cannula and satting and the mid 50s. They state that on nonrebreather patient's sats came up to the 60s and ultimately they placed patient on CPAP and oxygen saturation came up to the 90s. EMS states that patient is normally nonverbal and continues to be nonverbal at this time. Additional history is limited due to severity of patient condition and nonverbal status.[] Review of Systems Review of Systems Constitutional: No reported fever[] Respiratory: Positive shortness of breath [] Cardiovascular: No additional information not addressed in HPI [] GI: No reported vomiting[] Neurologic: Denies headache, focal weakness or sensory changes [] All other systems were reviewed and found to be within normal limits, except as documented in this note. Current Medications Current Medications Current Medications Medications (Trade) Dose Ordered Sig/Inocencia Start Time Stop Time Status Last Admin Dose Admin Lidocaine HCl (Lidocaine HCl 2% Abboject) 100 mg STK-MED ONCE 11/10/18 17:58 11/10/18 17:58 DC Allergies Allergies Allergies Coded Allergies Type Severity Reaction Last Updated Verified No Known Allergies Allergy Unknown 11/04/18 Yes Physical Exam Physical Exam Constitutional: Somnolent but arousable to painful stimuli, in moderate respiratory distress. [] HENT: Normocephalic, atraumatic, bilateral external ears normal, oropharynx moist, nose normal. [] Eyes: PERRLA, EOMI, conjunctiva normal, no discharge. [] Neck: Decreased range of motion, no obvious tenderness. [] Cardiovascular: Tachycardic rate with regular rhythm[] Lungs & Thorax: Fine rhonchi are noted in bilateral lung bases to auscultation [] Abdomen: Bowel sounds normal, soft. [] Skin: Warm, dry. [] Extremities: There is left sided lower extremity amputation. There is significant upper extremity pitting edema. [] Neurologic: Lethargic, opens eyes to painful stimuli, unable to further assess neurological status as patient is unable to follow commands. [] Current Patient Data Vital Signs Vital Signs Date Time Temp Pulse Resp B/P (MAP) Pulse Ox O2 Delivery O2 Flow Rate FiO2 11/10/18 18:01 100 BiPAP/CPAP 11/10/18 17:33 97.7 66 30 148/66 (93) 97.7 Lab Values Laboratory Tests Test 11/10/18 17:41 11/10/18 17:50 Glucose (Fingerstick) 289 mg/dL (70-99) H O2 Saturation 97 % (92-99) Arterial Blood pH 7.34 (7.35-7.45) L Arterial Blood pCO2 at Patient Temp 57 mmHg (35-46) H Arterial Blood pO2 at Patient Temp 100 mmHg (65-108) Arterial Blood HCO3 30 mmol/L (21-28) H Arterial Blood Base Excess 3 mmol/L (-3-3) Oxyhemoglobin 95.9 % Methemoglobin 0.3 % (0.0-1.9) Carbon Monoxide, Quantitative 0.3 % (0.0-1.9) FiO2 100 bipap EKG EKG [] Interpretation Time: EKG demonstrates tachycardic rate of 110. Radiology/Procedures Radiology/Procedures [] Course & Med Decision Making Course & Med Decision Making Pertinent Labs and Imaging studies reviewed. (See chart for details) [] Dragon Disclaimer Dragon Disclaimer This electronic medical record was generated, in whole or in part, using a voice recognition dictation system. Departure Departure Referrals: JARRETT SALGUERO MD (PCP) LUCHO CARLOS Jr. DO Nov 10, 2018 18:18
[2018-11-10 18:28] LABS: BASO % 1 % (0-3); EOS % 0 % (0-3); HEMATOCRIT 30.2 % (39.0-53.0); HEMOGLOBIN 10.3 g/dL (13.0-17.5); LYMPH # 0.6 x10^3/uL (1.0-4.8); LYMPH % 8 % (24-48); MEAN CORPUSCULAR HEMOGLOBIN 32 pg (25-35); MEAN CORPUSCULAR HGB CONC 34 g/dL (31-37); MEAN CORPUSCULAR VOLUME 95 fL (79-100); MONO # 0.6 x10^3/uL (0.0-1.1); MONO % 7 % (0-9); NEUT # 7.1 x10^3/uL (1.8-7.7); NEUT % 85 % (31-73); PLATELET COUNT 360 x10^3/uL (140-400); RED CELL DISTRIBUTION WIDTH 15.4 % (11.5-14.5); WHITE BLOOD COUNT 8.3 x10^3/uL (4.0-11.0)
[2018-11-10 18:38] LABS: CALCIUM 8.4 mg/dL (8.5-10.1); CREATININE 0.7 mg/dL (0.7-1.3); GFR 136.5; POTASSIUM 4.7 mmol/L (3.5-5.1)
[2018-11-10 18:44] LABS: ALBUMIN 1.2 g/dL (3.4-5.0); ALBUMIN/GLOBULIN RATIO 0.3 (1.0-1.7); MAGNESIUM 1.5 mg/dL (1.8-2.4); TOTAL BILIRUBIN 0.1 mg/dL (0.2-1.0); TOTAL PROTEIN 5.7 g/dL (6.4-8.2)
--- NOTE | 2018-11-10 18:47 | RAD ---
PORTABLE CHEST 1V History: November 05, 2018 Comparison: None. Findings: Single view of the chest is submitted. There is persistent obscuration of bilateral hemidiaphragms, likely moderate pleural effusions greater on the left. There is some adjacent airspace opacity greatest of the left lung base. There are again findings of old granulomatous disease. Pericardial cardiac silhouette is again enlarged. There is again right internal jugular port catheter tip in the superior vena cava. Previously seen right upper extremity PICC is not visualized on this exam. There is relative increased lucency the right lung base although no pleural margin extending more superiorly and believed to be lung markings present in the area of lucency. There is gastrostomy. Impression: 1. There is some relative increased lucency of the right lung base although apparently some lung markings present and no pleural margin/pneumothorax seen more superiorly. There are again bilateral pleural effusions with adjacent airspace opacity. Pericardial cardiac silhouette is again enlarged. 2. There is again evidence of old granulomatous disease. Electronically signed by: Chuy Liang MD (11/10/2018 6:44 PM) [facility]
[2018-11-10] MEDS ORDERED: FUROSEMIDE 40 MG/4 ML VIAL. IVP ONE (19:00)
[2018-11-10 19:10] LABS: BASE EXCESS ABG 3 mmol/L (-3-3); HCO3 ABG 29 mmol/L (21-28); PCO2 ABG 55 mmHg (35-46); PO2 ABG 101 mmHg (65-108); SAT O2 ABG 96 % (92-99)
[2018-11-10 19:11] LABS: PHENY 2.5 mcg/mL (10.0-20.0)
[2018-11-10 19:13] LABS: % BANDS 14 % (0-9); % BASOS 1 % (0-3); % LYMPHS 6 % (24-48); % MONOS 4 % (0-10); % SEGS 75 % (35-66); PLT ESTIMATE ADEQUATE (ADEQUATE)
[2018-11-10 19:14] LABS: FIO2 ABG 100
[2018-11-10] MEDS ORDERED: ONDANSETRON PF 4 MG/2 ML VIAL. IV PRN (19:15)
[2018-11-10 20:00] VITALS: BP 170/96
--- NOTE | 2018-11-10 20:00 | NUR ---
pt admitted to room 103 from ED at this time. VSS on Bipap at 100% FiO2. pt nonverbal but alert and tracks with eyes, grunts when turned or moved around in bed. admission completed with help from paperwork sent with patient from [facility]. pictures taken of wounds to right toes without difficulty. will pass on in report, will continue to closely monitor.
[2018-11-10] MEDS: IPRATRPIUM/ALBUTEROL 0.5/2.5MG 3 ML NEBU. NEB SCH (20:46)
[2018-11-10 21:00] VITALS: BP 141/85
[2018-11-10 22:00] VITALS: BP 185/106
[2018-11-10 22:41] LABS: INFLUENZA A PATIENT NEGATIVE (NEGATIVE); INFLUENZA B PATIENT NEGATIVE (NEGATIVE)
[2018-11-10 23:00] VITALS: BP 149/77
[2018-11-11] VITALS (35 sets, daily range): BP systolic 72–184; BP diastolic 36–102
--- NOTE | 2018-11-11 06:30 | EKG ---
[facility] [address] [place] [address] Test Date: 2018-11-10 Test Time: 17:42:52 Pat Name: SONIA NIEVES Department: Room: 103 1 Gender: M Road Conductor: : 1950 Requested By: LUCHO CARLOS Order Number: [id number] Reading MD: Michael Umana MD Measurements Intervals [place] Rate: 110 P: DC: QRS: -34 QRSD: 76 T: 20 QT: 318 QTc: 435 Interpretive Statements SINUS TACHYCARDIA NON-SPECIFIC ST/T CHANGES Electronically Signed On 11-20-2018 9:13:14 CDT by Michael Umana MD
[2018-11-11 07:11] LABS: ALBUMIN 1.1 g/dL (3.4-5.0); ALBUMIN/GLOBULIN RATIO 0.3 (1.0-1.7); CALCIUM 8.4 mg/dL (8.5-10.1); CREATININE 0.9 mg/dL (0.7-1.3); GFR 102.2; POTASSIUM 4.8 mmol/L (3.5-5.1); TOTAL BILIRUBIN 0.2 mg/dL (0.2-1.0); TOTAL PROTEIN 5.3 g/dL (6.4-8.2)
[2018-11-11 07:25] LABS: BASO % 1 % (0-3); EOS % 0 % (0-3); HEMATOCRIT 28.6 % (39.0-53.0); HEMOGLOBIN 9.9 g/dL (13.0-17.5); LYMPH # 1.1 x10^3/uL (1.0-4.8); LYMPH % 11 % (24-48); MEAN CORPUSCULAR HEMOGLOBIN 33 pg (25-35); MEAN CORPUSCULAR HGB CONC 35 g/dL (31-37); MEAN CORPUSCULAR VOLUME 95 fL (79-100); MONO # 0.5 x10^3/uL (0.0-1.1); MONO % 5 % (0-9); NEUT # 8.2 x10^3/uL (1.8-7.7); NEUT % 83 % (31-73); PLATELET COUNT 333 x10^3/uL (140-400); RED BLOOD COUNT 3.03 x10^6/uL (4.30-5.70); RED CELL DISTRIBUTION WIDTH 15.4 % (11.5-14.5); WHITE BLOOD COUNT 9.9 x10^3/uL (4.0-11.0)
[2018-11-11] MEDS: IPRATRPIUM/ALBUTEROL 0.5/2.5MG 3 ML NEBU. NEB SCH ×5 (08:14→20:03)
[2018-11-11] MEDS ORDERED: MAGNESIUM SULFATE 2GM 50 ML IV ONE (08:30)
--- NOTE | 2018-11-11 08:59 | HP ---
ADMIT DATE: 11/10/2018 HISTORY OF PRESENT ILLNESS: The patient is a 68-year-old -Citizen Of [place] male patient, a resident of [facility], who was actually discharged from this facility only recently, specifically on 11/07/2018, was brought back yesterday to the Emergency Room as nursing staff there noted that he was extremely hypoxic and was in respiratory distress with marked worsening of shortness of breath. The emergency medical services were indicated upon their arrival. The patient was on nasal cannula with oxygen saturation of only mid 50s. They started him on a nonrebreather mask and saturation came down only to 60s and ultimately they placed him on CPAP and oxygen saturation came up to 90. He is normally nonverbal and continued to be nonverbal at this time. Additional history is limited due to the severity of the patient's condition and nonverbal status. He was recently here, treated for urinary tract infection and underwent a Port-A-Cath placement as well as percutaneous endoscopic gastrostomy tube placement. He has severe dysphagia with high aspiration risk. He also was treated for hyperkalemia, acute kidney injury, and hypomagnesemia and was actually stable and was started on Jevity at 60 mL per hour together with water flushes. His phenytoin was switched to be given through the PEG tube, as he takes it by mouth and he was on 300 mg extended release capsules. Apparently, he was evaluated in the Emergency Room. His blood gases showed a pH of 7.34, pCO2 of 57, pO2 of 100, bicarbonate 30, and his oxygen saturation was 97% on FiO2 of 100% on BiPAP machine. White cell count did not show any leukocytosis. In fact, his hemoglobin was 10, hematocrit 30, and his platelets were normal at 360,000. His chemistry again showed that he has hyperglycemia and hypomagnesemia. However, liver enzymes were and his alkaline phosphatase was slightly elevated; however, he continued to display extremely high albuminemia with only serum albumin of 1.2 g/dL. His tox screen showed the phenytoin is only 2.5. Urinalysis was essentially unremarkable, and his influenza A and B were negative. The patient in fact has markedly swelling of his upper extremities, and prior to discharge last time, I did Doppler ultrasound of both upper extremities which were negative for DVT. He was admitted with acute hypoxic respiratory failure and questionable also congestive heart failure. He was continued on BiPAP machine and admitted to the ICU. We have consulted the instructor kindergarten as well as the cigarette maker. PAST MEDICAL HISTORY: Significant for type 2 diabetes mellitus with multiple complications including diabetic peripheral neuropathy and diabetic peripheral vascular disease; hypertension; left middle cerebral artery territory infarct with right-sided hemiplegia, aphasia, and dysphagia; severe peripheral vascular disease; status post left below knee amputation; and epilepsy. He has also had hyperlipidemia, reduced mobility, and severe protein-calorie malnutrition. PAST SURGICAL HISTORY: Significant for left below knee amputation, Port-A-Cath placement, as well as percutaneous endoscopic gastrostomy tube placement. ALLERGIES: He has no known drug allergies. FAMILY HISTORY: Noncontributory. SOCIAL HISTORY: He is currently a resident at [facility] in [place]. He does not smoke, drink alcohol, or use any recreational drugs. He is normally and mostly wheelchair bound and when he is at best, he is managed to feed himself and wheel himself around. REVIEW OF SYSTEMS: Unobtainable. MEDICATIONS: He was on the following medications: He was on ipratropium bromide/albuterol sulfate by nebulizer 4 times a day, atorvastatin 20 mg at bedtime, metoprolol tartrate 50 mg twice a day, losartan potassium 100 mg daily, aspirin 81 mg once a day, phenytoin sodium 100 mg 3 times a day and he is now on phenytoin solution through the PEG tube, gabapentin 300 mg 3 times a day, furosemide 40 mg daily, Mucinex 600 mg twice a day, magnesium oxide 400 mg twice a day, lactobacillus acidophilus 1 capsule twice a day, senna 1 tablet twice a day, omeprazole 40 mg twice a day, and metformin 500 mg twice a day. He is on Lantus insulin 2 units 3 times a day and he is on NovoLog FlexPen 2 units subcutaneous 3 times a day and multivitamin with mineral 1 tablet once a day. PHYSICAL EXAMINATION: GENERAL: On arrival to the Emergency Room, the patient was pale, but no jaundice, cyanosis, or thyromegaly. No jugular venous distention, but marked bilateral upper extremity swelling. VITAL SIGNS: His heart rate was 66, blood pressure 148/66, temperature was 97.7, respiratory rate was 30, and oxygen saturation was 90%. HEAD, EYES, EARS, NOSE, AND THROAT: Normocephalic and atraumatic. NECK: Supple. HEART: Showed normal first and second heart sounds. No gallop or murmur. CHEST: Clear to auscultation. No crepitation or rhonchi. ABDOMEN: Distended and soft with gastrostomy tube in place. There is no guarding or rigidity. No organomegaly. All hernial orifices intact. Bowel sounds normal. NEUROLOGIC: He is nonverbal. He has right-sided hemiplegia and aphasia. He has left below knee amputation. LABORATORY DATA: His lab work on arrival showed a white cell count of 8300, hemoglobin 10, hematocrit 30, MCV 95, and platelet count of 360,000 with normal manual differential. Blood gases showed a pH of 7.34, pCO2 of 57, pO2 of 100, bicarbonate 30, anion gap of 3, and oxygen saturation was 97% on FiO2 of 100%. His chemistry on arrival showed serum sodium of 132, potassium 9.7, chloride 98, bicarbonate 30, anion gap of 1, BUN 21, creatinine 0.7, and estimated GFR was 136 mL per minute. His glucose was 123, calcium was 8.4, and magnesium was 1.5. Total bilirubin is normal. AST and alkaline phosphatase elevated. ALT normal. His beta-natriuretic peptide was 2200. Total protein was 5.7. Albumin was 1.2. His phenytoin level was 2.5 which is subtherapeutic. Urinalysis was essentially unremarkable. His influenza A and B were negative. His chest x-ray showed that the patient has been resistant to auscultation on bilateral hemidiaphragm and likely moderate pleural effusion, greater on the left. There is some adjacent airspace opacity, greatest on the left lung base. There is also again finding of old granulomatous disease. Pericardial/cardiac silhouette is again enlarged. There is again right internal jugular Port-A-Cath tip in the superior vena cava. Previously seen right upper extremity PICC line is not visualized on this exam. There is relatively increased lucency in the right lung base, although no pleural margin extending more superiorly and believed to be lung marking present in the area of lucency. There is also a gastrostomy tube in place. ASSESSMENT AND PLAN: The patient was admitted with acute hypoxic respiratory failure, the cause of which is not really clear. He has bilateral pleural effusion. He was continued on BiPAP, maintaining his oxygen saturation at 90%. I will consult the instructor kindergarten and cigarette maker to assist with management. KASIE TRIPLETT MD DR: FERMÍN/marysol JOB#: [id number] / [id number]
[2018-11-11] MEDS ORDERED: FUROSEMIDE 40 MG/4 ML VIAL. IVP SCH (09:00)
[2018-11-11] MEDS: INSULIN LISPRO 300 UNITS/3 ML VIAL. SQ SCH ×3 (09:00→17:52)
[2018-11-11] MEDS: NOREPINEPHRIN 8MG/250ML PREMIX 250 ML IV PRN (09:12)
[2018-11-11] MEDS ORDERED: CONTRAST GIVEN. MC PRN (09:15)
[2018-11-11] MEDS ORDERED: IOHEXOL 350 MG/ML 100 ML VIAL. IV ONE (09:15)
--- NOTE | 2018-11-11 09:37 | PDOC2 ---
EDI BAZZI UROLOGIST 11/11/18 0937: CARDIAC CONSULT DATE OF CONSULT Date of Consult DATE: 11/11/18 TIME: 09:28 REASON FOR CONSULT Reason for Consult: CHF Exacerbation REFERRING PHYSICIAN Referring Physician: Dr. Bradley SOURCE Source: Chart review HISTORY OF PRESENT ILLNESS HISTORY OF PRESENT ILLNESS This is a 68 yo male who presented from nursing facility secondary to shortness of breath. Is nonverbal at baseline. EMS was called. Was significantly hypoxic upon their arrival. Was initially place on NC with O2 sats in the 50's. Then placed on nonrebreather and patient's sats came up to the 60s. Ultimately had to be placed on CPAP. No requiring BiPAP. Has increased tracheal secretions. HPI obtained from chart review as patient is nonverbal at baseline. PAST MEDICAL HISTORY Cardiovascular: CAD, HTN, Hyperlipidemia, Other (PVD) Pulmonary: Pneumonia CENTRAL NERVOUS SYSTEM: CVA (with right-sided hemiplegia, aphasia, and dysphag ia ), Periperal neuropathy, Seizure GI: GERD Musculoskeletal: Osteoarthritis PAST SURGICAL HISTORY Past Surgical History: Other (left BKA, G-tube placement ) FAMILY HISTORY Family History: Other (noncontributory ) SOCIAL HISTORY Smoke: No ALCOHOL: none Drugs: None Lives: [facility] CURRENT MEDICATIONS CURRENT MEDICATIONS Current Medications Medications (Trade) Dose Ordered Sig/Inocencia Route PRN Reason Start Time Stop Time Status Last Admin Dose Admin Furosemide (Lasix) 40 mg 1X ONCE IVP 11/10/18 19:00 11/10/18 19:01 DC 11/10/18 19:13 Albuterol/ Ipratropium (Duoneb) 3 ml RTQID NEB 11/10/18 20:00 11/11/18 08:31 DC 11/11/18 08:14 Enoxaparin Sodium (Lovenox 100mg Syringe) 100 mg 1X ONCE SQ 11/10/18 19:30 11/10/18 19:31 DC 11/10/18 22:00 Norepinephrine Bitartrate 250 ml @ 11.992 mls/ hr CONT PRN IV SEE I/O RECORD 11/11/18 08:30 11/11/18 09:12 Magnesium Sulfate 50 ml @ 25 mls/hr 1X ONCE IV 11/11/18 08:30 11/11/18 10:29 11/11/18 09:25 ALLERGIES ALLERGIES: Coded Allergies: No Known Allergies (Verified Allergy, Unknown, 11/04/18) ROS Review of System unobtainable PHYSICAL EXAM General: Alert, Oriented X3, Cooperative, mild distress HEENT: Atraumatic Lungs: Other (BiPAP, coarse throughout ) Heart: Regular rate, Other (distant heart tones ) Abdomen: Soft Extremities: No edema, Other (left BKA ) Neuro: Other (unable to assess ) MUSCULOSKELETAL: Osteoarthritic changes both hands VITALS/I&O VITALS/I&O: Vital Signs Date Time Temp Pulse Resp B/P (MAP) Pulse Ox O2 Delivery O2 Flow Rate FiO2 11/11/18 08:06 96 BiPAP/CPAP 11/11/18 06:00 96 22 94/57 (69) 11/11/18 04:00 98.5 98.5 I & O 11/10/18 11/10/18 11/11/18 15:00 23:00 07:00 Intake Total 0 ml 0 ml Output Total 175 ml 210 ml Balance -175 ml -210 ml LABS Lab: Laboratory Tests Test 11/10/18 17:41 11/10/18 17:50 11/10/18 18:00 11/10/18 18:19 Glucose (Fingerstick) 289 mg/dL (70-99) H O2 Saturation 97 % (92-99) Arterial Blood pH 7.34 (7.35-7.45) L Arterial Blood pCO2 at Patient Temp 57 mmHg (35-46) H Arterial Blood pO2 at Patient Temp 100 mmHg (65-108) Arterial Blood HCO3 30 mmol/L (21-28) H Arterial Blood Base Excess 3 mmol/L (-3-3) Oxyhemoglobin 95.9 % Methemoglobin 0.3 % (0.0-1.9) Carbon Monoxide, Quantitative 0.3 % (0.0-1.9) FiO2 100 bipap Urine Collection Type Unknown Urine Color Yellow Urine Clarity Clear Urine pH 5.5 Urine Specific Harwood 1.025 Urine Protein >=300 mg/dL (NEG-TRACE) Urine Glucose (UA) 500 mg/dL (NEG) Urine Ketones (Stick) Negative mg/dL (NEG) Urine Blood Negative (NEG) Urine Nitrite Negative (NEG) Urine Bilirubin Negative (NEG) Urine Urobilinogen Dipstick 0.2 mg/dL (0.2 mg/dL) Urine Leukocyte Esterase Negative (NEG) Urine RBC 1-2 /HPF (0-2) Urine WBC 1-4 /HPF (0-4) Urine Bacteria 0 /HPF (0-FEW) Urine Hyaline Casts Moderate /HPF Urine Mucus Mod /LPF White Blood Count 8.3 x10^3/uL (4.0-11.0) Red Blood Count 3.20 x10^6/uL (4.30-5.70) L Hemoglobin 10.3 g/dL (13.0-17.5) #L Hematocrit 30.2 % (39.0-53.0) L Mean Corpuscular Volume 95 fL (79-100) Mean Corpuscular Hemoglobin 32 pg (25-35) Mean Corpuscular Hemoglobin Concent 34 g/dL (31-37) Red Cell Distribution Width 15.4 % (11.5-14.5) H Platelet Count 360 x10^3/uL (140-400) Neutrophils (%) (Auto) 85 % (31-73) H Lymphocytes (%) (Auto) 8 % (24-48) L Monocytes (%) (Auto) 7 % (0-9) Eosinophils (%) (Auto) 0 % (0-3) Basophils (%) (Auto) 1 % (0-3) Neutrophils # (Auto) 7.1 x10^3/uL (1.8-7.7) Lymphocytes # (Auto) 0.6 x10^3/uL (1.0-4.8) L Monocytes # (Auto) 0.6 x10^3/uL (0.0-1.1) Eosinophils # (Auto) 0.0 x10^3/uL (0.0-0.7) Basophils # (Auto) 0.0 x10^3/uL (0.0-0.2) Segmented Neutrophils % 75 % (35-66) H Band Neutrophils % 14 % (0-9) H Lymphocytes % 6 % (24-48) L Monocytes % 4 % (0-10) Basophils % 1 % (0-3) Platelet Estimate Adequate (ADEQUATE) Sodium Level 132 mmol/L (136-145) L Potassium Level 4.7 mmol/L (3.5-5.1) Chloride Level 98 mmol/L (98-107) Carbon Dioxide Level 33 mmol/L (21-32) H Anion Gap 1 (6-14) L Blood Urea Nitrogen 21 mg/dL (8-26) Creatinine 0.7 mg/dL (0.7-1.3) Estimated GFR (Cockcroft-Gault) 136.5 BUN/Creatinine Ratio 30 (6-20) H Glucose Level 223 mg/dL (70-99) H Lactic Acid Level 1.2 mmol/L (0.4-2.0) Calcium Level 8.4 mg/dL (8.5-10.1) L Magnesium Level 1.5 mg/dL (1.8-2.4) L Total Bilirubin 0.1 mg/dL (0.2-1.0) L Aspartate Amino Transferase (AST) 38 U/L (15-37) H Alanine Aminotransferase (ALT) 17 U/L (16-63) Alkaline Phosphatase 366 U/L (46-116) H Troponin I Quantitative 0.022 ng/mL (0.000-0.055) UT-Mlk-H-Type Natriuretic Peptide 2204 pg/mL (0-124) H Total Protein 5.7 g/dL (6.4-8.2) L Albumin 1.2 g/dL (3.4-5.0) L Albumin/Globulin Ratio 0.3 (1.0-1.7) L Phenytoin (Dilantin) Level 2.5 mcg/mL (10.0-20.0) L Phenytoin Last Dose Date Phenytoin Last Dose Time Test 11/10/18 19:12 11/10/18 22:00 11/11/18 01:12 11/11/18 06:10 O2 Saturation 96 % (92-99) Arterial Blood pH 7.34 (7.35-7.45) L Arterial Blood pCO2 at Patient Temp 55 mmHg (35-46) H Arterial Blood pO2 at Patient Temp 101 mmHg (65-108) Arterial Blood HCO3 29 mmol/L (21-28) H Arterial Blood Base Excess 3 mmol/L (-3-3) FiO2 100 Influenza Type A Antigen Negative (NEGATIVE) Influenza Type B Antigen Negative (NEGATIVE) Troponin I Quantitative 0.042 ng/mL (0.000-0.055) White Blood Count 9.9 x10^3/uL (4.0-11.0) Red Blood Count 3.03 x10^6/uL (4.30-5.70) L Hemoglobin 9.9 g/dL (13.0-17.5) L Hematocrit 28.6 % (39.0-53.0) L Mean Corpuscular Volume 95 fL (79-100) Mean Corpuscular Hemoglobin 33 pg (25-35) Mean Corpuscular Hemoglobin Concent 35 g/dL (31-37) Red Cell Distribution Width 15.4 % (11.5-14.5) H Platelet Count 333 x10^3/uL (140-400) Neutrophils (%) (Auto) 83 % (31-73) H Lymphocytes (%) (Auto) 11 % (24-48) L Monocytes (%) (Auto) 5 % (0-9) Eosinophils (%) (Auto) 0 % (0-3) Basophils (%) (Auto) 1 % (0-3) Neutrophils # (Auto) 8.2 x10^3/uL (1.8-7.7) H Lymphocytes # (Auto) 1.1 x10^3/uL (1.0-4.8) Monocytes # (Auto) 0.5 x10^3/uL (0.0-1.1) Eosinophils # (Auto) 0.0 x10^3/uL (0.0-0.7) Basophils # (Auto) 0.0 x10^3/uL (0.0-0.2) Sodium Level 133 mmol/L (136-145) L Potassium Level 4.8 mmol/L (3.5-5.1) Chloride Level 100 mmol/L (98-107) Carbon Dioxide Level 30 mmol/L (21-32) Anion Gap 3 (6-14) L Blood Urea Nitrogen 25 mg/dL (8-26) Creatinine 0.9 mg/dL (0.7-1.3) Estimated GFR (Cockcroft-Gault) 102.2 BUN/Creatinine Ratio 28 (6-20) H Glucose Level 99 mg/dL (70-99) Calcium Level 8.4 mg/dL (8.5-10.1) L Total Bilirubin 0.2 mg/dL (0.2-1.0) Aspartate Amino Transferase (AST) 40 U/L (15-37) H Alanine Aminotransferase (ALT) 14 U/L (16-63) L Alkaline Phosphatase 301 U/L (46-116) H WY-Lii-Y-Type Natriuretic Peptide 4315 pg/mL (0-124) H Total Protein 5.3 g/dL (6.4-8.2) L Albumin 1.1 g/dL (3.4-5.0) L Albumin/Globulin Ratio 0.3 (1.0-1.7) L Laboratory Tests 11/10/18 18:19 11/11/18 06:10 Laboratory Tests 11/10/18 18:19 11/11/18 06:10 ASSESSMENT/PLAN ASSESSMENT/PLAN 1. Acute respiratory failure with probable PNA and CHF 2. Acute on chronic probably diastolic HF 3. Hypertension; hypotensive requiring low-dose pressor support. ? sepsis 4. Hyperlipidemia; statin therapy at MI 5. CAD; details unknown 6. Diabetes, II; as per PCP 6. H/o CVA with right-sided hemiplegia, aphasia 8. PAD s/p left BKA 9. Dysphagia s/p recent G-tube placement 10. Hypomagnesemia 11. Protein calorie malnutrition Recommendations Echo to assess LV systolic function Replace Mg Will hold off on further aggressive diuresis for now. Secondary prevention as able. Lung optimization/treatment of PNA as per pulm. KAYCEE SALES MD 11/11/18 2012: CARDIAC CONSULT ASSESSMENT/PLAN ASSESSMENT/PLAN Patient seen and examined. Agree with PREPARATORY TECHNICIAN's assessment and plan. Acute resp failure secondary to combination of pneumonia and acute on chr diastolic HF Check 2D echo to assess LVF Gen edema probably anasarca Patient with low UO. We will try albumin infusion and Lasix CAD and PAD status clinically stable Thank you for your consultation EDI BAZZI APRN Nov 11, 2018 09:37 KAYCEE SALES MD Nov 11, 2018 20:12
[2018-11-11 09:42] LABS: ALBUMIN 1.1 g/dL (3.4-5.0); ALBUMIN/GLOBULIN RATIO 0.3 (1.0-1.7); CALCIUM 8.2 mg/dL (8.5-10.1); GFR 90.5; POTASSIUM 4.7 mmol/L (3.5-5.1); TOTAL BILIRUBIN 0.2 mg/dL (0.2-1.0); TOTAL PROTEIN 5.3 g/dL (6.4-8.2)
[2018-11-11 09:43] LABS: BASE EXCESS ABG 2 mmol/L (-3-3); HCO3 ABG 27 mmol/L (21-28); PCO2 ABG 42 mmHg (35-46); PO2 ABG 111 mmHg (65-108); SAT O2 ABG 98 % (92-99)
[2018-11-11] MEDS ORDERED: PIP/TAZO PER PHARMACY MC PRN (09:45)
[2018-11-11 09:47] LABS: FIO2 ABG 100
--- NOTE | 2018-11-11 09:51 | CONS ---
DATE OF CONSULTATION: PULMONARY CONSULTATION ATTENDING PHYSICIAN: Taylor Wilks MD REASON FOR CONSULTATION: Respiratory failure. HISTORY OF PRESENT ILLNESS: The patient is a 68-year-old male who has past medical history of diabetes, multiple complications of diabetes, history of previous CVA and right-sided hemiplegia, aphasia and dysphagia along with severe peripheral vascular disease and is status post left below-knee amputation. He was brought into the hospital with worsening respiratory distress. He was severely hypoxic with saturations in the 70s. He was placed on BiPAP. The patient is nonverbal. His arterial blood gases reveal a pH of 7.34, pCO2 of 55 and a pO2 of 101 on 100% FiO2. His chest x-ray shows bilateral pleural effusion, which has been present on previous films from this month along with some mild upper lobe interstitial infiltrates. He is still on BiPAP at 100% FiO2. CTA chest has been ordered. His proBNP was 4300. He dropped his blood pressure with Lasix. As a result, he is requiring low-dose Levophed. PAST MEDICAL HISTORY: Extensive, which includes type 2 diabetes, history of multiple complications of diabetes including peripheral neuropathy, peripheral vascular disease, hypertension, left middle cerebral artery territory infarct with right-sided hemiplegia, aphasia, dysphagia and severe peripheral vascular disease. PAST SURGICAL HISTORY: Status post left below-knee amputation and Port-A-Cath placement. ALLERGIES: None. FAMILY HISTORY: Noncontributory to lungs. SOCIAL HISTORY: Lives at the [facility] in [place]. He is wheelchair bound, aphasic. REVIEW OF SYSTEMS: System review unable to obtain. MEDICATIONS: Reviewed as listed in the MRAD. PHYSICAL EXAMINATION: VITAL SIGNS: Reviewed. Blood pressure in the 90s systolic, on Levophed at 6 mcg; afebrile. HEENT: Sclerae nonicteric. NECK: Supple. LUNGS: With diminished breath sounds at the bases. EXTREMITIES: His upper extremities have pitting edema. ABDOMEN: Soft, a little firm. EXTREMITIES: With no pitting edema right, left BKA LABORATORY DATA: Labs are reviewed. Sodium 133, BUN 25, creatinine 0.9. Procalcitonin is 0.33. Influenza screen negative. White cell count 9.9. IMPRESSION: 1. Acute hypoxic respiratory failure secondary to multifactorial etiologies including congestive heart failure with possible coexisting pneumonia and shock. 2. Shock. Etiology not so obvious. Initially, he was diuresed based on the chest x-ray, which appeared to be congestive heart failure, but he dropped his blood pressure. His procalcitonin is mildly elevated. Possibility of coexisting sepsis/pneumonia cannot be ruled out. We will do a CT chest, abdomen and pelvis for further evaluation. 3. 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 4. Dysphagia, status post PEG tube. 5. Severe protein-calorie malnutrition, also contributing to pleural effusions. He has albumin level of only 1.1. 6. Left below-knee amputation. 7. History of cerebrovascular accident. RECOMMENDATIONS: 1. Continue with present BiPAP. 2. CTA chest along with abdomen and pelvis CT to further evaluate etiology of hypoxia. 3. Add antibiotics. 4. Continue low-dose vasopressor. 5. May try albumin. 6. DuoNebs. 7. Add DVT prophylaxis. 8. Further recommendations to follow. Discussed with RN and RT. Critical care time 39 minutes. TESFAYE DÍAZ MD DR: GABRIELLE/marysol JOB#: [id number] / [id number] DAVIS
--- NOTE | 2018-11-11 11:12 | NUR ---
SS following for discharge planning. SS reviewed pt chart and received notification that pt was from [facility], [place], ; fax [phone]. SS contacted [facility] [place] and verified that pt was a LTC resident from there facility and was able to return when medically stable. SS will continue to follow for discharge planning.
[2018-11-11] MEDS: PIPERACILLIN/TAZOBACTAM 4.5 GM in IV NORMAL SALINE 100ML 100 ML IV SCH ×2 (11:27→18:13)
[2018-11-11] MEDS ORDERED: ENOXAPARIN 40 MG/0.4 ML SYRINGE. SQ SCH (14:00)
[2018-11-11] MEDS: FOSPHENYTOIN 100 MG/2 ML VIAL. IV SCH ×2 (14:32→23:01)
[2018-11-11] MEDS: MAGNESIUM OXIDE 400 MG TABLET PO SCH ×2 (14:33→21:00)
--- NOTE | 2018-11-11 14:56 | NUR ---
Wound Care: Consult to eval and treat for R great toe DFU. Intact, stable eschar to distal tip of R great toe. Painted with betadine and left ADRIÁN. No other open areas noted on head to toe inspection. On ICU bed. Turned to L side, positioned with wedge, pillow between knees. Will follow up on 11/19/18.
--- NOTE | 2018-11-11 15:35 | RAD ---
Examination: CT ANGIO CHEST W ABD PEL W/ History: Acute hypoxia, respiratory failure, abdominal pain Comparison/Correlation: 05/19/2018 CTA of the chest Findings: Axial images of the chest, abdomen, and pelvis were obtained following IV contrast according to arteriography protocol. Sagittal and coronal reformatted images were provided. Streak artifact related to the upper extremities being beside the patient during scanning noted. Right internal jugular infusion port catheter tip terminates at the superior cavoatrial junction. Significant right lower lobe consolidation is present with air bronchograms. Left lower lobe basilar consolidation also present. Opacification of the left lower lobe bronchus is noted. Moderate to large right pleural effusion is present. Small left pleural effusion noted. Calcified granuloma are present involving along romero. Groundglass infiltrates are noted throughout the right upper lobe. Minimal linear atelectasis involves the right middle lobe. Minimal patchy atelectasis or infiltrate involves the left infrahilar region. Bilateral calcified hilar lymph nodes are present. No enlarged suspicious thoracic lymph nodes. Calcific involvement of the thoracic aorta is noted. Significant coronary arterial calcification is present. G-tube is present within the stomach. Gaseous distention of the stomach is noted. Fluid level is evident within the stomach. Multiple gas and fluid-filled distended loops of small bowel are present. Transition point may present within the lower pelvic midline. Collapsed loops of colon noted. Liver, adrenal glands, and kidneys are unremarkable. Renal cysts are present. Distended pancreatic duct with pancreatic calcifications noted compatible with chronic pancreatitis. No enlarged abdominal or pelvic lymph nodes. No ascites or pelvic fluid. Cholecystectomy noted. Anasarca noted. Garrett catheter is present in the urinary bladder. Gas in the urinary bladder. Significant atherosclerotic calcification involving of the arterial vasculature is noted within the abdomen and pelvis. Stent material along the right common iliac artery is noted. Stent material involving the left external iliac artery noted. Stent material involving the right superficial femoral artery does not opacify with contrast. Right profunda femoris arterial branch also does not appear to opacify with contrast. Right axillary surgical clips are present. Moderate L3-4 and L4-5 disc space narrowing is present. Impression: There is no acute pulmonary arterial thromboembolic disease although evaluation may be limited due to significant bilateral lower lobe consolidations greater on the right lung with pleural effusions and infiltrates as well as atelectasis. Distended stomach and small bowel of concern for obstruction at the with transition suggested a low pelvic midline. Anasarca. Marked coronary arterial and abdominal as well as pelvic arterial calcifications. Lack of opacification of the proximal right superficial femoral artery and proximal profunda femoris artery is of concern for occlusion. Consider further evaluation with a dedicated arteriographic examination. Electronically signed by: Morris Romano MD (11/11/2018 3:32 PM) [facility]
--- NOTE | 2018-11-11 16:28 | NUR ---
Nursing: Urine output of 50mls over 8 hours reported to Carola Domínguez on unit. Orders received. See eMAR. Bladder scanner showed 44mls in bladder. Feeding per peg tube started approximately 1500.
[2018-11-11] MEDS ORDERED: ALBUMIN HUMAN 25% 50 ML IV ONE (16:30)
[2018-11-11] MEDS: ASPIRIN CHEWABLE 81 MG TABLET. PO SCH (17:26)
[2018-11-11] MEDS ORDERED: FUROSEMIDE 40 MG/4 ML VIAL. IVP ONE (18:30)
[2018-11-11] MEDS ORDERED: SUCCINYLCHOLINE 200 MG/10 ML VIAL. ONE (19:50)
[2018-11-11] MEDS ORDERED: PROPOFOL 100 ML IV ONE (19:50)
[2018-11-11] MEDS ORDERED: SUCCINYLCHOLINE 200 MG/10 ML VIAL. IV ONE (20:30)
--- NOTE | 2018-11-11 20:33 | RAD ---
Exam: Chest one view INDICATION: Endotracheal tube placement TECHNIQUE: Frontal view of the chest Comparisons: 11/10/2018 FINDINGS: Endotracheal tube with tip approximately 5 cm above the javid. Redemonstration of right chest wall port with catheter tip at the SVC. Heart size is normal. Pulmonary vessels are obscured. Hazy opacity throughout the right lung, likely relate related to layering effusion. Hazy opacity noted in the left lung base. IMPRESSION: 1. Lines and tubes as described above. 2. Findings of pulmonary edema with bilateral pleural effusions. Superimposed infectious process is difficult to exclude. Electronically signed by: Gonzalo Kidd MD (11/11/2018 8:30 PM) [facility]
[2018-11-11] MEDS: ATORVASTATIN CALCIUM 20 MG TABLET PO SCH (21:00)
[2018-11-11] MEDS: METOPROLOL TART IMMED RELEASE 50 MG TABLET. PO SCH (21:00)
[2018-11-11 21:20] LABS: BASE EXCESS ABG 3 mmol/L (-3-3); HCO3 ABG 27 mmol/L (21-28); PCO2 ABG 39 mmHg (35-46); PO2 ABG 274 mmHg (65-108); SAT O2 ABG 99 % (92-99)
[2018-11-11 21:41] LABS: FIO2 ABG 100
[2018-11-11] MEDS: PROPOFOL 100 ML IV PRN ×2 (22:06→23:35)
[2018-11-11] MEDS: INSULIN GLARGINE SYRINGE. SQ SCH (23:05)
[2018-11-12] VITALS (26 sets, daily range): BP systolic 73–146; BP diastolic 33–73
[2018-11-12] MEDS: PIPERACILLIN/TAZOBACTAM 4.5 GM in IV NORMAL SALINE 100ML 100 ML IV SCH ×4 (01:09→20:04)
--- NOTE | 2018-11-12 03:17 | NUR ---
The typewriter operator automatic was in pts room at approx 1915 starting the pts head to toe assessment. Pt looked as though he began to spit into his BiPap mask and then began to vomit copious amounts of brown emesis into his mask and tubing. The typewriter operator automatic quickly removed the mask from the pts face. Venti mask available in the room and placed on the pt while new mask and tubing were obtained. The RT then came by and brought a non-rebreather mask. Non-rebreather placed on pt. Pt SPO2 only 80% with non-rebreather in place. This was the second time patient had vomited today into BiPap mask. Page sent out to Dr. Schneider. Received called back with order to call anesthesia and intubate pt d/t decreasing SPO2 and probability of aspirating with continued emesis into BiPap mask. Received orders from Dr. Schneider for initial vent settings of AC 16, TV 500, PEEP 7, FiO2 100%. VICE PRESIDENT OF CONSULTING SERVICES came to perform intubation. 50 mg propofol and 60 mg succinylcholine administered to pt prior to ET tube placement. Pt tolerated procedure well. 7.5 ET tube placed and confirmed by x-ray. VICE PRESIDENT OF CONSULTING [employer] also placed left radial arterial line r/t pts wide range in BPs. Levophed also restarted at this time. Dr. Wilks notified of intubation at 2100. RN received order to consult ID. Dr. Winter gomez at 2245 to notify MD of pt situation. Received order to continue Zosyn at this time Q6, draw BMP and procalcitonin in am. Orders entered into system. Pt not well sedated on propofol 30 mg. Propofol also affecting pts BP and Levophed dosage needed. Call placed to Dr. Wilks at 2320. Received order for Fentanyl gtt per protocol. Pt currently calm and resting with eyes closed. Pts current adjusted settings on ventilator are AC 16, TV 500, PEEP 5, FiO2 60%. Lungs are coarse and crackly when auscultated. Copious amounts of brown drainage suctioned from pts ET tube throughout the shift. Pt within sight of RN; will continue to monitor.
[2018-11-12 06:00] LABS: HEMATOCRIT 21.8 % (39.0-53.0); HEMOGLOBIN 7.5 g/dL (13.0-17.5); RED BLOOD COUNT 2.33 x10^6/uL (4.30-5.70); RED CELL DISTRIBUTION WIDTH 15.4 % (11.5-14.5); WHITE BLOOD COUNT 8.2 x10^3/uL (4.0-11.0)
[2018-11-12 06:09] LABS: CALCIUM 7.6 mg/dL (8.5-10.1); CREATININE 1.1 mg/dL (0.7-1.3); POTASSIUM 4.3 mmol/L (3.5-5.1)
[2018-11-12 06:12] LABS: CHOLESTEROL/HDL RATIO 2.3
[2018-11-12] MEDS: FOSPHENYTOIN 100 MG/2 ML VIAL. IV SCH ×3 (06:17→22:08)
[2018-11-12] MEDS ORDERED: PANTOPRAZOLE 40 MG TABLET.DR. PO SCH (07:30)
[2018-11-12] MEDS: IPRATRPIUM/ALBUTEROL 0.5/2.5MG 3 ML NEBU. NEB SCH ×4 (07:58→19:42)
[2018-11-12] MEDS: INSULIN LISPRO 300 UNITS/3 ML VIAL. SQ SCH ×3 (08:00→17:00)
[2018-11-12 08:13] LABS: BASE EXCESS ABG 1 mmol/L (-3-3); HCO3 ABG 24 mmol/L (21-28); PCO2 ABG 30 mmHg (35-46); PO2 ABG 105 mmHg (65-108); SAT O2 ABG 98 % (92-99)
--- NOTE | 2018-11-12 08:42 | PDOC ---
JUAN ANTONIO GUSTAFSON TRANSPORTATION EQUIPMENT PAINTER 11/12/18 0842: CARDIO Progress Notes Date and Time Date of Service 11/12/2018 Time of Evaluation 0820 Subjective Subjective: Other (sedated) Vitals Vitals Vital Signs Date Time Temp Pulse Resp B/P (MAP) Pulse Ox O2 Delivery O2 Flow Rate FiO2 11/12/18 07:58 98 Ventilator 11/12/18 07:14 15.0 11/12/18 06:00 59 16 92/35 (54) 11/12/18 04:00 98.0 98.0 Weight Weight [ ] Input and Output Intake and Output Intake and Output 11/12/18 07:00 Intake Total 321.46 ml Output Total 340 ml Balance -18.54 ml Intake Oral 0 ml IV Total 321.46 ml Output Urine Total 340 ml # Bowel Movements 1 Laboratory Labs Laboratory Tests Test 11/11/18 09:15 11/11/18 09:40 11/11/18 11:29 11/11/18 17:43 D-Dimer (Suha) 1.88 ug/mlFEU (0.00-0.50) Sodium Level 134 mmol/L (136-145) Potassium Level 4.7 mmol/L (3.5-5.1) Chloride Level 99 mmol/L (98-107) Carbon Dioxide Level 32 mmol/L (21-32) Anion Gap 3 (6-14) Blood Urea Nitrogen 26 mg/dL (8-26) Creatinine 1.0 mg/dL (0.7-1.3) Estimated GFR (Cockcroft-Gault) 90.5 BUN/Creatinine Ratio 26 (6-20) Glucose Level 115 mg/dL (70-99) Calcium Level 8.2 mg/dL (8.5-10.1) Magnesium Level 1.5 mg/dL (1.8-2.4) Total Bilirubin 0.2 mg/dL (0.2-1.0) Aspartate Amino Transf (AST/SGOT) 35 U/L (15-37) Alanine Aminotransferase (ALT/SGPT) 12 U/L (16-63) Alkaline Phosphatase 291 U/L (46-116) Total Protein 5.3 g/dL (6.4-8.2) Albumin 1.1 g/dL (3.4-5.0) Albumin/Globulin Ratio 0.3 (1.0-1.7) O2 Saturation 98 % (92-99) Arterial Blood pH 7.42 (7.35-7.45) Arterial Blood pCO2 at Patient Temp 42 mmHg (35-46) Arterial Blood pO2 at Patient Temp 111 mmHg (65-108) Arterial Blood HCO3 27 mmol/L (21-28) Arterial Blood Base Excess 2 mmol/L (-3-3) FiO2 100 Glucose (Fingerstick) 128 mg/dL (70-99) 163 mg/dL (70-99) Test 11/11/18 21:15 11/11/18 23:04 11/12/18 05:10 O2 Saturation 99 % (92-99) Arterial Blood pH 7.45 (7.35-7.45) Arterial Blood pCO2 at Patient Temp 39 mmHg (35-46) Arterial Blood pO2 at Patient Temp 274 mmHg (65-108) Arterial Blood HCO3 27 mmol/L (21-28) Arterial Blood Base Excess 3 mmol/L (-3-3) FiO2 100 Glucose (Fingerstick) 181 mg/dL (70-99) White Blood Count 8.2 x10^3/uL (4.0-11.0) Red Blood Count 2.33 x10^6/uL (4.30-5.70) Hemoglobin 7.5 g/dL (13.0-17.5) Hematocrit 21.8 % (39.0-53.0) Mean Corpuscular Volume 94 fL (79-100) Mean Corpuscular Hemoglobin 32 pg (25-35) Mean Corpuscular Hemoglobin Concent 34 g/dL (31-37) Red Cell Distribution Width 15.4 % (11.5-14.5) Platelet Count 318 x10^3/uL (140-400) Sodium Level 135 mmol/L (136-145) Potassium Level 4.3 mmol/L (3.5-5.1) Chloride Level 99 mmol/L (98-107) Carbon Dioxide Level 28 mmol/L (21-32) Anion Gap 8 (6-14) Blood Urea Nitrogen 32 mg/dL (8-26) Creatinine 1.1 mg/dL (0.7-1.3) Estimated GFR (Cockcroft-Gault) 81.0 Glucose Level 153 mg/dL (70-99) Calcium Level 7.6 mg/dL (8.5-10.1) Triglycerides Level 132 mg/dL (0-150) Cholesterol Level 83 mg/dL (0-200) LDL Cholesterol, Calculated 21 mg/dL (0-100) VLDL Cholesterol, Calculated 26 mg/dL (0-40) Non-HDL Cholesterol Calculated 47 mg/dL (0-129) HDL Cholesterol 36 mg/dL (40-60) Cholesterol/HDL Ratio 2.3 Procalcitonin 0.52 ng/mL (0.00-0.10) Thyroid Stimulating Hormone (TSH) 3.521 uIU/mL (0.358-3.74) Microbiology Micro Microbiology 11/10/18 Blood Culture - Preliminary, Resulted NO GROWTH AFTER 1 DAY Physical Exam Chest: Symmetric Heart: RRR (SR no ectopies) Abdomen: Other Extremities: Other (lBKA) Neurology: other (sedated) Assessment Assessment 1. Acute respiratory failure with probable PNA, CHF and shock, intubated/vent 2. Acute on chronic diastolic CHF: EF nml 3. Hx of HTN 4. DM2/HLPHLP 5. CAD; details unknown 6. Severe PAD: significant to RLE with toe wound,.prior LBKA. +PT neg DP per doppler 7. H/o CVA with right-sided hemiplegia, aphasia 8. Dysphagia s/p recent G-tube placement 9. Hypomagnesemia 10. Protein calorie malnutrition 11. Normocytic anemia: from 10.3 to 7.5, per PCP. GI bleed? 12. Possible bowel obstruction: per PCP Recommendations 1. Continue pressor support, lasix with albumine 2. Replace Mg as warranted 3. Poor quality of life, poor custodial prognosis, consider palliative measures. 4. Follow pulmonary recommendations 5. Supportive care. KAYCEE SALES MD 11/12/18 3115: CARDIO Progress Notes Assessment Assessment Patient seen and examined. Agree with PURIFICATION SUPERVISOR's assessment and plan. Acute resp failure secondary to combination of pneumonia and acute on chr diastolic HF Patient was intubated overnight for possible aspiration 2-D echo showed normal LV systolic function. Gen edema probably anasarca Overall poor prognosis. Palliative care consulted JUAN ANTONIO GUSTAFSON APRN Nov 12, 2018 08:42 KAYCEE SALES MD Nov 12, 2018 16:55
[2018-11-12] MEDS ORDERED: ALBUMIN HUMAN 25% 100 ML IV ONE (08:45)
[2018-11-12] MEDS ORDERED: FUROSEMIDE 40 MG/4 ML VIAL. IVP ONE (08:45)
[2018-11-12 08:46] LABS: FIO2 ABG 40
[2018-11-12] MEDS: ASPIRIN CHEWABLE 81 MG TABLET. PO SCH (09:00)
[2018-11-12] MEDS: MAGNESIUM OXIDE 400 MG TABLET PO SCH ×2 (09:00→21:00)
[2018-11-12] MEDS: FUROSEMIDE 40 MG TABLET. PO SCH (09:00)
[2018-11-12] MEDS: METOPROLOL TART IMMED RELEASE 50 MG TABLET. PO SCH ×2 (09:00→21:00)
--- NOTE | 2018-11-12 09:20 | CARD ---
MR#: [id number] Date of Study: 11/11/2018 Ordering Physician: EDI BAZZI, Referring Physician: EDI BAZZI, Tech: Renee Blanc MADIE APPROVED REPORT EXAM: Two-dimensional and M-mode echocardiogram with Doppler and color Doppler. Other Information Quality : Fair Technically limited study due to body habitus. INDICATION Dyspnea 2D DIMENSIONS RVDd1.7 (2.9-3.5cm)Left Atrium(2D)2.3 (1.6-4.0cm) IVSd1.0 (0.7-1.1cm)Aortic Root(2D)1.9 (2.0-3.7cm) LVDd3.8 (3.9-5.9cm)LVOT Diameter1.9 (1.8-2.4cm) PWd0.7 (0.7-1.1cm)LVDs3.0 (2.5-4.0cm) FS (%) 25.0 %SV27.0 ml LVEF(%)50.0 (>50%) Aortic Valve AoV Peak David.130.1cm/sAoV VTI13.6cm AO Peak GR.6.8mmHgLVOT VTI 10.62cm AO Mean GR.4mmHgAVA (VTI)2.29cm2 Mitral Valve MV E Sfcdleqg53.6cm/sMV DECEL [id number] MV A Bsjpimby09.9cm/sE/A Ratio0.8 TDI Lateral E' P. V6.37cm/sMedial E' P. V4.83cm/s E/Lateral E'10.9E/Medial E'14.4 Tricuspid Valve TR P. Oemjpesj922nv/sRAP [id number] TR Peak Gr.[id number] LEFT VENTRICLE The left ventricle is normal size. There is normal left ventricular wall thickness. Left ventricle sy stolic function is low normal. The Ejection Fraction is 50-55%. Septal motion consistent with conduct ion abnormality. Otherwise, unable to clearly delineate wall motion due to poor image quality. Transm itral Doppler flow pattern is Grade I-abnormal relaxation pattern. RIGHT VENTRICLE The right ventricle is normal size. The right ventricular systolic function is normal. ATRIA Not well visualized. AORTIC VALVE Not well visualized. Doppler and Color Flow revealed no significant aortic regurgitation. There is no significant aortic valvular stenosis. MITRAL VALVE Not well visualized TRICUSPID VALVE Not well visualized. PULMONIC VALVE The pulmonic valve is not well visualized. GREAT VESSELS The aortic root is normal in size. The ascending aorta is not well seen. The IVC is normal in size an d collapses >50% with inspiration. PERICARDIAL EFFUSION Probable small pericardial effusion. Critical Notification Critical Value: No <Conclusion> Left ventricle systolic function is low normal. The Ejection Fraction is 50-55%. Septal motion consistent with conduction abnormality. Otherwise, unable to clearly delineate wall mot ion due to poor image quality. Probable small pericardial effusion. Signed by : Michael Umana, Electronically Approved : 11/11/2018 12:57:53
--- NOTE | 2018-11-12 09:45 | PDOC ---
Infectious Disease Note Vital Sign Vital Signs Vital Signs Date Time Temp Pulse Resp B/P (MAP) Pulse Ox O2 Delivery O2 Flow Rate FiO2 11/12/18 08:57 100 Ventilator 11/12/18 07:14 15.0 11/12/18 06:00 59 16 92/35 (54) 11/12/18 04:00 98.0 98.0 Physical Exam PHYSICAL EXAM Tami (10/23) Labs Lab Laboratory Tests Test 11/11/18 09:40 11/11/18 11:29 11/11/18 17:43 11/11/18 21:15 O2 Saturation 98 % (92-99) 99 % (92-99) Arterial Blood pH 7.42 (7.35-7.45) 7.45 (7.35-7.45) Arterial Blood pCO2 at Patient Temp 42 mmHg (35-46) 39 mmHg (35-46) Arterial Blood pO2 at Patient Temp 111 mmHg (65-108) 274 mmHg (65-108) Arterial Blood HCO3 27 mmol/L (21-28) 27 mmol/L (21-28) Arterial Blood Base Excess 2 mmol/L (-3-3) 3 mmol/L (-3-3) FiO2 100 100 Glucose (Fingerstick) 128 mg/dL (70-99) 163 mg/dL (70-99) Test 11/11/18 23:04 11/12/18 05:10 11/12/18 08:00 Glucose (Fingerstick) 181 mg/dL (70-99) White Blood Count 8.2 x10^3/uL (4.0-11.0) Red Blood Count 2.33 x10^6/uL (4.30-5.70) Hemoglobin 7.5 g/dL (13.0-17.5) Hematocrit 21.8 % (39.0-53.0) Mean Corpuscular Volume 94 fL (79-100) Mean Corpuscular Hemoglobin 32 pg (25-35) Mean Corpuscular Hemoglobin Concent 34 g/dL (31-37) Red Cell Distribution Width 15.4 % (11.5-14.5) Platelet Count 318 x10^3/uL (140-400) Sodium Level 135 mmol/L (136-145) Potassium Level 4.3 mmol/L (3.5-5.1) Chloride Level 99 mmol/L (98-107) Carbon Dioxide Level 28 mmol/L (21-32) Anion Gap 8 (6-14) Blood Urea Nitrogen 32 mg/dL (8-26) Creatinine 1.1 mg/dL (0.7-1.3) Estimated GFR (Cockcroft-Gault) 81.0 Glucose Level 153 mg/dL (70-99) Calcium Level 7.6 mg/dL (8.5-10.1) Triglycerides Level 132 mg/dL (0-150) Cholesterol Level 83 mg/dL (0-200) LDL Cholesterol, Calculated 21 mg/dL (0-100) VLDL Cholesterol, Calculated 26 mg/dL (0-40) Non-HDL Cholesterol Calculated 47 mg/dL (0-129) HDL Cholesterol 36 mg/dL (40-60) Cholesterol/HDL Ratio 2.3 Procalcitonin 0.52 ng/mL (0.00-0.10) Thyroid Stimulating Hormone (TSH) 3.521 uIU/mL (0.358-3.74) O2 Saturation 98 % (92-99) Arterial Blood pH 7.52 (7.35-7.45) Arterial Blood pCO2 at Patient Temp 30 mmHg (35-46) Arterial Blood pO2 at Patient Temp 105 mmHg (65-108) Arterial Blood HCO3 24 mmol/L (21-28) Arterial Blood Base Excess 1 mmol/L (-3-3) FiO2 40 Micro Microbiology 11/10/18 Blood Culture - Preliminary, Resulted NO GROWTH AFTER 1 DAY Objective Assessment Septic shock, POA. BC neg so far -Port a cath placement, 10/29 Aspiration (vomited while on BiPAP) Bandemia ? bowel obstruction on CT Diabetic ulcer right great toe Acute respiratory failure Acute CHF Dysphagia s/p recent G-tube placement, h/o CVA h/o seizures h/o E. coli and Klebsiella in urine Plan Plan of Care Continue Zosyn f/u cultures Local wound care D/w nursing Critically ill DENAE GOODEN APRN Nov 12, 2018 09:45
[2018-11-12] MEDS: TPN PER PHARMACY MC PRN ×2 (10:11→10:34)
--- NOTE | 2018-11-12 10:13 | PDOC ---
PULMONARY PROGRESS NOTES Subjective intubated last night due to emesis while on BIPAP/ hypoxia Vitals Vital Signs Date Time Temp Pulse Resp B/P (MAP) Pulse Ox O2 Delivery O2 Flow Rate FiO2 11/12/18 08:57 100 Ventilator 11/12/18 07:14 15.0 11/12/18 06:00 59 16 92/35 (54) 11/12/18 04:00 98.0 98.0 Lungs: Other (coarse right) Cardiovascular: S1, S2 Abdomen: Soft, Non-tender Extremities: Other (L BKA) Labs Laboratory Tests Test 11/10/18 17:41 11/10/18 17:50 11/10/18 18:00 11/10/18 18:19 Glucose (Fingerstick) 289 mg/dL (70-99) O2 Saturation 97 % (92-99) Arterial Blood pH 7.34 (7.35-7.45) Arterial Blood pCO2 at Patient Temp 57 mmHg (35-46) Arterial Blood pO2 at Patient Temp 100 mmHg (65-108) Arterial Blood HCO3 30 mmol/L (21-28) Arterial Blood Base Excess 3 mmol/L (-3-3) Oxyhemoglobin 95.9 % Methemoglobin 0.3 % (0.0-1.9) Carbon Monoxide, Quantitative 0.3 % (0.0-1.9) FiO2 100 bipap Urine Collection Type Unknown Urine Color Yellow Urine Clarity Clear Urine pH 5.5 Urine Specific [place] 1.025 Urine Protein >=300 mg/dL (NEG-TRACE) Urine Glucose (UA) 500 mg/dL (NEG) Urine Ketones (Stick) Negative mg/dL (NEG) Urine Blood Negative (NEG) Urine Nitrite Negative (NEG) Urine Bilirubin Negative (NEG) Urine Urobilinogen Dipstick 0.2 mg/dL (0.2 mg/dL) Urine Leukocyte Esterase Negative (NEG) Urine RBC 1-2 /HPF (0-2) Urine WBC 1-4 /HPF (0-4) Urine Bacteria 0 /HPF (0-FEW) Urine Hyaline Casts Moderate /HPF Urine Mucus Mod /LPF White Blood Count 8.3 x10^3/uL (4.0-11.0) Red Blood Count 3.20 x10^6/uL (4.30-5.70) Hemoglobin 10.3 g/dL (13.0-17.5) Hematocrit 30.2 % (39.0-53.0) Mean Corpuscular Volume 95 fL (79-100) Mean Corpuscular Hemoglobin 32 pg (25-35) Mean Corpuscular Hemoglobin Concent 34 g/dL (31-37) Red Cell Distribution Width 15.4 % (11.5-14.5) Platelet Count 360 x10^3/uL (140-400) Neutrophils (%) (Auto) 85 % (31-73) Lymphocytes (%) (Auto) 8 % (24-48) Monocytes (%) (Auto) 7 % (0-9) Eosinophils (%) (Auto) 0 % (0-3) Basophils (%) (Auto) 1 % (0-3) Neutrophils # (Auto) 7.1 x10^3/uL (1.8-7.7) Lymphocytes # (Auto) 0.6 x10^3/uL (1.0-4.8) Monocytes # (Auto) 0.6 x10^3/uL (0.0-1.1) Eosinophils # (Auto) 0.0 x10^3/uL (0.0-0.7) Basophils # (Auto) 0.0 x10^3/uL (0.0-0.2) Segmented Neutrophils % 75 % (35-66) Band Neutrophils % 14 % (0-9) Lymphocytes % 6 % (24-48) Monocytes % 4 % (0-10) Basophils % 1 % (0-3) Platelet Estimate Adequate (ADEQUATE) Sodium Level 132 mmol/L (136-145) Potassium Level 4.7 mmol/L (3.5-5.1) Chloride Level 98 mmol/L (98-107) Carbon Dioxide Level 33 mmol/L (21-32) Anion Gap 1 (6-14) Blood Urea Nitrogen 21 mg/dL (8-26) Creatinine 0.7 mg/dL (0.7-1.3) Estimated GFR (Cockcroft-Gault) 136.5 BUN/Creatinine Ratio 30 (6-20) Glucose Level 223 mg/dL (70-99) Lactic Acid Level 1.2 mmol/L (0.4-2.0) Calcium Level 8.4 mg/dL (8.5-10.1) Magnesium Level 1.5 mg/dL (1.8-2.4) Total Bilirubin 0.1 mg/dL (0.2-1.0) Aspartate Amino Transf (AST/SGOT) 38 U/L (15-37) Alanine Aminotransferase (ALT/SGPT) 17 U/L (16-63) Alkaline Phosphatase 366 U/L (46-116) Troponin I Quantitative 0.022 ng/mL (0.000-0.055) AK-Ure-D-Type Natriuretic Peptide 2204 pg/mL (0-124) Total Protein 5.7 g/dL (6.4-8.2) Albumin 1.2 g/dL (3.4-5.0) Albumin/Globulin Ratio 0.3 (1.0-1.7) Phenytoin (Dilantin) Level 2.5 mcg/mL (10.0-20.0) Phenytoin Last Dose Date Phenytoin Last Dose Time Test 11/10/18 19:12 11/10/18 22:00 11/11/18 01:12 11/11/18 06:10 O2 Saturation 96 % (92-99) Arterial Blood pH 7.34 (7.35-7.45) Arterial Blood pCO2 at Patient Temp 55 mmHg (35-46) Arterial Blood pO2 at Patient Temp 101 mmHg (65-108) Arterial Blood HCO3 29 mmol/L (21-28) Arterial Blood Base Excess 3 mmol/L (-3-3) FiO2 100 Influenza Type A Antigen Negative (NEGATIVE) Influenza Type B Antigen Negative (NEGATIVE) Troponin I Quantitative 0.042 ng/mL (0.000-0.055) White Blood Count 9.9 x10^3/uL (4.0-11.0) Red Blood Count 3.03 x10^6/uL (4.30-5.70) Hemoglobin 9.9 g/dL (13.0-17.5) Hematocrit 28.6 % (39.0-53.0) Mean Corpuscular Volume 95 fL (79-100) Mean Corpuscular Hemoglobin 33 pg (25-35) Mean Corpuscular Hemoglobin Concent 35 g/dL (31-37) Red Cell Distribution Width 15.4 % (11.5-14.5) Platelet Count 333 x10^3/uL (140-400) Neutrophils (%) (Auto) 83 % (31-73) Lymphocytes (%) (Auto) 11 % (24-48) Monocytes (%) (Auto) 5 % (0-9) Eosinophils (%) (Auto) 0 % (0-3) Basophils (%) (Auto) 1 % (0-3) Neutrophils # (Auto) 8.2 x10^3/uL (1.8-7.7) Lymphocytes # (Auto) 1.1 x10^3/uL (1.0-4.8) Monocytes # (Auto) 0.5 x10^3/uL (0.0-1.1) Eosinophils # (Auto) 0.0 x10^3/uL (0.0-0.7) Basophils # (Auto) 0.0 x10^3/uL (0.0-0.2) Sodium Level 133 mmol/L (136-145) Potassium Level 4.8 mmol/L (3.5-5.1) Chloride Level 100 mmol/L (98-107) Carbon Dioxide Level 30 mmol/L (21-32) Anion Gap 3 (6-14) Blood Urea Nitrogen 25 mg/dL (8-26) Creatinine 0.9 mg/dL (0.7-1.3) Estimated GFR (Cockcroft-Gault) 102.2 BUN/Creatinine Ratio 28 (6-20) Glucose Level 99 mg/dL (70-99) Calcium Level 8.4 mg/dL (8.5-10.1) Total Bilirubin 0.2 mg/dL (0.2-1.0) Aspartate Amino Transf (AST/SGOT) 40 U/L (15-37) Alanine Aminotransferase (ALT/SGPT) 14 U/L (16-63) Alkaline Phosphatase 301 U/L (46-116) JO-Ztc-M-Type Natriuretic Peptide 4315 pg/mL (0-124) Total Protein 5.3 g/dL (6.4-8.2) Albumin 1.1 g/dL (3.4-5.0) Albumin/Globulin Ratio 0.3 (1.0-1.7) Procalcitonin 0.33 ng/mL (0.00-0.10) Test 11/11/18 09:15 11/11/18 09:40 11/11/18 11:29 11/11/18 17:43 D-Dimer (Suha) 1.88 ug/mlFEU (0.00-0.50) Sodium Level 134 mmol/L (136-145) Potassium Level 4.7 mmol/L (3.5-5.1) Chloride Level 99 mmol/L (98-107) Carbon Dioxide Level 32 mmol/L (21-32) Anion Gap 3 (6-14) Blood Urea Nitrogen 26 mg/dL (8-26) Creatinine 1.0 mg/dL (0.7-1.3) Estimated GFR (Cockcroft-Gault) 90.5 BUN/Creatinine Ratio 26 (6-20) Glucose Level 115 mg/dL (70-99) Calcium Level 8.2 mg/dL (8.5-10.1) Magnesium Level 1.5 mg/dL (1.8-2.4) Total Bilirubin 0.2 mg/dL (0.2-1.0) Aspartate Amino Transf (AST/SGOT) 35 U/L (15-37) Alanine Aminotransferase (ALT/SGPT) 12 U/L (16-63) Alkaline Phosphatase 291 U/L (46-116) Total Protein 5.3 g/dL (6.4-8.2) Albumin 1.1 g/dL (3.4-5.0) Albumin/Globulin Ratio 0.3 (1.0-1.7) O2 Saturation 98 % (92-99) Arterial Blood pH 7.42 (7.35-7.45) Arterial Blood pCO2 at Patient Temp 42 mmHg (35-46) Arterial Blood pO2 at Patient Temp 111 mmHg (65-108) Arterial Blood HCO3 27 mmol/L (21-28) Arterial Blood Base Excess 2 mmol/L (-3-3) FiO2 100 Glucose (Fingerstick) 128 mg/dL (70-99) 163 mg/dL (70-99) Test 11/11/18 21:15 11/11/18 23:04 11/12/18 05:10 11/12/18 08:00 O2 Saturation 99 % (92-99) 98 % (92-99) Arterial Blood pH 7.45 (7.35-7.45) 7.52 (7.35-7.45) Arterial Blood pCO2 at Patient Temp 39 mmHg (35-46) 30 mmHg (35-46) Arterial Blood pO2 at Patient Temp 274 mmHg (65-108) 105 mmHg (65-108) Arterial Blood HCO3 27 mmol/L (21-28) 24 mmol/L (21-28) Arterial Blood Base Excess 3 mmol/L (-3-3) 1 mmol/L (-3-3) FiO2 100 40 Glucose (Fingerstick) 181 mg/dL (70-99) White Blood Count 8.2 x10^3/uL (4.0-11.0) Red Blood Count 2.33 x10^6/uL (4.30-5.70) Hemoglobin 7.5 g/dL (13.0-17.5) Hematocrit 21.8 % (39.0-53.0) Mean Corpuscular Volume 94 fL (79-100) Mean Corpuscular Hemoglobin 32 pg (25-35) Mean Corpuscular Hemoglobin Concent 34 g/dL (31-37) Red Cell Distribution Width 15.4 % (11.5-14.5) Platelet Count 318 x10^3/uL (140-400) Sodium Level 135 mmol/L (136-145) Potassium Level 4.3 mmol/L (3.5-5.1) Chloride Level 99 mmol/L (98-107) Carbon Dioxide Level 28 mmol/L (21-32) Anion Gap 8 (6-14) Blood Urea Nitrogen 32 mg/dL (8-26) Creatinine 1.1 mg/dL (0.7-1.3) Estimated GFR (Cockcroft-Gault) 81.0 Glucose Level 153 mg/dL (70-99) Calcium Level 7.6 mg/dL (8.5-10.1) Magnesium Level 1.8 mg/dL (1.8-2.4) Triglycerides Level 132 mg/dL (0-150) Cholesterol Level 83 mg/dL (0-200) LDL Cholesterol, Calculated 21 mg/dL (0-100) VLDL Cholesterol, Calculated 26 mg/dL (0-40) Non-HDL Cholesterol Calculated 47 mg/dL (0-129) HDL Cholesterol 36 mg/dL (40-60) Cholesterol/HDL Ratio 2.3 Procalcitonin 0.52 ng/mL (0.00-0.10) Thyroid Stimulating Hormone (TSH) 3.521 uIU/mL (0.358-3.74) Laboratory Tests Test 11/11/18 11:29 11/11/18 17:43 11/11/18 21:15 11/11/18 23:04 Glucose (Fingerstick) 128 mg/dL (70-99) 163 mg/dL (70-99) 181 mg/dL (70-99) O2 Saturation 99 % (92-99) Arterial Blood pH 7.45 (7.35-7.45) Arterial Blood pCO2 at Patient Temp 39 mmHg (35-46) Arterial Blood pO2 at Patient Temp 274 mmHg (65-108) Arterial Blood HCO3 27 mmol/L (21-28) Arterial Blood Base Excess 3 mmol/L (-3-3) FiO2 100 Test 11/12/18 05:10 11/12/18 08:00 White Blood Count 8.2 x10^3/uL (4.0-11.0) Red Blood Count 2.33 x10^6/uL (4.30-5.70) Hemoglobin 7.5 g/dL (13.0-17.5) Hematocrit 21.8 % (39.0-53.0) Mean Corpuscular Volume 94 fL (79-100) Mean Corpuscular Hemoglobin 32 pg (25-35) Mean Corpuscular Hemoglobin Concent 34 g/dL (31-37) Red Cell Distribution Width 15.4 % (11.5-14.5) Platelet Count 318 x10^3/uL (140-400) Sodium Level 135 mmol/L (136-145) Potassium Level 4.3 mmol/L (3.5-5.1) Chloride Level 99 mmol/L (98-107) Carbon Dioxide Level 28 mmol/L (21-32) Anion Gap 8 (6-14) Blood Urea Nitrogen 32 mg/dL (8-26) Creatinine 1.1 mg/dL (0.7-1.3) Estimated GFR (Cockcroft-Gault) 81.0 Glucose Level 153 mg/dL (70-99) Calcium Level 7.6 mg/dL (8.5-10.1) Magnesium Level 1.8 mg/dL (1.8-2.4) Triglycerides Level 132 mg/dL (0-150) Cholesterol Level 83 mg/dL (0-200) LDL Cholesterol, Calculated 21 mg/dL (0-100) VLDL Cholesterol, Calculated 26 mg/dL (0-40) Non-HDL Cholesterol Calculated 47 mg/dL (0-129) HDL Cholesterol 36 mg/dL (40-60) Cholesterol/HDL Ratio 2.3 Procalcitonin 0.52 ng/mL (0.00-0.10) Thyroid Stimulating Hormone (TSH) 3.521 uIU/mL (0.358-3.74) O2 Saturation 98 % (92-99) Arterial Blood pH 7.52 (7.35-7.45) Arterial Blood pCO2 at Patient Temp 30 mmHg (35-46) Arterial Blood pO2 at Patient Temp 105 mmHg (65-108) Arterial Blood HCO3 24 mmol/L (21-28) Arterial Blood Base Excess 1 mmol/L (-3-3) FiO2 40 Medications Active Scripts Medications Dose Route/Sig Max Daily Dose Days Date Category Dose Instructions Mag-Oxide (Magnesium Oxide) 400 Mg Tablet 1 Tab PO BID 30 11/07/18 Rx Lantus Solostar (Insulin Glargine,Hum.rec.anlog) 100 Unit/1 Ml Insuln.pen 2 Unit SQ QHS 30 10/17/18 Rx Metformin Hcl 500 Mg Tablet 500 Mg PO BIDWMEALS 30 10/17/18 Rx Novolog Flexpen (Insulin Aspart) 100 Unit/1 Ml Insuln.pen 2 Unit SQ TIDAC 30 09/24/18 Rx hold if blood sugar < 120 Thera-M Tablet (Multivits,Ca,Minerals/Iron/Fa) 1 Each Tablet 1 Each PO DAILY 07/15/18 Reported Duoneb 0.5-3(2.5) Mg/3 Ml (Albuterol/Ipratropium) 3 Ml Ampul.neb 3 Ml NEB QID 30 05/23/18 Rx Acidophilus Lactobacilli (Lactobacillus Acidophilus) 1 Each Capsule 1 Each PO BID 10 05/23/18 Rx Senna (Sennosides) 8.6 Mg Tablet 8.6 Mg PO BID 05/19/18 Reported Dilantin (Phenytoin Sodium Extended) 100 Mg Capsule 1 Cap PO TID 05/19/18 Reported Omeprazole 40 Mg Capsule.dr 1 Cap PO BID 05/19/18 Reported Mucinex (Guaifenesin) 600 Mg Tablet.er 1 Tab PO BID PRN 05/19/18 Reported Metoprolol Tartrate 50 Mg Tablet 1 Tab PO BID 05/19/18 Reported Losartan Potassium 100 Mg Tablet 100 Mg PO DAILY 05/19/18 Reported Gabapentin (Gabapentin) 300 Mg Capsule 300 Mg PO TID 05/19/18 Reported Furosemide 40 Mg Tablet 1 Tab PO DAILY 05/19/18 Reported Atorvastatin Calcium 20 Mg Tablet 1 Tab PO DAILY 05/19/18 Reported Aspirin 81 Mg Tab.chew 1 Tab PO DAILY 05/19/[address] CHEST 11/11 REVIEWED Impression . 1. Acute hypoxic respiratory failure secondary to multifactorial etiologies including congestive heart failure with coexisting pneumonia/ Mucous plug/ Right LLL collapse and shock. 2. Shock. Possibility of coexisting sepsis/pneumonia likely etiology 3. 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 suspect aspiration 4. Dysphagia, status post PEG tube. 5. Severe protein-calorie malnutrition, also contributing to pleural effusions. He has albumin level of only 1.1. 6. Left below-knee amputation. 7. History of cerebrovascular accident. Plan . 1. AC mode . Follow ABG and make necessary changes 2. CTA chest along with abdomen and pelvis reviewed. 3. antibiotics. 4. Continue low-dose vasopressor. 5. May try albumin. 6. DuoNebs. 7. dc DVT prophylaxis due to anemia 8. will benefit from Bronch Discussed with RN and RT. Critical care time 30 minutes. TESFAYE DÍAZ MD Nov 12, 2018 10:13
--- NOTE | 2018-11-12 10:50 | RAD ---
CHEST AP ONLY History: Possible aspiration pneumonia. Intubated. Comparison: November 11, 2018 Findings: Diffuse right lung consolidation, slightly decreased. Bilateral layering pleural effusions, increased. Prior granulomatous disease. Unchanged heart size. Unchanged right chest wall port. Unchanged endotracheal tube. Prominent skin fold along the right lateral chest. Gastrostomy tube noted. Impression: 1. Diffuse right lung consolidations, slightly decreased. 2. Increased moderate right and small left layering pleural effusions. Electronically signed by: Willi Dennis DO (11/12/2018 10:47 AM) [id number]
--- NOTE | 2018-11-12 12:50 | PDOC ---
Infectious Disease Note Vital Sign Vital Signs Vital Signs Date Time Temp Pulse Resp B/P (MAP) Pulse Ox O2 Delivery O2 Flow Rate FiO2 11/12/18 11:44 100 Ventilator 11/12/18 11:00 64 12 110/40 (63) 11/12/18 08:00 97.9 97.9 11/12/18 07:14 15.0 Physical Exam PHYSICAL EXAM Tami (10/23) Labs Lab Laboratory Tests Test 11/11/18 17:43 11/11/18 21:15 11/11/18 23:04 11/12/18 05:10 Glucose (Fingerstick) 163 mg/dL (70-99) 181 mg/dL (70-99) O2 Saturation 99 % (92-99) Arterial Blood pH 7.45 (7.35-7.45) Arterial Blood pCO2 at Patient Temp 39 mmHg (35-46) Arterial Blood pO2 at Patient Temp 274 mmHg (65-108) Arterial Blood HCO3 27 mmol/L (21-28) Arterial Blood Base Excess 3 mmol/L (-3-3) FiO2 100 White Blood Count 8.2 x10^3/uL (4.0-11.0) Red Blood Count 2.33 x10^6/uL (4.30-5.70) Hemoglobin 7.5 g/dL (13.0-17.5) Hematocrit 21.8 % (39.0-53.0) Mean Corpuscular Volume 94 fL (79-100) Mean Corpuscular Hemoglobin 32 pg (25-35) Mean Corpuscular Hemoglobin Concent 34 g/dL (31-37) Red Cell Distribution Width 15.4 % (11.5-14.5) Platelet Count 318 x10^3/uL (140-400) Sodium Level 135 mmol/L (136-145) Potassium Level 4.3 mmol/L (3.5-5.1) Chloride Level 99 mmol/L (98-107) Carbon Dioxide Level 28 mmol/L (21-32) Anion Gap 8 (6-14) Blood Urea Nitrogen 32 mg/dL (8-26) Creatinine 1.1 mg/dL (0.7-1.3) Estimated GFR (Cockcroft-Gault) 81.0 Glucose Level 153 mg/dL (70-99) Calcium Level 7.6 mg/dL (8.5-10.1) Magnesium Level 1.8 mg/dL (1.8-2.4) Triglycerides Level 132 mg/dL (0-150) Cholesterol Level 83 mg/dL (0-200) LDL Cholesterol, Calculated 21 mg/dL (0-100) VLDL Cholesterol, Calculated 26 mg/dL (0-40) Non-HDL Cholesterol Calculated 47 mg/dL (0-129) HDL Cholesterol 36 mg/dL (40-60) Cholesterol/HDL Ratio 2.3 Procalcitonin 0.52 ng/mL (0.00-0.10) Thyroid Stimulating Hormone (TSH) 3.521 uIU/mL (0.358-3.74) Test 11/12/18 08:00 O2 Saturation 98 % (92-99) Arterial Blood pH 7.52 (7.35-7.45) Arterial Blood pCO2 at Patient Temp 30 mmHg (35-46) Arterial Blood pO2 at Patient Temp 105 mmHg (65-108) Arterial Blood HCO3 24 mmol/L (21-28) Arterial Blood Base Excess 1 mmol/L (-3-3) FiO2 40 Micro Microbiology 11/10/18 Blood Culture - Preliminary, Resulted NO GROWTH AFTER 1 DAY Objective Assessment Septic shock associated with pneumonia, POA. BC neg so far -Port a cath placement, 10/29 Aspiration (vomited while on BiPAP) Bandemia ? bowel obstruction on CT Diabetic ulcer right great toe Acute respiratory failure w/ bilateral pleural effusions and infiltrates Acute CHF Dysphagia s/p recent G-tube placement, PVD h/o CVA h/o seizures h/o E. coli and Klebsiella in urine Plan Plan of Care Continue Zosyn Obtain sputum culture f/u cultures Monitor lab values Local wound care per wound care team D/w nursing Critically ill Thank you [id number] Consult Vascular re opinion on CT ? related to abd distension dose Vanc with increasing Pressors now D/w Dr. Conti D/w nursing 35 mins Attending Co-Sign Attending Co-Sign The patient was seen and interviewed as well as examined at the bedside. The chart was reviewed. The case was discussed. Agree with the plan of care. DENAE GOODEN APRN Nov 12, 2018 12:50 CONCHITA MARTINEZ MD Nov 12, 2018 14:23
--- NOTE | 2018-11-12 13:41 | PDOC2 ---
PALLIATIVE CARE Palliative Care Note Palliative Care Consult requested by Roxie Weston APRN to address goals of care Medical Assessment per medical record; 1. Acute hypoxic respiratory failure secondary to multifactorial etiologies including congestive heart failure with coexisting pneumonia/ Mucous plug/ Right LLL collapse and shock. 2. Shock. Possibility of coexisting sepsis/pneumonia likely etiology 3. 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 suspect aspiration 4. Dysphagia, status post PEG tube. 5. Severe protein-calorie malnutrition, also contributing to pleural effusions. He has albumin level of only 1.1. 6. Left below-knee amputation. 7. History of cerebrovascular accident. Patient intubated on pressor and sedative. Spoke with Brianda HIGUERA at [facility]. Copy of AD/DPOA received. Spoke with Nahum BUCKNER. Plan family meeting tomorrow at 1300. Received permission from Nahum for bronchoscopy in am. Contact # Nahum BUCKNER [phone] Family meeting changed to 0900 per request of family. CATHY SINGH Nov 12, 2018 13:41
--- NOTE | 2018-11-12 13:49 | PDOC ---
PROGRESS NOTES Subjective Subjective pt was intubated last night for sob and aspiration Objective Objective Vital Signs Date Time Temp Pulse Resp B/P (MAP) Pulse Ox O2 Delivery O2 Flow Rate FiO2 11/12/18 13:21 100 Ventilator 11/12/18 13:00 54 12 146/48 (80) 11/12/18 12:00 97.6 97.6 11/12/18 07:44 15.0 Intake and Output 11/12/18 07:00 Intake Total 321.46 ml Output Total 340 ml Balance -18.54 ml Intake Oral 0 ml IV Total 321.46 ml Output Urine Total 340 ml # Bowel Movements 1 Physical Exam Abdomen: Soft, Other (peg present) Heart: Regular rate, Other (distant heart tones ) Extremities: No edema, Other (left BKA ) General: mild distress HEENT: Atraumatic Lungs: Other (on vent) MUSCULOSKELETAL: Osteoarthritic changes both hands Neuro: Other (unable to assess ) Assessment Assessment IMPRESSION: 1. Acute hypoxic respiratory failure secondary to multifactorial etiologies including congestive heart failure with possible coexisting pneumonia and shock. 2. Shock. 3. 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 4. Dysphagia, status post PEG tube. 5. Severe protein-calorie malnutrition, also contributing to pleural effusions. He has albumin level of only 1.1. 6. Left below-knee amputation. 7. History of cerebrovascular accident. 8. PEG tube 9. PVD 10 septic shock RECOMMENDATIONS: 1. Ventilator support 2. CTA chest along with abdomen and pelvis CT to further evaluate etiology of hypoxia. 3. Added antibiotics.as per ID recommendations 4. Continue low-dose vasopressor. 5. May try albumin. 6. DuoNebs. 7. Add DVT prophylaxis. 8. Further recommendations to follow. Discussed with RN and RT. Comment Review of Relevant I have reviewed the following items myron (where applicable) has been applied. Labs Laboratory Tests Test 11/11/18 17:43 11/11/18 21:15 11/11/18 23:04 11/12/18 05:10 Glucose (Fingerstick) 163 mg/dL (70-99) 181 mg/dL (70-99) O2 Saturation 99 % (92-99) Arterial Blood pH 7.45 (7.35-7.45) Arterial Blood pCO2 at Patient Temp 39 mmHg (35-46) Arterial Blood pO2 at Patient Temp 274 mmHg (65-108) Arterial Blood HCO3 27 mmol/L (21-28) Arterial Blood Base Excess 3 mmol/L (-3-3) FiO2 100 White Blood Count 8.2 x10^3/uL (4.0-11.0) Red Blood Count 2.33 x10^6/uL (4.30-5.70) Hemoglobin 7.5 g/dL (13.0-17.5) Hematocrit 21.8 % (39.0-53.0) Mean Corpuscular Volume 94 fL (79-100) Mean Corpuscular Hemoglobin 32 pg (25-35) Mean Corpuscular Hemoglobin Concent 34 g/dL (31-37) Red Cell Distribution Width 15.4 % (11.5-14.5) Platelet Count 318 x10^3/uL (140-400) Sodium Level 135 mmol/L (136-145) Potassium Level 4.3 mmol/L (3.5-5.1) Chloride Level 99 mmol/L (98-107) Carbon Dioxide Level 28 mmol/L (21-32) Anion Gap 8 (6-14) Blood Urea Nitrogen 32 mg/dL (8-26) Creatinine 1.1 mg/dL (0.7-1.3) Estimated GFR (Cockcroft-Gault) 81.0 Glucose Level 153 mg/dL (70-99) Calcium Level 7.6 mg/dL (8.5-10.1) Magnesium Level 1.8 mg/dL (1.8-2.4) Triglycerides Level 132 mg/dL (0-150) Cholesterol Level 83 mg/dL (0-200) LDL Cholesterol, Calculated 21 mg/dL (0-100) VLDL Cholesterol, Calculated 26 mg/dL (0-40) Non-HDL Cholesterol Calculated 47 mg/dL (0-129) HDL Cholesterol 36 mg/dL (40-60) Cholesterol/HDL Ratio 2.3 Procalcitonin 0.52 ng/mL (0.00-0.10) Thyroid Stimulating Hormone (TSH) 3.521 uIU/mL (0.358-3.74) Test 11/12/18 08:00 11/12/18 13:22 O2 Saturation 98 % (92-99) Arterial Blood pH 7.52 (7.35-7.45) Arterial Blood pCO2 at Patient Temp 30 mmHg (35-46) Arterial Blood pO2 at Patient Temp 105 mmHg (65-108) Arterial Blood HCO3 24 mmol/L (21-28) Arterial Blood Base Excess 1 mmol/L (-3-3) FiO2 40 Glucose (Fingerstick) 146 mg/dL (70-99) Microbiology 11/10/18 Blood Culture - Preliminary, Resulted NO GROWTH AFTER 1 DAY Medications Current Medications Albumin Human 50 ml @ 50 mls/hr 1X ONCE IV Last administered on 11/11/18at 16:36; Start 11/11/18 at 16:30; Stop 11/11/18 at 17:29; Status DC Albumin Human 100 ml @ 100 mls/hr 1X ONCE IV Last administered on 11/12/18at 09:52; Start 11/12/18 at 08:45; Stop 11/12/18 at 09:44; Status DC Aspirin (Children'S Aspirin) 81 mg DAILY PO Last administered on 11/11/18at 17:26; Start 11/11/18 at 17:00 Atorvastatin Calcium (Lipitor) 20 mg QHS PO ; Start 11/11/18 at 21:00 Enoxaparin Sodium (Lovenox 40mg Syringe) 40 mg Q24H SQ Last administered on 11/11/18at 14:32; Start 11/11/18 at 14:00; Stop 11/12/18 at 09:45; Status DC Fentanyl Citrate 30 ml @ 0 mls/hr CONT PRN IV SEE PROTOCOL Last administered on 11/12/18at 07:14; Start 11/11/18 at 23:30 Fosphenytoin Sodium (Cerebyx) 100 mg Q8HRS IV Last administered on 11/12/18at 06:17; Start 11/11/18 at 14:00 Furosemide (Lasix) 40 mg 1X ONCE IVP Last administered on 11/11/18at 17:27; Start 11/11/18 at 18:30; Stop 11/11/18 at 18:31; Status DC Furosemide (Lasix) 40 mg 1X ONCE IVP Last administered on 11/12/18at 09:53; Start 11/12/18 at 08:45; Stop 11/12/18 at 08:46; Status DC Furosemide (Lasix) 40 mg DAILY PO ; Start 11/12/18 at 09:00 Info (Tpn Per Pharmacy) 1 each PRN DAILY PRN MC SEE COMMENTS Last administered on 11/12/18at 10:34; Start 11/12/18 at 09:30 Insulin Glargine (Lantus Syringe) 2 unit QHS SQ Last administered on 11/11/18at 23:05; Start 11/11/18 at 21:00 Magnesium Sulfate/ Dextrose 100 ml @ 100 mls/hr 1X ONCE IV ; Start 11/12/18 at 13:45; Stop 11/12/18 at 14:44; Status UNV Metoprolol Tartrate (Lopressor) 50 mg BID PO ; Start 11/11/18 at 21:00 Pantoprazole Sodium (Protonix) 40 mg DAILYAC PO ; Start 11/12/18 at 07:30 Propofol 100 ml @ 1.919 mls/ hr CONT PRN IV SEE I/O RECORD Last administered on 11/11/18at 23:35; Start 11/11/18 at 20:30 Propofol 100 ml @ As Directed STK-MED ONCE IV ; Start 11/11/18 at 19:50; Stop 11/11/18 at 19:50; Status DC Sodium Chloride 90 meq/Potassium Chloride 50 meq/ Potassium Phosphate 13.6 mmol/Magnesium Sulfate 10 meq/ Calcium Gluconate 10 meq/ Multivitamins 10 ml/Chromium/ Copper/Manganese/ Seleni/Zn 1 ml/ Total Parenteral Nutrition/Amino Acids/Dextrose 87.0013 ml @ 3.625 mls/hr TPN CONT IV ; Start 11/12/18 at 22:00; Stop 11/13/18 at 21:59; Status Cancel Sodium Chloride 90 meq/Potassium Chloride 50 meq/ Potassium Phosphate 13.6 mmol/Magnesium Sulfate 10 meq/ Calcium Gluconate 10 meq/ Multivitamins 10 ml/Chromium/ Copper/Manganese/ Seleni/Zn 1 ml/ Total Parenteral Nutrition/Amino Acids/Dextrose 1,512 ml @ 63 mls/hr TPN CONT IV ; Start 11/12/18 at 22:00; Stop 11/13/18 at 21:59 Succinylcholine Chloride (Anectine) 60 mg 1X ONCE IV Last administered on 11/11/18at 22:05; Start 11/11/18 at 20:30; Stop 11/11/18 at 20:36; Status DC Succinylcholine Chloride (Anectine) 200 mg STK-MED ONCE .ROUTE ; Start 11/11/18 at 19:50; Stop 11/11/18 at 19:50; Status DC Vitals/I & O Vital Sign - Last 24 Hours 11/11/18 11/11/18 11/11/18 11/11/18 13:55 15:00 15:43 16:00 Pulse 102 103 B/P (MAP) 123/78 (93) 118/95 (103) Pulse Ox 100 100 97 O2 Delivery BiPAP/CPAP BiPAP/CPAP BiPAP/CPAP 11/11/18 11/11/18 11/11/18 11/11/18 16:00 17:00 18:00 18:45 Temp 98.0 98.0 Pulse 100 103 107 B/P (MAP) 158/85 (109) 167/89 (115) 140/74 (96) Pulse Ox 97 97 O2 Delivery Bi-pap BiPAP/CPAP BiPAP/CPAP 11/11/18 11/11/18 11/11/18 11/11/18 19:00 20:00 20:00 20:00 Temp 98.2 98.2 Pulse 108 93 94 Resp 24 16 B/P (MAP) 109/66 (80) 80/53 (62) 138/48 (78) Pulse Ox 92 81 O2 Delivery BiPAP/CPAP NonRebreather Mask Mechanical Ventilator O2 Flow Rate 15.0 11/11/18 11/11/18 11/11/18 11/11/18 20:15 20:20 20:35 20:41 Pulse 94 98 100 B/P (MAP) 138/48 (78) 184/60 (101) 170/68 (102) Pulse Ox 100 86 O2 Delivery Ventilator Ventilator 11/11/18 11/11/18 11/11/18 11/11/18 21:00 21:15 21:30 22:00 Pulse 88 84 86 Resp 16 16 B/P (MAP) 72/36 (48) 96/38 (57) 124/48 (73) Pulse Ox 100 100 100 O2 Delivery Ventilator Ventilator Ventilator 11/11/18 11/11/18 11/11/18 11/11/18 23:00 23:45 23:53 23:59 Pulse 90 89 Resp 16 B/P (MAP) 112/44 (66) 100/42 (61) Pulse Ox 100 100 O2 Delivery Ventilator Ventilator Mechanical Ventilator 11/12/18 11/12/18 11/12/1819 00:00 00:00 00:02 00:32 Temp 98.4 98.4 Pulse 83 100 Resp 16 16 16 B/P (MAP) 121/73 (89) 121/73 (89) Pulse Ox 100 O2 Delivery Ventilator Ventilator Ventilator 11/12/18 11/12/18 11/12/18 11/12/18 01:00 01:11 01:45 02:00 Pulse 68 79 70 Resp 16 16 B/P (MAP) 143/44 (77) 73/33 (46) 113/45 (67) Pulse Ox 98 98 99 O2 Delivery Ventilator Ventilator Ventilator 11/12/18 11/12/18 11/12/18 11/12/18 02:45 03:00 03:05 04:00 Pulse 68 61 68 Resp 16 B/P (MAP) 81/42 (55) 107/38 (61) 88/37 (54) Pulse Ox 99 98 O2 Delivery Ventilator Ventilator 11/12/18 11/12/18 11/12/18 11/12/18 04:00 04:00 05:00 05:55 Temp 98.0 98.0 Pulse 63 68 Resp 16 16 B/P (MAP) 88/43 (58) 122/50 (74) Pulse Ox 100 100 98 O2 Delivery Mechanical Ventilator Ventilator Ventilator Ventilator 11/12/18 11/12/18 11/12/18 11/12/18 06:00 07:00 07:14 07:44 Pulse 59 56 Resp 16 16 B/P (MAP) 92/35 (54) 136/42 (73) Pulse Ox 100 97 100 100 O2 Delivery Ventilator Ventilator O2 Flow Rate 15.0 15.0 11/12/18 11/12/18 11/12/18 11/12/18 07:58 08:00 08:00 08:57 Temp 97.9 97.9 Pulse 56 Resp 15 B/P (MAP) 132/44 (73) Pulse Ox 98 100 100 O2 Delivery Ventilator Mechanical Ventilator Ventilator Ventilator 11/12/18 11/12/18 11/12/18 11/12/18 09:00 10:00 11:00 11:44 Pulse 68 70 64 Resp 12 12 12 B/P (MAP) 136/46 (76) 120/42 (68) 110/40 (63) Pulse Ox 100 100 100 100 O2 Delivery Ventilator Ventilator Ventilator Ventilator 11/12/18 11/12/18 11/12/18 11/12/18 12:00 12:00 13:00 13:21 Temp 97.6 97.6 Pulse 58 54 Resp 12 12 B/P (MAP) 116/40 (65) 146/48 (80) Pulse Ox 100 100 100 O2 Delivery Ventilator Mechanical Ventilator Ventilator Ventilator Intake and Output 11/11/18 11/11/18 11/12/18 15:00 23:00 07:00 Intake Total 0 ml 0 ml 321.46 ml Output Total 20 ml 175 ml 145 ml Balance -20 ml -175 ml 176.46 ml Nutrition Consultation Dietary Evaluation: Recommendations by RD: PPN/TPN Comments: REC TPN per followin g dextrose, 75 g AA, 0 g lipids (hold lipids due to propofol infusion) Expected Outcomes/Goals: TF intake to meet >75% est needs - not met, new goal established New goal 11/12: TPN to meet >75% est nutrition needs Malnutrition Findings: Food and Nutrition Intake (Mod: <75% est energy req 7days Weight Status: Appropriate MARVEL POWER MD Nov 12, 2018 13:49
[2018-11-12] MEDS ORDERED: MAGNESIUM SULFATE 1GM 100 ML IV ONE (14:00)
--- NOTE | 2018-11-12 14:03 | NUR ---
Pharmacy TPN Dosing Note S: SONIA NIEVES is a 68 year old M Currently receiving Central Continuous TPN started 11/12/18 B:Pertinent PMH: BOWEL OBSTRUCTION, NPO Height: 5 feet, 8 inches Weight: 64.858385 kg Current diet: PEG LABS: Sodium: 135 Potassium: 4.3 Chloride: 99 Calcium: 7.6 Corrected Calcium: 9.92 Magnesium: 1.8 CO2: 28 SCr: 1.1 Glucose: 153 Albumin: 1.1 AST: ALT: TPN FORMULA: TPN TYPE: Central Continuous AMINO ACIDS: 75 gm DEXTROSE: 195 gm LIPIDS: 0 gm SODIUM CHLORIDE: 90 mEq SODIUM ACETATE: mEq SODIUM PHOSPHATE: mmol POTASSIUM CHLORIDE: 50 mEq POTASSIUM ACETATE: mEq POTASSIUM PHOSPHATE: 13.6 mmol MAGNESIUM: 10 mEq CALCIUM: 10 mEq INSULIN: units MULTIPLE VITAMIN: 10 ml TRACE ELEMENTS: 1 ml(s) TPN PLAN: HOUSE TPN W/O LIPID SINCE PT IS GETTING PROPOFOL FOR SEDATION AT THIS TIME. R: Begin TPN AT 63ML/HR TONIGHT Will monitor electrolytes, glucose, and tolerance to TPN. KELI SIMMONS [facility], 11/12/18 [id number]
--- NOTE | 2018-11-12 14:46 | PDOC ---
PROGRESS NOTES Subjective Subjective Patient seen and examined in room. Dr. Conti present for examination. Patient intubated and sedated. Objective Objective Vital Signs Date Time Temp Pulse Resp B/P (MAP) Pulse Ox O2 Delivery O2 Flow Rate FiO2 11/12/18 13:21 100 Ventilator 11/12/18 13:00 54 12 146/48 (80) 11/12/18 12:00 97.6 97.6 11/12/18 07:44 15.0 Intake and Output 11/12/18 07:00 Intake Total 321.46 ml Output Total 340 ml Balance -18.54 ml Intake Oral 0 ml IV Total 321.46 ml Output Urine Total 340 ml # Bowel Movements 1 Physical Exam Physical Exam Sedated on vent Palpable femoral pulse, foot warm, Good Doppler signal in what appears to be a bypass graft medial leg. Good Doppler signal DP and PT. Assessment Assessment 68 [address] old male with CT scan that demonstrates Lack of opacification of the proximal right superficial femoral artery and proximal profunda femoris artery is of concern for occlusion. Pulse and Doppler examination demonstrates adequate distal arterial flow into the right leg. Recommend continued supportive measures versus Palliative Care. Protective measures right foot and heel. Thank you for the opportunity to participate in this patient's care. Comment Medications Current Medications Lidocaine HCl (Lidocaine HCl 2% Abboject) 100 mg STK-MED ONCE .ROUTE ; Start 11/10/18 at 17:58; Stop 11/10/18 at 17:58; Status DC Furosemide (Lasix) 40 mg 1X ONCE IVP Last administered on 11/10/18at 19:13; Start 11/10/18 at 19:00; Stop 11/10/18 at 19:01; Status DC Ondansetron HCl (Zofran) 4 mg PRN Q8HRS PRN IV NAUSEA/VOMITING; Start 11/10/18 at 19:15; Stop 11/11/18 at 19:14; Status DC Albuterol/ Ipratropium (Duoneb) 3 ml RTQID NEB Last administered on 11/11/18at 08:14; Start 11/10/18 at 20:00; Stop 11/11/18 at 08:31; Status DC Furosemide (Lasix) 40 mg BID92 IVP ; Start 11/11/18 at 09:00; Stop 11/11/18 at 08:18; Status DC Enoxaparin Sodium (Lovenox 100mg Syringe) 100 mg 1X ONCE SQ Last administered on 11/10/18at 22:00; Start 11/10/18 at 19:30; Stop 11/10/18 at 19:31; Status DC Norepinephrine Bitartrate 250 ml @ 11.992 mls/ hr CONT PRN IV SEE I/O RECORD Last administered on 11/11/18at 09:12; Start 11/11/18 at 08:30 Albuterol/ Ipratropium (Duoneb) 3 ml RTQID NEB Last administered on 11/12/18at 11:44; Start 11/11/18 at 09:00 Magnesium Oxide (Magnesium Oxide) 400 mg BID PO Last administered on 11/11/18at 14:33; Start 11/11/18 at 09:00 Insulin Human Lispro (HumaLOG) 2 units TIDWMEALS SQ Last administered on 11/11/18at 17:52; Start 11/11/18 at 09:00 Insulin Glargine (Lantus Syringe) 2 unit QHS SQ Last administered on 11/11/18at 23:05; Start 11/11/18 at 21:00 Pantoprazole Sodium (Protonix) 40 mg DAILYAC PO ; Start 11/12/18 at 07:30 Magnesium Sulfate 50 ml @ 25 mls/hr 1X ONCE IV Last administered on 11/11/18at 09:25; Start 11/11/18 at 08:30; Stop 11/11/18 at 10:29; Status DC Fosphenytoin Sodium (Cerebyx) 100 mg Q8HRS IV Last administered on 11/12/18at 06:17; Start 11/11/18 at 14:00 Iohexol (Omnipaque 350 Mg/ml) 100 ml 1X ONCE IV Last administered on 11/11/18at 09:15; Start 11/11/18 at 09:15; Stop 11/11/18 at 09:16; Status DC Info (CONTRAST GIVEN -- Rx MONITORING) 1 each PRN DAILY PRN MC SEE COMMENTS; Start 11/11/18 at 09:15; Stop 11/13/18 at 09:14 Piperacillin Sod/ Tazobactam Sod (Zosyn Per Pharmacy) 1 each PRN DAILY PRN MC SEE COMMENTS; Start 11/11/18 at 09:45 Piperacillin Sod/ Tazobactam Sod 4.5 gm/Sodium Chloride 100 ml @ 200 mls/hr Q6HRS IV Last administered on 11/12/18at 13:19; Start 11/11/18 at 11:00 Enoxaparin Sodium (Lovenox 40mg Syringe) 40 mg Q24H SQ Last administered on 11/11/18at 14:32; Start 11/11/18 at 14:00; Stop 11/12/18 at 09:45; Status DC Aspirin (Children'S Aspirin) 81 mg DAILY PO Last administered on 11/11/18at 17:26; Start 11/11/18 at 17:00 Atorvastatin Calcium (Lipitor) 20 mg QHS PO ; Start 11/11/18 at 21:00 Furosemide (Lasix) 40 mg DAILY PO ; Start 11/12/18 at 09:00 Metoprolol Tartrate (Lopressor) 50 mg BID PO ; Start 11/11/18 at 21:00 Albumin Human 50 ml @ 50 mls/hr 1X ONCE IV Last administered on 11/11/18at 16:36; Start 11/11/18 at 16:30; Stop 11/11/18 at 17:29; Status DC Furosemide (Lasix) 40 mg 1X ONCE IVP Last administered on 11/11/18at 17:27; Start 11/11/18 at 18:30; Stop 11/11/18 at 18:31; Status DC Propofol 100 ml @ As Directed STK-MED ONCE IV ; Start 11/11/18 at 19:50; Stop 11/11/18 at 19:50; Status DC Succinylcholine Chloride (Anectine) 200 mg STK-MED ONCE .ROUTE ; Start 11/11/18 at 19:50; Stop 11/11/18 at 19:50; Status DC Succinylcholine Chloride (Anectine) 60 mg 1X ONCE IV Last administered on 11/11/18at 22:05; Start 11/11/18 at 20:30; Stop 11/11/18 at 20:36; Status DC Propofol 100 ml @ 1.919 mls/ hr CONT PRN IV SEE I/O RECORD Last administered on 11/11/18at 23:35; Start 11/11/18 at 20:30 Fentanyl Citrate 30 ml @ 0 mls/hr CONT PRN IV SEE PROTOCOL Last administered on 11/12/18at 07:14; Start 11/11/18 at 23:30 Furosemide (Lasix) 40 mg 1X ONCE IVP Last administered on 11/12/18at 09:53; Start 11/12/18 at 08:45; Stop 11/12/18 at 08:46; Status DC Albumin Human 100 ml @ 100 mls/hr 1X ONCE IV Last administered on 11/12/18at 09:52; Start 11/12/18 at 08:45; Stop 11/12/18 at 09:44; Status DC Info (Tpn Per Pharmacy) 1 each PRN DAILY PRN MC SEE COMMENTS Last administered on 11/12/18at 10:34; Start 11/12/18 at 09:30 Sodium Chloride 90 meq/Potassium Chloride 50 meq/ Potassium Phosphate 13.6 mmol/Magnesium Sulfate 10 meq/ Calcium Gluconate 10 meq/ Multivitamins 10 ml/Chromium/ Copper/Manganese/ Seleni/Zn 1 ml/ Total Parenteral Nutrition/Amino Acids/Dextrose 87.0013 ml @ 3.625 mls/hr TPN CONT IV ; Start 11/12/18 at 22:00; Stop 11/13/18 at 21:59; Status Cancel Sodium Chloride 90 meq/Potassium Chloride 50 meq/ Potassium Phosphate 13.6 mmol/Magnesium Sulfate 10 meq/ Calcium Gluconate 10 meq/ Multivitamins 10 ml/Chromium/ Copper/Manganese/ Seleni/Zn 1 ml/ Total Parenteral Nutrition/Amino Acids/Dextrose 1,512 ml @ 63 mls/hr TPN CONT IV ; Start 11/12/18 at 22:00; Stop 11/13/18 at 21:59 Magnesium Sulfate/ Dextrose 100 ml @ 100 mls/hr 1X ONCE IV ; Start 11/12/18 at 14:00; Stop 11/12/18 at 14:59 Vancomycin HCl (Vanco Per Pharmacy) 1 each PRN DAILY PRN MC SEE COMMENTS; Start 11/12/18 at 14:30 Vancomycin HCl 1.75 gm/Sodium Chloride 500 ml @ 250 mls/hr 1X ONCE IV ; Start 11/12/18 at 15:00; Stop 11/12/18 at 16:59 Active Scripts Active Mag-Oxide (Magnesium Oxide) 400 Mg Tablet 1 Tab PO BID 30 Days Lantus Solostar (Insulin Glargine,Hum.rec.anlog) 100 Unit/1 Ml Insuln.pen 2 Unit SQ QHS 30 Days Metformin Hcl 500 Mg Tablet 500 Mg PO BIDWMEALS 30 Days Novolog Flexpen (Insulin Aspart) 100 Unit/1 Ml Insuln.pen 2 Unit SQ TIDAC 30 Days hold if blood sugar < 120 Duoneb 0.5-3(2.5) Mg/3 Ml (Albuterol/Ipratropium) 3 Ml Ampul.neb 3 Ml NEB QID 30 Days Acidophilus Lactobacilli (Lactobacillus Acidophilus) 1 Each Capsule 1 Each PO BID 10 Days Reported Thera-M Tablet (Multivits,Ca,Minerals/Iron/Fa) 1 Each Tablet 1 Each PO DAILY Senna (Sennosides) 8.6 Mg Tablet 8.6 Mg PO BID Dilantin (Phenytoin Sodium Extended) 100 Mg Capsule 1 Cap PO TID Omeprazole 40 Mg Capsule.dr 1 Cap PO BID Mucinex (Guaifenesin) 600 Mg Tablet.er 1 Tab PO BID PRN Metoprolol Tartrate 50 Mg Tablet 1 Tab PO BID Losartan Potassium 100 Mg Tablet 100 Mg PO DAILY Gabapentin (Gabapentin) 300 Mg Capsule 300 Mg PO TID Furosemide 40 Mg Tablet 1 Tab PO DAILY Atorvastatin Calcium 20 Mg Tablet 1 Tab PO DAILY Aspirin 81 Mg Tab.chew 1 Tab PO DAILY Vitals/I & O SUSIE YAN APRN Nov 12, 2018 14:46
[2018-11-12] MEDS: VANCOMYCIN PER PHARMACY MC PRN ×2 (14:56→15:14)
[2018-11-12] MEDS ORDERED: VANCOMYCIN 1.75 GM in IV NORMAL SALINE 500ML BAG 500 ML IV ONE (15:00)
[2018-11-12] MEDS: NOREPINEPHRIN 8MG/250ML PREMIX 250 ML IV PRN (15:02)
--- NOTE | 2018-11-12 15:15 | NUR ---
Pharmacy Vancomycin Dosing Note S:Consulted to monitor and dose vancomycin started 11/12/18. O:SONIA NIEVES is a 68 year old M with Pneumonia . Height: 5 feet, 8 inches Weight: 64.631361 kg [place] Body Weight: 68.40 Adjusted Body Weight: 66.80 Dosing Weight: Actual Other Antibiotics: ZOSYN LABS: Last BUN: Last Creatinine: 1.1 Creatinine Clearance: 60 mL/min Last WBC: 8.2 Last Procalcitonin: 0.52 Tmax (past 24 hours): 98.4 Microbiology: [id number] SPUTUM PENDING I/O: 321/340 Drug Levels: Last level: on at Last dose given 11/12/18 at 1500 Vancomycin Dosing: Loading Dose: 1750 mg x1 Dosing Weight: Actual Target Trough: 15-20 A: Based on: WEIGHT AND RENAL FUNCTION, VANCOMYCIN 1.75GM IV BOLUS NOW; THEN P: 1. Begin Vancomycin 1000 mg IV q12h IN AM 2. Follow up Trough level on 11/14/18 at 0230 3. Pharmacy will continue to monitor, follow and adjust therapy as needed. KELI SIMMONS Kay, 11/12/18 [id number]
[2018-11-12] MEDS: PROPOFOL 100 ML IV PRN (17:19)
[2018-11-12] MEDS: ATORVASTATIN CALCIUM 20 MG TABLET PO SCH (21:00)
[2018-11-12] MEDS ORDERED: DEXTROSE IV SCH ×9 (22:00)
[2018-11-12] MEDS ORDERED: DEXTROSE 70% IV SCH ×9 (22:00)
[2018-11-12] MEDS ORDERED: AMINO ACID IV SCH ×18 (22:00)
[2018-11-12] MEDS ORDERED: [UNRECOGNIZED DRUG - OTHER] IV SCH ×9 (22:00)
[2018-11-12] MEDS ORDERED: TOTAL PARENTERAL NUTRITION IV SCH ×18 (22:00)
[2018-11-12] MEDS ORDERED: [UNRECOGNIZED DRUG - OTHER] IV SCH ×9 (22:00)
[2018-11-12] MEDS: INSULIN GLARGINE SYRINGE. SQ SCH (22:09)
[2018-11-13] VITALS (18 sets, daily range): BP systolic 123–196; BP diastolic 40–79
[2018-11-13] MEDS: PIPERACILLIN/TAZOBACTAM 4.5 GM in IV NORMAL SALINE 100ML 100 ML IV SCH ×2 (00:28→06:23)
--- NOTE | 2018-11-13 01:26 | CONS ---
DATE OF CONSULTATION: 11/12/2018 Etienne Rowe, nurse practitioner, dictating for Dr. Conchita Martinez, Infectious Disease. REFERRING PHYSICIAN: Dr. Taylor Wilks. REASON FOR CONSULTATION: Possible aspiration pneumonia and bilateral pleural effusions. HISTORY OF PRESENT ILLNESS: This patient is a 68-year-old male, alf resident, with a past medical history of CVA, right-sided hemiplegia, aphasia and dysphagia, maintained on tube feedings, who is currently intubated and sedated, unable to provide history of present illness, past medical history, or review of systems. According to the medical record, he was sent to the ER with worsening shortness of air and hypoxia, requiring BiPAP. Unfortunately, he vomited and was urgently intubated last night. A chest CT demonstrated significant bilateral lower lobe consolidations, greater on the right lung, with pleural effusions and infiltrates as well as atelectasis. He is hypotensive, requiring vasopressor support. No fevers have been reported. WBC count is normal with 14% bands on admission. Influenza screen is negative. Blood cultures from the are negative to date. He is currently on Zosyn. PAST MEDICAL HISTORY: History of E coli (resistant to ampicillin, tetracycline, cefuroxime and Augmentin) and Klebsiella (resistant to ampicillin) UTI; history of MRSE bacteremia (1 of 4 bottles), considered likely contaminant; type 2 diabetes; hypertension; CVA with right-sided hemiplegia, aphasia and dysphagia, maintained on tube feedings; epilepsy; hyperlipidemia; protein-calorie malnutrition; peripheral vascular disease; peripheral neuropathy; osteoarthritis; and hearing problem. PAST SURGICAL HISTORY: Port-A-Cath placement on 10/29/2018; PEG tube placement on 11/04/2018; left BKA; cholecystectomy. FAMILY HISTORY: Noncontributory. SOCIAL HISTORY: [facility] resident. ALLERGIES: No known drug allergies. MEDICATIONS: Zosyn. Other medications are available and have been reviewed on the APR. REVIEW OF SYSTEMS: Unobtainable as the patient is sedated and orally intubated. PHYSICAL EXAMINATION: VITAL SIGNS: Temperature is 97.9, blood pressure 110/40, heart rate 64, respiratory rate 12, and pulse oximetry is 100% on FiO2 of 40% via ventilator. GENERAL: The patient is propped up in bed, orally intubated and sedated. Mittens. HEENT: Pupils are equally round. ETT in place. NECK: Supple. LUNGS: Diminished aeration in the bases. HEART: S1 and S2, regular. Right-sided Port-A-Cath without signs of complications. ABDOMEN: Soft. No guarding with bowel sounds present. GENITOURINARY: Indwelling Garrett (9-11). EXTREMITIES: No gross edema or cyanosis. Left BKA stump is unremarkable. He has a dry necrotic ulcer on tip of right great toe. SKIN: Warm to touch. No signs of rash. NEUROLOGIC: Unresponsive to verbal and tactile stimulation/sedated. LABORATORY DATA: Today's WBC 8.2, hemoglobin 7.5, and platelets 318,000. Sodium 135, potassium 4.3, creatinine 1.1, BUN 32, and glucose 153. Lactic acid 1.2. Total bilirubin 0.2, AST 40, and ALT 14. Troponin 0.042. Albumin 1.1. Procalcitonin 0.52. TSH 3.521. Urinalysis unremarkable for infection from 11/10. Influenza screen negative. Blood cultures from 11/10 negative to date. IMAGING: Today's chest x-ray shows diffuse right lung consolidations slightly decreased and increased moderate right and small left layering pleural effusions. Abdominal/pelvis CT showed distended stomach and small bowel of concern for obstruction, anasarca, marked coronary artery, and abdominal as well as pelvic arterial calcifications. Lack of opacification of the proximal right superficial femoral artery and proximal profunda femoris artery is of concern for occlusion. IMPRESSION: 1. Septic shock associated with pneumonia. 2. Aspiration. 3. Bandemia. 4. Questionable bowel obstruction. 5. Diabetic ulcer, right great toe. 6. Acute respiratory failure with bilateral pleural effusions and infiltrates. 7. Acute congestive heart failure. 8. Dysphagia, status post recent gastrostomy tube placement on 11/04. 9. Peripheral vascular disease. 10. History of cerebrovascular accident. 11. History of seizures. PLAN: Continue IV Zosyn. Obtain a sputum culture. Monitor laboratory values. Wound Care team is following. We will continue to follow along. Patient is critically ill. Thank you, Dr. Wilks, for asking us to participate in this patient's care. Should you have further questions or concerns, please call. CONCHITA MARTINEZ MD DR: SOPHIE/marysol JOB#: [id number] / [id number]
[2018-11-13] MEDS: PROPOFOL 100 ML IV PRN ×2 (01:57→08:24)
[2018-11-13] MEDS ORDERED: VANCOMYCIN 1 GM in IV NORMAL SALINE 250ML 250 ML IV SCH (03:00)
[2018-11-13] MEDS: FOSPHENYTOIN 100 MG/2 ML VIAL. IV SCH (06:23)
[2018-11-13 06:57] LABS: CALCIUM 7.9 mg/dL (8.5-10.1); CREATININE 1.1 mg/dL (0.7-1.3); PHOSPHORUS 4.1 mg/dL (2.6-4.7)
[2018-11-13] MEDS ORDERED: LIDOCAINE 2% VISCOUS 100 ML BOTTLE. MM PRN (08:00)
[2018-11-13] MEDS ORDERED: LIDOCAINE 1% Multi-Dose 20 ML VIAL. INJ PRN (08:00)
[2018-11-13] MEDS ORDERED: LIDOCAINE 1% Multi-Dose 20 ML VIAL. ONE (08:14)
[2018-11-13] MEDS ORDERED: LIDOCAINE 2% VISCOUS 100 ML BOTTLE. ONE (08:15)
[2018-11-13] MEDS: IPRATRPIUM/ALBUTEROL 0.5/2.5MG 3 ML NEBU. NEB SCH ×2 (08:15→11:47)
[2018-11-13 08:32] LABS: BASE EXCESS ABG 1 mmol/L (-3-3); HCO3 ABG 27 mmol/L (21-28); PCO2 ABG 48 mmHg (35-46); PO2 ABG 74 mmHg (65-108); SAT O2 ABG 93 % (92-99)
[2018-11-13 08:33] LABS: FIO2 ABG 35
--- NOTE | 2018-11-13 08:33 | PDOC ---
Infectious Disease Note Subjective Subjective Remains orally intubated and sedated O2 demand down to 35% Hypotensive, levophed down some No fevers last 24 hours ROS ROS unobtainable Vital Sign Vital Signs Vital Signs Date Time Temp Pulse Resp B/P (MAP) Pulse Ox O2 Delivery O2 Flow Rate FiO2 11/13/18 08:15 96 Ventilator 11/13/18 07:00 60 14 147/50 (82) 11/13/18 04:00 98.8 98.8 11/12/18 17:02 15.0 Physical Exam PHYSICAL EXAM GENERAL: Orally intubated and sedated. HEENT: Pupils are equally round. ETT in place. NECK: Supple. LUNGS: + rhonchi HEART: S1 and S2, regular. ABDOMEN: Soft. No guarding with bowel sounds present. GENITOURINARY: Indwelling Garrett (-). EXTREMITIES: No gross edema or cyanosis. Left BKA stump is unremarkable. He has a dry necrotic ulcer on tip of right great toe. SKIN: Warm to touch. No signs of rash. NEUROLOGIC: Opens eyes some, no response to questions Right-sided Port-A-Cath without signs of complications. LUE-art line Labs Lab Laboratory Tests Test 11/12/18 13:22 11/12/18 17:09 11/12/18 22:19 11/13/18 06:25 Glucose (Fingerstick) 146 mg/dL (70-99) 149 mg/dL (70-99) 130 mg/dL (70-99) Sodium Level 139 mmol/L (136-145) Potassium Level 4.0 mmol/L (3.5-5.1) Chloride Level 104 mmol/L (98-107) Carbon Dioxide Level 29 mmol/L (21-32) Anion Gap 6 (6-14) Blood Urea Nitrogen 26 mg/dL (8-26) Creatinine 1.1 mg/dL (0.7-1.3) Estimated GFR (Cockcroft-Gault) 81.0 Glucose Level 193 mg/dL (70-99) Calcium Level 7.9 mg/dL (8.5-10.1) Phosphorus Level 4.1 mg/dL (2.6-4.7) Magnesium Level 2.0 mg/dL (1.8-2.4) Micro Microbiology 11/10/18 Blood Culture - Preliminary, Resulted NO GROWTH AFTER 1 DAY Objective Assessment Septic shock associated with pneumonia, POA. BC neg so far -Port a cath placement, 10/29 Aspiration (vomited while on BiPAP) Bandemia ? bowel obstruction on CT Diabetic ulcer right great toe Acute respiratory failure w/ bilateral pleural effusions and infiltrates Acute CHF Dysphagia s/p recent G-tube placement, PVD h/o CVA h/o seizures h/o E. coli and Klebsiella in urine Plan Plan of Care Continue vanc and Zosyn Monitor lab values Local wound care per wound care team Appreciate Dr. Conti input Schedule for bronch today f/u cultures Palliative care nurse on board. D/w nursing Critically ill Now extubated and comfort care. Will sign off Attending Co-Sign Attending Co-Sign The patient was seen and interviewed as well as examined at the bedside. The [facility] rt was reviewed. The case was discussed. Agree with the plan of care. DENAE GOODEN APRN Nov 13, 2018 08:33 CONCHITA MARTINEZ MD Nov 13, 2018 14:08
[2018-11-13] MEDS: METOPROLOL TART IMMED RELEASE 50 MG TABLET. PO SCH (09:00)
[2018-11-13] MEDS: ASPIRIN CHEWABLE 81 MG TABLET. PO SCH ×2 (09:00→10:45)
[2018-11-13] MEDS: MAGNESIUM OXIDE 400 MG TABLET PO SCH ×2 (09:00→10:45)
[2018-11-13] MEDS: FUROSEMIDE 40 MG TABLET. PO SCH (09:00)
--- NOTE | 2018-11-13 09:15 | RAD ---
AP portable chest radiograph 11/13/2018 Clinical History: Respiratory failure. An AP supine portable digital radiograph of the chest was obtained. Comparison study is dated 11/12/2018. The ET tube and right internal jugular Zeqiic-b-[id number] type catheter are unchanged in position. The cardiac silhouette is borderline enlarged. Atherosclerotic calcification of the thoracic aorta is seen. The thoracic aorta is mildly tortuous. Calcified hilar and mediastinal lymph nodes are unchanged. A right perihilar infiltrate is again seen which appears increased slightly. Layering bilateral pleural effusions, right greater than left are noted. No pneumothorax is seen. The osseous structures are unchanged. Impression: Slight interval increase in the right perihilar infiltrate. Electronically signed by: Chay Langston MD (11/13/2018 9:13 AM) [id number]
[2018-11-13] MEDS: VANCOMYCIN PER PHARMACY MC PRN (09:36)
--- NOTE | 2018-11-13 10:03 | OP ---
DATE OF SURGERY: BRONCHOSCOPY NOTE ATTENDING PHYSICIAN: Dr. Taylor Wilks. INDICATION: Mucus plug. DESCRIPTION OF PROCEDURE: Informed consent was obtained from the patient's family. They agreed to proceed with the procedure. The patient was already intubated. Bronchoscope was introduced through the endotracheal tube. Upon insertion of the tube, the distal trachea showed thick white secretions, which were plugging the lumen of the bronchoscope. As a result, the scope was removed. Secretions were flushed out from the scope channel. There were thick secretions seen in the right main stem bronchus as well. Saline irrigation done. All secretions were removed. Patency of the airway achieved. No endobronchial lesions seen in the right upper, right middle and right lower lobe and no mucosal inflammation seen. Left lung was examined. Minimal secretions seen in the left mainstem which were removed and further inspection of the left lung revealed no endobronchial lesion and no mucosal hyperemia. IMPRESSION: 1. Thick secretions seen in the distal trachea and both the main stem bronchus. 2. Therapeutic bronchoscopy performed. All secretions were removed. 3. Normal appearing mucosa. 4. No endobronchial lesion. Bronchial wash performed from the distal trachea and mainstem and sent for appropriate studies. TESFAYE DÍAZ MD DR: GABRIELLE/marysol JOB#: [id number] / [id number]
--- NOTE | 2018-11-13 10:07 | PDOC ---
PROGRESS NOTES Subjective Subjective on vent ,going for [facility] today Objective Objective Vital Signs Date Time Temp Pulse Resp B/P (MAP) Pulse Ox O2 Delivery O2 Flow Rate FiO2 11/13/18 09:40 100 Ventilator 11/13/18 09:00 65 14 138/45 (76) 11/13/18 04:00 98.8 98.8 11/12/18 17:02 15.0 Intake and Output 11/13/18 07:00 Intake Total 1828.34 ml Output Total 2000 ml Balance -171.66 ml IV Total 1828.34 ml Tube Feeding 0 ml Output Urine Total 2000 ml Physical Exam Abdomen: Soft, Other (peg present) Heart: Regular rate, Other (distant heart tones ) Extremities: No edema, Other (left BKA ) General: mild distress HEENT: Atraumatic Lungs: Other (on vent) MUSCULOSKELETAL: Osteoarthritic changes both hands Neuro: Other (unable to assess ) Assessment Assessment IMPRESSION: Aspiration pneumonia 1. Acute hypoxic respiratory failure secondary to multifactorial etiologies including congestive heart failure with possible coexisting pneumonia and shock. 2. Shock. 3. 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 4. Dysphagia, status post PEG tube. 5. Severe protein-calorie malnutrition, also contributing to pleural effusions. He has albumin level of only 1.1. 6. Left below-knee amputation. 7. History of cerebrovascular accident. 8. PEG tube 9. PVD 10 septic shock RECOMMENDATIONS: bronchoscope today. family meting pallitive consult spoke with pulmonary spoke with family members. on levophed TPN for nutrition on propofol on vent. poor prognosis. 1. Ventilator support 2. CTA chest along with abdomen and pelvis CT to further evaluate etiology of hypoxia. 3. Added antibiotics.as per ID recommendations 4. Continue low-dose vasopressor. 5. May try albumin. 6. DuoNebs. 7. Add DVT prophylaxis. 8. Further recommendations to follow. Discussed with RN and RT. Comment Review of Relevant I have reviewed the following items myron (where applicable) has been applied. Labs Laboratory Tests Test 11/12/18 13:22 11/12/18 17:09 11/12/18 22:19 11/13/18 06:25 Glucose (Fingerstick) 146 mg/dL (70-99) 149 mg/dL (70-99) 130 mg/dL (70-99) Sodium Level 139 mmol/L (136-145) Potassium Level 4.0 mmol/L (3.5-5.1) Chloride Level 104 mmol/L (98-107) Carbon Dioxide Level 29 mmol/L (21-32) Anion Gap 6 (6-14) Blood Urea Nitrogen 26 mg/dL (8-26) Creatinine 1.1 mg/dL (0.7-1.3) Estimated GFR (Cockcroft-Gault) 81.0 Glucose Level 193 mg/dL (70-99) Calcium Level 7.9 mg/dL (8.5-10.1) Phosphorus Level 4.1 mg/dL (2.6-4.7) Magnesium Level 2.0 mg/dL (1.8-2.4) Test 11/13/18 08:25 O2 Saturation 93 % (92-99) Arterial Blood pH 7.37 (7.35-7.45) Arterial Blood pCO2 at Patient Temp 48 mmHg (35-46) Arterial Blood pO2 at Patient Temp 74 mmHg (65-108) Arterial Blood HCO3 27 mmol/L (21-28) Arterial Blood Base Excess 1 mmol/L (-3-3) FiO2 35 Microbiology 11/10/18 Blood Culture - Preliminary, Resulted NO GROWTH AFTER 2 DAYS Medications Current Medications Lidocaine HCl (Lidocaine 1% 20ml Vial) 20 ml PRN 1X PRN INJ SEE COMMENTS; Start 11/13/18 at 08:00; Stop 11/14/18 at 07:59 Lidocaine HCl (Lidocaine 1% 20ml Vial) 20 ml STK-MED ONCE .ROUTE ; Start 11/13/18 at 08:14; Stop 11/13/18 at 08:15; Status DC Lidocaine HCl (Lidocaine 2% Viscous) 100 ml PRN 1X PRN MM MOUTH PAIN Last administered on 11/13/18at 09:37; Start 11/13/18 at 08:00; Stop 11/14/18 at 07:59 Lidocaine HCl (Lidocaine 2% Viscous) 100 ml STK-MED ONCE .ROUTE ; Start 11/13/18 at 08:15; Stop 11/13/18 at 08:15; Status DC Magnesium Sulfate/ Dextrose 100 ml @ 100 mls/hr 1X ONCE IV Last administered on 11/12/18at 15:00; Start 11/12/18 at 14:00; Stop 11/12/18 at 14:59; Status DC Pantoprazole Sodium (PROTONIX VIAL for IV PUSH) 40 mg DAILYAC IVP ; Start 11/14/18 at 07:30 Sodium Chloride 90 meq/Potassium Chloride 50 meq/ Potassium Phosphate 13.6 mmol/Magnesium Sulfate 10 meq/ Calcium Gluconate 10 meq/ Multivitamins 10 ml/Chromium/ Copper/Manganese/ Seleni/Zn 1 ml/ Total Parenteral Nutrition/Amino Acids/Dextrose 87.0013 ml @ 3.625 mls/hr TPN CONT IV ; Start 11/12/18 at 22:00; Stop 11/13/18 at 21:59; Status Cancel Sodium Chloride 90 meq/Potassium Chloride 50 meq/ Potassium Phosphate 13.6 mmol/Magnesium Sulfate 10 meq/ Calcium Gluconate 10 meq/ Multivitamins 10 ml/Chromium/ Copper/Manganese/ Seleni/Zn 1 ml/ Total Parenteral Nutrition/Amino Acids/Dextrose 1,512 ml @ 63 mls/hr TPN CONT IV Last administered on at 01:09; Start 11/12/18 at 22:00; Stop 11/13/18 at 21:59 Vancomycin HCl (Vanco Per Pharmacy) 1 each PRN DAILY PRN MC SEE COMMENTS Last administered on 11/13/18at 09:36; Start 11/12/18 at 14:30 Vancomycin HCl (Vancomycin Trough Level) 1 each 1X ONCE MC ; Start 11/14/18 at 02:30; Stop 11/14/18 at 02:31 Vancomycin HCl 1.75 gm/Sodium Chloride 500 ml @ 250 mls/hr 1X ONCE IV Last administered on 11/12/18at 15:02; Start 11/12/18 at 15:00; Stop 11/12/18 at 16:59; Status DC Vancomycin HCl 1 gm/Sodium Chloride 250 ml @ 250 mls/hr Q12H IV Last administered on 11/13/18at 03:19; Start 11/13/18 at 03:00 Vitals/I & O Vital Sign - Last 24 Hours 11/12/18 11/12/18 11/12/18 11/12/18 11:00 11:44 12:00 12:00 Temp 97.6 97.6 Pulse 64 58 Resp 12 12 B/P (MAP) 110/40 (63) 116/40 (65) Pulse Ox 100 100 100 O2 Delivery Ventilator Ventilator Ventilator Mechanical Ventilator 10/111/12/18 11/12/18 11/12/18 13:00 13:21 14:00 15:00 Pulse 54 60 54 Resp 12 12 12 B/P (MAP) 146/48 (80) 134/44 (74) 132/44 (73) Pulse Ox 100 100 100 100 O2 Delivery Ventilator Ventilator Ventilator Ventilator 11/12/18 11/12/18 11/12/18 11/12/18 15:59 16:00 16:00 17:00 Temp 98.0 98.0 Pulse 60 64 Resp 12 15 B/P (MAP) 112/42 (65) 136/42 (73) Pulse Ox 100 100 100 O2 Delivery Ventilator Mechanical Ventilator Ventilator Ventilator 11/12/18 11/12/18 11/12/18 11/12/18 17:02 17:32 17:50 18:00 Pulse 58 Resp 12 B/P (MAP) 104/38 (60) Pulse Ox 100 100 100 O2 Delivery Ventilator Ventilator Ventilator O2 Flow Rate 15.0 11/12/18 11/12/18 11/12/18 11/12/18 19:00 19:42 20:00 20:00 Temp 97.9 97.9 Pulse 59 61 Resp 12 B/P (MAP) 116/41 (66) 115/41 (65) Pulse Ox 100 98 O2 Delivery Ventilator Ventilator 11/12/18 11/12/18 11/12/18 11/12/18 20:00 20:00 21:00 22:00 Pulse 63 59 63 Resp 12 12 12 B/P (MAP) 115/40 (65) 110/39 (62) 141/48 (79) Pulse Ox 98 99 100 O2 Delivery Mechanical Ventilator Ventilator Ventilator Ventilator 11/12/18 11/12/18 11/12/18 11/13/18 22:00 23:00 23:59 00:00 Pulse 58 64 Resp 12 B/P (MAP) 113/41 (65) 123/40 (67) Pulse Ox 100 100 O2 Delivery Ventilator Ventilator Mechanical Ventilator 11/13/18 11/13/18 11/13/18 11/13/18 00:00 00:00 01:00 02:00 Temp 98.3 98.3 Pulse 61 63 56 Resp 12 12 12 B/P (MAP) 124/42 (69) 142/46 (78) 143/47 (79) Pulse Ox 100 100 100 100 O2 Delivery Ventilator Ventilator Ventilator Ventilator 11/13/18 11/13/18 11/13/18 11/13/18 02:30 03:00 03:17 03:45 Pulse 59 63 Resp 12 12 B/P (MAP) 151/47 (81) 182/79 (113) Pulse Ox 100 97 O2 Delivery Ventilator Ventilator Ventilator 11/13/18 11/13/18 11/13/18 11/13/18 03:47 04:00 04:00 04:00 Temp 98.8 98.8 Pulse 59 58 Resp 12 12 B/P (MAP) 147/45 (79) 141/44 (76) Pulse Ox 100 O2 Delivery Ventilator Ventilator Mechanical Ventilator 11/13/18 11/13/18 11/13/18 11/13/18 05:00 05:00 06:00 07:00 Pulse 58 60 60 Resp 12 12 14 B/P (MAP) 127/42 (70) 136/45 (75) 147/50 (82) Pulse Ox 97 98 97 98 O2 Delivery Ventilator Ventilator Ventilator Ventilator 11/13/18 11/13/18 11/13/18 11/13/18 08:00 08:15 08:30 08:37 Pulse 59 Resp 12 B/P (MAP) 154/43 (80) 150/43 (78) Pulse Ox 100 96 O2 Delivery Ventilator Ventilator Mechanical Ventilator 11/13/18 11/13/18 09:00 09:40 Pulse 65 Resp 14 B/P (MAP) 138/45 (76) Pulse Ox 98 100 O2 Delivery Ventilator Ventilator Intake and Output 11/12/18 11/12/18 11/13/18 15:00 23:00 07:00 Intake Total 200 ml 879 ml 749.34 ml Output Total 850 ml 425 ml 725 ml Balance -650 ml 454 ml 24.34 ml Nutrition Consultation Dietary Evaluation: Recommendations by RD: PPN/TPN Comments: REC TPN per followin g dextrose, 75 g AA, 0 g lipids (hold lipids due to propofol infusion) Expected Outcomes/Goals: TF intake to meet >75% est needs - not met, new goal established New goal 11/12: TPN to meet >75% est nutrition needs Malnutrition Findings: Food and Nutrition Intake (Mod: <75% est energy req 7days Weight Status: Appropriate MARVEL POWER MD Nov 13, 2018 10:07
--- NOTE | 2018-11-13 10:10 | PDOC ---
PULMONARY PROGRESS NOTES Subjective intubated , sedated AC mode Vitals Vital Signs Date Time Temp Pulse Resp B/P (MAP) Pulse Ox O2 Delivery O2 Flow Rate FiO2 11/13/18 09:40 100 Ventilator 11/13/18 09:00 65 14 138/45 (76) 11/13/18 04:00 98.8 98.8 11/12/18 17:02 15.0 Lungs: Other (coarse right) Cardiovascular: S1, S2 Abdomen: Soft, Non-tender Extremities: Other (L BKA) Labs Laboratory Tests Test 11/11/18 11:29 11/11/18 17:43 11/11/18 21:15 11/11/18 23:04 Glucose (Fingerstick) 128 mg/dL (70-99) 163 mg/dL (70-99) 181 mg/dL (70-99) O2 Saturation 99 % (92-99) Arterial Blood pH 7.45 (7.35-7.45) Arterial Blood pCO2 at Patient Temp 39 mmHg (35-46) Arterial Blood pO2 at Patient Temp 274 mmHg (65-108) Arterial Blood HCO3 27 mmol/L (21-28) Arterial Blood Base Excess 3 mmol/L (-3-3) FiO2 100 Test 11/12/18 05:10 11/12/18 08:00 11/12/18 13:22 11/12/18 17:09 White Blood Count 8.2 x10^3/uL (4.0-11.0) Red Blood Count 2.33 x10^6/uL (4.30-5.70) Hemoglobin 7.5 g/dL (13.0-17.5) Hematocrit 21.8 % (39.0-53.0) Mean Corpuscular Volume 94 fL (79-100) Mean Corpuscular Hemoglobin 32 pg (25-35) Mean Corpuscular Hemoglobin Concent 34 g/dL (31-37) Red Cell Distribution Width 15.4 % (11.5-14.5) Platelet Count 318 x10^3/uL (140-400) Sodium Level 135 mmol/L (136-145) Potassium Level 4.3 mmol/L (3.5-5.1) Chloride Level 99 mmol/L (98-107) Carbon Dioxide Level 28 mmol/L (21-32) Anion Gap 8 (6-14) Blood Urea Nitrogen 32 mg/dL (8-26) Creatinine 1.1 mg/dL (0.7-1.3) Estimated GFR (Cockcroft-Gault) 81.0 Glucose Level 153 mg/dL (70-99) Calcium Level 7.6 mg/dL (8.5-10.1) Magnesium Level 1.8 mg/dL (1.8-2.4) Triglycerides Level 132 mg/dL (0-150) Cholesterol Level 83 mg/dL (0-200) LDL Cholesterol, Calculated 21 mg/dL (0-100) VLDL Cholesterol, Calculated 26 mg/dL (0-40) Non-HDL Cholesterol Calculated 47 mg/dL (0-129) HDL Cholesterol 36 mg/dL (40-60) Cholesterol/HDL Ratio 2.3 Procalcitonin 0.52 ng/mL (0.00-0.10) Thyroid Stimulating Hormone (TSH) 3.521 uIU/mL (0.358-3.74) O2 Saturation 98 % (92-99) Arterial Blood pH 7.52 (7.35-7.45) Arterial Blood pCO2 at Patient Temp 30 mmHg (35-46) Arterial Blood pO2 at Patient Temp 105 mmHg (65-108) Arterial Blood HCO3 24 mmol/L (21-28) Arterial Blood Base Excess 1 mmol/L (-3-3) FiO2 40 Glucose (Fingerstick) 146 mg/dL (70-99) 149 mg/dL (70-99) Test 11/12/18 22:19 11/13/18 06:25 11/13/18 08:25 Glucose (Fingerstick) 130 mg/dL (70-99) Sodium Level 139 mmol/L (136-145) Potassium Level 4.0 mmol/L (3.5-5.1) Chloride Level 104 mmol/L (98-107) Carbon Dioxide Level 29 mmol/L (21-32) Anion Gap 6 (6-14) Blood Urea Nitrogen 26 mg/dL (8-26) Creatinine 1.1 mg/dL (0.7-1.3) Estimated GFR (Cockcroft-Gault) 81.0 Glucose Level 193 mg/dL (70-99) Calcium Level 7.9 mg/dL (8.5-10.1) Phosphorus Level 4.1 mg/dL (2.6-4.7) Magnesium Level 2.0 mg/dL (1.8-2.4) O2 Saturation 93 % (92-99) Arterial Blood pH 7.37 (7.35-7.45) Arterial Blood pCO2 at Patient Temp 48 mmHg (35-46) Arterial Blood pO2 at Patient Temp 74 mmHg (65-108) Arterial Blood HCO3 27 mmol/L (21-28) Arterial Blood Base Excess 1 mmol/L (-3-3) FiO2 35 Laboratory Tests Test 11/12/18 13:22 11/12/18 17:09 11/12/18 22:19 11/13/18 06:25 Glucose (Fingerstick) 146 mg/dL (70-99) 149 mg/dL (70-99) 130 mg/dL (70-99) Sodium Level 139 mmol/L (136-145) Potassium Level 4.0 mmol/L (3.5-5.1) Chloride Level 104 mmol/L (98-107) Carbon Dioxide Level 29 mmol/L (21-32) Anion Gap 6 (6-14) Blood Urea Nitrogen 26 mg/dL (8-26) Creatinine 1.1 mg/dL (0.7-1.3) Estimated GFR (Cockcroft-Gault) 81.0 Glucose Level 193 mg/dL (70-99) Calcium Level 7.9 mg/dL (8.5-10.1) Phosphorus Level 4.1 mg/dL (2.6-4.7) Magnesium Level 2.0 mg/dL (1.8-2.4) Test 11/13/18 08:25 O2 Saturation 93 % (92-99) Arterial Blood pH 7.37 (7.35-7.45) Arterial Blood pCO2 at Patient Temp 48 mmHg (35-46) Arterial Blood pO2 at Patient Temp 74 mmHg (65-108) Arterial Blood HCO3 27 mmol/L (21-28) Arterial Blood Base Excess 1 mmol/L (-3-3) FiO2 35 Medications Active Scripts Medications Dose Route/Sig Max Daily Dose Days Date Category Dose Instructions Mag-Oxide (Magnesium Oxide) 400 Mg Tablet 1 Tab PO BID 11/07/18 Rx Lantus Solostar (Insulin Glargine,Hum.rec.anlog) 100 Unit/1 Ml Insuln.pen 2 Unit SQ QHS 10/17/18 Rx Metformin Hcl 500 Mg Tablet 500 Mg PO BIDWMEALS 30 10/17/18 Rx Novolog Flexpen (Insulin Aspart) 100 Unit/1 Ml Insuln.pen 2 Unit SQ TIDAC 30 09/24/18 Rx hold if blood sugar < 120 Thera-M Tablet (Multivits,Ca,Minerals/Iron/Fa) 1 Each Tablet 1 Each PO DAILY 07/15/18 Reported Duoneb 0.5-3(2.5) Mg/3 Ml (Albuterol/Ipratropium) 3 Ml Ampul.neb 3 Ml NEB QID 30 05/23/18 Rx Acidophilus Lactobacilli (Lactobacillus Acidophilus) 1 Each Capsule 1 Each PO BID 10 05/23/18 Rx Senna (Sennosides) 8.6 Mg Tablet 8.6 Mg PO BID 05/19/18 Reported Dilantin (Phenytoin Sodium Extended) 100 Mg Capsule 1 Cap PO TID 05/19/18 Reported Omeprazole 40 Mg Capsule.dr 1 Cap PO BID 05/19/18 Reported Mucinex (Guaifenesin) 600 Mg Tablet.er 1 Tab PO BID PRN 05/19/18 Reported Metoprolol Tartrate 50 Mg Tablet 1 Tab PO BID 05/19/18 Reported Losartan Potassium 100 Mg Tablet 100 Mg PO DAILY 05/19/18 Reported Gabapentin (Gabapentin) 300 Mg Capsule 300 Mg PO TID 05/19/18 Reported Furosemide 40 Mg Tablet 1 Tab PO DAILY 05/19/18 Reported Atorvastatin Calcium 20 Mg Tablet 1 Tab PO DAILY 05/19/18 Reported Aspirin 81 Mg Tab.chew 1 Tab PO DAILY 05/19/[address] CHEST 11/11 REVIEWED cxr 11/13 reviewed Impression . 1. Acute hypoxic respiratory failure secondary to multifactorial etiologies including congestive heart failure with coexisting pneumonia/ Mucous plug/ Right LLL collapse and shock. 2. Shock. Possibility of coexisting sepsis/pneumonia likely etiology 3. 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 suspect aspiration 4. Dysphagia, status post PEG tube. 5. Severe protein-calorie malnutrition, also contributing to pleural effusions. He has albumin level of only 1.1. 6. Left below-knee amputation. 7. History of cerebrovascular accident. Plan . 1. AC mode . Follow ABG and make necessary changes 2. CTA chest along with abdomen and pelvis reviewed. 3. antibiotics. 4. Continue low-dose vasopressor. 5. May try albumin. 6. DuoNebs. 7. dc DVT prophylaxis due to anemia 8. s/p Bronch , thick secretions removed d/w palliative care. family agree to proceed with comfort care. TESFAYE DÍAZ MD Nov 13, 2018 10:10
[2018-11-13] MEDS: INSULIN LISPRO 300 UNITS/3 ML VIAL. SQ SCH (10:45)
[2018-11-13] MEDS ORDERED: ALBUTEROL SULFATE 2.5 MG/3 ML NEBU. NEB PRN (13:00)
[2018-11-13] MEDS: fentaNYL PF VIAL 100 MCG/2 ML VIAL IV PRN (13:01)
--- NOTE | 2018-11-13 15:55 | PDOC2 ---
PALLIATIVE CARE Palliative Care Note Palliative Care Patient seen at 0900. On Vent. sedation, pressor. Met with Nahum Cramer SITA per phone, Jennyfer and several cousins and neices, nephews. . Reviewed the following medical condition; Aspiration pneumonia 1. Acute hypoxic respiratory failure secondary to multifactorial etiologies including congestive heart failure with possible coexisting pneumonia and shock. 2. Shock. 3. 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 4. Dysphagia, status post PEG tube. 5. Severe protein-calorie malnutrition, also contributing to pleural effusions. He has albumin level of only 1.1. 6. Left below-knee amputation. 7. History of cerebrovascular accident. 8. PEG tube 9. PVD 10 septic shock Family acknowledged progressive decline and state they believe he would not want to be kept alive on machines. Family described him as "[employer] [place] like fast women and fast living" His current state is not a quality of life that would be satisfying to him and it is time to let him go naturally and peacefully. "Has zora whitney going through this for a long time" Discussed Code Status; DNR/DNI requested by family. No reintubation when patient extubated. Irving Baca signed the [facility] DNR/DNI form at the request of the SITA Sidhu. Understand the goal is comfort care. Stop those medications and treatments that are not adding to his comfort. Above reviewed with Dr. Schneider and Dr. Brunson Pressor, sedation, and discontinued. Patient was extubated and continued with spontaneous respirations. Discussed Hospice Support. They are in agreement. 1615 Patient alert. No respiratory distress HR 107 oxygen sat 95% on 2L NC. Called Nahum. Discussed discharge plan--returning to [facility] with hospice. No preference of hospice agency. Nahum stated she would pass this information to irving Baca. CATHY SINGH Nov 13, 2018 15:55
[2018-11-13] MEDS ORDERED: LORazepam INTENSOL 2 MG/ML ORAL.CONC SL PRN (16:45)
[2018-11-13] MEDS ORDERED: MORPHINE SULFATE 20 MG/ML CONC SOLUTION. SL PRN (16:45)
[2018-11-13] MEDS ORDERED: ACETAMINOPHEN 650 MG SUPP.RECT. PR PRN (21:00)
[2018-11-13] MEDS ORDERED: cloNIDine HCL 0.1 MG TABLET PO PRN (21:00)
[2018-11-14] MEDS: fentaNYL PF VIAL 100 MCG/2 ML VIAL IV PRN (06:05)
--- NOTE | 2018-11-14 06:23 | NUR ---
Patient has begun to have [place]-Stoke breathing. Notified DPOA of status, increased oxygen needs and changes in breathing. Gave Fentanyl at this time for comfort.
--- NOTE | 2018-11-14 07:07 | PDOC2 ---
PALLIATIVE CARE Palliative Care Note Palliative Care Patient unresponsive to verbal stimuli. Respiratory Distress--RR 26 shallow, labored, wet breathing. Fentanyl 50mcq. given. Nahum notified of change in condition by Sienna BURCH nights Called Keven, son. Informed him of changes. Permission to pursue IP Hospice eval. and treat. He will let family know of changes. Dr. Brunson paged by Nyla BURCH for orders. 0314 Patient repositioned. Less respiratory distress; more alert. 178/82 RR 20. Oxygen sat 84% on 4L NC Dr. Brunson here. No family here. CATHY SINGH Nov 14, 2018 07:07
[2018-11-14 07:28] LABS: CALCIUM 8.8 mg/dL (8.5-10.1); CREATININE 1.1 mg/dL (0.7-1.3); MAGNESIUM 2.4 mg/dL (1.8-2.4); PHOSPHORUS 4.4 mg/dL (2.6-4.7); POTASSIUM 3.9 mmol/L (3.5-5.1)
[2018-11-14] MEDS ORDERED: PANTOPRAZOLE IV PUSH 40 MG VIAL. IVP SCH (07:30)
[2018-11-14 07:34] VITALS: BP 143/56
--- NOTE | 2018-11-14 10:08 | RAD ---
PORTABLE CHEST 1V History: Respiratory failure Comparison: November 13, 2018 Findings: Increased near-complete opacification of the right hemithorax. Mild mediastinal shift to the right. Increased left basilar patchy opacities. Small left layering pleural effusion, unchanged. Pelvis disease. Unchanged heart size. Unchanged right chest wall port., Inferior subluxation of the left humeral head in relation to the glenoid. Impression: 1. Increased near complete opacification of the right hemithorax with mediastinal shift to the right, likely related to mucous plugging contributing to atelectasis. There is a component of right pleural effusion. 2. Increased left basilar patchy opacities. 3. Inferior positioning of the left humeral head in relation to the glenoid, may relate to joint effusion or positioning. Dedicated imaging can further assess if indicated. FOR INTERNAL CODING PURPOSES Critical result: Findings discussed with patient's nurse at 11/14/2018 10:03 AM. RESULT CODE: (C) Electronically signed by: Willi Dennis DO (11/14/2018 10:05 AM) [id number]
--- NOTE | 2018-11-14 10:10 | PDOC ---
PROGRESS NOTES Subjective Subjective comfortable , extubated yesterday Objective Objective Vital Signs Date Time Temp Pulse Resp B/P (MAP) Pulse Ox O2 Delivery O2 Flow Rate FiO2 11/14/18 07:34 97.9 113 20 143/56 (85) 74 4.0 97.9 11/13/18 20:00 Nasal Cannula Intake and Output 11/14/18 07:00 Intake Total 444 ml Output Total 1375 ml Balance -931 ml Intake Oral 0 ml IV Total 444 ml Output Urine Total 1375 ml Physical Exam Abdomen: Soft, Other (peg present) Heart: Regular rate, Other (distant heart tones ) Extremities: No edema, Other (left BKA ) General: mild distress HEENT: Atraumatic Lungs: Other (dec breath sounds) MUSCULOSKELETAL: Osteoarthritic changes both hands Neck: Supple Neuro: Other (unable to assess ) Assessment Assessment IMPRESSION: Aspiration pneumonia 1. Acute hypoxic respiratory failure secondary to multifactorial etiologies including congestive heart failure with possible coexisting pneumonia and shock. 2. Shock. 3. 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 4. Dysphagia, status post PEG tube. 5. Severe protein-calorie malnutrition, also contributing to pleural effusions. He has albumin level of only 1.1. 6. Left below-knee amputation. 7. History of cerebrovascular accident. 8. PEG tube 9. PVD 10 septic shock RECOMMENDATIONS:extubated bronchoscope done mucous plug removed family meeting done yesterday, plan for DNR and comfort care pallitive consult appreciated spoke with pulmonary+pat yesterday spoke with family members. off levophed poor prognosis. comfort care Comment Review of Relevant I have reviewed the following items myron (where applicable) has been applied. Labs Laboratory Tests Test 11/14/18 05:35 Sodium Level 144 mmol/L (136-145) Potassium Level 3.9 mmol/L (3.5-5.1) Chloride Level 108 mmol/L (98-107) Carbon Dioxide Level 26 mmol/L (21-32) Anion Gap 10 (6-14) Blood Urea Nitrogen 21 mg/dL (8-26) Creatinine 1.1 mg/dL (0.7-1.3) Estimated GFR (Cockcroft-Gault) 81.0 Glucose Level 139 mg/dL (70-99) Calcium Level 8.8 mg/dL (8.5-10.1) Phosphorus Level 4.4 mg/dL (2.6-4.7) Magnesium Level 2.4 mg/dL (1.8-2.4) Microbiology 11/13/18 - Final, Complete 11/10/18 Blood Culture - Preliminary, Resulted NO GROWTH AFTER 3 DAYS Medications Current Medications Acetaminophen (Tylenol Supp) 650 mg PRN Q6HRS PRN NC MILD PAIN / TEMP; Start 11/13/18 at 21:00 Albuterol Sulfate (Ventolin Neb Soln) 2.5 mg PRN Q6HRS PRN NEB SHORTNESS OF BREATH, COMFORT; Start 11/13/18 at 13:00; Stop 11/13/18 at 15:02; Status DC Clonidine HCl (Catapres) 0.1 mg PRN Q6HRS PRN PO HYPERTENSION; Start 11/13/18 at 21:00 Fentanyl Citrate (Fentanyl 2ml Vial) 50 mcg PRN Q2HR PRN IV MODERATE TO SEVERE PAIN Last administered on 11/14/18at 06:05; Start 11/13/18 at 12:15 Lorazepam (Ativan Inj) 0.5 mg PRN Q4HRS PRN IV ANXIETY / AGITATION; Start 11/13/18 at 12:15 Lorazepam (Ativan Inj) 1 mg PRN Q4HRS PRN IV ANXIETY / AGITATION; Start 11/13/18 at 12:15 Lorazepam (Ativan Intensol) 2 mg PRN Q6HRS PRN SL ANXIETY / AGITATION; Start 11/13/18 at 16:45 Morphine Sulfate (Roxanol Conc) 20 mg PRN Q3HRS PRN SL MODERTE TO SEVERE PAIN; Start 11/13/18 at 16:45 Pantoprazole Sodium (PROTONIX VIAL for IV PUSH) 40 mg DAILYAC IVP ; Start 11/14/18 at 07:30; Stop 11/13/18 at 14:32; Status DC Vancomycin HCl (Vancomycin Trough Level) 1 each 1X ONCE MC ; Start 11/14/18 at 02:30; Stop 11/14/18 at 02:31; Status Cancel Vitals/I & O Vital Sign - Last 24 Hours 11/13/18 11/13/18 11/13/18 11/13/18 10:19 10:38 11:48 11:54 Pulse 77 Resp 12 B/P (MAP) 143/47 (79) 137/44 (75) Pulse Ox 95 96 65 O2 Delivery Ventilator Ventilator Ventilator 11/13/18 11/13/18 11/13/18 11/13/18 12:00 12:00 12:00 13:00 Temp 97.7 97.7 Pulse 90 104 Resp 14 24 B/P (MAP) 196/64 (108) 189/50 (96) Pulse Ox 95 91 O2 Delivery Ventilator Mechanical Ventilator Nasal Cannula O2 Flow Rate 2.0 11/13/18 11/13/18 11/13/18 11/13/18 13:01 13:31 16:35 19:00 Temp 101.2 102.0 101.2 102.0 Pulse 107 116 Resp 24 20 22 20 B/P (MAP) 188/76 (113) 192/68 (109) Pulse Ox 95 95 98 74 O2 Delivery Nasal Cannula Nasal Cannula O2 Flow Rate 2.0 2.0 4.0 4.0 11/13/18 11/14/18 20:00 07:34 Temp 97.9 97.9 Pulse 113 Resp 20 B/P (MAP) 143/56 (85) Pulse Ox 74 O2 Delivery Nasal Cannula O2 Flow Rate 4.0 4.0 Intake and Output 11/13/18 11/13/18 11/14/18 15:00 23:00 07:00 Intake Total 444 ml 0 ml 0 ml Output Total 475 ml 200 ml 700 ml Balance -31 ml -200 ml -700 ml Nutrition Consultation Dietary Evaluation: Recommendations by RD: PPN/TPN Comments: Pt NPO, on hospice. Expected Outcomes/Goals: comfort Malnutrition Findings: Food and Nutrition Intake (Mod: <75% est energy req 7days Weight Status: Appropriate MARVEL POWER MD Nov 14, 2018 10:10
--- NOTE | 2018-11-14 10:14 | SNU/HH DC ---
DISCHARGE ORDERS DISCHARGE INFORMATION: DISCHARGE DATE: Nov 14, 2018 CONDITION ON DISCHARGE: Unstable CODE STATUS: Code Status: DNR/DNI PRISON: SNF STAY <30 DAYS: Yes HOSPICE: HOSPICE: Yes HOSPICE EVAL & TREAT: Yes LTAC: ADMIT TO LTAC: No POST DISCHARGE ORDERS: ACTIVITY ORDERS: Activity as tolerated DIET AFTER DISCHARGE: ADA WOUND/INCISION CARE: Change dressing, Reinforce dressing PRN, Routine catheter care CHECKS AFTER DISCHARGE: CHECKS AFTER DISCHARGE: Check blood sugar, ac/hs TREATMENT/EQUIPMENT ORDERS: ADAPTIVE EQUIPMENT NEEDED: None, Wheelchair Physical Therapy For: Evalulation/Treatment Occupational Therapy For: Evaluation/Treatment DISCHARGE MEDICATIONS: Home Meds Active Scripts Metformin Hcl (METFORMIN HCL) 500 Mg Tablet, 500 MG PO BIDWMEALS for ANTI- DIABETIC for 30 Days, #60 TAB 0 Refills Prov:KASIE TRIPLETT MD 10/17/18 Insulin Aspart (NOVOLOG FLEXPEN) 100 Unit/1 Ml Insuln.pen, 2 UNIT SQ TIDAC for DM for 30 Days, SYR hold if blood sugar < 120 Prov:ELIAS GONZALEZ MD 09/24/18 Ipratropium/Albuterol Sulfate (DUONEB 0.5-3(2.5) MG/3 ML) 3 Ml Ampul.neb, 3 ML NEB QID for copd for 30 Days, #120 EACH Prov:KASIE TRIPLETT MD 05/23/18 Reported Medications Phenytoin Sodium Extended (DILANTIN) 100 Mg Capsule, 1 CAP PO TID for SEIZURES, #90 CAP 3 Refills 05/19/18 Omeprazole (OMEPRAZOLE) 40 Mg Capsule.dr, 1 CAP PO BID for GERD, #30 CAP 3 Refills 05/19/18 Metoprolol Tartrate (METOPROLOL TARTRATE) 50 Mg Tablet, 1 TAB PO BID for HTN, #60 TAB 5 Refills 05/19/18 Losartan Potassium (LOSARTAN POTASSIUM) 100 Mg Tablet, 100 MG PO DAILY for HYPERTENSION, TAB 05/19/18 Gabapentin (GABAPENTIN ) 300 Mg Capsule, 300 MG PO TID for NEUROGENIC PAIN, CAP 05/19/18 Furosemide (FUROSEMIDE) 40 Mg Tablet, 1 TAB PO DAILY for ANASARCA, #30 TAB 5 Refills 05/19/18 Atorvastatin Calcium (ATORVASTATIN CALCIUM) 20 Mg Tablet, 1 TAB PO DAILY for HLD, #30 TAB 5 Refills 05/19/18 Aspirin (ASPIRIN) 81 Mg Tab.chew, 1 TAB PO DAILY for heart, #30 TAB 3 Refills 05/19/18 Discontinued Reported Medications Multivits,Ca,Minerals/Iron/Fa (THERA-M TABLET) 1 Each Tablet, 1 EACH PO DAILY for Supplement , TAB 07/15/18 Sennosides (SENNA) 8.6 Mg Tablet, 8.6 MG PO BID for CONSTIPATION , TAB 05/19/18 Guaifenesin (MUCINEX) 600 Mg Tablet.er, 1 TAB PO BID PRN for CONGESTION, #14 TAB 05/19/18 Discontinued Scripts Magnesium Oxide (MAG-OXIDE) 400 Mg Tablet, 1 TAB PO BID for HYPOMAG for 30 Days, #60 TAB 5 Refills Prov:KASIE TRIPLETT MD 11/07/18 Insulin Glargine,Hum.rec.anlog (LANTUS SOLOSTAR) 100 Unit/1 Ml Insuln.pen, 2 UNIT SQ QHS for dm for 30 Days, #15 SYR Prov:KASIE TRIPLETT MD 10/17/18 Lactobacillus Acidophilus (Acidophilus Lactobacilli) 1 Each Capsule, 1 EACH PO BID for pneumonia for 10 Days, #20 CAP Prov:KASIE TRIPLETT MD 05/23/18 MARVEL POWER MD Nov 14, 2018 10:14
--- NOTE | 2018-11-14 11:35 | PDOC ---
PULMONARY PROGRESS NOTES Subjective terminally extubated 11/13 awake, no soa Vitals Vital Signs Date Time Temp Pulse Resp B/P (MAP) Pulse Ox O2 Delivery O2 Flow Rate FiO2 11/14/18 11:13 Nasal Cannula 11/14/18 07:34 97.9 113 20 143/56 (85) 74 4.0 97.9 General: Alert Lungs: Other (decrease bs) Cardiovascular: S1, S2 Abdomen: Soft, Non-tender Extremities: Other (L BKA) Skin: Warm Labs Laboratory Tests Test 11/12/18 13:22 11/12/18 17:09 11/12/18 22:19 11/13/18 06:25 Glucose (Fingerstick) 146 mg/dL (70-99) 149 mg/dL (70-99) 130 mg/dL (70-99) Sodium Level 139 mmol/L (136-145) Potassium Level 4.0 mmol/L (3.5-5.1) Chloride Level 104 mmol/L (98-107) Carbon Dioxide Level 29 mmol/L (21-32) Anion Gap 6 (6-14) Blood Urea Nitrogen 26 mg/dL (8-26) Creatinine 1.1 mg/dL (0.7-1.3) Estimated GFR (Cockcroft-Gault) 81.0 Glucose Level 193 mg/dL (70-99) Calcium Level 7.9 mg/dL (8.5-10.1) Phosphorus Level 4.1 mg/dL (2.6-4.7) Magnesium Level 2.0 mg/dL (1.8-2.4) Test 11/13/18 08:25 11/14/18 05:35 O2 Saturation 93 % (92-99) Arterial Blood pH 7.37 (7.35-7.45) Arterial Blood pCO2 at Patient Temp 48 mmHg (35-46) Arterial Blood pO2 at Patient Temp 74 mmHg (65-108) Arterial Blood HCO3 27 mmol/L (21-28) Arterial Blood Base Excess 1 mmol/L (-3-3) FiO2 35 Sodium Level 144 mmol/L (136-145) Potassium Level 3.9 mmol/L (3.5-5.1) Chloride Level 108 mmol/L (98-107) Carbon Dioxide Level 26 mmol/L (21-32) Anion Gap 10 (6-14) Blood Urea Nitrogen 21 mg/dL (8-26) Creatinine 1.1 mg/dL (0.7-1.3) Estimated GFR (Cockcroft-Gault) 81.0 Glucose Level 139 mg/dL (70-99) Calcium Level 8.8 mg/dL (8.5-10.1) Phosphorus Level 4.4 mg/dL (2.6-4.7) Magnesium Level 2.4 mg/dL (1.8-2.4) Laboratory Tests Test 11/14/18 05:35 Sodium Level 144 mmol/L (136-145) Potassium Level 3.9 mmol/L (3.5-5.1) Chloride Level 108 mmol/L (98-107) Carbon Dioxide Level 26 mmol/L (21-32) Anion Gap 10 (6-14) Blood Urea Nitrogen 21 mg/dL (8-26) Creatinine 1.1 mg/dL (0.7-1.3) Estimated GFR (Cockcroft-Gault) 81.0 Glucose Level 139 mg/dL (70-99) Calcium Level 8.8 mg/dL (8.5-10.1) Phosphorus Level 4.4 mg/dL (2.6-4.7) Magnesium Level 2.4 mg/dL (1.8-2.4) Medications Active Scripts Medications Dose Route/Sig Max Daily Dose Days Date Category Dose Instructions Mag-Oxide (Magnesium Oxide) 400 Mg Tablet 1 Tab PO BID 11/07/18 Rx Lantus Solostar (Insulin Glargine,Hum.rec.anlog) 100 Unit/1 Ml Insuln.pen 2 Unit SQ QHS 10/17/18 Rx Metformin Hcl 500 Mg Tablet 500 Mg PO BIDWMEALS 10/17/18 Rx Novolog Flexpen (Insulin Aspart) 100 Unit/1 Ml Insuln.pen 2 Unit SQ TIDAC 30 09/24/18 Rx hold if blood sugar < 120 Thera-M Tablet (Multivits,Ca,Minerals/Iron/Fa) 1 Each Tablet 1 Each PO DAILY 07/15/18 Reported Duoneb 0.5-3(2.5) Mg/3 Ml (Albuterol/Ipratropium) 3 Ml Ampul.neb 3 Ml NEB QID 30 05/23/18 Rx Acidophilus Lactobacilli (Lactobacillus Acidophilus) 1 Each Capsule 1 Each PO BID 10 05/23/18 Rx Senna (Sennosides) 8.6 Mg Tablet 8.6 Mg PO BID 05/19/18 Reported Dilantin (Phenytoin Sodium Extended) 100 Mg Capsule 1 Cap PO TID 05/19/18 Reported Omeprazole 40 Mg Capsule.dr 1 Cap PO BID 05/19/18 Reported Mucinex (Guaifenesin) 600 Mg Tablet.er 1 Tab PO BID PRN 05/19/18 Reported Metoprolol Tartrate 50 Mg Tablet 1 Tab PO BID 05/19/18 Reported Losartan Potassium 100 Mg Tablet 100 Mg PO DAILY 05/19/18 Reported Gabapentin (Gabapentin) 300 Mg Capsule 300 Mg PO TID 05/19/18 Reported Furosemide 40 Mg Tablet 1 Tab PO DAILY 05/19/18 Reported Atorvastatin Calcium 20 Mg Tablet 1 Tab PO DAILY 05/19/18 Reported Aspirin 81 Mg Tab.chew 1 Tab PO DAILY 05/19/[address] CHEST 11/11 REVIEWED cxr 11/13 reviewed Impression . 1. Acute hypoxic respiratory failure secondary to multifactorial etiologies including congestive heart failure with coexisting pneumonia/ Mucous plug/ Right LLL collapse and shock. 2. Shock. Possibility of coexisting sepsis/pneumonia likely etiology 3. 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 suspect aspiration 4. Dysphagia, status post PEG tube. 5. Severe protein-calorie malnutrition, also contributing to pleural effusions. He has albumin level of only 1.1. 6. Left below-knee amputation. 7. History of cerebrovascular accident. Plan . terminally extubated 11/13 continue comfort care will sign off TESFAYE DÍAZ MD Nov 14, 2018 11:35
[2018-11-14] MEDS ORDERED: HEPARIN PF 500 UNIT/5 ML DISP.SYRIN. IVP ONE (12:15)
--- NOTE | 2018-11-14 14:36 | NUR ---
Discharge Note: Patient was discharge was to [facility] with Hospice. Family agreeable with discharge plans. Patients portacath was flushed with heparin and de-accessed. Patient was transported to the facility by EMS. Called facility, report was given over phone to KIERSTEN Martin. Patient did not have any personal belongings with him.
== END 2018-11-14 12:15 | disposition hospice, inpatient (51) | DRG 871 ==
LOC: ER 17:33 → 1 WEST ICU 18:30 → 5 SOUTH 11-13 16:36
PROVIDERS: ADMIT Internal Medicine; ATTEND Internal Medicine
PROC: 5A09457 Assistance with Respiratory Ventilation, 24-96 Consecutive Hours, Continuous Positive Airway Pressure (ICD-10-PCS; principal; 2018-11-10)
PROC: 0BH17EZ Insertion of Endotracheal Airway into Trachea, Via Natural or Artificial Opening (ICD-10-PCS; 2018-11-11)
PROC: 5A1945Z Respiratory Ventilation, 24-96 Consecutive Hours (ICD-10-PCS; 2018-11-11)
PROC: 0B938ZZ Drainage of Right Main Bronchus, Via Natural or Artificial Opening Endoscopic (ICD-10-PCS; 2018-11-13)
DX: A41.9 Sepsis, unspecified organism (principal); J96.01 Acute respiratory failure with hypoxia; E43 Unspecified severe protein-calorie malnutrition; I50.33 Acute on chronic diastolic (congestive) heart failure; R65.21 Severe sepsis with septic shock; J69.0 Pneumonitis due to inhalation of food and vomit; I69.351 Hemiplegia and hemiparesis following cerebral infarction affecting right dominant side; J98.11 Atelectasis; M19.90 Unspecified osteoarthritis, unspecified site; I25.10 Atherosclerotic heart disease of native coronary artery without angina pectoris; E78.00 Pure hypercholesterolemia, unspecified; E11.51 Type 2 diabetes mellitus with diabetic peripheral angiopathy without gangrene; E11.42 Type 2 diabetes mellitus with diabetic polyneuropathy; E78.5 Hyperlipidemia, unspecified; I11.0 Hypertensive heart disease with heart failure; Z51.5 Encounter for palliative care; T17.990A Other foreign object in respiratory tract, part unspecified in causing asphyxiation, initial encounter; E11.621 Type 2 diabetes mellitus with foot ulcer; L97.519 Non-pressure chronic ulcer of other part of right foot with unspecified severity; D64.9 Anemia, unspecified; E11.65 Type 2 diabetes mellitus with hyperglycemia; E83.42 Hypomagnesemia; K21.9 Gastro-esophageal reflux disease without esophagitis; I69.320 Aphasia following cerebral infarction; Z68.21 Body mass index [BMI] 21.0-21.9, adult; Z89.512 Acquired absence of left leg below knee; Z87.440 Personal history of urinary (tract) infections; Z93.1 Gastrostomy status; Y92.89 Other specified places as the place of occurrence of the external cause; Z99.3 Dependence on wheelchair
CPT/HCPCS: 31622; 36415; 36600; 71045; 71275; 74177; 80048; 80053; 80061; 80185; 81001; 82805; 82962; 83605; 83735; 83880; 84100; 84145; 84443; 84484; 85007; 85025; 85027; 85379; 87040; 87070; 87205; 87804; 93005; 93306; 94002; 94003; 94640; 94660; 96374; J0330; J0610; J1650; J1815; J1940; J2543; J2704; J3010; J3370; J3475; J3480; J7040; J7050; J7620; P9046; Q2009; Q9967; 99285-25; G0378; J7030